=== PATIENT | male | born 1950 | race Caucasian/White ===

== ENCOUNTER 2017-02-10 10:56 | Inpatient (IN) ==
[2017-02-10] MEDS ORDERED: 0.9 % Sodium Chloride 1,000 ML IVC ONE ×3 (11:15→14:49)
--- NOTE | 2017-02-10 11:20 | Emergency Department Note ---
START Narrative - START START: I examined this patient and my medical decision-making was reviewed with the TAXICAB DISPATCHER/PA/Advanced Practice Nurse/Resident Physician. I agree with the documented findings, disposition and treatment plan as described except to the extent set forth below. ED attending note: Patient seen with emergency medicine resident Dr. Espana. Please see a copy of his note for details of the H&P, evaluation, management and disposition of this patient. We independently had [id number] contact with the patient Briefly: 66-year-old male diabetic comes in with swelling pain and redness on the lateral aspect of his left foot and ulcer at the bottom of the lateral aspect of his foot missing his left great toe due to an injury years ago. Patient says has been getting worse with discharge and odor for the past couple weeks. Examination was diabetic foot ulcer patient will get labs and imaging to exclude osteomyelitis or necrotizing infection. Admission anticipated, disposition pending.
[2017-02-10 11:39] LABS: Basophils # 0.1 K/mcL (0.0-0.2); Basophils % 0.6 %; Eosinophils # 0.3 K/mcL (0.0-0.6); Hematocrit 43.5 % (37.5-50.1); Hemoglobin 14.1 g/dL (12.9-16.9); Immature Granulocytes % 0.4 % (0-4); Lymphocytes # 0.9 K/mcL (0.6-4.6); Lymphocytes % 7.9 %; Mean Corpuscular HGB Conc 32.4 g/dL (31.6-35.5); Mean Corpuscular Hemoglobin 26.6 pg (28.0-33.3); Mean Corpuscular Volume 81.9 fL (83.0-100.0); Mean Platelet Volume 9.2 fL (9.4-12.4); Monocytes % 9.2 %; Neutrophils # 8.6 K/mcL (1.6-8.9); Platelet Count 248 K/mcL (140-400); Red Blood Count 5.31 M/mcL (4.19-5.50); Red Cell Distribution Width 12.5 % (11.5-14.5); Segmented Neutrophils % 78.9 %
[2017-02-10 11:52] LABS: Calcium 9.7 mg/dL (8.6-10.8); Potassium 3.8 mEq/L (3.5-4.5)
--- NOTE | 2017-02-10 12:22 | Emergency Department Note ---
Disposition Clinical Impression: ELLEN (acute kidney injury) Osteomyelitis of left foot Qualifiers: Osteomyelitis type: unspecified type Qualified Code(s): M86.9 - Osteomyelitis, unspecified Diabetic foot ulcer Qualifiers: Diabetic foot ulcer location: midfoot Diabetes mellitus type: type 2 Laterality : left Non-pressure ulcer stage: with necrosis of bone Qualified Code(s): E11.621 - Type 2 diabetes mellitus with foot ulcer Disposition: Admitted As Inpatient Condition: Serious Forms: ED Satisfaction Letter Time of Disposition: 16:15 Lower Extremity Injury HPI - General Chief Complaint: ED Skin/Abscess/Foreign Body Stated Complaint: Ulcer on left foot Time Seen by Provider: 02/10/17 11:11 Source: patient Limitations: no limitations Nursing Notes Reviewed: Yes Vital Signs Reviewed: Yes - History of Present Illness HPI Narrative: 66-year-old male with history of hypertension, hyperlipidemia, CAD, presents with left foot pain and left foot ulcer, patient has diabetic ulcers and great toe amputation on the left great toe from ramirez hog remote injury. She reports intermittent fever and chills, he states that he has not lifted his feet for a couple days but he thinks his pain started 2 days ago, he noticed that he had a bloody sock when he took off his scalp with this. Patient states that the pains at the bottom of his left foot on the outside of the foot. Advised patient toe. Patient also has a history of PAD. Patient reports nausea, fevers at home but no measured temperatures. He has a history of MRSA infections as well. Pt Subjective Complaint: foot injury Injury location: Left foot Onset (ago): hour(s) Pain Severity: moderate Pain Scale: 5 Improves with: nothing Worsens with: weight bearing, movement Associated symptoms: Reports: able to partially bear weight - Related Data Home Medications Medication Instructions Recorded Confirmed Aspirin [Lo-Dose Aspirin EC] 81 mg PO DAILY 04/14/16 02/10/17 Insulin DETEMIR [Levemir] 30 unit SQ BID 04/14/16 02/10/17 Insulin Human Regular [HumuLIN R] 0 unit SQ TIDWM 04/14/16 02/10/17 Lisinopril [Zestril] 40 mg PO DAILY 04/14/16 02/10/17 Simvastatin [Zocor] 40 mg PO HS 04/14/16 02/10/17 Warfarin [Coumadin] 7.5 mg PO DAILY 04/14/16 02/10/17 hydrALAZINE [HydrALAZINE] 10 mg PO DAILY 04/14/16 02/10/17 amLODIPine [Norvasc] 5 mg PO DAILY 02/10/17 02/10/17 Previous Rx's Medication Instructions Recorded Furosemide [Lasix] 20 mg PO DAILY #30 tablet 06/03/16 HYDROcodone/Acet 5/325 mg [[place] 1 tab PO Q4-6H PRN #20 tablet 06/03/16 5-325 mg] Metoprolol [Lopressor] 25 mg PO BID #60 tablet 06/03/16 Allergies Allergy/AdvReac Type Severity Reaction Status Date / Time No Known Allergies Allergy Verified 05/18/16 07:09 All systems ED: reviewed and negative except as stated. Review of Systems: As Per HPI Constitutional: Reports: as per HPI, fever, chills Eyes: Denies: eye pain ENT ED: Denies: ear pain Cardiovascular: Denies: chest pain Respiratory: Denies: cough, dyspnea Gastrointestinal: Reports: as per HPI, nausea. Denies: abdominal pain Genitourinary: Denies: urgency, dysuria Past Medical History - Past Medical History Attestation: Yes The following information was validated with the patient. Source: patient Medical history: Reports: diabetes, hypertension, peripheral artery disease, valvular heart disease Surgical history: Reports: heart valve replacement Psychiatric history: Reports: no psych history - Social History Smoking Status: Never smoker Smokeless Tobacco Status: No Alcohol use: Reports: none Drug use: Reports: none Physical Exam Constitutional: NAD, vital signs show tachycardia. Eyes: PERRLA, sclera anicteric Neck: normal inspection, neck is supple Resp: CTA bilaterally, no resp distress CV: RRR, no m/g/r +2 bilateral dorsalis pedis pulses GI: normal inspection, soft, no guarding or rigidity Back: normal inspection, no tenderness to palpation Neuro: A&O3, CNII-XII grossly intact, CHAMORRO MSK: Bilateral digit amputations of the great toe on the left and the toes on the right, Skin: Ulcerated lesion to the plantar aspect of the left foot at around the fourth or fifth metatarsal, unable to feel bone, no evidence of positive purulence, erythema around the ankle and distal, no evidence of crepitus. - General Limitations: no limitations General appearance: alert, in no apparent distress Course Course Narrative: 66-year-old male with left foot ulcer, given systemic symptoms such as fever or chills, tachycardia, concern for cellulitis possibly osteomyelitis, bleeding x- ray initial labs with lactate blood cultures, Plan to do MRI if x-ray is negative for acute pathology - Reevaluation(s) Reevaluation #1: Paged Dr Briseno. Time: 12:36 Reevaluation #2: MRI returned confirms Xray findings Vital Signs Temperature 98.2 F 02/10/17 11:01 Pulse Rate 114 02/10/17 11:01 Respiratory Rate 20 02/10/17 11:01 Blood Pressure 106/68 02/10/17 11:01 O2 Sat by Pulse Oximetry 91 02/10/17 11:01 Temperature 98.2 F 02/10/17 11:01 Pulse Rate 114 02/10/17 11:01 Respiratory Rate 20 02/10/17 11:01 Blood Pressure 106/68 02/10/17 11:01 O2 Sat by Pulse Oximetry 91 02/10/17 11:01 Oxygen Delivery Oxygen Delivery Room Air Extremity Injury, Lower - MDM Narrative Medical decision making narrative: Admitted to Dr Acuna, in stable cooondition 3 L fluids given, broad spectrum Abx started Zosyn and Vanc, Podiatry consuleted, does not meet criteria for severe sepsis, Lactate nonelevated (On SIRS criteria is Tachycardia) but therapy given Abx, BCx, WoundCx, Lactate, Abx, and 30mL/kg bolus anyway for appropriate treatment. Prior to transfer to the floor, the patient was happy and laughing, hemodynamically stable with stable vital signs no evidence of hypotension, antibiotics running, no acute distress - Differential Diagnosis Likely: sprain/strain, puncture wound - Medical Records Medical records reviewed: Yes I reviewed the patient's medical records. - Lab Data Lab results reviewed: Yes I reviewed the patient's lab results. Result diagrams: 02/10/17 11:30 02/10/17 11:30 Lab Results 02/10/17 02/10/17 02/10/17 Range/Units 11:30 11:30 11:30 WBC 10.8 (4.3-11.1) K/mcL RBC 5.31 (4.19-5.50) M/mcL Hgb 14.1 (12.9-16.9) g/dL Hct 43.5 (37.5-50.1) % MCV 81.9 L (83.0-100.0) fL MCH 26.6 L (28.0-33.3) pg MCHC 32.4 (31.6-35.5) g/dL RDW 12.5 (11.5-14.5) % Plt Count 248 (140-400) K/mcL MPV 9.2 L (9.4-12.4) fL Immature Gran % 0.4 (0-4) % Seg Neutrophils % 78.9 % Lymphocytes % 7.9 % Monocytes % 9.2 % Eosinophils % 3.0 % Basophils % 0.6 % Neutrophils # 8.6 (1.6-8.9) K/mcL Lymphocytes # 0.9 (0.6-4.6) K/mcL Monocytes # 1.0 (0.0-1.3) K/mcL Eosinophils # 0.3 (0.0-0.6) K/mcL Basophils # 0.1 (0.0-0.2) K/mcL Sodium 137 (136-145) mEq/L Potassium 3.8 (3.5-4.5) mEq/L Chloride 100 (98-109) mEq/L Carbon Dioxide 25 (19-29) mEq/L BUN 46 H (8-26) mg/dL Creatinine 2.00 H (0.72-1.25) mg/dL Est GFR ( Amer) 41 L (> 60) Est GFR (Non-Af Amer) 34 L (> 60) BUN/Creatinine Ratio 23 (6-26) Glucose 173 H (70-99) mg/dL Calculated Osmolality 300 (280-300) Lactic Acid 1.5 (0.5-2.2) mmol/L Calcium 9.7 (8.6-10.8) mg/dL - Radiology Data Radiology results reviewed: Yes I reviewed the patient's radiology results. Foot X-Ray 02/10/17 11:13 IMPRESSION: 1. Findings consistent with plantar lateral cellulitis with adjacent 1st MTP septic arthropathy and osteomyelitis of the 5th metatarsal head and P1 base. 2. Prior 1st digit amputation at the metatarsal mid diaphysis. No findings to suggest active osteomyelitis. D/ / 02/10/2017 12:26:47 Franki Logan MD / krissy Interpreting Provider: Franki Logan MD Ankle MRI 02/10/17 00:00 IMPRESSION: Diffuse soft tissue swelling and edema noted throughout the ankle and foot. Findings are most prominent along the plantar aspect of the foot distally at the level of the 5th metatarsal head. Open wound along the plantar aspect of the 5th metatarsal head which extends to underlying bone. Osteomyelitis involving the 5th metatarsal with sparing of the base. Deformity of the 5th metatarsal head may be related to previous fracture or erosive changes. Osteomyelitis also involving the proximal phalanx of the 5th digit with sparing of the distal metaphysis of the proximal phalanx. Small foci of gas within the adjacent soft tissues. No fluid collection. Diffuse fatty atrophy of visualized muscles of the foot and ankle. Very mild Achilles tendinosis. D/ / Abril Cheung MD / Abril Cheung MD Interpreting Provider: Abril Cheung MD Foot X-Ray 02/10/17 11:13 IMPRESSION: 1. Findings consistent with plantar lateral cellulitis with adjacent 1st MTP septic arthropathy and osteomyelitis of the 5th metatarsal head and P1 base. 2. Prior 1st digit amputation at the metatarsal mid diaphysis. No findings to suggest active osteomyelitis. D/ / 02/10/2017 12:26:47 Franki Logan MD / krissy Interpreting Provider: Franki Logan MD Foot MRI 02/10/17 12:13 IMPRESSION: Diffuse soft tissue swelling and edema noted throughout the ankle and foot. Findings are most prominent along the plantar aspect of the foot distally at the level of the 5th metatarsal head. Open wound along the plantar aspect of the 5th metatarsal head which extends to underlying bone. Osteomyelitis involving the 5th metatarsal with sparing of the base. Deformity of the 5th metatarsal head may be related to previous fracture or erosive changes. Osteomyelitis also involving the proximal phalanx of the 5th digit with sparing of the distal metaphysis of the proximal phalanx. Small foci of gas within the adjacent soft tissues. No fluid collection. Diffuse fatty atrophy of visualized muscles of the foot and ankle. Very mild Achilles tendinosis. D/ / Abril Cheung MD / Abril Cheung MD Interpreting Provider: Abril Cheung MD - EKG Data EKG attestation: Yes I reviewed and interpreted this EKG. EKG shows normal: sinus rhythm Rate: normal (76 bpm KS 160 QRS [address] segment elevations or depressions, flattened T waves in lead aVL specific ST segment changes) Rhythm: NSR [place]/QRS: normal Interpretation: no acute changes - Core Measures AMI Core Measures Followed: No
[2017-02-10] MEDS ORDERED: Vancomycin 1,000 MG in D5% in Water 250 ML IVPB ONE (12:31)
[2017-02-10] MEDS ORDERED: Piperacillin/Tazobactam 3.375 GM in D5% in Water (Mini-Bag+) 100 ML IVPB ONE (12:31)
[2017-02-10] MEDS ORDERED: *HR* Morphine 2 MG/ML SYRINGE IVP ONE (12:41)
[2017-02-10] MEDS ORDERED: Ondansetron 4 MG/2 ML VIAL IVP ONE (12:41)
[2017-02-10] MEDS ORDERED: Acetaminophen 325 MG TABLET PO PRN (18:18)
[2017-02-10] MEDS ORDERED: Naloxone 0.4 MG/ML INJ IVP PRN (18:18)
--- NOTE | 2017-02-10 18:33 | Internal Med History&Physical ---
<Luis Wisdom - Last Filed: 02/10/17 19:07> Date of Encounter: 02/10/17 Time of Encounter: 18:31 Assessment and Plan (1) Osteomyelitis of left foot Current visit: Yes Status: Acute New diagnosis of osteomyelitis of left foot. MRI reveals soft tissue swelling of the ankle and foot. There was noted prominent swelling on the plantar aspect distally to level of fifth metatarsal head and osteomyelitis of fifth metatarsal, as well as small amount of gas and osteomyelitis of fifth proximal phalanx. On initial presentation to the ED the patient also met SIRS criteria, reporting chills, tachycardia, fevers, nausea. However at this time he is afebrile normal sinus rhythm and hemodynamically stable. Plan is to admit as inpatient Ortho consult to assess Wound cultures sent; awaiting results Empiric antibiotic therapy started until results of culture. Start patient on vancomycin pharmacy to dose and Zosyn 3.75 every 8 hours. Plan is to narrow antibiotics based on results of cultures Continuous telemetry Ordered PT/INR, APTT We will start heparin drip as patient has history of mechanical valve Holding warfarin for now CBC and CMP in the a.m. Qualifiers: Osteomyelitis type: unspecified type Qualified Code(s): M86.9 - Osteomyelitis, unspecified (2) Diabetic foot ulcer Current visit: Yes Status: Chronic Chronic diabetic foot ulcer. MRI revealed new osteomyelitis. Plan for surgical intervention at this hospital stay. Empiric antibody therapy started with vancomycin with pharmacy to dose and Zosyn 3.75 every 8 hours. Patient's warfarin stopped PT/INR ordered and patient was placed on a heparin drip weight- based dosing Qualifiers: Diabetic foot ulcer location: midfoot Diabetes mellitus type: type 2 Laterality: left Non-pressure ulcer stage: with necrosis of bone Qualified Code(s): E11.621 - Type 2 diabetes mellitus with foot ulcer; L97.424 - 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 (3) ELLEN (acute kidney injury) Current visit: Yes Status: Chronic Acute on chronic kidney injury. Throughout review as noted the patient's creatinine has increased over the last few months. This is likely due to infection and ostium mellitus of left foot as this is from a chronic diabetic foot ulcer. Review of echocardiogram shows hypokinesis with a preserved ejection fraction. However at this time the patient will remain saline locked. We will consider gentle hydration if morning creatinine is elevated. (4) SIRS (systemic inflammatory response syndrome) Current visit: Yes Status: Acute Upon initially arriving to the ED the patient had chills, tachycardia, nausea, and fevers. However, at this time he is afebrile, normal sinus rhythm, and hemodynamically stable. Wound cultures sent left diabetic foot ulcer Empiric antibiotic therapy started for ostio myelitis of left foot. narrow ATB therapy based on culture results. CMP and CBC in a.m. We will continue to monitor (5) Cellulitis Current visit: Yes Status: Acute Cellulitis of left ankle and foot. Confirmed diagnosis of osteoporosis. Has been started on empiric therapy with vancomycin and Zosyn. Wound culture sent and pending her cultures based on results. Orthopedics consult for surgery and recommended intervention Qualifiers: Site of cellulitis: other site Qualified Code(s): L03.818 - Cellulitis of other sites (6) HTN (hypertension) Current visit: No Status: Chronic History of hypertension. However he is hemodynamically stable at this time. Continue home dose of hydralazine, beta rachell, CHARITY inhibitor. Qualifiers: Hypertension type: essential hypertension Qualified Code(s): I10 - Essential (primary) hypertension (7) DVT prophylaxis Current visit: Yes Status: Acute Patient has diabetes, peripheral vascular disease,severe limitations to activity , high risk for DVT. However, is scheduled for potential surgery tomorrow for left foot for osteomyelitis. Cannot find PT/INR in the labs. Ordered PT/INR stopped Coumadin at this time. Placing patient on heparin drip as he does have a mechanical heart valve. Internal Medicine - H&P: HPI Chief complaint: Left foot and ankle swelling; diabetic ulcer, suspect osteomyelitis Admitted From: Home Plans for Post Hospital Care: Home History of present illness: Mr. Wharton is a 66 year old male with a PMH for HTN, DM, CAD, PAD, valvular heart disease with heart valve replacement. [facility]onant to [facility] today on 02-10-17 with chills, tachycardia, nausea, fevers and swollen left foot and ankle with ongoing diabetic foot ulcer. Due to past medical history of MRSA on his other foot on previous diabetic ulcers there was high suspicion for osteomyelitis. X-ray in the ED indicates plantar cellulitis and possible osteomyelitis of the fifth metatarsal. MRI of foot and ankle confirm soft tissue swelling most prominent at plantar aspect distal to the level of fifth metatarsal and osteomyelitis of fifth metatarsal. Additionally there is small amount of gas and also colitis of the fifth proximal phalanx. He was started on broad-spectrum antibiotics in the ED which included vancomycin and Zosyn. Additionally 1 cultures were obtained and sent. Initially, he met SIRS criteria, however at this time he is no longer febrile, is now normal sinus rhythm, and hemodynamically stable. CBC in the ED unremarkable. CMP also unremarkable with the exception of elevated creatinine of 2.0. Likely resolve his infection. Ortho has artery seen the patient and plans for surgical intervention tomorrow. He is being admitted for further monitoring and evaluation and for surgical intervention Past Med Surg Social Fam HX - Past Medical History Medical history: diabetes, hypertension, peripheral artery disease, valvular heart disease Psychiatric history: no psych history - Past Surgical History Surgical History: heart valve replacement - Social History Smoking Status: Never smoker Smokeless Tobacco Status: No Alcohol use: none Drug use: none - Family History Mother History Unknown: Yes Living Status: Hx Family Cardiac Disorders: No Hx Family Respiratory Disorders: No Father History Unknown: Yes Living Status: Hx Family Cardiac Disorders: No Hx Family Respiratory Disorders: No Internal Medicine - H&P: Meds Aspirin [Lo-Dose Aspirin EC] 81 mg PO DAILY 04/14/16 [History] Insulin DETEMIR [Levemir] 30 unit SQ BID 04/14/16 [History] Insulin Human Regular [HumuLIN R] 0 unit SQ TIDWM 04/14/16 [History] Lisinopril [Zestril] 40 mg PO DAILY 04/14/16 [History] Simvastatin [Zocor] 40 mg PO HS 04/14/16 [History] Warfarin [Coumadin] 7.5 mg PO DAILY 04/14/16 [History] hydrALAZINE [HydrALAZINE] 10 mg PO DAILY 04/14/16 [History] Furosemide [Lasix] 20 mg PO DAILY #30 tablet 06/03/16 [Rx] HYDROcodone/Acet 5/325 mg [[place] 5-325 mg] 1 tab PO Q4-6H PRN #20 tablet [Rx] Metoprolol [Lopressor] 25 mg PO BID #60 tablet 06/03/16 [Rx] amLODIPine [Norvasc] 5 mg PO DAILY 02/10/17 [History] Allergies No Known Allergies Allergy (Verified 05/18/16 07:09) All Systems PM: A 10-system review of systems was performed and is negative for pertinent findings except as documented above in the HPI. - Constitutional Constitutional: chills (Chills ongoing over the last couple of), fatigue, fever( s) (Fever ongoing over the last couple of days however afebrile now), no anorexia, no night sweats - EENT Eyes: no change in vision, no discharge, no pain, no photophobia Ears: no ear discharge, no ear pain, no tinnitus Nose, mouth and throat: no dysphagia, no nasal discharge, no neck pain, no sore throat - Cardiovascular Cardiovascular ROS IM: no chest pain, no diaphoresis, no dyspnea, no lightheadedness, no palpitations, no syncope - Respiratory Respiratory: no cough, no dyspnea, no wheezing, no excessive phlegm production - Gastrointestinal Gastrointestinal: no abdominal pain, no diarrhea, no hematemesis, no hematochezia, no melena, no nausea, no vomiting - Musculoskeletal Musculoskeletal ROS IM: joint swelling (Of angle and fifth metatarsal additional edema noted throughout entire foot and ankle), no numbness, no tingling - Integumentary Integumentary IM: skin ulcer (Diabetic foot ulcer stage III), no rash, no unusual bruising - Neurological Neurological ROS: no confusion, no convulsions, no focal weakness, no numbness, no tingling, no tremor(s) - Hematologic/Lymphatic Hematologic/Lymphatic: no easy bruising - Constitutional Vitals: Temp Pulse Resp BP Pulse Ox 97.8 F 79 17 151/75 91 02/10/17 17:25 02/10/17 17:25 02/10/17 17:25 02/10/17 17:25 02/10/17 17:25 General appearance: Present: A&O X 3, pleasant, no acute distress, obese - Head Head exam: Present: atraumatic, normocephalic - Eye Eye exam: Present: PERRL, conjuntiva pink, sclera anicteric Pupils: Present: PERRL - Neck Neck exam general surgery: Present: supple, trachea midline. Absent: lymphadenopathy - Respiratory Respiratory exam: Present: CTAB. Absent: accessory muscle use, rales, rhonchi, wheezes - Cardiovascular Cardiovascular exam: Present: RRR, +S1, +S2. Absent: diastolic murmur, gallop, rubs, systolic murmur - GI/Abdominal GI/Abdominal exam: Present: normal bowel sounds, soft, no peritoneal signs. Absent: distended, tenderness - Extremities Exam Extremities exam: Present: warm, radial pulses palpable and symmetrical. Absent : calf tenderness, cyanotic, pedal edema - Expanded Lower Extremities Exam Ankle exam: Present: erythema, swelling. Absent: normal inspection, tenderness Foot/Toe exam: Present: amputation (Left great toe amputation), erythema, swelling, tenderness at base of 5th metatarsal (Mild tenderness noted at base of fifth metatarsal; stage III diabetic foot ulcer nonhealing see history of present illness). Absent: calcaneal tenderness, normal inspection, tenderness - Neurological Exam Neurological exam: Present: CN II-XII intact, oriented X3, no focal deficits. Absent: pronater drift, facial droop, speech deficit - Skin Skin exam: Present: dry, intact Internal Med - H&P Results - Labs CBC & Chem 7: 02/10/17 11:30 02/10/17 11:30 - Diagnostic Studies Other Images Additional comments: MRI of left foot and ankle reveals soft tissue swelling most prominent at plantar aspect distally to level of fifth metatarsal head with osteo-mellitus of fifth metatarsal and fifth proximal phalanx as per radiology read <Elisha Danielle - Last Filed: 02/11/17 18:09> Date of Encounter: 02/11/17 Internal Medicine - H&P: HPI History of present illness: Mr. Wharton is a 66 year old male All Systems PM: A 10-system review of systems was performed and is negative for pertinent findings except as documented above in the HPI. - Constitutional Vitals: Temp Pulse Resp BP Pulse Ox 98.2 F 78 16 154/75 93 02/11/17 14:42 02/11/17 14:42 02/11/17 14:42 02/11/17 14:42 02/11/17 14:42 Internal Med - H&P Results - Labs CBC & Chem 7: 02/11/17 06:58 02/11/17 06:58 Labs: Short CBC 02/11/17 Range/Units 06:58 WBC 9.4 (4.3-11.1) K/mcL Hgb 12.1 L D (12.9-16.9) g/dL Hct 37.3 L (37.5-50.1) % Plt Count 196 (140-400) K/mcL Neutrophils # 7.0 (1.6-8.9) K/mcL BMP 02/11/17 06:58 Sodium 137 Potassium 4.3 Chloride 106 Carbon Dioxide 28 BUN 32 H D Creatinine 1.49 H Glucose 187 H Calcium 8.8 Liver Function 02/11/17 Range/Units 06:58 Total Bilirubin 0.4 (0.2-1.2) mg/dL AST 15 (5-34) Units/L ALT 10 (0-55) Units/L Alkaline Phosphatase 76 (38-126) Units/L Albumin 2.6 L (3.5-5.0) g/dL - Attending Attestation I examined this patient and my medical decision-making was reviewed with the CLINICAL SUPPORT SPECIALIST.. I agree with the documented findings, disposition and treatment plan as described .
[2017-02-10] MEDS ORDERED: D5% in Water 1,000 ML IVC PRN (18:52)
[2017-02-10] MEDS ORDERED: Dextrose Gel 15 GM PO PRN ×2 (18:52)
[2017-02-10] MEDS ORDERED: *HR* Dextrose 50 % in Water (Syg) 50 ML SYRINGE IVP PRN (18:52)
[2017-02-10] MEDS ORDERED: Vancomycin 1,500 MG in D5% in Water 250 ML IVPB SCH (19:00)
[2017-02-10] MEDS ORDERED: *HR* Heparin 5,000 UNIT/ML VIAL IVP PRN ×2 (19:04)
[2017-02-10] MEDS ORDERED: Heparin 25,000 UNIT/500 ML D5W 25,000 UNIT/500 ML MLS IVC SCH (19:15)
[2017-02-10 20:42] LABS: INR 9.6; Prothrombin Time 110.7 Seconds (9.4-12.1)
[2017-02-10 20:50] LABS: Activated Partial Thrombo Time 83.2 Seconds (26.0-36.0)
[2017-02-10] MEDS: *HR* HYDROcodone/Acet 5/325 mg TABLET PO PRN (20:51)
[2017-02-10] MEDS: Insulin DETEMIR 100 UNIT/ML X5UNITS SQ SCH (20:51)
[2017-02-10] MEDS: Insulin LISPRO 300 UNITS/3 ML VIAL SQ SCH (20:53)
[2017-02-10] MEDS ORDERED: *HR* Phytonadione 10 MG/ML AMPUL SQ ONE (21:01)
--- NOTE | 2017-02-10 21:06 | Event Note ---
Date of Encounter: 02/10/17 Time of Encounter: 21:03 EXECUTIVE VICE PRESIDENT BUSINESS DEVELOPMENT notified of critical PT/INR of 110 and 9.6. Orders given for 1mg IM Vitamin K now and to hold intended heparin gtt. The patient was to have his coumadin stopped and he was to be started on a heparin gtt based upon results of PT/INR and PTT as he has a mechanical valve. Since he is supratherapeutic I will hold heparin gtt and coumadin and draw a PT/INR in the am.
[2017-02-11] MEDS: Vancomycin 1,500 MG in D5% in Water 250 ML IVPB SCH ×2 (02:11→13:31)
[2017-02-11] MEDS ORDERED: *HR* Enoxaparin 40 MG/0.4 ML SYRINGE SQ SCH (06:00)
[2017-02-11 07:24] LABS: Albumin 2.6 g/dL (3.5-5.0); Albumin/Globulin Ratio 0.7 (1.1-2.2); Bilirubin,Total 0.4 mg/dL (0.2-1.2); Calcium 8.8 mg/dL (8.6-10.8); Potassium 4.3 mEq/L (3.5-4.5); Total Protein 6.6 g/dL (6.0-8.3)
[2017-02-11] MEDS: hydrALAZINE 10 MG TABLET PO SCH (07:32)
[2017-02-11] MEDS: Aspirin Enteric Coated 81 MG Tablet PO SCH (07:32)
[2017-02-11] MEDS: Insulin LISPRO 300 UNITS/3 ML VIAL SQ SCH ×4 (07:33→21:05)
[2017-02-11] MEDS: Furosemide 20 MG TABLET PO SCH (07:33)
[2017-02-11] MEDS: Insulin DETEMIR 100 UNIT/ML X5UNITS SQ SCH ×2 (07:33→21:06)
[2017-02-11] MEDS: amLODIPine 5 MG TABLET PO SCH (07:33)
[2017-02-11 07:38] LABS: INR 10.1
[2017-02-11 08:05] LABS: Basophils # 0.1 K/mcL (0.0-0.2); Basophils % 0.9 %; Eosinophils # 0.5 K/mcL (0.0-0.6); Eosinophils % 5.4 %; Hematocrit 37.3 % (37.5-50.1); Immature Granulocytes % 0.3 % (0-4); Lymphocytes # 0.4 K/mcL (0.6-4.6); Mean Corpuscular HGB Conc 32.4 g/dL (31.6-35.5); Mean Corpuscular Hemoglobin 27.3 pg (28.0-33.3); Mean Platelet Volume 9.3 fL (9.4-12.4); Monocytes # 1.4 K/mcL (0.0-1.3); Platelet Count 196 K/mcL (140-400); Red Blood Count 4.44 M/mcL (4.19-5.50); Red Cell Distribution Width 12.6 % (11.5-14.5); Segmented Neutrophils % 74.4 %
[2017-02-11 08:12] LABS: Hemoglobin 12.1 g/dL (12.9-16.9)
[2017-02-11] MEDS ORDERED: Lisinopril 20 MG TABLET PO SCH (09:00)
[2017-02-11] MEDS: *HR* HYDROcodone/Acet 5/325 mg TABLET PO PRN ×2 (09:44→16:24)
--- NOTE | 2017-02-11 09:51 | Podiatry Consult Note ---
Date of Encounter: 02/10/17 Time of Encounter: 17:49 Assessment and Plan (1) Diabetic foot ulcer Current visit: No Status: Acute Currently this patient is in need of a fifth metatarsal resection with possible irritation of the fifth toe or resection of the proximal phalanx of the fifth toe of the left foot. We will await further workup and until patient is stable for surgery. We will need to wait until the INR is stable as well for surgery. We will schedule this patient for surgery but may need to postpone until Monday. The patient was instructed that the surgery would be performed and that it would be a resection of the fifth metatarsal with possible application of the fifth digit of the left foot. The patient related understanding.Patient was informed of the risks and complications of surgery. These may include but are not limited to the following; nerve damage, numbness, tingling, RSD/CRPS, loss of motor function, loss of toe, loss of limb, loss of life, ischemia, wound healing issues, infection, scarring, keloid formation, continued pain, arthritis, non-union, mal-union, prominent hardware, displaced hardware, reaction to hardware, the need to remove hardware, bruising, continued limp, the need for future surgery, over correction, under correction, chronic swelling , the need for physical therapy, stiffness of joints, ulceration, slow healing, wound dehiscence, reaction to implant, reaction to sutures. The patient was informed of the possible conservative treatments available which may include but are not limited to the following: Orthotics, bracing, non -weight bearing, physical therapy, padding, taping, steroid injections, NSAIDS, casting. The patient was given the option to seek a second opinion. It was explained that surgery is an art and not an exact science therefore results cannot be guaranteed. All the patients questions and concerns were addressed. Patient agrees to have the surgery despite the possible risks and complications. Absolutely no guarantees were given or implied. Qualifiers: Diabetes mellitus type: type 2 Laterality: right Qualified Code(s): E11.621 - Type 2 diabetes mellitus with foot ulcer; L97.519 - Non-pressure chronic ulcer of other part of right foot with unspecified severity History of Present Illness Chief complaint: Ulceration of foot HPI: Mr. Wharton is a 66 year old male who relates that he had an ulceration/callus on the lateral aspect of the left foot which became a sore and got infected. Patient relates that he has very little sensation and it is hard to determine when he has injuries until they get infected. Patient denies any other issues. Past Med Surg Social Fam HX - Past Medical History Medical history: diabetes, hypertension, peripheral artery disease, valvular heart disease Psychiatric history: no psych history - Past Surgical History Surgical History: heart valve replacement - Social History Smoking Status: Never smoker Smokeless Tobacco Status: No Alcohol use: none Drug use: none - Family History Mother History Unknown: Yes Living Status: Hx Family Cardiac Disorders: No Hx Family Respiratory Disorders: No Father History Unknown: Yes Living Status: Hx Family Cardiac Disorders: No Hx Family Respiratory Disorders: No Medications and Allergies Aspirin [Lo-Dose Aspirin EC] 81 mg PO DAILY 04/14/16 [History] Insulin DETEMIR [Levemir] 30 unit SQ BID 04/14/16 [History] Insulin Human Regular [HumuLIN R] 0 unit SQ TIDWM 04/14/16 [History] Lisinopril [Zestril] 40 mg PO DAILY 04/14/16 [History] Simvastatin [Zocor] 40 mg PO HS 04/14/16 [History] Warfarin [Coumadin] 7.5 mg PO DAILY 04/14/16 [History] hydrALAZINE [HydrALAZINE] 10 mg PO DAILY 04/14/16 [History] Furosemide [Lasix] 20 mg PO DAILY #30 tablet 06/03/16 [Rx] HYDROcodone/Acet 5/325 mg [[place] 5-325 mg] 1 tab PO Q4-6H PRN #20 tablet [Rx] Metoprolol [Lopressor] 25 mg PO BID #60 tablet 06/03/16 [Rx] amLODIPine [Norvasc] 5 mg PO DAILY 02/10/17 [History] Allergies No Known Allergies Allergy (Verified 05/18/16 07:09) All Systems Reviewed: A 10-system review of systems was performed and is negative for pertinent findings except as documented above in the HPI. Physical Exam - Constitutional Vitals: Temp Pulse Resp BP Pulse Ox 98.4 F 82 18 156/71 93 02/11/17 05:07 02/11/17 05:07 02/11/17 05:07 02/11/17 05:07 02/11/17 07:10 Exam: Radiographic exam demonstrates osteomyelitis of the fifth metatarsal and digit. Patient has an ulceration sub-fifth met head that is full-thickness to the level of the bone and has foul-smelling purulent drainage. Patient has erythema up to the level of the ankle. Pedal pulses are faintly palpable. Capillary fill time is intact to the digits. Sensation significantly diminished consistent with peripheral neuropathy. Results - Labs Result Diagrams: 02/11/17 06:58 02/11/17 06:58 Labs: Abnormal lab results Hgb 12.1 g/dL (12.9-16.9) L D 02/11/17 06:58 Hct 37.3 % (37.5-50.1) L 02/11/17 06:58 MCH 27.3 pg (28.0-33.3) L 02/11/17 06:58 MPV 9.3 fL (9.4-12.4) L 02/11/17 06:58 Lymphocytes # 0.4 K/mcL (0.6-4.6) L 02/11/17 06:58 Monocytes # 1.4 K/mcL (0.0-1.3) H 02/11/17 06:58 PT 117.0 Seconds (9.4-12.1) H* 02/11/17 06:58 INR 10.1 H* 02/11/17 06:58 APTT 83.2 Seconds (26.0-36.0) H 02/10/17 19:17 BUN 32 mg/dL (8-26) H D 02/11/17 06:58 Creatinine 1.49 mg/dL (0.72-1.25) H 02/11/17 06:58 Est GFR ( Amer) 58 (> 60) L 02/11/17 06:58 Est GFR (Non-Af Amer) 47 (> 60) L 02/11/17 06:58 Glucose 187 mg/dL (70-99) H 02/11/17 06:58 POC Glucose 194 (58-89) H 02/11/17 05:20 Hemoglobin A1c 10.0 % (-5.6) H 02/10/17 19:17 Albumin 2.6 g/dL (3.5-5.0) L 02/11/17 06:58 Globulin 4.0 g/dL (2.4-3.5) H 02/11/17 06:58 Albumin/Globulin Ratio 0.7 (1.1-2.2) L 02/11/17 06:58 H & H 02/11/17 Range/Units 06:58 Hgb 12.1 L D (12.9-16.9) g/dL Hct 37.3 L (37.5-50.1) % All other labs normal. Consult Discharge Plan - Plan Referrals: Checo Briseno DPM [Partnered Physician] -
[2017-02-11] MEDS ORDERED: *HR* Phytonadione 5 MG TABLET PO ONE (11:49)
[2017-02-11] MEDS: Gabapentin 100 MG CAPSULE PO SCH ×3 (12:16→21:07)
[2017-02-11 16:33] LABS: Acinetobacter baumannii by PCR Not Detected (Not Detect); Candida albicans by PCR Not Detected (Not Detect); Candida glabrata by PCR Not Detected (Not Detect); Candida krusei by PCR Not Detected (Not Detect); Candida parapsilosis by PCR Not Detected (Not Detect); Candida tropicalis by PCR Not Detected (Not Detect); Enterococcus by PCR Not Detected (Not Detect); Escherichia coli by PCR Not Detected (Not Detect); Klebsiella oxytoca by PCR Not Detected (Not Detect); Klebsiella pneumoniae by PCR Not Detected (Not Detect); Pseudomonas aeruginosa by PCR Not Detected (Not Detect); Serratia marcescens by PCR Not Detected (Not Detect); Staphylococcus aureus by PCR Not Detected (Not Detect); Streptococcus agalactiae(B)PCR Not Detected (Not Detect); Streptococcus by PCR Not Detected (Not Detect); Streptococcus pneumoniae PCR Not Detected (Not Detect); Streptococcus pyogenes (A) PCR Not Detected (Not Detect)
[2017-02-11] MEDS: Piperacillin/Tazobactam 3.375 GM in D5% in Water (Mini-Bag+) 100 ML IVPB SCH (21:08)
--- NOTE | 2017-02-11 21:17 | Internal Med Progress Note ---
Date of Encounter: 02/11/17 Time of Encounter: 10:15 - Assessment and plan (1) Diabetic foot ulcer Current Visit: No Status: Acute Assessment and plan: Currently on IV abx. Podiatry consult. INR too high for any surgery. Continue local wound care and abx at this time. Qualifiers: Diabetes mellitus type: type 2 Laterality: right Qualified Code(s): E11.621 - Type 2 diabetes mellitus with foot ulcer; L97.519 - Non-pressure chronic ulcer of other part of right foot with unspecified severity (2) Osteomyelitis of left foot Current Visit: Yes Status: Acute Assessment and plan: IV abx currently with podiatry consult. Qualifiers: Osteomyelitis type: unspecified type Qualified Code(s): M86.9 - Osteomyelitis, unspecified (3) Bacteremia Current Visit: Yes Status: Acute Assessment and plan: Awaiting final cx results. Gram positive cocci. Currently on Vancomycin. (4) Acute kidney injury Current Visit: No Status: Acute Assessment and plan: Monitor tomorrow. Recheck labs. Avoid nephrotoxins. (5) HTN (hypertension) Current Visit: No Status: Chronic Assessment and plan: Currently appears controlled. Continue home meds. Qualifiers: Hypertension type: essential hypertension Qualified Code(s): I10 - Essential (primary) hypertension (6) CKD (chronic kidney disease) Current Visit: No Status: Chronic Assessment and plan: Monitoring. Qualifiers: Chronic kidney disease stage: stage 3 (moderate) Qualified Code(s): N18.3 - Chronic kidney disease, stage 3 (moderate) - Subjective Interval history: Mr. Wharton is currently admitted for osteomyelitis of his L foot. He is moderate to high risk due to need for IV meds and potential for worsening infection. Mr. Wharton is worried about his sugar and INR. No fever or chills. Blood cx positive for gram positive bacteria. No GI symptoms. - Constitutional Vitals: Temp Pulse Resp BP Pulse Ox 98.2 F 78 16 154/75 93 02/11/17 14:42 02/11/17 14:42 02/11/17 14:42 02/11/17 14:42 02/11/17 14:42 General appearance: Present: A&O X 3 - Head Head exam: Present: normocephalic - Eye Eye exam: Present: conjuntiva pink - ENT ENT exam: Present: mucous membranes dry - Respiratory Respiratory exam: Present: decreased breath sounds, CTAB. Absent: rhonchi, tachypnea - Cardiovascular Cardiovascular exam: Present: RRR. Absent: tachycardia - GI/Abdominal GI/Abdominal exam: Present: soft. Absent: tenderness - Extremities Exam Additional comments: Dressing intact - Neurological Exam Neurological exam: Present: alert, oriented X3 Internal Medicine: Result - Labs CBC & Chem 7: 02/11/17 06:58 02/11/17 06:58 Labs: Short CBC 02/11/17 Range/Units 06:58 WBC 9.4 (4.3-11.1) K/mcL Hgb 12.1 L D (12.9-16.9) g/dL Hct 37.3 L (37.5-50.1) % Plt Count 196 (140-400) K/mcL Neutrophils # 7.0 (1.6-8.9) K/mcL BMP 02/11/17 06:58 Sodium 137 Potassium 4.3 Chloride 106 Carbon Dioxide 28 BUN 32 H D Creatinine 1.49 H Glucose 187 H Calcium 8.8 Liver Function 02/11/17 Range/Units 06:58 Total Bilirubin 0.4 (0.2-1.2) mg/dL AST 15 (5-34) Units/L ALT 10 (0-55) Units/L Alkaline Phosphatase 76 (38-126) Units/L Albumin 2.6 L (3.5-5.0) g/dL - ABG Interpretation ABG results: PT/INR, D-dimer PT 117.0 Seconds (9.4-12.1) H* 02/11/17 06:58 Consult Discharge Plan - Plan Referrals: Checo Briseno DPM [Partnered Physician] -
[2017-02-12 01:59] LABS: Mean Corpuscular HGB Conc 31.6 g/dL (31.6-35.5); Mean Corpuscular Hemoglobin 26.4 pg (28.0-33.3); Mean Corpuscular Volume 83.7 fL (83.0-100.0); Mean Platelet Volume 9.9 fL (9.4-12.4); Platelet Count 170 K/mcL (140-400); Red Blood Count 4.54 M/mcL (4.19-5.50); Red Cell Distribution Width 12.5 % (11.5-14.5)
[2017-02-12 02:13] LABS: INR 3.7; Prothrombin Time 41.5 Seconds (9.4-12.1)
[2017-02-12 02:18] LABS: Albumin 2.5 g/dL (3.5-5.0); Albumin/Globulin Ratio 0.6 (1.1-2.2); Bilirubin,Total 0.6 mg/dL (0.2-1.2); Calcium 8.5 mg/dL (8.6-10.8); Globulin 4.1 g/dL (2.4-3.5); Magnesium 1.5 mg/dL (1.6-2.6); Total Protein 6.6 g/dL (6.0-8.3)
[2017-02-12 02:21] LABS: Potassium 4.7 mEq/L (3.5-4.5)
[2017-02-12] MEDS: Piperacillin/Tazobactam 3.375 GM in D5% in Water (Mini-Bag+) 100 ML IVPB SCH ×3 (04:38→21:57)
[2017-02-12] MEDS: *HR* HYDROcodone/Acet 5/325 mg TABLET PO PRN ×3 (04:41→22:00)
[2017-02-12] MEDS: Insulin LISPRO 300 UNITS/3 ML VIAL SQ SCH ×4 (07:48→21:58)
[2017-02-12] MEDS: Vancomycin 1,750 MG in D5% in Water 500 ML IVPB SCH (07:48)
[2017-02-12] MEDS: Furosemide 20 MG TABLET PO SCH (07:49)
[2017-02-12] MEDS: hydrALAZINE 10 MG TABLET PO SCH (07:49)
[2017-02-12] MEDS: Aspirin Enteric Coated 81 MG Tablet PO SCH (07:49)
[2017-02-12] MEDS: Insulin DETEMIR 100 UNIT/ML X5UNITS SQ SCH ×2 (07:49→21:56)
[2017-02-12] MEDS: Gabapentin 100 MG CAPSULE PO SCH ×3 (07:49→21:57)
[2017-02-12] MEDS: amLODIPine 5 MG TABLET PO SCH (07:50)
--- NOTE | 2017-02-12 11:23 | Internal Med Progress Note ---
<Tabitha Coreas - Last Filed: 02/12/17 14:56> Date of Encounter: 02/12/17 Time of Encounter: 11:21 - Assessment and plan (1) Osteomyelitis of left foot Current Visit: Yes Status: Acute Assessment and plan: Pt has hx ulcers, osteo in b/l feet. Wound Culture growing Morganella inder.ssp morganii and E. coli Vancomycin and Zosyn Day 3 Podiatry consulted, appreciate their recommendations INR 3.7 today, has been too high for surgery Plan: -Continue IV abx -Continue local wound care per podiatry -Will recheck INR later today -Plan to restart Hep SQ once INR is less than or equal to 3 in the setting of mechanical valve Qualifiers: Osteomyelitis type: unspecified type Qualified Code(s): M86.9 - Osteomyelitis, unspecified (2) Diabetic foot ulcer Current Visit: No Status: Acute Assessment and plan: Plan per above Qualifiers: Diabetes mellitus type: type 2 Laterality: right Qualified Code(s): E11.621 - Type 2 diabetes mellitus with foot ulcer; L97.519 - Non-pressure chronic ulcer of other part of right foot with unspecified severity (3) Bacteremia Current Visit: Yes Status: Acute Assessment and plan: Awaiting final cx results, growing Gram positive cocci. Vancomycin Day 3 Zosyn Day 3 Plan: -Continue IV abx -Await final culture and sensitivities (4) Acute kidney injury Current Visit: No Status: Acute Assessment and plan: SCr 1.63, GFR 43 Plan: -Continue to monitor -Will renally dose medications and avoid nephrotoxins as able (5) CKD (chronic kidney disease) Current Visit: No Status: Chronic Assessment and plan: Monitoring. Qualifiers: Chronic kidney disease stage: stage 3 (moderate) Qualified Code(s): N18.3 - Chronic kidney disease, stage 3 (moderate) (6) HTN (hypertension) Current Visit: No Status: Chronic Assessment and plan: Currently appears controlled. Continue home meds. Qualifiers: Hypertension type: essential hypertension Qualified Code(s): I10 - Essential (primary) hypertension - Subjective Interval history: Patient seen and examined. He denies any cp, sob, fevers, chills or any complaints at this time. - Constitutional Vitals: Temp Pulse Resp BP Pulse Ox 98.1 F 73 16 140/65 90 02/12/17 11:06 02/12/17 11:06 02/12/17 11:06 02/12/17 11:06 02/12/17 11:06 General appearance: Present: cooperative, A&O X 3, pleasant, no acute distress, answers questions appropriately - Head Head exam: Present: atraumatic, normocephalic - Neck Neck exam general surgery: Present: supple, trachea midline - Respiratory Respiratory exam: Present: CTAB. Absent: accessory muscle use, rales, rhonchi, wheezes - Cardiovascular Cardiovascular exam: Present: RRR, +S1, +S2. Absent: diastolic murmur, gallop, rubs, systolic murmur - GI/Abdominal GI/Abdominal exam: Present: normal bowel sounds, soft, no peritoneal signs. Absent: distended, tenderness - Extremities Exam Extremities exam: Present: normal capillary refill, pedal edema, warm, radial pulses palpable and symmetrical. Absent: calf tenderness - Neurological Exam Neurological exam: Present: alert, oriented X3, no focal deficits. Absent: motor sensory deficit, facial droop, speech deficit - Psychiatric Psychiatric exam: Present: normal affect, normal mood - Skin Skin exam: Present: dry, erythema (left foot/ankle), petechiae (left LE), warm Internal Medicine: Result - Labs CBC & Chem 7: 02/12/17 00:52 02/12/17 00:52 Labs: Short CBC 02/12/17 Range/Units 00:52 WBC 9.1 (4.3-11.1) K/mcL Hgb 12.0 L (12.9-16.9) g/dL Hct 38.0 (37.5-50.1) % Plt Count 170 (140-400) K/mcL BMP 02/12/17 00:52 Sodium 134 L Potassium 4.7 H Chloride 103 Carbon Dioxide 24 BUN 25 Creatinine 1.63 H Glucose 290 H Calcium 8.5 L Liver Function 02/12/17 Range/Units 00:52 Total Bilirubin 0.6 (0.2-1.2) mg/dL AST 17 (5-34) Units/L ALT 10 (0-55) Units/L Alkaline Phosphatase 74 (38-126) Units/L Albumin 2.5 L (3.5-5.0) g/dL - ABG Interpretation ABG results: PT/INR, D-dimer PT 41.5 Seconds (9.4-12.1) H D 02/12/17 00:52 Consult Discharge Plan - Plan Referrals: Checo Briseno DPM [Partnered Physician] - <Mikel Weaver - Last Filed: 02/12/17 17:35> Date of Encounter: 02/12/17 - Assessment and plan (1) Diabetic foot ulcer Current Visit: No Status: Acute Qualifiers: Diabetes mellitus type: type 2 Laterality: right Qualified Code(s): E11.621 - Type 2 diabetes mellitus with foot ulcer; L97.519 - Non-pressure chronic ulcer of other part of right foot with unspecified severity (2) Osteomyelitis of left foot Current Visit: Yes Status: Acute Qualifiers: Osteomyelitis type: unspecified type Qualified Code(s): M86.9 - Osteomyelitis, unspecified (3) Bacteremia Current Visit: Yes Status: Acute (4) Acute kidney injury Current Visit: No Status: Acute (5) HTN (hypertension) Current Visit: No Status: Chronic Qualifiers: Hypertension type: essential hypertension Qualified Code(s): I10 - Essential (primary) hypertension (6) CKD (chronic kidney disease) Current Visit: No Status: Chronic Qualifiers: Chronic kidney disease stage: stage 3 (moderate) Qualified Code(s): N18.3 - Chronic kidney disease, stage 3 (moderate) - Constitutional Vitals: Temp Pulse Resp BP Pulse Ox 98.0 F 83 18 151/79 90 02/12/17 16:21 02/12/17 16:21 02/12/17 16:21 02/12/17 16:21 02/12/17 16:21 Internal Medicine: Result - Labs CBC & Chem 7: 02/12/17 00:52 02/12/17 00:52 Labs: Short CBC 02/12/17 Range/Units 00:52 WBC 9.1 (4.3-11.1) K/mcL Hgb 12.0 L (12.9-16.9) g/dL Hct 38.0 (37.5-50.1) % Plt Count 170 (140-400) K/mcL BMP 02/12/17 00:52 Sodium 134 L Potassium 4.7 H Chloride 103 Carbon Dioxide 24 BUN 25 Creatinine 1.63 H Glucose 290 H Calcium 8.5 L Liver Function 02/12/17 Range/Units 00:52 Total Bilirubin 0.6 (0.2-1.2) mg/dL AST 17 (5-34) Units/L ALT 10 (0-55) Units/L Alkaline Phosphatase 74 (38-126) Units/L Albumin 2.5 L (3.5-5.0) g/dL - ABG Interpretation ABG results: PT/INR, D-dimer PT 23.6 Seconds (9.4-12.1) H 02/12/17 16:00 - Attending Attestation I examined this patient and my medical decision-making was reviewed with the Resident Physician on 02/12/17. I agree with the documented findings, disposition and treatment plan as described except to the extent set forth below. Mr. Wharton is currently admitted for acute osteomyelitis of L foot. He is anticoagulated for mechanical valve. He remains moderate to high risk due to potential for worsening infectious status. Mr. Wharton has no new complaints. No fever or chills. INR has been coming down. No GI issues. Pain controlled at this time. Exam alert. Comfortable. Mucus membranes dry Heart reg Lungs clear Abd soft Dressing intact I/P 1. OM L foot 2. [facility] valve - start heparin when INR around 3. Further diagnoses and plan as above.
--- NOTE | 2017-02-12 12:21 | Electrocardiograph Report ---
[place] [id number] Test Date: 2017-02-10 Pat Name: Tay Wharton Department: 102 Room: 3A63 Gender: M Layboy Tender: Cecelia : 1950 Requested By: Collin Espana Order Number: [id number] Reading MD: Megan Fowler Measurements Intervals [place] Rate: 76 P: 37 UT: 160 QRS: 0 QRSD: 99 T: 78 QT: 418 QTc: 449 Interpretive Statements SINUS RHYTHM POOR R WAVE PROGRESSION NONSPECIFIC ST & T-WAVE ABNORMALITY Electronically Signed On 02-12-2017 12:20:13 EDT by Megan Fowler
[2017-02-12] MEDS ORDERED: Vancomycin 1,500 MG in D5% in Water 250 ML IVPB SCH (13:00)
[2017-02-12 16:17] LABS: INR 2.1; Prothrombin Time 23.6 Seconds (9.4-12.1)
[2017-02-12] MEDS ORDERED: *HR* Heparin 5,000 UNIT/ML VIAL IVP ONE (17:38)
[2017-02-12] MEDS ORDERED: *HR* Heparin 5,000 UNIT/ML VIAL IVP PRN (17:40)
[2017-02-12 18:22] LABS: Hemoglobin 13.2 g/dL (12.9-16.9); Mean Corpuscular HGB Conc 32.2 g/dL (31.6-35.5); Mean Corpuscular Hemoglobin 26.4 pg (28.0-33.3); Mean Platelet Volume 8.7 fL (9.4-12.4); Platelet Count 206 K/mcL (140-400); Red Cell Distribution Width 12.4 % (11.5-14.5)
[2017-02-12 18:35] LABS: INR 1.9; Prothrombin Time 21.2 Seconds (9.4-12.1)
[2017-02-12 18:38] LABS: Activated Partial Thrombo Time 35.6 Seconds (26.0-36.0)
[2017-02-12] MEDS: Heparin 25,000 UNIT/500 ML D5W 25,000 UNIT/500 ML MLS IVC SCH (18:45)
[2017-02-13 01:42] LABS: Albumin 2.7 g/dL (3.5-5.0); Albumin/Globulin Ratio 0.7 (1.1-2.2); Bilirubin,Total 0.3 mg/dL (0.2-1.2); Calcium 8.5 mg/dL (8.6-10.8); Globulin 4.1 g/dL (2.4-3.5); Potassium 3.9 mEq/L (3.5-4.5); Total Protein 6.8 g/dL (6.0-8.3)
[2017-02-13 03:06] LABS: Prothrombin Time 22.1 Seconds (9.4-12.1)
[2017-02-13 03:10] LABS: Heparin anti-factor XA UFH 0.44 IU/mL (0.30-0.70)
[2017-02-13 05:47] LABS: Basophils # 0.1 K/mcL (0.0-0.2); Basophils % 0.8 %; Eosinophils # 0.7 K/mcL (0.0-0.6); Eosinophils % 8.7 %; Hematocrit 37.8 % (37.5-50.1); Hemoglobin 12.2 g/dL (12.9-16.9); Immature Granulocytes % 0.5 % (0-4); Lymphocytes # 0.9 K/mcL (0.6-4.6); Mean Corpuscular HGB Conc 32.3 g/dL (31.6-35.5); Mean Corpuscular Hemoglobin 26.4 pg (28.0-33.3); Mean Corpuscular Volume 81.8 fL (83.0-100.0); Mean Platelet Volume 9.3 fL (9.4-12.4); Monocytes # 1.1 K/mcL (0.0-1.3); Monocytes % 14.2 %; Neutrophils # 4.9 K/mcL (1.6-8.9); Platelet Count 208 K/mcL (140-400); Red Blood Count 4.62 M/mcL (4.19-5.50); Red Cell Distribution Width 12.4 % (11.5-14.5); Segmented Neutrophils % 63.8 %
[2017-02-13] MEDS: Piperacillin/Tazobactam 3.375 GM in D5% in Water (Mini-Bag+) 100 ML IVPB SCH ×3 (06:07→20:20)
[2017-02-13] MEDS: Aspirin Enteric Coated 81 MG Tablet PO SCH (08:54)
[2017-02-13] MEDS: amLODIPine 5 MG TABLET PO SCH (08:54)
[2017-02-13] MEDS: hydrALAZINE 10 MG TABLET PO SCH (08:54)
[2017-02-13] MEDS: Gabapentin 100 MG CAPSULE PO SCH ×3 (08:54→20:14)
[2017-02-13] MEDS: Furosemide 20 MG TABLET PO SCH (08:54)
[2017-02-13] MEDS: Insulin DETEMIR 100 UNIT/ML X5UNITS SQ SCH ×2 (08:55→20:20)
[2017-02-13] MEDS: Vancomycin 1,750 MG in D5% in Water 500 ML IVPB SCH (08:55)
[2017-02-13] MEDS: Insulin LISPRO 300 UNITS/3 ML VIAL SQ SCH ×4 (08:56→21:55)
--- NOTE | 2017-02-13 10:05 | Internal Med Progress Note ---
<Vaughn Ruff - Last Filed: 02/13/17 14:45> Date of Encounter: 02/13/17 Time of Encounter: 10:03 - Assessment and plan (1) Osteomyelitis of left foot Status: Acute Assessment and plan: Pt has hx ulcers, osteo in b/l feet. Wound Culture growing Morganella inder.ssp morganii and E. coli Vancomycin and Zosyn Day 4 Podiatry consulted, appreciate their recommendations INR 2.0 today - previsoulsy too high for surgery Plan: -Continue IV abx -Continue local wound care per podiatry -Plan to restart Hep SQ once INR is less than or equal to 3 in the setting of mechanical valve Qualifiers: Osteomyelitis type: unspecified type Qualified Code(s): M86.9 - Osteomyelitis, unspecified (2) Diabetic foot ulcer Status: Chronic Assessment and plan: Plan as above Qualifiers: Diabetic foot ulcer location: midfoot Diabetes mellitus type: type 2 Laterality: left Non-pressure ulcer stage: with necrosis of bone Qualified Code(s): E11.621 - Type 2 diabetes mellitus with foot ulcer; L97.424 - 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 (3) Bacteremia Status: Acute Assessment and plan: Awaiting final culture results - growing anearobic gram positive cocci Vancomycin Day 4 Zosyn Day 4 Plan: -Continue IV abx -Await final culture and sensitivities (4) Qwdzu-tj-kwryyyo kidney injury Status: Acute Assessment and plan: SCr 1.52, GFR 46 - continue to monitor, improving Renally dose medications and avoid nephrotoxins as able Qualifiers: Chronic kidney disease stage: stage 3 (moderate) Qualified Code(s): N17.9 - Acute kidney failure, unspecified; N18.3 - Chronic kidney disease, stage 3 ( moderate) (5) HTN (hypertension) Status: Chronic Assessment and plan: Currently appears controlled. Continue home meds. Qualifiers: Hypertension type: essential hypertension Qualified Code(s): I10 - Essential (primary) hypertension - Subjective Interval history: Patient seen and examined. Reports he is feeling well with no complaints. Admits to continued Left LE extremity from ulcer/osteomyelitis. Denies chest pain, dyspnea, cough, N/V/D, dysuria, or leg pain. - Constitutional Vitals: Temp Pulse Resp BP Pulse Ox 98.0 F 70 17 155/77 93 08/14/17 04:52 02/13/17 04:52 02/13/17 04:52 02/13/17 04:52 02/13/17 04:52 General appearance: Present: cooperative, A&O X 3, pleasant, no acute distress, answers questions appropriately - Head Head exam: Present: atraumatic, normocephalic - Respiratory Respiratory exam: Present: CTAB. Absent: rales, rhonchi, wheezes - Cardiovascular Cardiovascular exam: Present: RRR, +S1, +S2. Absent: diastolic murmur, systolic murmur - GI/Abdominal GI/Abdominal exam: Present: normal bowel sounds, soft. Absent: distended, rigid , tenderness, no peritoneal signs - Extremities Exam Extremities exam: Present: warm, radial pulses palpable and symmetrical. Absent : calf tenderness, tenderness Additional comments: Edema of Left LE, No edema of RLE - Neurological Exam Neurological exam: Present: alert, CN II-XII intact, oriented X3, no focal deficits Internal Medicine: Result - Labs CBC & Chem 7: 02/13/17 01:04 02/13/17 01:04 Labs: Short CBC 02/12/17 02/13/17 Range/Units 18:08 01:04 WBC 9.6 7.7 (4.3-11.1) K/mcL Hgb 13.2 12.2 L (12.9-16.9) g/dL Hct 41.0 37.8 (37.5-50.1) % Plt Count 206 208 (140-400) K/mcL Neutrophils # 4.9 (1.6-8.9) K/mcL BMP 02/13/17 01:04 Sodium 135 L Potassium 3.9 Chloride 101 Carbon Dioxide 28 BUN 22 Creatinine 1.52 H Glucose 258 H Calcium 8.5 L Liver Function 02/13/17 Range/Units 01:04 Total Bilirubin 0.3 (0.2-1.2) mg/dL AST 14 (5-34) Units/L ALT 9 (0-55) Units/L Alkaline Phosphatase 83 (38-126) Units/L Albumin 2.7 L (3.5-5.0) g/dL - ABG Interpretation ABG results: PT/INR, D-dimer PT 22.1 Seconds (9.4-12.1) H 02/13/17 01:04 Consult Discharge Plan - Plan Instructions: Myocardial Infarction (DC), Heart Failure (DC), Cellulitis (DC), Diabetic Foot Care (DC) Additional Instructions: Remain non-weight bearing with left foot Dressing changes are needed every 2 days Clean incision line daily with saline and pat dry Apply betadine to incision lines with adaptic, dry sterile 4X4 gauze and kerlix Follow-up with Dr. Briseno Follow instruction of home health for PICC line management and antibiotic administration Follow-up with mAy Rodriguez CNP Use lovenox shots as your INR increases and take coumadin as prescribed Follow-up with your PCP and discuss your coumadin need and dosage Referrals: Checo Briseno DPM [Partnered Physician] - Amy Rodriguez CNP [Advanced Practice Nurse] - 03/01/17 9:30 am Prescriptions: Clindamycin HCl 300 mg PO BID #28 capsule Clindamycin HCl 300 mg PO TID #42 capsule Clindamycin HCl 300 mg PO TID #42 capsule Levofloxacin 750 MG/150 ML [Levaquin Premix 750mg/150 mL] 750 mg IVPB Q24H #42 bag Warfarin [Coumadin] 4 mg PO DAILY #14 tablet <Mikel Weaver - Last Filed: 03/01/17 07:48> Date of Encounter: 03/01/17 - Assessment and plan (1) Diabetic foot ulcer Status: Acute Qualifiers: Diabetic foot ulcer location: toe Diabetes mellitus type: type 2 Laterality: right Non-pressure ulcer stage: with necrosis of bone (2) Osteomyelitis of left foot Status: Acute Qualifiers: Osteomyelitis type: unspecified type Qualified Code(s): M86.9 - Osteomyelitis, unspecified (3) Bacteremia Status: Acute (4) Acute kidney injury Status: Acute (5) HTN (hypertension) Status: Chronic Qualifiers: Hypertension type: essential hypertension Qualified Code(s): I10 - Essential (primary) hypertension (6) CKD (chronic kidney disease) Status: Chronic Qualifiers: Chronic kidney disease stage: stage 3 (moderate) Qualified Code(s): N18.3 - Chronic kidney disease, stage 3 (moderate) - Constitutional Vitals: Temp Pulse Resp BP Pulse Ox 97.5 F L 72 16 153/76 92 02/13/17 14:26 02/13/17 14:26 02/13/17 14:26 02/13/17 14:26 02/13/17 14:26 Internal Medicine: Result - Labs CBC & Chem 7: 02/17/17 08:00 02/17/17 08:00 Labs: Short CBC 02/12/17 02/13/17 Range/Units 18:08 01:04 WBC 9.6 7.7 (4.3-11.1) K/mcL Hgb 13.2 12.2 L (12.9-16.9) g/dL Hct 41.0 37.8 (37.5-50.1) % Plt Count 206 208 (140-400) K/mcL Neutrophils # 4.9 (1.6-8.9) K/mcL BMP 02/13/17 01:04 Sodium 135 L Potassium 3.9 Chloride 101 Carbon Dioxide 28 BUN 22 Creatinine 1.52 H Glucose 258 H Calcium 8.5 L Liver Function 02/13/17 Range/Units 01:04 Total Bilirubin 0.3 (0.2-1.2) mg/dL AST 14 (5-34) Units/L ALT 9 (0-55) Units/L Alkaline Phosphatase 83 (38-126) Units/L Albumin 2.7 L (3.5-5.0) g/dL - ABG Interpretation ABG results: PT/INR, D-dimer PT 22.1 Seconds (9.4-12.1) H 02/13/17 01:04 - Attending Attestation I examined this patient and my medical decision-making was reviewed with the Resident Physician on 02/13/17. I agree with the documented findings, disposition and treatment plan as described except to the extent set forth below. Mr. Wharton is currently admitted for osteomyelitis of L foot. He remains high risk due to need for surgery, IV abx and positive blood cx Mr. Wharton is going to OR today. No fever or chills. Tolerating IV abx. No abd pain or GI symptoms. Exam Alert. Comfortable Mucus membranes dry. Heart not tachy No wheeze I/P 1. OM L foot for OR today 2. Bacteremia Further diagnoses and plan as above.
[2017-02-13] MEDS ORDERED: *HR* Phytonadione 5 MG TABLET PO ONE (11:51)
--- NOTE | 2017-02-13 15:28 | Anesthesia Evaluation PreOp ---
Date of Encounter: 02/13/17 Time of Encounter: 15:25 - Past History Planned Operation: Left 5th digit and metatarsl resection Cardiac History: HTN, Cardiac Surgery (MVR replacement), Other (PAD) Pulmonary History: Denies Any Significant HX MANAGER TALENT ACQUISITION History: Other (Blind Left Eye, Right eye poor vision) Other Medical History: Renal (AKD), Diabetes Type II Anesthesia History: No Prior Anesthetic Complications, Past Anesthesia Alcohol Use: none Drug use: none Medications and Allergies Aspirin [Lo-Dose Aspirin EC] 81 mg PO DAILY 04/14/16 [History] Insulin DETEMIR [Levemir] 30 unit SQ BID 04/14/16 [History] Insulin Human Regular [HumuLIN R] 0 unit SQ TIDWM 04/14/16 [History] Lisinopril [Zestril] 40 mg PO DAILY 04/14/16 [History] Simvastatin [Zocor] 40 mg PO HS 04/14/16 [History] Warfarin [Coumadin] 7.5 mg PO DAILY 04/14/16 [History] hydrALAZINE [HydrALAZINE] 10 mg PO DAILY 04/14/16 [History] Furosemide [Lasix] 20 mg PO DAILY #30 tablet 06/03/16 [Rx] HYDROcodone/Acet 5/325 mg [[place] 5-325 mg] 1 tab PO Q4-6H PRN #20 tablet [Rx] Metoprolol [Lopressor] 25 mg PO BID #60 tablet 06/03/16 [Rx] amLODIPine [Norvasc] 5 mg PO DAILY 02/10/17 [History] Allergies No Known Allergies Allergy (Verified 05/18/16 07:09) - Meds/Allergy Pre-op Review Medications Reviewed: Yes Allergies Reviewed: Yes Beta Blockers on Current Med List: Yes If Beta Blockers taken, Date/Time (Last Dose taken): 08:54 02/13/2017 Anesthesia Results - Labs 02/13/17 01:04 02/13/17 01:04 Echocardiogram Name: Tay Wharton Date of Study: 06/02/2016 Indications: NSTEMI, History of Mitral Valve Replacement Impressions: LVEF 55%. There is hypokinesis of the basal-mid inferior wall and basal-mid inferoseptum. Moderate left ventricular diastolic dysfunction. Normal right ventricular structure and function. Severely dilated left atrium. Bioprosthetic mitral valve appears well seated. No significant mitral stenosis. Mean gradient = 7 mmHg. No significant change compared to prior study on 08/14/13. Trace mitral regurgitation. Mild pulmonary hypertension. Estimated RVSP = 36 mmHg. The aortic root is borderline dilated, measuring 4.1 cm at the sinuses of Valsalva. Left Ventricular Wall Motion: Rest Echo Findings The mid inferior, basal inferior, mid inferior septal and basal inferior septal smith were hypokinetic. All other wall segments showed normal motion. - Imaging EKG: image reviewed (SR) Anesthesia Exam O2 Sat Weight 99.8 kg O2 Sat by Pulse Oximetry 92 O2 Sat by Pulse Oximetry 94 O2 Sat by Pulse Oximetry 93 O2 Sat by Pulse Oximetry 91 O2 Sat by Pulse Oximetry 93 O2 Sat by Pulse Oximetry 90 Vital Signs Temp Pulse Resp BP Pulse Ox 98.2 F 114 20 106/68 91 02/10/17 11:01 02/10/17 11:01 02/10/17 11:01 02/10/17 11:01 02/10/17 11:01 - HEENT Pupil (Motor): Pupils equal, EOMI Mallampati: II Teeth: Normal Oral Opening: Greater than 3 - MANAGER TALENT ACQUISITION LOC: Oriented MANAGER TALENT ACQUISITION Motor: Normal RUE, Normal LUE, Normal RLE, Normal LLE, Normal Face MANAGER TALENT ACQUISITION Sensory: Normal: RUE, LUE, RLE, LLE, Face - Cardiac Rhythm: Regular Murmur: None JVD: No Carotid Bruit: No - Pulmonary Breath Sounds: bilateral Clear Respiratory Effort: Symmetrical Anesthesia Assess/Plan ASA Score: 3 Modified Alonso Scale for Level of Consciousness: Cooperative, oriented, and tranquil Anesthetic Plan: General Autologous Blood: Yes Monitoring Plan: Standard Monitors Recovery Plan: PACU
[2017-02-13] MEDS ORDERED: Ondansetron 4 MG/2 ML VIAL ONE (15:48)
[2017-02-13] MEDS ORDERED: Dexamethasone 4 MG/ML VIAL ONE (15:48)
[2017-02-13] MEDS ORDERED: *HR* Propofol 200 MG/20 ML VIAL IVP ONE (15:48)
[2017-02-13] MEDS ORDERED: *HR* Midazolam HCl 2 MG/2 ML VIAL ONE (15:48)
[2017-02-13] MEDS ORDERED: *HR* FentaNYL (PF) 100 MCG/2 ML VIAL ONE (15:48)
[2017-02-13] MEDS ORDERED: Lidocaine -MPF 2% 2 ML VIAL ONE (15:48)
[2017-02-13] MEDS ORDERED: Bupivacaine/Clonidine Syringe 1 EACH SYRINGE ONE (16:33)
[2017-02-13] MEDS: *HR* HYDROcodone/Acet 5/325 mg TABLET PO PRN (20:20)
[2017-02-13 21:52] LABS: Hematocrit 37.3 % (37.5-50.1); Mean Corpuscular HGB Conc 32.2 g/dL (31.6-35.5); Mean Corpuscular Hemoglobin 26.3 pg (28.0-33.3); Mean Corpuscular Volume 81.8 fL (83.0-100.0); Mean Platelet Volume 8.7 fL (9.4-12.4); Platelet Count 195 K/mcL (140-400); Red Blood Count 4.56 M/mcL (4.19-5.50); Red Cell Distribution Width 12.4 % (11.5-14.5)
[2017-02-13] MEDS: Heparin 25,000 UNIT/500 ML D5W 25,000 UNIT/500 ML MLS IVC SCH (23:21)
[2017-02-14] MEDS: *HR* HYDROcodone/Acet 5/325 mg TABLET PO PRN ×4 (01:04→17:10)
[2017-02-14] MEDS: Piperacillin/Tazobactam 3.375 GM in D5% in Water (Mini-Bag+) 100 ML IVPB SCH ×2 (05:12→14:08)
[2017-02-14 08:09] LABS: Hematocrit 39.2 % (37.5-50.1); Hemoglobin 12.6 g/dL (12.9-16.9); Mean Corpuscular HGB Conc 32.1 g/dL (31.6-35.5); Mean Corpuscular Hemoglobin 26.4 pg (28.0-33.3); Mean Corpuscular Volume 82.2 fL (83.0-100.0); Mean Platelet Volume 8.9 fL (9.4-12.4); Platelet Count 221 K/mcL (140-400); Red Blood Count 4.77 M/mcL (4.19-5.50); Red Cell Distribution Width 12.3 % (11.5-14.5)
[2017-02-14 08:14] LABS: INR 1.7; Prothrombin Time 18.1 Seconds (9.4-12.1)
[2017-02-14 08:24] LABS: Calcium 9.2 mg/dL (8.6-10.8); Potassium 4.5 mEq/L (3.5-4.5)
[2017-02-14] MEDS ORDERED: Aminoglycoside Consult 1 EACH MC ONE (08:33)
[2017-02-14] MEDS: *HR* Heparin 5,000 UNIT/ML VIAL IVP PRN (09:02)
[2017-02-14] MEDS: Insulin LISPRO 300 UNITS/3 ML VIAL SQ SCH ×4 (09:02→20:11)
[2017-02-14] MEDS: amLODIPine 5 MG TABLET PO SCH (09:03)
[2017-02-14] MEDS: hydrALAZINE 10 MG TABLET PO SCH (09:03)
[2017-02-14] MEDS: Furosemide 20 MG TABLET PO SCH (09:03)
[2017-02-14] MEDS: Aspirin Enteric Coated 81 MG Tablet PO SCH (09:03)
[2017-02-14] MEDS: Gabapentin 100 MG CAPSULE PO SCH ×3 (09:03→20:09)
--- NOTE | 2017-02-14 09:37 | Internal Med Progress Note ---
<Vaughn Ruff - Last Filed: 02/14/17 15:11> Date of Encounter: 02/14/17 Time of Encounter: 09:35 - Assessment and plan (1) Osteomyelitis of left foot Current Visit: Yes Status: Acute Assessment and plan: POD#1 s/p Left fifth metatarsal and proximal phalanx of the fifth digit resection Wound Culture growing Morganella inder.ssp morganii and E. coli Surgical culture pending Vancomycin and Zosyn Day 5 Podiatry consulted, appreciate recommendations ID consulted, appreciate recommendations INR 1.7 today - continue heparin bridging back to coumadin Plan: -Continue IV abx -Continue local wound care per podiatry -Plan to bridge back to coumadin in the setting of porcine valve -Pt reports goal is to return home on D/C and does not want any assistance Qualifiers: Osteomyelitis type: unspecified type Qualified Code(s): M86.9 - Osteomyelitis, unspecified (2) Diabetic foot ulcer Current Visit: Yes Status: Chronic Assessment and plan: Plan as above Qualifiers: Diabetic foot ulcer location: midfoot Diabetes mellitus type: type 2 Laterality: left Non-pressure ulcer stage: with necrosis of bone Qualified Code(s): E11.621 - Type 2 diabetes mellitus with foot ulcer; L97.424 - 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 (3) Bacteremia Current Visit: Yes Status: Acute Assessment and plan: Awaiting final culture results - growing peptostreptococcus asaccharoly Vancomycin Day 5 Zosyn Day 5 ID consulted, appreciate recommendations Plan: -Continue IV abx -Await final culture and sensitivities (4) [id number] kidney injury Current Visit: Yes Status: Acute Assessment and plan: SCr 1.56, GFR 45 - continue to monitor, stable Renally dose medications and avoid nephrotoxins as able Qualifiers: Chronic kidney disease stage: stage 3 (moderate) Qualified Code(s): N17.9 - Acute kidney failure, unspecified; N18.3 - Chronic kidney disease, stage 3 ( moderate) (5) HTN (hypertension) Current Visit: No Status: Chronic Assessment and plan: Currently appears controlled. Continue home meds. Qualifiers: Hypertension type: essential hypertension Qualified Code(s): I10 - Essential (primary) hypertension - Subjective Interval history: Patient seen and examined. Reports he is feeling well with no complaints. Reports achy pain in left foot from surgery last night. Denies chest pain, dyspnea, cough, N/V/D, or dysuria - Constitutional Vitals: Temp Pulse Resp BP Pulse Ox 98.6 F 84 19 148/84 92 02/14/17 07:38 02/14/17 07:38 02/14/17 07:38 02/14/17 07:38 02/14/17 07:38 General appearance: Present: cooperative, A&O X 3, pleasant, no acute distress, answers questions appropriately - Head Head exam: Present: atraumatic, normocephalic - Respiratory Respiratory exam: Present: CTAB. Absent: rales, rhonchi, wheezes - Cardiovascular Cardiovascular exam: Present: RRR, +S1, +S2. Absent: diastolic murmur, systolic murmur - GI/Abdominal GI/Abdominal exam: Present: normal bowel sounds, soft. Absent: distended, rigid , tenderness, no peritoneal signs - Extremities Exam Extremities exam: Present: warm. Absent: calf tenderness, joint swelling Additional comments: LLE edema, bandage in place around foot - appears dry without drainage - Neurological Exam Neurological exam: Present: alert, CN II-XII intact, oriented X3, no focal deficits Internal Medicine: Result - Labs CBC & Chem 7: 02/14/17 07:57 02/14/17 07:57 Labs: Short CBC 02/13/17 02/14/17 Range/Units 21:45 07:57 WBC 8.0 10.3 (4.3-11.1) K/mcL Hgb 12.0 L 12.6 L (12.9-16.9) g/dL Hct 37.3 L 39.2 (37.5-50.1) % Plt Count 195 221 (140-400) K/mcL BMP 02/14/17 07:57 Sodium 135 L Potassium 4.5 Chloride 100 Carbon Dioxide 28 BUN 20 Creatinine 1.56 H Glucose 217 H Calcium 9.2 - ABG Interpretation ABG results: PT/INR, D-dimer PT 18.1 Seconds (9.4-12.1) H 02/14/17 07:57 Consult Discharge Plan - Plan Referrals: Checo Briseno DPM [Partnered Physician] - <Meliton Santizo H - Last Filed: 02/14/17 15:14> Date of Encounter: 02/14/17 - Constitutional Vitals: Temp Pulse Resp BP Pulse Ox 97.9 F 72 19 144/84 92 02/14/17 10:52 02/14/17 10:52 02/14/17 10:52 02/14/17 10:52 02/14/17 10:52 Internal Medicine: Result - Labs CBC & Chem 7: 02/14/17 07:57 02/14/17 07:57 Labs: Short CBC 02/13/17 02/14/17 Range/Units 21:45 07:57 WBC 8.0 10.3 (4.3-11.1) K/mcL Hgb 12.0 L 12.6 L (12.9-16.9) g/dL Hct 37.3 L 39.2 (37.5-50.1) % Plt Count 195 221 (140-400) K/mcL BMP 02/14/17 07:57 Sodium 135 L Potassium 4.5 Chloride 100 Carbon Dioxide 28 BUN 20 Creatinine 1.56 H Glucose 217 H Calcium 9.2 - ABG Interpretation ABG results: PT/INR, D-dimer PT 18.1 Seconds (9.4-12.1) H 02/14/17 07:57 - Attending Attestation follow results of cultures consider modifying antibiotic therapy, ID recommendations appreciated continue coumadin I examined this patient and my medical decision-making was reviewed with the Resident Physician. I agree with the documented findings, disposition and treatment plan as described except to the extent set forth below.
[2017-02-14] MEDS ORDERED: Vancomycin 1,250 MG in D5% in Water 250 ML IVPB SCH (10:00)
[2017-02-14] MEDS: Insulin DETEMIR 100 UNIT/ML X5UNITS SQ SCH ×2 (11:07→20:10)
--- NOTE | 2017-02-14 12:25 | Infectious Disease Consult ---
Date of Encounter: 02/14/17 Time of Encounter: 12:19 Assessment and Plan (1) Osteomyelitis of left foot Status: Acute Assessment and plan: Location: Left foot, 5th metatarsal head. Causative organism unclear. Swab culture of the wound was positive for Escherichia coli and Morganella Morgannii. Intraoperative cultures have been collected and are pending. Secondary to left foot diabetic foot ulcer. No inflammatory markers were obtained prior to surgery. X-ray of the left foot showed plantar lateral cellulitis with adjacent first MTP septic arthropathy osteomyelitis of the fifth metatarsal head and first phalanx base of the fifth toe. MRI confirmed all cellulitis of the fifth metatarsal and proximal phalanx as well as a small foci of gas. Podiatry was consulted and took the patient to the operating room and completed a fifth metatarsal and proximal phalanx of the fifth digit resection by Dr. valverde on 02/14/17. Case discussed with Dr. Valverde. States that the remaining bone looks good, but we may need to consider pursuing IV antibiotics for least a few weeks. Check ESR and CRP now. Await intraoperative cultures. Discontinue Vanc and Zosyn. Start Levaquin 750mg IV daily. Duration of treatment depends on the clinical picture, but likely 6 weeks of IV antibiotics will be required. Monitor renal function and for drug toxicity and dose adjust antibiotics. We will continue to follow. Qualifiers: Osteomyelitis type: unspecified type Qualified Code(s): M86.9 - Osteomyelitis, unspecified (2) Bacteremia Status: Acute Assessment and plan: Causative organism: Peptostreptococcus asaccharolyticus Blood cultures +2 out of 2 sets drawn 02/10/17. Repeat blood cultures drawn 02/13/17 are pending 2 sets. Await repeat blood cultures. Repeat blood cultures again on 02/19/17 to evaluate for persistent bacteremia that may indicate the presence of endocarditis given that the patient has a porcine valve. No endocarditis stigmata noted. Continue antibiotics as above. (3) Cellulitis Status: Acute Assessment and plan: Location: Left foot. Causative organism: Unclear. Wound culture was positive for E. coli and Morganella morgannii. Improved. Continue antibiotics as above. Qualifiers: Site of cellulitis: other site Qualified Code(s): L03.818 - Cellulitis of other sites (4) Diabetic foot ulcer Status: Acute Assessment and plan: Location: Plantar aspect of the left foot. Podiatry consulted and following. Continue wound care and activity restrictions as outlined by the podiatry team. Qualifiers: Diabetic foot ulcer location: toe Diabetes mellitus type: type 2 Laterality: right Non-pressure ulcer stage: with necrosis of bone Qualified Code(s): E11.621 - Type 2 diabetes mellitus with foot ulcer; L97.514 - Non- pressure chronic ulcer of other part of right foot with necrosis of bone (5) Acute kidney injury Status: Acute Assessment and plan: Likely secondary to infectious process. Improved. Continue to trend. Avoid nephrotoxins as able and dose adjust antibiotics. 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 (7) HTN (hypertension) Status: Chronic Qualifiers: Hypertension type: essential hypertension Qualified Code(s): I10 - Essential (primary) hypertension (8) CKD (chronic kidney disease) Status: Chronic Qualifiers: Chronic kidney disease stage: stage 3 (moderate) Qualified Code(s): N18.3 - Chronic kidney disease, stage 3 (moderate) (9) Diabetes Status: Chronic Assessment and plan: Hemoglobin A1c 10%. Uncontrolled. Recommend aggressive glucose monitoring and control to promote wound healing and prevent reinfection. Management per the primary team. Qualifiers: Diabetes mellitus type: type 2 Diabetes mellitus complication status: with neurologic complications Diabetes mellitus complication detail: with unspecified neuropathy Diabetes mellitus snf insulin use: with ad terminal makeup operator use Qualified Code(s): E11.40 - Type 2 diabetes mellitus with diabetic neuropathy, unspecified; Z79.4 - [facility] (current) use of insulin Infectious Disease HPI - Data of Consult Patient: new to practice Consult date: 02/14/17 Requesting Physician: Meliton Santizo Primary Care Provider: Orion Ward Jr, MD - Consult Narrative Reason for consult: Osteomyelitis Left foot History of present illness: Mr. Wharton is a 66 year old male with a past medical history of hypertension, hyperlipidemia, CAD, diabetes, PAD and valvular heart disease with a remote history of mitral valve replacement back in 2004. The patient was admitted to the hospital February 10, 2017 for acute kidney injury, ostium myelitis of the left foot, diabetic foot ulcer. We are consulted February 14 for further evaluation and treatment recommendation tracheostomy myelitis of the left foot. The patient is a 66-year-old male with past medical history as stated above. The patient states the last week he noticed an ulcer to the plantar aspect of his left foot when he felt some drainage from the wound. He states that he bumped his foot on the shower as he was getting in and noticed that was painful. He presented to the emergency department on Monday with complaints of upset stomach, subjective fever, and chills. Upon arrival, he was afebrile, but he was tachycardic. He was otherwise hemodynamically stable. Laboratory studies reverted to normal white blood cell count. Your creatinine was elevated at 2. Lactic acid was normal. His A1c was 10. No inflammatory markers were drawn. Blood cultures were obtained 2 sets are +2 out of 2 sets for anaerobic gram- positive cocci. Superficial wound culture was obtained as well that is growing Morganella Morgagni and Escherichia coli. A left foot x-ray revealed right things consistent with cellulitis of the plantar lateral aspect of the left foot with adjacent first MTP joint septic arthropathy and osteomyelitis of the fifth metatarsal head and first phalanx base. An MRI was also completed that confirmed the above. The patient was started on empiric IV vancomycin and IV Zosyn. He was admitted to the hospital for further evaluation and treatment. Admission, the patient has been evaluated by podiatry. He was taken to the operating room on February 13 and underwent a metatarsal head resection. Since admission, he has made remained afebrile and with a normal white blood cell count. His acute kidney injury has improved. Initially, the patient was supratherapeutic on his Coumadin with INR of 10, but this is resolved as well. Really, the patient is on IV vancomycin and IV Zosyn. Most recently trough was 9.5 this morning. No repeat blood cultures have been obtained. We've been asked to evaluate and make further recommendations. During my exam today, the patient states that overall he feels better. He denies any fevers or chills or rigors. He denies any headache or neck pain. He denies any congestion, earache, or sore throat. 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 He denies any chest pain, shortness of breath, or cough. He denies any nausea, vomiting, diarrhea, or constipation. He denies any urinary complaints. Here does report an upset stomach, but states that his appetite is okay. He denies any oral thrush or skin lesions. He does report pain currently 5 out of 10 at the surgical site. When questioned, the patient states he is unsure if there is any redness or streaking up the leg prior to admission and he is unsure of the color of the drainage prior to admission. The patient lives locally at home by himself. He denies any alcohol, tobacco, or illicit drug use. CC: Meliton Santizo Past Med Surg Social Fam HX - Past Medical History Attestation: Yes The following information was validated with the patient. Source: patient, old records reviewed, nursing notes reviewed Medical history: diabetes, hypertension, peripheral artery disease, valvular heart disease Psychiatric history: no psych history - Past Surgical History Surgical History: heart valve replacement (Mitral valve replacement with porcine valve ), herniorrhaphy (Mitral valve replacement 2004 with porcine valve.) - Social History Smoking Status: Never smoker Smokeless Tobacco Status: No Alcohol use: none Drug use: none Occupational status: disabled Current living situation: Home - Independent Activity Level: Independent ambulation Recent Out of Country Travel Within the Last 8 Weeks: No Exposure or Possible Exposure to Illness During Travel: No - Family History Mother History Unknown: Yes Living Status: Hx Family Cardiac Disorders: No Hx Family Respiratory Disorders: No Father History Unknown: Yes Living Status: Hx Family Cardiac Disorders: No Hx Family Respiratory Disorders: No Infectious Disease-CN:Meds Aspirin [Lo-Dose Aspirin EC] 81 mg PO DAILY 04/14/16 [History] Insulin DETEMIR [Levemir] 30 unit SQ BID 04/14/16 [History] Insulin Human Regular [HumuLIN R] 0 unit SQ TIDWM 04/14/16 [History] Lisinopril [Zestril] 40 mg PO DAILY 04/14/16 [History] Simvastatin [Zocor] 40 mg PO HS 04/14/16 [History] Warfarin [Coumadin] 7.5 mg PO DAILY 04/14/16 [History] hydrALAZINE [HydrALAZINE] 10 mg PO DAILY 04/14/16 [History] Furosemide [Lasix] 20 mg PO DAILY #30 tablet 06/03/16 [Rx] HYDROcodone/Acet 5/325 mg [[place] 5-325 mg] 1 tab PO Q4-6H PRN #20 tablet [Rx] Metoprolol [Lopressor] 25 mg PO BID #60 tablet 06/03/16 [Rx] amLODIPine [Norvasc] 5 mg PO DAILY 02/10/17 [History] Allergies No Known Allergies Allergy (Verified 05/18/16 07:09) All systems: reviewed and no additional remarkable complaints except as stated Exam - Constitutional Vitals: Temp Pulse Resp BP Pulse Ox 97.9 F 72 19 144/84 92 02/14/17 10:52 02/14/17 10:52 02/14/17 10:52 02/14/17 10:52 02/14/17 10:52 General appearance: average body habitus, cooperative, no acute distress - Head Head exam: Present: atraumatic, normal inspection, normocephalic - Eye Eye exam: Present: normal appearance, PERRL Pupils: Present: normal accommodation - ENT ENT exam: Present: mucous membranes moist - Neck Neck exam: Present: normal inspection - Respiratory Respiratory exam: Present: CTAB. Absent: rales, respiratory distress, rhonchi, wheezes - Cardiovascular Cardiovascular exam: Present: RRR, +S1, +S2 - GI/Abdominal GI/Abdominal exam: Present: normal bowel sounds, soft. Absent: distended, tenderness - Extremities Exam Extremities exam: Absent: joint swelling, pedal edema, tenderness Additional comments: Left foot dressing is clean, dry, and intact. - Neurological Exam Neurological exam: Present: alert, oriented X3, no focal deficits - Psychiatric Psychiatric exam: Present: normal affect, normal mood - Skin Skin exam: Present: dry, intact, normal color, warm Infectious Disease CN: Results - Labs CBC & Chem 7: 02/15/17 04:59 02/15/17 04:59 Cultures: Cultures 02/10/17 11:30 Blood Culture - Preliminary Peripheral Venipuncture Peptostreptococcus asaccharoly 02/10/17 11:30 Blood Culture - Preliminary Peripheral Venipuncture Anaerobic Gram Positive Cocci 02/10/17 12:46 Wound Culture - Final Left Foot Morganella inder.ssp morganii Escherichia coli Serology: Serology 02/10/17 Range/Units 11:30 A. baumannii (PCR) Not Detected (Not Detect) Nohemi albicans (PCR) Not Detected (Not Detect) C. glabrata (PCR) Not Detected (Not Detect) C. krusei (PCR) Not Detected (Not Detect) C. parapsilosis (PCR) Not Detected (Not Detect) C. tropicalis (PCR) Not Detected (Not Detect) Enterobacteriac sp PCR Not Detected (Not Detect) E. cloacae complex PCR Not Detected (Not Detect) Enterococcus sp PCR Not Detected (Not Detect) E. coli (PCR) Not Detected (Not Detect) H. influenzae (PCR) Not Detected (Not Detect) Klebsiella oxytoca PCR Not Detected (Not Detect) Klebsiella pneumoniae Not Detected (Not Detect) List. monocytogenes PCR Not Detected (Not Detect) N. meningitidis (PCR) Not Detected (Not Detect) Proteus species (PCR) Not Detected (Not Detect) Serratia marcescens PCR Not Detected (Not Detect) Staphylococcus sp PCR Not Detected (Not Detect) Staph aureus (PCR) Not Detected (Not Detect) mecA-Methicil Res Gene N/A (Not Detect) Streptococcus sp PCR Not Detected (Not Detect) Group A Strep DNA Not Detected (Not Detect) Group B Strep (PCR) Not Detected (Not Detect) Strep pneumoniae (PCR) Not Detected (Not Detect) P. aeruginosa (PCR) Not Detected (Not Detect) Jhoan/B-Vanco Res Genes N/A (Not Detect) KPC (blaKPC) Detect PCR N/A (Not Detect) Consult Discharge Plan - Plan Referrals: Checo Valverde DPM [Partnered Physician] - Amy Rodriguez CNP [Advanced Practice Nurse] - 03/01/17 9:30 am - Attending Attestation I examined this patient and my medical decision-making was reviewed with the Resident Physician. I agree with the documented findings, disposition and treatment plan as described except to the extent set forth below. This is an addendum to original report dictated by Amy Rodriguez CNP. Please refer to Abdi note for full detail. Patient is 66-year-old gentleman with an extensive past medical history mentioned below was admitted for acute kidney injury, we are consult dictated for antibiotics recommendation. Patient apparently noticed an ulcer on the plantar aspect of his left foot with some drainage. Foot became painful. Symptoms have been going on for about 2 weeks prior to admission. Patient came in to the emergency department for evaluation. Patient had some subjective fevers and chills at home. Since admission patient was hemodynamically stable with normal lactic acid and normal WBC count. His hemoglobin A1c was 10 patient had blood cultures obtained and he grew anaerobic gram-positive cocci. Wound culture grew Morganella morganii and Escherichia coli that were pansensitive. We were asked to evaluate the patient and make further recommendations. Not sure if the patient really had all the infected bone removed by podiatry. Patient did have an aggressive debridement and removal of the bone. At this point I think we can do Levaquin for the Escherichia coli and the Morganella. Duration of treatment depends on the clinical picture, on how the patient recovers and on the inflammatory markers. In the meantime as for the anaerobic gram-positive cocci in the blood, hopefully thats a contaminant. Patient does have history of by prostatic valve. We will monitor closely repeat blood cultures a week from now and see the patient continues to be bacteremic. Well continue to follow. Monitor labs and for drug toxicity.
--- NOTE | 2017-02-14 14:49 | Operative Note ---
Date of procedure: 02/13/17 Pre-op diagnosis: Left foot ulcer with osteomyelitis of the fifth metatarsal and proximal pha Post-op diagnosis: same Procedure: Excision of ulceration, left foot ulcer. Partial resection of fifth metatarsal, left. Partial resection of proximal phalanx of fifth digit left. Incision and drainage left foot with irrigation and debridement left foot. Closure of chronic wound/ulcer left foot. Implants: None Complications: None Anesthesia: MAC Surgeon: Checo Briseno Estimated blood loss (cc): 5 Condition: stable Disposition: PACU Procedure in Detail: The patient was administered IV antibiotics. The patient was transported to the operative room and placed on operating table. Following anesthesia the extremity was scrubbed prepped and draped in the usual aseptic fashion. A timeout was performed. An incision was made and deepened through subcutaneous tissue with care taken to identify and retract all vital neurovascular structures. Incision was made on the dorsal aspect of the fifth metatarsal of the left foot. Incision and drainage was then performed and any purulence was evacuated from the site. The incision was deepened to expose the metatarsal. The fifth metatarsal was noted to have the appearance of infected bone which was crumbly in nature distally. The bone was resected proximally until normal density and texture and color were noted in the bone. The metatarsal bone was sent to pathology for analysis and the site was cultured. Attention was then directed to the proximal phalanx of the fifth digit of the left foot. The base of the proximal phalanx was noted to be crumbly consistent with osteomyelitis. The bone was resected distally until normal density, texture, and color were noted in the bone. The proximal aspect of the proximal phalanx of the fifth digit of the left foot was sent to pathology. Attention was then directed to the plantar aspect of the left foot at the site of the ulceration. The ulcer borders were excised in a semi-elliptical fashion. Once clean borders were obtained on the medial and lateral aspects of the ulceration, the site was irrigated and then closed. The dorsal incision site was irrigated with copious amounts of normal saline and closed in a layered fashion. A dry sterile dressing was applied. The pneumatic tourniquet was deflated and a hyperemic response was noted to all digits. The patient tolerated the procedure and anesthesia well and was transported to the recovery room with vital signs stable and vascular status intact to both feet. The patient will be readmitted to the floor anesthesia. The patient will keep the dressings clean, dry, intact until the follow-up appointment in 1- 2 weeks. The patient will remain nonweightbearing to the left foot. Dressing changes will be needed every 2-3 days. The patient will likely need antibiotics per infectious disease for a period of at least 2 weeks pending labs. The patient will likely need a PT OT consult to be evaluated for his ability to remain minimal weightbearing to the left foot anterior aspect. The patient will need to follow up with me in 1 week within discharge.
--- NOTE | 2017-02-14 15:01 | Podiatry Progress Note ---
Date of Encounter: 02/14/17 Time of Encounter: 14:57 - Assessment and Plan (1) Diabetic foot ulcer Current Visit: No Status: Acute The patient will remain nonweightbearing to the left foot. Dressing changes will be needed every 2-3 days. The patient will likely need antibiotics per infectious disease for a period of at least 2 weeks pending labs. The patient will likely need a PT OT consult to be evaluated for his ability to remain minimal weightbearing to the left foot anterior aspect. The patient will need to follow up with me in 1 week within discharge. Qualifiers: Diabetes mellitus type: type 2 Laterality: right Qualified Code(s): E11.621 - Type 2 diabetes mellitus with foot ulcer; L97.519 - Non-pressure chronic ulcer of other part of right foot with unspecified severity Subjective Principal diagnosis: Osteomyelitis left foot Interval history: Patient relates that he is feeling better overall. Patient relates that he does have occasional pain in his left foot. Objective - Vital Signs Vital Signs: Vital Signs Temp Pulse Resp BP Pulse Ox 02/14/17 10:52 97.9 F 72 19 144/84 92 02/14/17 08:45 92 02/14/17 07:38 98.6 F 84 19 148/84 92 02/14/17 05:06 98.3 F 84 19 170/83 92 02/14/17 00:59 97.9 F 80 20 133/73 93 02/13/17 20:00 97.6 F 80 18 133/83 94 02/13/17 19:00 97.7 F 82 18 128/63 95 02/13/17 18:20 97.7 F 77 17 151/82 93 02/13/17 17:50 97.3 F L 78 17 148/76 94 Intake and Output 02/13/17 02/14/17 02/14/17 23:59 07:59 15:59 Intake Total 100 / 100 980 / 980 1060 / 1060 Output Total 505 / 505 1150 / 1150 Balance -405 / -405 -170 / -170 1060 / 1060 Intake: IV Fluids 100 / 100 100 / 100 100 / 100 Heparin 25,000 UNIT/500 0 / 0 ML D5W 25,000 unit In 500 ml @ 14 UNIT/KG/HR 27. 941 mls/hr IVC .[id number] [facility] Rx#:[id number] Zosyn 3.375 GM In 100 / 100 100 / 100 100 / 100 Dextrose 5% (Minibag+) 100 ML 100 ML @ 25 mls/hr IVPB Q8H [facility] Rx#: [id number] Oral 0 / 0 880 / 880 960 / 960 Output: Urine 500 / 500 1150 / 1150 Estimated Blood Loss 5 / 5 Other: Meal NPO Lunch Percent of Meal Consumed 0% 100% Weight 100.5 kg Blood Glucose* 223 280 Patient Weight 02/14/17 23:59 Weight 100.5 kg - Exam Exam: Mild edema noted to the left foot. Slightly decreased capillary fill time of the fifth digit, left noted. Capillary refill time intact to the remaining digits. Minimal strikethrough noted on the dressings. No new erythema noted. - Lab Result Diagrams: 02/14/17 07:57 02/14/17 07:57 Labs: Abnormal lab results Hgb 12.6 g/dL (12.9-16.9) L 02/14/17 07:57 MCV 82.2 fL (83.0-100.0) L 02/14/17 07:57 MCH 26.4 pg (28.0-33.3) L 02/14/17 07:57 MPV 8.9 fL (9.4-12.4) L 02/14/17 07:57 Eosinophils # 0.7 K/mcL (0.0-0.6) H 02/13/17 01:04 PT 18.1 Seconds (9.4-12.1) H 02/14/17 07:57 APTT 43.0 Seconds (26.0-36.0) H 02/14/17 07:57 Sodium 135 mEq/L (136-145) L 02/14/17 07:57 Creatinine 1.56 mg/dL (0.72-1.25) H 02/14/17 07:57 Est GFR ( Amer) 55 (> 60) L 02/14/17 07:57 Est GFR (Non-Af Amer) 45 (> 60) L 02/14/17 07:57 Glucose 217 mg/dL (70-99) H 02/14/17 07:57 POC Glucose 280 (58-89) H 02/14/17 10:58 Hemoglobin A1c 10.0 % (-5.6) H 02/10/17 19:17 Magnesium 1.5 mg/dL (1.6-2.6) L 02/12/17 00:52 Albumin 2.7 g/dL (3.5-5.0) L 02/13/17 01:04 Globulin 4.1 g/dL (2.4-3.5) H 02/13/17 01:04 Albumin/Globulin Ratio 0.7 (1.1-2.2) L 02/13/17 01:04 Vancomycin Trough 9.5 mcg/mL (10-20) L 02/14/17 07:57 Consult Discharge Plan - Plan Referrals: Checo Briseno DPM [Partnered Physician] -
[2017-02-14] MEDS: *HR* Warfarin 4 MG TABLET PO SCH (17:10)
[2017-02-14] MEDS: Levofloxacin 750 MG/150 ML 750 MG/150 ML BAG IVPB SCH (17:10)
[2017-02-14] MEDS ORDERED: Warfarin perPT PO PRN (18:00)
[2017-02-14] MEDS: Heparin 25,000 UNIT/500 ML D5W 25,000 UNIT/500 ML MLS IVC SCH (23:02)
[2017-02-15 05:24] LABS: Hemoglobin 11.4 g/dL (12.9-16.9); Immature Platelets 2.1 % (1.1-6.1); Mean Corpuscular HGB Conc 31.7 g/dL (31.6-35.5); Mean Platelet Volume 9.1 fL (9.4-12.4); Red Blood Count 4.39 M/mcL (4.19-5.50); Red Cell Distribution Width 12.3 % (11.5-14.5)
[2017-02-15 05:30] LABS: INR 1.7; Prothrombin Time 18.8 Seconds (9.4-12.1)
[2017-02-15 05:32] LABS: Calcium 9.1 mg/dL (8.6-10.8)
[2017-02-15] MEDS: Insulin LISPRO 300 UNITS/3 ML VIAL SQ SCH ×4 (09:11→20:37)
[2017-02-15] MEDS: Furosemide 20 MG TABLET PO SCH (09:12)
[2017-02-15] MEDS: Gabapentin 100 MG CAPSULE PO SCH ×3 (09:12→20:11)
[2017-02-15] MEDS: Aspirin Enteric Coated 81 MG Tablet PO SCH (09:12)
[2017-02-15] MEDS: hydrALAZINE 10 MG TABLET PO SCH (09:12)
[2017-02-15] MEDS: amLODIPine 5 MG TABLET PO SCH (09:12)
--- NOTE | 2017-02-15 10:18 | Internal Med Progress Note ---
<Vaughn Ruff - Last Filed: 02/15/17 10:32> Date of Encounter: 02/15/17 Time of Encounter: 10:15 - Assessment and plan (1) Osteomyelitis of left foot Current Visit: Yes Status: Acute Assessment and plan: POD#2 s/p Partial Resection of Left fifth metatarsal and proximal phalanx of the fifth digit Wound Culture growing Morganella inder.[email or web address] morganii and E. coli Surgical culture - preliminary no growth to date Podiatry consulted, appreciate recommendations ID consulted, appreciate recommendations - switched to Levaquin INR 1.7 today - continue heparin bridging back to coumadin Plan: -Continue IV abx - plan per ID is potentially 6 weeks of Levaquin, will discuss with ID - will need PICC line if this is the case -Continue local wound care per podiatry -Plan to bridge back to coumadin in the setting of porcine valve -Pt reports goal is to return home on D/C and does not want any assistance Qualifiers: Osteomyelitis type: unspecified type Qualified Code(s): M86.9 - Osteomyelitis, unspecified (2) Diabetic foot ulcer Current Visit: Yes Status: Chronic Assessment and plan: Plan as above Qualifiers: Diabetic foot ulcer location: midfoot Diabetes mellitus type: type 2 Laterality: left Non-pressure ulcer stage: with necrosis of bone Qualified Code(s): E11.621 - Type 2 diabetes mellitus with foot ulcer; L97.424 - 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 (3) Bacteremia Current Visit: Yes Status: Acute Assessment and plan: Awaiting final culture results - growing peptostreptococcus asaccharoly ID consulted, appreciate recommendations - switched to Levaquin Plan: -Continue IV abx -Await final culture and sensitivities (4) [id number] kidney injury Current Visit: Yes Status: Acute Assessment and plan: SCr 1.56, GFR 45 - continue to monitor, stable Renally dose medications and avoid nephrotoxins as able Qualifiers: Chronic kidney disease stage: stage 3 (moderate) Qualified Code(s): N17.9 - Acute kidney failure, unspecified; N18.3 - Chronic kidney disease, stage 3 ( moderate) (5) HTN (hypertension) Current Visit: No Status: Chronic Assessment and plan: Currently appears controlled. Continue home meds. Qualifiers: Hypertension type: essential hypertension Qualified Code(s): I10 - Essential (primary) hypertension - Subjective Interval history: Patient seen and examined. Reports he is feeling well with no complaints. Reports pain in foot is improving. Denies chest pain, dyspnea, cough, N/V/D, or dysuria - Constitutional Vitals: Temp Pulse Resp BP Pulse Ox 97.6 F 80 16 153/79 93 02/15/17 08:14 02/15/17 08:14 02/15/17 08:14 02/15/17 08:14 02/15/17 08:14 General appearance: Present: cooperative, A&O X 3, pleasant, no acute distress, answers questions appropriately - Head Head exam: Present: atraumatic, normocephalic - Respiratory Respiratory exam: Present: CTAB. Absent: rales, rhonchi, wheezes - Cardiovascular Cardiovascular exam: Present: RRR, +S1, +S2. Absent: diastolic murmur, systolic murmur - GI/Abdominal GI/Abdominal exam: Present: normal bowel sounds, soft. Absent: firm, rigid, tenderness - Extremities Exam Extremities exam: Present: warm. Absent: tenderness Additional comments: bandage in place over left foot appears dry without drainage - Neurological Exam Neurological exam: Present: alert, CN II-XII intact, oriented X3, no focal deficits Internal Medicine: Result - Labs CBC & Chem 7: 02/15/17 04:59 02/15/17 04:59 Labs: Short CBC 02/15/17 Range/Units 04:59 WBC 8.3 (4.3-11.1) K/mcL Hgb 11.4 L (12.9-16.9) g/dL Hct 36.0 L (37.5-50.1) % Plt Count 221 (140-400) K/mcL [facility] 02/15/17 04:59 Sodium 136 Potassium 4.0 Chloride 100 Carbon Dioxide 30 H BUN 25 Creatinine 1.56 H Glucose 215 H Calcium 9.1 - ABG Interpretation ABG results: PT/INR, D-dimer PT 18.8 Seconds (9.4-12.1) H 02/15/17 04:59 Consult Discharge Plan - Plan Referrals: Checo Briseno DPM [Partnered Physician] - Amy Rodriguez, [employer]OUTE SERVICE REPRESENTATIVE [Advanced Practice Nurse] - 03/01/17 9:30 am <DarlynMeliton H - Last Filed: 02/15/17 14:23> Date of Encounter: 02/15/17 - Constitutional Vitals: Temp Pulse Resp BP Pulse Ox 98.3 F 78 14 155/77 93 02/15/17 12:10 02/15/17 12:10 02/15/17 12:10 02/15/17 12:10 02/15/17 12:10 Internal Medicine: Result - Labs CBC & Chem 7: 02/15/17 04:59 02/15/17 04:59 Labs: Short CBC 02/15/17 Range/Units 04:59 WBC 8.3 (4.3-11.1) K/mcL Hgb 11.4 L (12.9-16.9) g/dL Hct 36.0 L (37.5-50.1) % Plt Count 221 (140-400) K/mcL BMP 02/15/17 04:59 Sodium 136 Potassium 4.0 Chloride 100 Carbon Dioxide 30 H BUN 25 Creatinine 1.56 H Glucose 215 H Calcium 9.1 - ABG Interpretation ABG results: PT/INR, D-dimer PT 18.8 Seconds (9.4-12.1) H 02/15/17 04:59 - Attending Attestation PICC consult to continue IV antibiotics as recommended by ID Continue IV Levaquin I examined this patient and my medical decision-making was reviewed with the Resident Physician. I agree with the documented findings, disposition and treatment plan as described except to the extent set forth below.
[2017-02-15] MEDS: Insulin DETEMIR 100 UNIT/ML X5UNITS SQ SCH ×2 (11:00→20:12)
[2017-02-15] MEDS: *HR* HYDROcodone/Acet 5/325 mg TABLET PO PRN (12:48)
--- NOTE | 2017-02-15 13:41 | Infectious Disease Progress No ---
Date of Encounter: 02/15/17 Time of Encounter: 13:39 (.) - Assessment and Plan (1) Osteomyelitis of left foot Current Visit: Yes Status: Acute Location: Left foot, 5th metatarsal head. Causative organism unclear. Swab culture of the wound was positive for Escherichia coli and Morganella Morgannii. Intraoperative cultures have been collected and are pending. Secondary to left foot diabetic foot ulcer. No inflammatory markers were obtained prior to surgery. X-ray of the left foot showed plantar lateral cellulitis with adjacent first MTP septic arthropathy osteomyelitis of the fifth metatarsal head and first phalanx base of the fifth toe. MRI confirmed all cellulitis of the fifth metatarsal and proximal phalanx as well as a small foci of gas. Podiatry was consulted and took the patient to the operating room and completed a fifth metatarsal and proximal phalanx of the fifth digit resection by Dr. briseno on 02/14/17. Case discussed with Dr. Briseno. States that the remaining bone looks good, but we may need to consider pursuing IV antibiotics for least a few weeks. ESR >130. CRP 112. Await intraoperative cultures--> preliminarily negative. Continue Levaquin 750mg IV daily. Duration of treatment depends on the clinical picture, but likely 6 weeks of IV antibiotics will be required. Monitor renal function and for drug toxicity and dose adjust antibiotics. Consult VAT for EPIV placement. director of student financial services following for discharge planning. Get weekly CBC, BUN/Cr, ESR, and CRP every Monday for the duration of antibiotic therapy. Weekly EPIV care per protocol. Follow up with ID 03/01/17 at 0930. Case discussed with Dr. Chandler. Qualifiers: Osteomyelitis type: unspecified type Qualified Code(s): M86.9 - Osteomyelitis, unspecified (2) Bacteremia Current Visit: Yes Status: Acute Causative organism: Peptostreptococcus asaccharolyticus Blood cultures +2 out of 2 sets drawn 02/10/17. Repeat blood cultures drawn 02/13/17 are pending 2 sets. Await repeat blood cultures. Repeat blood cultures again on 02/19/17 to evaluate for persistent bacteremia that may indicate the presence of endocarditis given that the patient has a porcine valve. No endocarditis stigmata noted. Continue antibiotics as above. (3) Cellulitis Current Visit: Yes Status: Acute Location: Left foot. Causative organism: Unclear. Wound culture was positive for E. coli and Morganella morgannii. Improved. Continue antibiotics as above. Qualifiers: Site of cellulitis: other site Qualified Code(s): L03.818 - Cellulitis of other sites (4) Diabetic foot ulcer Current Visit: No Status: Acute Location: Plantar aspect of the left foot. Podiatry consulted and following. Continue wound care and activity restrictions as outlined by the podiatry team. Qualifiers: Diabetic foot ulcer location: toe Diabetes mellitus type: type 2 Laterality: right Non-pressure ulcer stage: with necrosis of bone Qualified Code(s): E11.621 - Type 2 diabetes mellitus with foot ulcer; L97.514 - Non- pressure chronic ulcer of other part of right foot with necrosis of bone (5) Acute kidney injury Current Visit: No Status: Acute Likely secondary to infectious process. Improved. Continue to trend. Avoid nephrotoxins as able and dose adjust antibiotics. 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 (7) HTN (hypertension) Current Visit: No Status: Chronic Qualifiers: Hypertension type: essential hypertension Qualified Code(s): I10 - Essential (primary) hypertension (8) CKD (chronic kidney disease) Current Visit: No Status: Chronic Qualifiers: Chronic kidney disease stage: stage 3 (moderate) Qualified Code(s): N18.3 - Chronic kidney disease, stage 3 (moderate) (9) Diabetes Current Visit: No Status: Chronic Hemoglobin A1c 10%. Uncontrolled. Recommend aggressive glucose monitoring and control to promote wound healing and prevent reinfection. Management per the primary team. Qualifiers: Diabetes mellitus type: type 2 Diabetes mellitus complication status: with neurologic complications Diabetes mellitus complication detail: with unspecified neuropathy Diabetes mellitus mcc insulin use: with buttermaker use Qualified Code(s): E11.40 - Type 2 diabetes mellitus with diabetic neuropathy, unspecified; Z79.4 - rn long term care (current) use of insulin - Subjective Interval history: Patient seen and examined. No acute events noted overnight. Patient lying in bed during the exam. Denies any fevers or chills or rigors. Denies any chest pain, shortness of breath, or cough. Denies any nausea, vomiting, diarrhea, constipation. Denies any abdominal pain and states his appetite is good. Denies any urinary complaints. Complains of some mild pain at the surgical site. Denies any oral thrush or skin lesions. Infect Dis PN-Objective Data - Labs CBC & Chem 7: 02/15/17 04:59 02/15/17 04:59 Labs: Laboratory Results - last 24 hr 02/14/17 02/14/17 02/14/17 15:13 16:03 20:03 WBC RBC Hgb Hct MCV MCH MCHC RDW Plt Count MPV Immature Plt Fraction ESR PT INR APTT 60.4 H Sodium Potassium Chloride Carbon Dioxide BUN Creatinine Est GFR ( Amer) Est GFR (Non-Af Amer) BUN/Creatinine Ratio Glucose POC Glucose 236 H 237 H Calculated Osmolality Calcium C-Reactive Protein 02/14/17 02/15/17 02/15/17 20:52 04:59 04:59 WBC RBC Hgb Hct MCV MCH MCHC RDW Plt Count MPV Immature Plt Fraction ESR >= 130 H PT 18.8 H INR 1.7 APTT 40.6 H Sodium Potassium Chloride Carbon Dioxide BUN Creatinine Est GFR ( Amer) Est GFR (Non-Af Amer) BUN/Creatinine Ratio Glucose POC Glucose Calculated Osmolality Calcium C-Reactive Protein 02/15/17 02/15/17 02/15/17 04:59 04:59 04:59 WBC 8.3 RBC 4.39 Hgb 11.4 L Hct 36.0 L MCV 82.0 L MCH 26.0 L MCHC 31.7 RDW 12.3 Plt Count 221 MPV 9.1 L Immature Plt Fraction 2.1 ESR PT INR APTT Sodium 136 Potassium 4.0 Chloride 100 Carbon Dioxide 30 H BUN 25 Creatinine 1.56 H Est GFR ( Amer) 55 L Est GFR (Non-Af Amer) 45 L BUN/Creatinine Ratio 16 Glucose 215 H POC Glucose Calculated Osmolality 293 Calcium 9.1 C-Reactive Protein 112 H 02/15/17 02/15/17 04:59 12:22 WBC RBC Hgb Hct MCV MCH MCHC RDW Plt Count MPV Immature Plt Fraction ESR PT INR APTT 100.9 H D 69.6 H Sodium Potassium Chloride Carbon Dioxide BUN Creatinine Est GFR ( Amer) Est GFR (Non-Af Amer) BUN/Creatinine Ratio Glucose POC Glucose Calculated Osmolality Calcium C-Reactive Protein Cultures: Cultures 02/13/17 14:11 Blood Culture - Preliminary Peripheral Venipuncture No growth. 02/13/17 14:11 Blood Culture - Preliminary Peripheral Venipuncture No growth. 02/13/17 17:03 Wound Culture - Preliminary Left Fifth Toe No growth. Exam - Constitutional Vitals: Temp Pulse Resp BP Pulse Ox 98.3 F 78 14 155/77 93 02/15/17 12:10 02/15/17 12:10 02/15/17 12:10 02/15/17 12:10 02/15/17 12:10 General appearance: average body habitus, cooperative, no acute distress - Head Head exam: Present: atraumatic, normal inspection, normocephalic - Eye Eye exam: Present: normal appearance, PERRL Pupils: Present: normal accommodation - ENT ENT exam: Present: mucous membranes moist - Neck Neck exam: Present: normal inspection - Respiratory Respiratory exam: Present: CTAB. Absent: rales, respiratory distress, rhonchi, wheezes - Cardiovascular Cardiovascular exam: Present: RRR, +S1, +S2 - GI/Abdominal GI/Abdominal exam: Present: normal bowel sounds, soft. Absent: distended, tenderness - Extremities Exam Additional comments: Left foot surgical site noted to the plantar aspect with sutures intact. Left lateral foot surgical site noted as well with sutures intact. No active drainage , warmth, erythema, or tenderness noted. 5th toe noted to have some duskiness and delayed capillary refill. - Neurological Exam Neurological exam: Present: alert, oriented X3, no focal deficits - Psychiatric Psychiatric exam: Present: normal affect, normal mood - Skin Skin exam: Present: dry, intact, normal color, warm Consult Discharge Plan - Plan Referrals: Checo Briseno DPM [Partnered Physician] - Amy Rodriguez CNP [Advanced Practice Nurse] - 03/01/17 9:30 am - Attending Attestation I examined this patient and my medical decision-making was reviewed with the Resident Physician. I agree with the documented findings, disposition and treatment plan as described except to the extent set forth below.
--- NOTE | 2017-02-15 16:06 | Podiatry Progress Note ---
Date of Encounter: 02/15/17 Time of Encounter: 12:15 - Assessment and Plan (1) Cellulitis Current Visit: Yes Status: Acute Qualifiers: Site of cellulitis: other site Qualified Code(s): L03.818 - Cellulitis of other sites (2) Osteomyelitis of left foot Current Visit: Yes Status: Acute s/p Excision of ulceration, left foot ulcer, Partial resection of fifth metatarsal, left, Partial resection of proximal phalanx of fifth digit left, Incision and drainage left foot with irrigation and debridement left foot, Closure of chronic wound/ulcer left foot by Dr. Briseno on 02/13/17. WBC: 8.3 Wound culture isolated E. coli and Morganella morgannii. Antibiotics per ID. Dressing changes will be needed every 2 days, cleanse incision line daily with saline pat dry, apply Betadine to incision lines with Adaptic, dry sterile 4 x 4 gauze and Kerlix. Remain non-weight bearing to left foot. Will need a 1 week f/u with Dr. Briseno. 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 Briseno on 02/13/17. Patient is lying in bed with dressing intact the left foot. No complaints of pain, fever, chills, chest pain, shortness of breath or calf pain. Objective - Vital Signs Vital Signs: Vital Signs Temp Pulse Resp BP Pulse Ox 02/15/17 12:10 98.3 F 78 14 155/77 93 02/15/17 08:14 97.6 F 80 16 153/79 93 02/15/17 04:58 97.3 F L 78 17 162/80 95 02/14/17 23:12 97.9 F 76 16 136/76 95 02/14/17 20:08 98.2 F 76 17 153/78 96 Intake and Output 02/15/17 02/15/17 02/15/17 07:59 15:59 23:59 Intake Total 285 / 285 568 / 568 Output Total 575 / 575 0 / 0 Balance -290 / -290 568 / 568 Intake: IV Fluids 285 / 285 208 / 208 Heparin 25,000 UNIT/500 285 / 285 208 / 208 ML D5W 25,000 unit In 500 ml @ 14 UNIT/KG/HR 27. 941 mls/hr IVC .[id number] PALLAVI Rx#:[id number] Oral 0 / 0 360 / 360 Output: Urine 575 / 575 0 / 0 Other: Meal Lunch Percent of Meal Consumed 100% Weight 101.1 kg Blood Glucose* 248 Patient Weight 02/15/17 23:59 Weight 101.1 kg - Exam Exam: General appearance: alert awake oriented X 3. Calm and pleasant, no acute distress.. Vascular: Pedal pulses +1/4 DP/PT , No evidence of cyanosis, pallor or rubor, Edema graded at 1+/4, Skin Tempature warm, No calf pain with manual compression. capillary refill time is immediate to digits. Neurologic: Sensation intact with light touch to foot. . Postop Exam: S/P Sutures intact to incision lines, no signs of dehiscence. Minimal edema. Light periwound area edema, no streaking, no ascending cellulitis. Small hematoma to the proximal end of the incision line. No active bleeding. CFT is immediate to the distal aspect of toe #5 left foot. Toe is warm to touch. No pus, no fluctuance, no odor, - Lab Result Diagrams: 02/15/17 04:59 02/15/17 04:59 Labs: Abnormal lab results Hgb 11.4 g/dL (12.9-16.9) L 02/15/17 04:59 Hct 36.0 % (37.5-50.1) L 02/15/17 04:59 MCV 82.0 fL (83.0-100.0) L 02/15/17 04:59 MCH 26.0 pg (28.0-33.3) L 02/15/17 04:59 MPV 9.1 fL (9.4-12.4) L 02/15/17 04:59 Eosinophils # 0.7 K/mcL (0.0-0.6) H 02/13/17 01:04 ESR >= 130 mm/hr (0-10) H 02/15/17 04:59 PT 18.8 Seconds (9.4-12.1) H 02/15/17 04:59 APTT 69.6 Seconds (26.0-36.0) H 02/15/17 12:22 Carbon Dioxide 30 mEq/L (19-29) H 02/15/17 04:59 Creatinine 1.56 mg/dL (0.72-1.25) H 02/15/17 04:59 Est GFR ( Amer) 55 (> 60) L 02/15/17 04:59 Est GFR (Non-Af Amer) 45 (> 60) L 02/15/17 04:59 Glucose 215 mg/dL (70-99) H 02/15/17 04:59 POC Glucose 237 (58-89) H 02/14/17 20:03 Hemoglobin A1c 10.0 % (-5.6) H 02/10/17 19:17 Magnesium 1.5 mg/dL (1.6-2.6) L 02/12/17 00:52 C-Reactive Protein 112 mg/L (Less than 5) H 02/15/17 04:59 Albumin 2.7 g/dL (3.5-5.0) L 02/13/17 01:04 Globulin 4.1 g/dL (2.4-3.5) H 02/13/17 01:04 Albumin/Globulin Ratio 0.7 (1.1-2.2) L 02/13/17 01:04 Vancomycin Trough 9.5 mcg/mL (10-20) L 02/14/17 07:57 Microbiology, Last 48 Hours 02/13/17 14:11 Blood Culture - Preliminary Peripheral Venipuncture No growth. 02/13/17 14:11 Blood Culture - Preliminary Peripheral Venipuncture No growth. 02/13/17 17:03 Wound Culture - Preliminary Left Fifth Toe No growth. Consult Discharge Plan - Plan Referrals: Checo Briseno DPM [Partnered Physician] - Amy Rodriguez, DIETARY WORKER [Advanced Practice Nurse] - 03/01/17 9:30 am
[2017-02-15] MEDS: Levofloxacin 750 MG/150 ML 750 MG/150 ML BAG IVPB SCH (16:49)
[2017-02-15] MEDS: *HR* Warfarin 4 MG TABLET PO SCH (17:59)
[2017-02-15] MEDS: Heparin 25,000 UNIT/500 ML D5W 25,000 UNIT/500 ML MLS IVC SCH ×2 (18:01→18:07)
[2017-02-15] MEDS: *HR* Heparin 5,000 UNIT/ML VIAL IVP PRN (19:57)
[2017-02-16 02:28] LABS: Hemoglobin 11.5 g/dL (12.9-16.9); Immature Platelets 1.9 % (1.1-6.1); Mean Corpuscular HGB Conc 31.9 g/dL (31.6-35.5); Mean Corpuscular Hemoglobin 26.3 pg (28.0-33.3); Mean Corpuscular Volume 82.2 fL (83.0-100.0); Mean Platelet Volume 8.7 fL (9.4-12.4); Red Blood Count 4.38 M/mcL (4.19-5.50); Red Cell Distribution Width 12.3 % (11.5-14.5)
[2017-02-16 02:34] LABS: INR 1.6; Prothrombin Time 17.7 Seconds (9.4-12.1)
[2017-02-16 02:37] LABS: Activated Partial Thrombo Time 91.1 Seconds (26.0-36.0)
[2017-02-16 02:42] LABS: Calcium 9.5 mg/dL (8.6-10.8); Potassium 4.2 mEq/L (3.5-4.5)
[2017-02-16] MEDS: Heparin 25,000 UNIT/500 ML D5W 25,000 UNIT/500 ML MLS IVC SCH ×2 (07:00→22:30)
[2017-02-16] MEDS: Aspirin Enteric Coated 81 MG Tablet PO SCH (08:03)
[2017-02-16] MEDS: amLODIPine 5 MG TABLET PO SCH (08:03)
[2017-02-16] MEDS: hydrALAZINE 10 MG TABLET PO SCH (08:04)
[2017-02-16] MEDS: Insulin LISPRO 300 UNITS/3 ML VIAL SQ SCH ×4 (08:04→21:40)
[2017-02-16] MEDS: Gabapentin 100 MG CAPSULE PO SCH ×3 (08:04→21:39)
[2017-02-16] MEDS: Furosemide 20 MG TABLET PO SCH (08:04)
--- NOTE | 2017-02-16 08:38 | Discharge Summary ---
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 (3) Bacteremia Priority: Secondary Status: Acute (4) Skclt-by-qjjgyni kidney injury Priority: Secondary Status: Acute Qualifiers: Chronic kidney disease stage: stage 3 (moderate) Qualified Code(s): N17.9 - Acute kidney failure, unspecified; N18.3 - Chronic kidney disease, stage 3 ( moderate) (5) HTN (hypertension) Priority: Secondary Status: Chronic Qualifiers: Hypertension type: essential hypertension Qualified Code(s): I10 - Essential (primary) hypertension (6) Valvular heart disease Priority: Secondary Status: Chronic - Discharge Medications Prescriptions: Levofloxacin 750 MG/150 ML [Levaquin Premix 750mg/150 mL] 750 mg IVPB Q24H #42 bag Warfarin [Coumadin] 4 mg PO DAILY #14 tablet Warfarin [Coumadin] 4 mg PO DAILY #4 Home Medications: Aspirin [Lo-Dose Aspirin EC] 81 mg PO DAILY 04/14/16 [History] Insulin DETEMIR [Levemir] 30 unit SQ BID 04/14/16 [History] Insulin Human Regular [HumuLIN R] 0 unit SQ TIDWM 04/14/16 [History] Lisinopril [Zestril] 40 mg PO DAILY 04/14/16 [History] Simvastatin [Zocor] 40 mg PO HS 04/14/16 [History] hydrALAZINE [HydrALAZINE] 10 mg PO DAILY 04/14/16 [History] Furosemide [Lasix] 20 mg PO DAILY #30 tablet 06/03/16 [Rx] HYDROcodone/Acet 5/325 mg [[place] 5-325 mg] 1 tab PO Q4-6H PRN #20 tablet [Rx] Metoprolol [Lopressor] 25 mg PO BID #60 tablet 06/03/16 [Rx] amLODIPine [Norvasc] 5 mg PO DAILY 02/10/17 [History] Levofloxacin 750 MG/150 ML [Levaquin Premix 750mg/150 mL] 750 mg IVPB Q24H #42 bag 02/16/17 [Rx] Warfarin [Coumadin] 4 mg PO DAILY #14 tablet 02/16/17 [Rx] Warfarin [Coumadin] 4 mg PO DAILY #4 02/16/17 [Rx] Allergies/Adverse Reactions: 3 Allergy/AdvReac Type Severity Reaction Status Date / Time No Known Allergies Allergy Verified 05/18/16 07:09 Date of admission: 02/10/17 18:18 Primary care physician: Orion Ward Jr, MD Consults: 02/14/17 11:28 Consult to Infectious Diseases [CONS] Routine Consulting Provider: Infectious Disease Keila Reason for Consult: Osteomylitis Time Notified: 11:29 Call Completed: Yes 02/14/17 15:12 Consult to Physical Therapy [CONS] Stat Comment: Evaluate, develop and implement POC Reason for Consult: Partial resection of metatarsal. Please assist the patient as he needs to have limited weightbearing on his left foot 02/14/17 15:22 OT [Consult to Occupational Therapy] [CONS] Routine Comment: Evaluate, develop and implement POC Reason for Consult: discharge planning 02/15/17 09:58 Consult to Coatings Inspector [CONS] Routine Reason for SW Consult: PT/OT recommending inpt swing/rehab; high possibility that the patient may require IV ABX 02/15/17 13:34 Consult to Invasive Line Access Team [CONS] Routine Reason for Consult: retirement IV abx Line Type: PICC 02/15/17 14:09 Consult to Invasive Line Access Team [CONS] Routine Reason for Consult: Outpt. antibiotic therapy Levaquin IV Line Type: EPIV Discharging clinician: Vaughn Ruff Anticipated date of discharge: 02/16/17 - Patient Status Disposition: Home Health Service Condition: Serious Functional capacity at discharge: uses cane/walker (non-weight bearing on left foot) Overall status at discharge: patient is progressing back to baseline - Discharge Instructions Instructions: Myocardial Infarction (DC), Heart Failure (DC) Follow Up With: Checo Briseno DPM [Partnered Physician] - Amy Rodriguez CNP [Advanced Practice Nurse] - 03/01/17 9:30 am Additional Instructions: Remain non-weight bearing with left foot Dressing changes are needed every 2 days Clean incision line daily with saline and pat dry Apply betadine to incision lines with adaptic, dry sterile 4X4 gauze and kerlix Follow-up with Dr. Briseno Follow instruction of home health for PICC line management and antibiotic administration Follow-up with Amy Rodriguez CNP Use lovenox shots as your INR increases and take coumadin as prescribed Follow-up with your PCP and discuss your coumadin need and dosage - Diet and Activity Activity: ambulate only with your walker, as per physical therapy Diet: diabetic diet Interval History: Patient seen and examined. He is feeling well with no complaints. Pain is controlled. His bandage is clean and dry. PICC line in place in left arm. Denies chest pain, dyspnea, cough, N/V/D, dysuria, or leg pain. Hospital course: Mr. Wharton is a 66 year old male with osteomyelitis of the left foot, POD #3 s/ p partial resection of 5th metatarsal and partial resection of 5th proximal phalanx. He had a positive wound culture for Escherichia coli and Morganella Morgannii. Also had positive blood cultures for Peptostreptococcus asaccharolyticus. Final surgical culture results are pending (preliminary negative). He was on vancomycin and zosyn, but has been switched to Levaquin IV with plans for 6 weeks of treatment. He will need weekly CBC, BUN/Cr, ESR, and CRP per ID. And repeat blood cultures on 02/19/17 to evaluate for persistent bactermia in the setting of a porcine valve. I spoke with Dr. Ward's office about his coumadin dose since they manage it as an out-patient. They instructed me to send him on 4mg daily and to have him follow-up in the office to evaluate this further. He will be discharged to home with home health services and PICC line management. - Time Spent with Patient Total time spent providing and/or coordinating discharge services: - Constitutional Vitals: Temp Pulse Resp BP Pulse Ox 97.5 F L 84 16 160/77 93 02/16/17 08:01 02/16/17 08:01 02/16/17 08:01 02/16/17 08:01 02/16/17 08:01 General appearance: Present: cooperative, A&O X 3, pleasant, no acute distress, answers questions appropriately - Head Head exam: Present: atraumatic, normocephalic - Eye Eye exam: Present: sclera anicteric - ENT ENT exam: Present: mucous membranes moist - Respiratory Respiratory exam: Present: CTAB. Absent: rales, rhonchi, wheezes - Cardiovascular Cardiovascular exam: Present: RRR, +S1, +S2. Absent: diastolic murmur, systolic murmur - GI/Abdominal GI/Abdominal exam: Present: normal bowel sounds, soft. Absent: distended, rigid , tenderness - Extremities Exam Extremities exam: Present: normal capillary refill, normal inspection, pedal edema, warm, radial pulses palpable and symmetrical Additional comments: Left foot bandage clean and dry with no evidence of drainage - Neurological Exam Neurological exam: Present: alert, CN II-XII intact, oriented X3, no focal deficits <Meliton Santizo - Last Filed: 02/16/17 14:33> Date of Encounter: 02/16/17 Date of admission: 02/10/17 18:18 Primary care physician: Orion Ward Jr, MD Consults: 02/14/17 11:28 Consult to Infectious Diseases [CONS] Routine Consulting Provider: Infectious Disease Keila Reason for Consult: Osteomylitis Time Notified: 11:29 Call Completed: Yes 02/14/17 15:12 Consult to Physical Therapy [CONS] Stat Comment: Evaluate, develop and implement POC Reason for Consult: Partial resection of metatarsal. Please assist the patient as he needs to have limited weightbearing on his left foot 02/14/17 15:22 OT [Consult to Occupational Therapy] [CONS] Routine Comment: Evaluate, develop and implement POC Reason for Consult: discharge planning 02/15/17 09:58 Consult to Coatings Inspector [CONS] Routine Reason for SW Consult: PT/OT recommending inpt swing/rehab; high possibility that the patient may require IV ABX 02/15/17 13:34 Consult to Invasive Line Access Team [CONS] Routine Reason for Consult: intermodal truck driver IV abx Line Type: PICC 02/15/17 14:09 Consult to Invasive Line Access Team [CONS] Routine Reason for Consult: Outpt. antibiotic therapy Levaquin IV Line Type: EPIV Hospital course: Mr. Wharton is a 66 year old male - Time Spent with Patient Total time spent providing and/or coordinating discharge services: - Constitutional Vitals: Temp Pulse Resp BP Pulse Ox 97.7 F 74 17 152/84 95 02/16/17 11:05 02/16/17 11:05 02/16/17 11:05 02/16/17 11:05 02/16/17 11:05 - Attending Attestation s/p Excision of ulceration, left foot ulcer, Partial resection of fifth metatarsal, left, Partial resection of proximal phalanx of fifth digit left, Incision and drainage left foot with irrigation and debridement left foot, Closure of chronic wound/ulcer left foot by Dr. Briseno on 02/13/17. ID recommending IV levaquin time spent on this discharge: 40 min I examined this patient and my medical decision-making was reviewed with the Resident Physician. I agree with the documented findings, disposition and treatment plan as described except to the extent set forth below.
--- NOTE | 2017-02-16 09:26 | Infectious Disease Progress No ---
Date of Encounter: 02/16/17 Time of Encounter: 09:24 - Assessment and Plan (1) Osteomyelitis of left foot Current Visit: Yes Status: Acute Location: Left foot, 5th metatarsal head. Causative organism Escherichia coli and Morganella Morgannii. Secondary to left foot diabetic foot ulcer. No inflammatory markers were obtained prior to surgery. X-ray of the left foot showed plantar lateral cellulitis with adjacent first MTP septic arthropathy osteomyelitis of the fifth metatarsal head and first phalanx base of the fifth toe. MRI confirmed all cellulitis of the fifth metatarsal and proximal phalanx as well as a small foci of gas. Podiatry was consulted and took the patient to the operating room and completed a fifth metatarsal and proximal phalanx of the fifth digit resection by Dr. briseno on 02/14/17. ESR >130. CRP 112. Intra-operative cultures negative. Continue Levaquin 750mg IV daily. Duration of treatment depends on the clinical picture, but likely 6 weeks of IV antibiotics will be required. Monitor renal function and for drug toxicity and dose adjust antibiotics. EPIV placed 02/15/17. human services instructor following for discharge planning. Get weekly CBC, BUN/Cr, ESR, and CRP every Monday for the duration of antibiotic therapy. Weekly EPIV care per protocol. Follow up with ID 03/01/17 at 0930. Qualifiers: Osteomyelitis type: unspecified type Qualified Code(s): M86.9 - Osteomyelitis, unspecified (2) Bacteremia Current Visit: Yes Status: Acute Causative organism: Peptostreptococcus asaccharolyticus Likely a contaminant, but will repeat blood cultures as below given that the patient has a porcine heart valve. Blood cultures +2 out of 2 sets drawn 02/10/17. Repeat blood cultures drawn 02/13/17 are NGTD 2 sets. Repeat blood cultures again on 02/19/17 to evaluate for persistent bacteremia that may indicate the presence of endocarditis given that the patient has a porcine valve. No endocarditis stigmata noted. Continue antibiotics as above. (3) Cellulitis Current Visit: Yes Status: Acute Location: Left foot. Causative organism likely E. coli and Morganella morgannii. Improved. Continue antibiotics as above. Qualifiers: Site of cellulitis: other site Qualified Code(s): L03.818 - Cellulitis of other sites (4) Diabetic foot ulcer Current Visit: No Status: Acute Location: Plantar aspect of the left foot. Podiatry consulted and following. Continue wound care and activity restrictions as outlined by the podiatry team. Qualifiers: Diabetic foot ulcer location: toe Diabetes mellitus type: type 2 Laterality: right Non-pressure ulcer stage: with necrosis of bone Qualified Code(s): E11.621 - Type 2 diabetes mellitus with foot ulcer; L97.514 - Non- pressure chronic ulcer of other part of right foot with necrosis of bone (5) Acute kidney injury Current Visit: No Status: Acute Likely secondary to infectious process. Improved. Continue to trend. Avoid nephrotoxins as able and dose adjust antibiotics. 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 (7) HTN (hypertension) Current Visit: No Status: Chronic Qualifiers: Hypertension type: essential hypertension Qualified Code(s): I10 - Essential (primary) hypertension (8) CKD (chronic kidney disease) Current Visit: No Status: Chronic Qualifiers: Chronic kidney disease stage: stage 3 (moderate) Qualified Code(s): N18.3 - Chronic kidney disease, stage 3 (moderate) (9) Diabetes Current Visit: No Status: Chronic Hemoglobin A1c 10%. Uncontrolled. Recommend aggressive glucose monitoring and control to promote wound healing and prevent reinfection. Management per the primary team. Qualifiers: Diabetes mellitus type: type 2 Diabetes mellitus complication status: with neurologic complications Diabetes mellitus complication detail: with unspecified neuropathy Diabetes mellitus alf insulin use: with alf use Qualified Code(s): E11.40 - Type 2 diabetes mellitus with diabetic neuropathy, unspecified; Z79.4 - alf (current) use of insulin - Subjective Interval history: Patient seen and examined. No acute events noted overnight. Patient lying in bed during the exam. Denies any fevers or chills or rigors. Denies any chest pain, shortness of breath, or cough. Denies any nausea, vomiting, diarrhea, constipation. Denies any abdominal pain and states his appetite is good. Denies any urinary complaints. Complains of some mild pain at the surgical site, describes as intermittent aching. Denies any oral thrush or skin lesions. Infect Dis PN-Objective Data - Labs CBC & Chem 7: 02/16/17 02:20 02/16/17 02:20 Labs: Laboratory Results - last 24 hr 0802/15/17 02/15/17 08:18 12:00 12:22 WBC RBC Hgb Hct MCV MCH MCHC RDW Plt Count MPV Immature Plt Fraction PT INR APTT 69.6 H Sodium Potassium Chloride Carbon Dioxide BUN Creatinine Est GFR ( Amer) Est GFR (Non-Af Amer) BUN/Creatinine Ratio Glucose POC Glucose 213 H 248 H Calculated Osmolality Calcium 02/15/17 02/15/17 02/15/17 16:10 18:44 20:18 WBC RBC Hgb Hct MCV MCH MCHC RDW Plt Count MPV Immature Plt Fraction PT INR APTT 52.5 H Sodium Potassium Chloride Carbon Dioxide BUN Creatinine Est GFR ( Amer) Est GFR (Non-Af Amer) BUN/Creatinine Ratio Glucose POC Glucose 209 H 241 H Calculated Osmolality Calcium 02/16/17 02/16/17 02/16/17 02:20 02:20 02:20 WBC 7.6 RBC 4.38 Hgb 11.5 L Hct 36.0 L MCV 82.2 L MCH 26.3 L MCHC 31.9 RDW 12.3 Plt Count 232 MPV 8.7 L Immature Plt Fraction 1.9 PT 17.7 H INR 1.6 APTT 91.1 H D Sodium 137 Potassium 4.2 Chloride 101 Carbon Dioxide 30 H BUN 24 Creatinine 1.53 H Est GFR ( Amer) 56 L Est GFR (Non-Af Amer) 46 L BUN/Creatinine Ratio 16 Glucose 202 H POC Glucose Calculated Osmolality 294 Calcium 9.5 02/16/17 02/16/17 07:25 08:10 WBC RBC Hgb Hct MCV MCH MCHC RDW Plt Count MPV Immature Plt Fraction PT INR APTT 91.7 H Sodium Potassium Chloride Carbon Dioxide BUN Creatinine Est GFR ( Amer) Est GFR (Non-Af Amer) BUN/Creatinine Ratio Glucose POC Glucose 222 H Calculated Osmolality Calcium Cultures: Cultures 02/13/17 17:03 Anaerobic Culture - Preliminary Left Fifth Toe At this time, no anaerobic growth is present. The culture will be finalized after 5 days of incubation. 02/13/17 17:03 Wound Culture - Final Left Fifth Toe No growth. 02/13/17 14:11 Blood Culture - Preliminary Peripheral Venipuncture No growth. 02/13/17 14:11 Blood Culture - Preliminary Peripheral Venipuncture No growth. Exam - Constitutional Vitals: Temp Pulse Resp BP Pulse Ox 97.5 F L 84 16 160/77 93 02/16/17 08:01 02/16/17 08:01 02/16/17 08:01 02/16/17 08:01 02/16/17 08:01 General appearance: average body habitus, cooperative, no acute distress - Head Head exam: Present: atraumatic, normal inspection, normocephalic - Eye Eye exam: Present: normal appearance, PERRL Pupils: Present: normal accommodation - ENT ENT exam: Present: mucous membranes moist - Neck Neck exam: Present: normal inspection - Respiratory Respiratory exam: Present: CTAB. Absent: rales, respiratory distress, rhonchi, wheezes - Cardiovascular Cardiovascular exam: Present: RRR, +S1, +S2 - GI/Abdominal GI/Abdominal exam: Present: normal bowel sounds, soft. Absent: distended, tenderness - Extremities Exam Extremities exam: Present: pedal edema (Trace LLE). Absent: joint swelling, tenderness Additional comments: Left foot dressing C/D/I. - Neurological Exam Neurological exam: Present: alert, oriented X3, no focal deficits - Psychiatric Psychiatric exam: Present: normal affect, normal mood - Skin Skin exam: Present: dry, intact, normal color, warm - Additional findings Additional findings: EPIV noted to the LUE with transparent dressing C/D/I. Consult Discharge Plan - Plan Instructions: Myocardial Infarction (DC), Heart Failure (DC) Additional Instructions: Remain non-weight bearing with left foot Dressing changes are needed every 2 days Clean incision line daily with saline and pat dry Apply betadine to incision lines with adaptic, dry sterile 4X4 gauze and kerlix Follow-up with Dr. Briseno Follow instruction of home health for PICC line management and antibiotic administration Follow-up with Amy Rodriguez CNP Use lovenox shots as your INR increases and take coumadin as prescribed Follow-up with your PCP and discuss your coumadin need and dosage Referrals: Suzanna,Checo Goddard DPM [Partnered Physician] - Amy Rodriguez CNP [Advanced Practice Nurse] - 03/01/17 9:30 am Prescriptions: Levofloxacin 750 MG/150 ML [Levaquin Premix 750mg/150 mL] 750 mg IVPB Q24H #42 bag Warfarin [Coumadin] 4 mg PO DAILY #14 tablet Warfarin [Coumadin] 4 mg PO DAILY #4 - Attending Attestation I examined this patient and my medical decision-making was reviewed with the Resident Physician. I agree with the documented findings, disposition and treatment plan as described except to the extent set forth below.
[2017-02-16] MEDS: Insulin DETEMIR 100 UNIT/ML X5UNITS SQ SCH ×2 (12:23→21:40)
--- NOTE | 2017-02-16 13:13 | Podiatry Progress Note ---
Date of Encounter: 02/16/17 Time of Encounter: 12:15 - Assessment and Plan (1) Cellulitis Current Visit: Yes Status: Acute Qualifiers: Site of cellulitis: other site Qualified Code(s): L03.818 - Cellulitis of other sites (2) Osteomyelitis of left foot Current Visit: Yes Status: Acute s/p Excision of ulceration, left foot ulcer, Partial resection of fifth metatarsal, left, Partial resection of proximal phalanx of fifth digit left, Incision and drainage left foot with irrigation and debridement left foot, Closure of chronic wound/ulcer left foot by Dr. Briseno on 02/13/17. WBC: 7.6, Wound culture isolated E. coli and Morganella morgannii. Antibiotics per ID. Dressing changed today at the bedside. Small hematoma to the proximal end of the incision line on the dorsal aspect of toe #5. Will continue to closely monitor incision lines. Dressing changes will be needed every 2 days, cleanse incision line daily with saline pat dry, apply Betadine to incision lines with Adaptic, dry sterile 4 x 4 gauze and Kerlix. Remain non-weight bearing to left foot. Will order a post op shoe for the left foot. Will need a 1 week f/u with Dr. 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 Briseno on 02/13/17. Patient is sitting up in bed. Patient just completed his PT session with a walker and remaining NWB. No complaints of pain, fever, chills, chest pain, shortness of breath or calf pain. Objective - Vital Signs Vital Signs: Vital Signs Temp Pulse Resp BP Pulse Ox 02/16/17 11:05 97.7 F 74 17 152/84 95 02/16/17 08:01 97.5 F L 84 16 160/77 93 02/16/17 04:58 98.2 F 84 17 157/61 93 02/16/17 00:47 98.6 F 72 15 152/70 96 02/15/17 19:49 98.2 F 76 18 166/80 97 02/15/17 16:36 98.1 F 75 14 143/77 93 Intake and Output 02/15/17 02/16/17 02/16/17 23:59 07:59 15:59 Intake Total 529.6 / 529.6 373 / 373 951 / 951 Output Total 1150 / 1150 1200 / 1200 0 / 0 Balance -620.4 / -620.4 -827 / -827 951 / 951 Intake: IV Fluids 169.6 / 169.6 373 / 373 591 / 591 Heparin 25,000 UNIT/500 169.6 / 169.6 373 / 373 91 / 91 ML D5W 25,000 unit In 500 ml @ 14 UNIT/KG/HR 27. 941 mls/hr IVC .[id number] [facility] Rx#:[id number] Levaquin Premix 750mg/150 150 / 150 mL 750 mg In 150 ml @ 100 mls/hr IVPB Q24H [facility] Rx#:[id number] Zosyn 3.375 GM In 100 / 100 Dextrose 5% (Minibag+) 100 ML 100 ML @ 25 mls/hr IVPB Q8H [facility] Rx#: [id number] Vancocin 1,250 MG In 250 / 250 Dextrose 5% 250 ML @ 166. 67 mls/hr IVPB Q12H [facility] Rx#:[id number] Oral 360 / 360 0 / 0 360 / 360 Output: Urine 1150 / 1150 1200 / 1200 0 / 0 Other: Meal Dinner Breakfast Percent of Meal Consumed 100% 100% # Bowel Movements 0 0 Weight 101.5 kg Blood Glucose* 241 222 289 Patient Weight 02/16/17 23:59 Weight 101.5 kg - Exam Exam: General appearance: alert awake oriented X 3. Calm and pleasant, no acute distress.. Vascular: Pedal pulses +1/4 DP/PT , No evidence of cyanosis, pallor or rubor, Edema graded at 1+/4, Skin Tempature warm, No calf pain with manual compression. capillary refill time is immediate to digits. Neurologic: Sensation intact with light touch to foot. . Postop Exam: S/P Sutures intact to incision lines, no signs of dehiscence. Minimal edema. Light periwound erythema no streaking, no ascending cellulitis. Small hematoma to the proximal end of the incision line. No active bleeding. Wound edges to incision line dorsally is macerated. CFT is sluggish to the distal aspect of toe #5 left foot. Toe is warm to touch. No pus, no fluctuance, no odor, - Lab Result Diagrams: 02/16/17 02:20 02/16/17 02:20 Labs: Abnormal lab results Hgb 11.5 g/dL (12.9-16.9) L 02/16/17 02:20 Hct 36.0 % (37.5-50.1) L 02/16/17 02:20 MCV 82.2 fL (83.0-100.0) L 02/16/17 02:20 MCH 26.3 pg (28.0-33.3) L 02/16/17 02:20 MPV 8.7 fL (9.4-12.4) L 02/16/17 02:20 Eosinophils # 0.7 K/mcL (0.0-0.6) H 02/13/17 01:04 ESR >= 130 mm/hr (0-10) H 02/15/17 04:59 PT 17.7 Seconds (9.4-12.1) H 02/16/17 02:20 APTT 91.7 Seconds (26.0-36.0) H 02/16/17 08:10 Carbon Dioxide 30 mEq/L (19-29) H 02/16/17 02:20 Creatinine 1.53 mg/dL (0.72-1.25) H 02/16/17 02:20 Est GFR ( Amer) 56 (> 60) L 02/16/17 02:20 Est GFR (Non-Af Amer) 46 (> 60) L 02/16/17 02:20 Glucose 202 mg/dL (70-99) H 02/16/17 02:20 POC Glucose 289 (58-89) H 02/16/17 11:07 Hemoglobin A1c 10.0 % (-5.6) H 02/10/17 19:17 Magnesium 1.5 mg/dL (1.6-2.6) L 02/12/17 00:52 C-Reactive Protein 112 mg/L (Less than 5) H 02/15/17 04:59 Albumin 2.7 g/dL (3.5-5.0) L 02/13/17 01:04 Globulin 4.1 g/dL (2.4-3.5) H 02/13/17 01:04 Albumin/Globulin Ratio 0.7 (1.1-2.2) L 02/13/17 01:04 Vancomycin Trough 9.5 mcg/mL (10-20) L 02/14/17 07:57 Microbiology, Last 48 Hours 02/13/17 17:03 Anaerobic Culture - Preliminary Left Fifth Toe At this time, no anaerobic growth is present. The culture will be finalized after 5 days of incubation. 02/13/17 17:03 Wound Culture - Final Left Fifth Toe No growth. 02/13/17 14:11 Blood Culture - Preliminary Peripheral Venipuncture No growth. 02/13/17 14:11 Blood Culture - Preliminary Peripheral Venipuncture No growth. Consult Discharge Plan - Plan Additional Instructions: Remain non-weight bearing with left foot Dressing changes are needed every 2 days Clean incision line daily with saline and pat dry Apply betadine to incision lines with adaptic, dry sterile 4X4 gauze and kerlix Follow-up with Dr. Briseno Follow instruction of home health for PICC line management and antibiotic administration Follow-up with Amy Rodriguez CNP Use lovenox shots as your INR increases and take coumadin as prescribed Follow-up with your PCP and discuss your coumadin need and dosage Referrals: Suzanna,Checo Goddard DPM [Partnered Physician] - Amy Rodriguez CNP [Advanced Practice Nurse] - 03/01/17 9:30 am Prescriptions: Levofloxacin 750 MG/150 ML [Levaquin Premix 750mg/150 mL] 750 mg IVPB Q24H #42 bag
--- NOTE | 2017-02-16 14:11 | Physician Discharge Referral ---
<Vaughn Ruff R - Last Filed: 02/16/17 14:09> Home Health/Hosp Referral Info Transfer to: Home Health Provider in Charge Post Discharge: PCP (Podiatry/Wound Care) - Diagnosis (1) Osteomyelitis of left foot Priority: Primary Status: Acute (2) Diabetic foot ulcer Priority: Secondary Status: Chronic (3) Bacteremia Priority: Secondary Status: Acute (4) Kdius-ap-jgchekl kidney injury Priority: Secondary Status: Acute (5) HTN (hypertension) Priority: Secondary Status: Chronic (6) Valvular heart disease Priority: Secondary Status: Chronic - Respiratory Orders Smoking Cessation: Smoking cessation has been advised. For more information, call the [place] Tobacco Quit Line at 4-528-UCRL-NOW. - Diet/Nutrition Diet/Nutrition: List: Diabetic Diet - Activity Activity: List: Ambulate with walker/crutches - non-weight bearing on Left foot - Services Needed Following services are medically necessary services: Nursing, Home Infusion - Transfer Medications Prescriptions: Levofloxacin 750 MG/150 ML [Levaquin Premix 750mg/150 mL] 750 mg IVPB Q24H #42 bag Warfarin [Coumadin] 4 mg PO DAILY #14 tablet Warfarin [Coumadin] 4 mg PO DAILY #4 Home Medications: Aspirin [Lo-Dose Aspirin EC] 81 mg PO DAILY 04/14/16 [History] Insulin DETEMIR [Levemir] 30 unit SQ BID 04/14/16 [History] Insulin Human Regular [HumuLIN R] 0 unit SQ TIDWM 04/14/16 [History] Lisinopril [Zestril] 40 mg PO DAILY 04/14/16 [History] Simvastatin [Zocor] 40 mg PO HS 04/14/16 [History] hydrALAZINE [HydrALAZINE] 10 mg PO DAILY 04/14/16 [History] Furosemide [Lasix] 20 mg PO DAILY #30 tablet 06/03/16 [Rx] HYDROcodone/Acet 5/325 mg [Locke 5-325 mg] 1 tab PO Q4-6H PRN #20 tablet [Rx] Metoprolol [Lopressor] 25 mg PO BID #60 tablet 06/03/16 [Rx] amLODIPine [Norvasc] 5 mg PO DAILY 02/10/17 [History] Levofloxacin 750 MG/150 ML [Levaquin Premix 750mg/150 mL] 750 mg IVPB Q24H #42 bag 02/16/17 [Rx] Warfarin [Coumadin] 4 mg PO DAILY #14 tablet 02/16/17 [Rx] Warfarin [Coumadin] 4 mg PO DAILY #4 02/16/17 [Rx] Allergies/Adverse Reactions: 3 Allergy/AdvReac Type Severity Reaction Status Date / Time No Known Allergies Allergy Verified 05/18/16 07:09 Certification: Further, I certify that my clinical findings support that this patient is homebound (i.e. absences from home require considerable and taxing effort and are for medical reasons or oriental orthodox services or infrequently or short duration when for other reasons) because: Homebound Reason: Leaving home requires considerable and taxing effort due to condition Attestation: My signature below is to certify that this patient is under my care and that I, or nurse practitioner, or a physician's retail store assistant working with me, has a face-to -face encounter with this patient. <Meliton Santizo - Last Filed: 02/16/17 16:07> - Respiratory Orders Smoking Cessation: Smoking cessation has been advised. For more information, call the [place] Tobacco Quit Line at 6-570-MPRSNOW. Certification: Further, I certify that my clinical findings support that this patient is homebound (i.e. absences from home require considerable and taxing effort and are for medical reasons or oriental orthodox services or infrequently or short duration when for other reasons) because: Attestation: My signature below is to certify that this patient is under my care and that I, or nurse practitioner, or a physician's retail store assistant working with me, has a face-to -face encounter with this patient. I examined this patient and my medical decision-making was reviewed with the Resident Physician. I agree with the documented findings, disposition and treatment plan as described except to the extent set forth below.
[2017-02-16] MEDS: Levofloxacin 750 MG/150 ML 750 MG/150 ML BAG IVPB SCH (14:56)
[2017-02-16] MEDS ORDERED: *HR* Warfarin 5 MG TABLET PO ONE (18:00)
[2017-02-17] MEDS: Insulin LISPRO 300 UNITS/3 ML VIAL SQ SCH ×3 (07:56→17:18)
[2017-02-17 08:31] LABS: Potassium 4.1 mEq/L (3.5-4.5)
[2017-02-17] MEDS: amLODIPine 5 MG TABLET PO SCH (09:37)
[2017-02-17] MEDS: Gabapentin 100 MG CAPSULE PO SCH ×2 (09:37→17:34)
[2017-02-17] MEDS: Aspirin Enteric Coated 81 MG Tablet PO SCH (09:37)
[2017-02-17] MEDS: hydrALAZINE 10 MG TABLET PO SCH (09:37)
[2017-02-17] MEDS: Furosemide 20 MG TABLET PO SCH (09:37)
[2017-02-17] MEDS: Insulin DETEMIR 100 UNIT/ML X5UNITS SQ SCH (09:58)
[2017-02-17 10:10] LABS: Hematocrit 39.9 % (37.5-50.1); Hemoglobin 12.8 g/dL (12.9-16.9); Immature Platelets 2.3 % (1.1-6.1); Mean Corpuscular HGB Conc 32.1 g/dL (31.6-35.5); Mean Corpuscular Hemoglobin 26.9 pg (28.0-33.3); Mean Corpuscular Volume 83.8 fL (83.0-100.0); Red Blood Count 4.76 M/mcL (4.19-5.50); Red Cell Distribution Width 12.4 % (11.5-14.5)
[2017-02-17 10:34] LABS: INR 1.6; Prothrombin Time 17.5 Seconds (9.4-12.1)
[2017-02-17 10:37] LABS: Activated Partial Thrombo Time 80.4 Seconds (26.0-36.0)
--- NOTE | 2017-02-17 10:52 | Internal Med Progress Note ---
<Vaughn Ruff - Last Filed: 02/17/17 10:48> Date of Encounter: 02/17/17 Time of Encounter: 10:48 - Assessment and plan (1) Osteomyelitis of left foot Current Visit: Yes Status: Acute Assessment and plan: POD#4 s/p Partial Resection of Left fifth metatarsal and proximal phalanx of the fifth digit Wound Culture growing Morganella inder.ssp morganii and E. coli Surgical culture - preliminary no growth to date Podiatry consulted, appreciate recommendations ID consulted, appreciate recommendations - switched to Levaquin IV INR 1.6 - continued bridging to coumadin Plan: -Continue IV abx - plan per ID is 6 weeks of Levaquin -Continue local wound care per podiatry -Plan to bridge back to coumadin in the setting of porcine valve -D/C planning: home health vs ECF Qualifiers: Osteomyelitis type: unspecified type Qualified Code(s): M86.9 - Osteomyelitis, unspecified (2) Diabetic foot ulcer Current Visit: Yes Status: Chronic Assessment and plan: Plan as above Qualifiers: Diabetic foot ulcer location: midfoot Diabetes mellitus type: type 2 Laterality: left Non-pressure ulcer stage: with necrosis of bone Qualified Code(s): E11.621 - Type 2 diabetes mellitus with foot ulcer; L97.424 - 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 (3) Bacteremia Current Visit: Yes Status: Acute Assessment and plan: Awaiting final culture results - growing peptostreptococcus asaccharoly ID consulted, appreciate recommendations - switched to Levaquin IV Plan: -Continue IV abx -Await final culture and sensitivities (4) Pkwdc-en-ibwknfy kidney injury Current Visit: Yes Status: Acute Assessment and plan: SCr 1.56, GFR 45 - continue to monitor, stable Renally dose medications and avoid nephrotoxins as able Qualifiers: Chronic kidney disease stage: stage 3 (moderate) Qualified Code(s): N17.9 - Acute kidney failure, unspecified; N18.3 - Chronic kidney disease, stage 3 ( moderate) (5) HTN (hypertension) Current Visit: No Status: Chronic Assessment and plan: Currently appears controlled. Continue home meds. Qualifiers: Hypertension type: essential hypertension Qualified Code(s): I10 - Essential (primary) hypertension (6) Valvular heart disease Current Visit: No Status: Chronic - Subjective Interval history: Patient seen and examined. Reports he is feeling well with no complaints. Reports pain in foot is improving. Denies chest pain, dyspnea, cough, N/V/D, or dysuria - Constitutional Vitals: Temp Pulse Resp BP Pulse Ox 97.8 F 68 17 155/76 95 02/17/17 07:41 02/17/17 07:41 02/17/17 07:41 02/17/17 07:41 02/17/17 07:41 General appearance: Present: cooperative, A&O X 3, pleasant, no acute distress, answers questions appropriately - Respiratory Respiratory exam: Present: CTAB. Absent: rales, rhonchi, wheezes - Cardiovascular Cardiovascular exam: Present: RRR, +S1, +S2. Absent: diastolic murmur, systolic murmur - GI/Abdominal GI/Abdominal exam: Present: normal bowel sounds, soft. Absent: distended, rigid , tenderness - Extremities Exam Extremities exam: Present: warm, radial pulses palpable and symmetrical. Absent : tenderness Additional comments: Bandage in place on left foot - appears clean and dry - Neurological Exam Neurological exam: Present: alert, CN II-XII intact, oriented X3, no focal deficits Internal Medicine: Result - Labs CBC & Chem 7: 02/17/17 08:00 02/17/17 08:00 Labs: Short CBC 02/17/17 Range/Units 08:00 WBC 8.3 (4.3-11.1) K/mcL Hgb 12.8 L (12.9-16.9) g/dL Hct 39.9 (37.5-50.1) % Plt Count 283 (140-400) K/mcL [facility] 02/17/17 08:00 Sodium 135 L Potassium 4.1 Chloride 99 Carbon Dioxide 31 H BUN 25 Creatinine 1.53 H Glucose 269 H Calcium 10.0 - ABG Interpretation ABG results: PT/INR, D-dimer PT 17.5 Seconds (9.4-12.1) H 02/17/17 09:59 Consult Discharge Plan - Plan Instructions: Myocardial Infarction (DC), Heart Failure (DC) Additional Instructions: Remain non-weight bearing with left foot Dressing changes are needed every 2 days Clean incision line daily with saline and pat dry Apply betadine to incision lines with adaptic, dry sterile 4X4 gauze and kerlix Follow-up with Dr. Briseno Follow instruction of home health for PICC line management and antibiotic administration Follow-up with Amy Rodriguez CNP Use lovenox shots as your INR increases and take coumadin as prescribed Follow-up with your PCP and discuss your coumadin need and dosage Referrals: Checo Briseno DPM [Partnered Physician] - Amy Rodriguez CNP [Advanced Practice Nurse] - 03/01/17 9:30 am Prescriptions: Levofloxacin 750 MG/150 ML [Levaquin Premix 750mg/150 mL] 750 mg IVPB Q24H #42 bag Warfarin [Coumadin] 4 mg PO DAILY #14 tablet Warfarin [Coumadin] 4 mg PO DAILY #4 <Meliton Santizo H - Last Filed: 02/17/17 13:45> Date of Encounter: 02/17/17 - Constitutional Vitals: Temp Pulse Resp BP Pulse Ox 97.5 F L 72 16 126/77 93 02/17/17 11:10 02/17/17 11:10 02/17/17 11:10 02/17/17 11:10 02/17/17 11:10 Internal Medicine: Result - Labs CBC & Chem 7: 02/17/17 08:00 02/17/17 08:00 Labs: Short CBC 02/17/17 Range/Units 08:00 WBC 8.3 (4.3-11.1) K/mcL Hgb 12.8 L (12.9-16.9) g/dL Hct 39.9 (37.5-50.1) % Plt Count 283 (140-400) K/mcL BMP 02/17/17 08:00 Sodium 135 L Potassium 4.1 Chloride 99 Carbon Dioxide 31 H BUN 25 Creatinine 1.53 H Glucose 269 H Calcium 10.0 - ABG Interpretation ABG results: PT/INR, D-dimer PT 17.5 Seconds (9.4-12.1) H 02/17/17 09:59 - Attending Attestation still refusing to go to an ECF. Case discussed with infectious diseases ( ID agrees to PO levaquin ), the patient will be discharged on oral Levaquin for 6 weeks due to increased cost of IV Levaquin at home. The patient was still given the option to go to an ECF which willl represent no additional cost but he refuses. Risks explained again.
--- NOTE | 2017-02-17 11:27 | Infectious Disease Progress No ---
Date of Encounter: 02/17/17 Time of Encounter: 11:25 - Assessment and Plan (1) Osteomyelitis of left foot Status: Acute Location: Left foot, 5th metatarsal head. Causative organism Escherichia coli and Morganella Morgannii. Secondary to left foot diabetic foot ulcer. X-ray of the left foot showed plantar lateral cellulitis with adjacent first MTP septic arthropathy osteomyelitis of the fifth metatarsal head and first phalanx base of the fifth toe. MRI confirmed all cellulitis of the fifth metatarsal and proximal phalanx as well as a small foci of gas. Podiatry was consulted and took the patient to the operating room and completed a fifth metatarsal and proximal phalanx of the fifth digit resection by Dr. briseno on 02/14/17. ESR >130. CRP 112. Intra-operative cultures negative. Continue Levaquin 750mg IV daily. Duration of treatment depends on the clinical picture, but likely 6 weeks of IV antibiotics will be required. Monitor renal function and for drug toxicity and dose adjust antibiotics. EPIV placed 02/15/17. railroad emergency services manager following for discharge planning. Get weekly CBC, BUN/Cr, ESR, and CRP every Monday for the duration of antibiotic therapy. Weekly EPIV care per protocol. Follow up with ID 03/01/17 at 0930. Qualifiers: Osteomyelitis type: unspecified type Qualified Code(s): M86.9 - Osteomyelitis, unspecified (2) Bacteremia Status: Acute Causative organism: Peptostreptococcus asaccharolyticus Likely a contaminant, but will repeat blood cultures as below given that the patient has a porcine heart valve. Blood cultures +2 out of 2 sets drawn 02/10/17. Repeat blood cultures drawn 02/13/17 are NGTD 2 sets. Repeat blood cultures again on 02/19/17 to evaluate for persistent bacteremia that may indicate the presence of endocarditis given that the patient has a porcine valve. No endocarditis stigmata noted. Continue antibiotics as above. (3) Cellulitis Status: Acute Location: Left foot. Causative organism likely E. coli and Morganella morgannii. Improved. Continue antibiotics as above. Qualifiers: Site of cellulitis: other site Qualified Code(s): L03.818 - Cellulitis of other sites (4) Diabetic foot ulcer Status: Acute Location: Plantar aspect of the left foot. Podiatry consulted and following. Continue wound care and activity restrictions as outlined by the podiatry team. Qualifiers: Diabetic foot ulcer location: toe Diabetes mellitus type: type 2 Laterality: right Non-pressure ulcer stage: with necrosis of bone Qualified Code(s): E11.621 - Type 2 diabetes mellitus with foot ulcer; L97.514 - Non- pressure chronic ulcer of other part of right foot with necrosis of bone (5) Acute kidney injury Status: Acute Likely secondary to infectious process. Improved. Appears back at baseline. Continue to trend. Avoid nephrotoxins as able and dose adjust antibiotics. 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 (7) HTN (hypertension) Status: Chronic Qualifiers: Hypertension type: essential hypertension Qualified Code(s): I10 - Essential (primary) hypertension (8) CKD (chronic kidney disease) Status: Chronic Qualifiers: Chronic kidney disease stage: stage 3 (moderate) Qualified Code(s): N18.3 - Chronic kidney disease, stage 3 (moderate) (9) Diabetes Status: Chronic Hemoglobin A1c 10%. Uncontrolled. Recommend aggressive glucose monitoring and control to promote wound healing and prevent reinfection. Management per the primary team. Qualifiers: Diabetes mellitus type: type 2 Diabetes mellitus complication status: with neurologic complications Diabetes mellitus complication detail: with unspecified neuropathy Diabetes mellitus longterm insulin use: with longterm use Qualified Code(s): E11.40 - Type 2 diabetes mellitus with diabetic neuropathy, unspecified; Z79.4 - adjunct faculty for medical terminology (current) use of insulin - Subjective Interval history: Patient seen and examined. No acute events noted overnight. Patient working with PT upon my entrance into the room. Denies any fevers or chills or rigors. Denies any chest pain, shortness of breath, or cough. Denies any nausea, vomiting, diarrhea, constipation. Denies any abdominal pain and states his appetite is good. Denies any urinary complaints. Denies pain at the surgical site. Denies any oral thrush or skin lesions. Infect Dis PN-Objective Data - Labs CBC & Chem 7: 02/17/17 08:00 02/17/17 08:00 Labs: Laboratory Results - last 24 hr 02/16/17 02/16/17 02/16/17 11:07 16:07 21:27 WBC RBC Hgb Hct MCV MCH MCHC RDW Plt Count MPV Immature Plt Fraction PT INR APTT Sodium Potassium Chloride Carbon Dioxide BUN Creatinine Est GFR ( Amer) Est GFR (Non-Af Amer) BUN/Creatinine Ratio Glucose POC Glucose 289 H 362 H 316 H Calculated Osmolality Calcium Specimen Rejected 02/17/17 02/17/17 02/17/17 00:42 07:44 08:00 WBC 8.3 RBC 4.76 Hgb 12.8 L Hct 39.9 MCV 83.8 MCH 26.9 L MCHC 32.1 RDW 12.4 Plt Count 283 MPV 9.0 L Immature Plt Fraction 2.3 PT INR APTT Sodium Potassium Chloride Carbon Dioxide BUN Creatinine Est GFR ( Amer) Est GFR (Non-Af Amer) BUN/Creatinine Ratio Glucose POC Glucose 302 H 271 H Calculated Osmolality Calcium Specimen Rejected 02/17/17 02/17/17 02/17/17 08:00 08:00 08:00 WBC RBC Hgb Hct MCV MCH MCHC RDW Plt Count MPV Immature Plt Fraction PT INR APTT Sodium 135 L Potassium 4.1 Chloride 99 Carbon Dioxide 31 H BUN 25 Creatinine 1.53 H Est GFR ( Amer) 56 L Est GFR (Non-Af Amer) 46 L BUN/Creatinine Ratio 16 Glucose 269 H POC Glucose Calculated Osmolality 294 Calcium 10.0 Specimen Rejected Volume Miscellaneous 02/17/17 02/17/17 09:57 09:59 WBC RBC Hgb Hct MCV MCH MCHC RDW Plt Count MPV Immature Plt Fraction PT 17.5 H INR 1.6 APTT 80.4 H Sodium Potassium Chloride Carbon Dioxide BUN Creatinine Est GFR ( Amer) Est GFR (Non-Af Amer) BUN/Creatinine Ratio Glucose POC Glucose Calculated Osmolality Calcium Specimen Rejected Cultures: Cultures 02/13/17 17:03 Anaerobic Culture - Preliminary Left Fifth Toe At this time, no anaerobic growth is present. The culture will be finalized after 5 days of incubation. 02/13/17 17:03 Wound Culture - Final Left Fifth Toe No growth. 02/13/17 14:11 Blood Culture - Preliminary Peripheral Venipuncture No growth. 02/13/17 14:11 Blood Culture - Preliminary Peripheral Venipuncture No growth. Exam - Constitutional Vitals: Temp Pulse Resp BP Pulse Ox 97.5 F L 72 16 126/77 93 02/17/17 11:10 02/17/17 11:10 02/17/17 11:10 02/17/17 11:10 02/17/17 11:10 General appearance: average body habitus, cooperative, no acute distress - Head Head exam: Present: atraumatic, normal inspection, normocephalic - Eye Eye exam: Present: EOMI, normal appearance, PERRL Pupils: Present: normal accommodation - ENT ENT exam: Present: mucous membranes moist - Neck Neck exam: Present: normal inspection - Respiratory Respiratory exam: Present: CTAB. Absent: rales, respiratory distress, rhonchi, wheezes - Cardiovascular Cardiovascular exam: Present: RRR, +S1, +S2 - GI/Abdominal GI/Abdominal exam: Present: normal bowel sounds, soft. Absent: distended, tenderness - Extremities Exam Extremities exam: Present: normal inspection. Absent: joint swelling, pedal edema, tenderness Additional comments: Left foot dressing C/D/I. - Neurological Exam Neurological exam: Present: alert, oriented X3, no focal deficits - Psychiatric Psychiatric exam: Present: normal affect, normal mood - Skin Skin exam: Present: dry, intact, normal color, warm - Additional findings Additional findings: EPIV noted to the LUE with transparent dressing C/D/I. Consult Discharge Plan - Plan Instructions: Myocardial Infarction (DC), Heart Failure (DC), Cellulitis (DC), Diabetic Foot Care (DC) Additional Instructions: Remain non-weight bearing with left foot Dressing changes are needed every 2 days Clean incision line daily with saline and pat dry Apply betadine to incision lines with adaptic, dry sterile 4X4 gauze and kerlix Follow-up with Dr. Briseno Follow instruction of home health for PICC line management and antibiotic administration Follow-up with Amy Rodriguez CNP Use lovenox shots as your INR increases and take coumadin as prescribed Follow-up with your PCP and discuss your coumadin need and dosage Referrals: Checo Briseno DPM [Partnered Physician] - Amy Rodriguez CNP [Advanced Practice Nurse] - 03/01/17 9:30 am Prescriptions: Clindamycin HCl 300 mg PO BID #28 capsule Clindamycin HCl 300 mg PO TID #42 capsule Clindamycin HCl 300 mg PO TID #42 capsule Levofloxacin 750 MG/150 ML [Levaquin Premix 750mg/150 mL] 750 mg IVPB Q24H #42 bag Warfarin [Coumadin] 4 mg PO DAILY #14 tablet - Attending Attestation I examined this patient and my medical decision-making was reviewed with the Resident Physician. I agree with the documented findings, disposition and treatment plan as described except to the extent set forth below.
[2017-02-17] MEDS: Heparin 25,000 UNIT/500 ML D5W 25,000 UNIT/500 ML MLS IVC SCH ×2 (13:51→13:54)
[2017-02-17 14:16] VITALS: BP 132/79
--- NOTE | 2017-02-17 15:47 | Physician Discharge Referral ---
ExtendedCare Referral Info Transfer To: [facility] Provider in Charge after Transfer: PCP, Other (Local [employer]) Institutional Level of Care: Skilled - Diagnosis (1) Osteomyelitis of left foot Priority: Primary Status: Acute (2) Diabetic foot ulcer Priority: Secondary Status: Chronic (3) Bacteremia Priority: Secondary Status: Acute (4) [id number] kidney injury Priority: Secondary Status: Acute (5) HTN (hypertension) Priority: Secondary Status: Chronic (6) Valvular heart disease Priority: Secondary Status: Chronic - Transfer Medications Prescriptions: Levofloxacin 750 MG/150 ML [Levaquin Premix 750mg/150 mL] 750 mg IVPB Q24H #42 bag Warfarin [Coumadin] 4 mg PO DAILY #14 tablet Home Medications: Aspirin [Lo-Dose Aspirin EC] 81 mg PO DAILY 04/14/16 [History] Insulin DETEMIR [Levemir] 30 unit SQ BID 04/14/16 [History] Insulin Human Regular [HumuLIN R] 0 unit SQ TIDWM 04/14/16 [History] Lisinopril [Zestril] 40 mg PO DAILY 04/14/16 [History] Simvastatin [Zocor] 40 mg PO HS 04/14/16 [History] hydrALAZINE [HydrALAZINE] 10 mg PO DAILY 04/14/16 [History] Furosemide [Lasix] 20 mg PO DAILY #30 tablet 06/03/16 [Rx] HYDROcodone/Acet 5/325 mg [[place] 5-325 mg] 1 tab PO Q4-6H PRN #20 tablet [Rx] Metoprolol [Lopressor] 25 mg PO BID #60 tablet 06/03/16 [Rx] amLODIPine [Norvasc] 5 mg PO DAILY 02/10/17 [History] Levofloxacin 750 MG/150 ML [Levaquin Premix 750mg/150 mL] 750 mg IVPB Q24H #42 bag 02/16/17 [Rx] Warfarin [Coumadin] 4 mg PO DAILY #14 tablet 02/16/17 [Rx] Allergies/Adverse Reactions: 3 Allergy/AdvReac Type Severity Reaction Status Date / Time No Known Allergies Allergy Verified 05/18/16 07:09 - Respiratory Orders Smoking Cessation: Smoking cessation has been advised. For more information, call the [facility] Tobacco Quit Line at 3-385-OSJA-NOW. - Advance Directives Code Status: DNR-Arrest/Don't Intubate - Mobility Orders Ambulate (non-weight bearing on left foot) - Rehabiliation Orders Rehab Potential: Fair Rehab Orders: Evaluation for Physical Therapy, Evaluation for Occupational Therapy - Diet Orders Regular CERTIFICATION: I certify that the transfer of the above named patient to an Extended Care Facility is necessary for the continuing treatment of the diagnosis listed. The above information is true and accurate reflection of patient's current condition. Confidential - Redisclosure prohibited without a patient's written consent.
[2017-02-17] MEDS: Levofloxacin 750 MG/150 ML 750 MG/150 ML BAG IVPB SCH (17:19)
[2017-02-17] MEDS ORDERED: *HR* Warfarin 5 MG TABLET PO ONE (18:00)
[2017-02-17] MEDS ORDERED: Insulin LISPRO 300 UNITS/3 ML VIAL SQ SCH (21:00)
== END 2017-02-17 18:48 | DRG 629 ==
LOC: 3ANU 10:56 → EMEROO 10:56 → 3ANU 17:11 → SUATTDRO 18:18
PROVIDERS: ADMIT Internal Medicine Endocrinology, Diabetes & Metabolism; ATTEND Internal Medicine

== ENCOUNTER 2017-08-23 12:49 | Inpatient (IN) ==
--- NOTE | 2017-08-23 15:21 | Emergency Department Note ---
Disposition Clinical Impression: Hyperglycemia, Elevated serum creatinine Osteomyelitis Qualifiers: Osteomyelitis type: unspecified type Osteomyelitis location: foot Laterality: left Qualified Code(s): M86.9 - Osteomyelitis, unspecified Diabetic foot ulcer Qualifiers: Diabetic foot ulcer location: unspecified part of foot Diabetes mellitus type: due to underlying condition Laterality: unspecified laterality Non-pressure ulcer stage: unspecified non-pressure ulcer stage Qualified Code(s): E08.621 - Diabetes mellitus due to underlying condition with foot ulcer Disposition: Admitted As Inpatient Condition: Fair Referrals: Noble Eason MD [Primary Care Provider] - Forms: ED Satisfaction Letter Extremity Problem HPI - General Chief complaint: ED Extremity Problem,Nontraumatic Stated complaint: Right toe infected Time Seen by Provider: 08/23/17 14:40 Source: patient Mode of arrival: private vehicle Limitations: other Nursing Notes Reviewed: Yes Vital Signs Reviewed: Yes - History of Present Illness HPI Narrative: 66-year-old male history of poorly controlled diabetes with multiple prior diabetic ulcerations who presents to the ER due to concern for toe infection. Patient states that he was sent today for preoperative labs. He says when he got home and he was called and told to come here due to concern for infection. He denies any fevers nausea vomiting or diarrhea. States that he supposed to have an operation tomorrow on his right foot. No other complaints. Pt Subjective Complaint: other Onset (ago): unknown Pain Scale: 0 Improves with: nothing Worsens with: nothing Associated symptoms: Reports: denies other symptoms - Related Data Home Medications Medication Instructions Recorded Confirmed Aspirin [Lo-Dose Aspirin EC] 81 mg PO DAILY 04/14/16 07/19/17 Insulin DETEMIR [Levemir] 30 unit SQ BID 04/14/16 07/19/17 Insulin Human Regular [HumuLIN R] 0 unit SQ TIDWM 04/14/16 07/19/17 Lisinopril [Zestril] 40 mg PO DAILY 04/14/16 07/19/17 Simvastatin [Zocor] 40 mg PO HS 04/14/16 07/19/17 hydrALAZINE [HydrALAZINE] 10 mg PO DAILY 04/14/16 07/19/17 amLODIPine [Norvasc] 5 mg PO DAILY 02/10/17 07/19/17 Previous Rx's Medication Instructions Recorded Furosemide [Lasix] 20 mg PO DAILY #30 tablet 06/03/16 HYDROcodone/Acet 5/325 mg [[place] 1 tab PO Q4-6H PRN #20 tablet 06/03/16 5-325 mg] Metoprolol [Lopressor] 25 mg PO BID #60 tablet 06/03/16 Levofloxacin 750 MG/150 ML 750 mg IVPB Q24H #42 bag 02/16/17 [Levaquin Premix 750mg/150 mL] Warfarin [Coumadin] 4 mg PO DAILY #14 tablet 02/16/17 Clindamycin HCl 300 mg PO BID #28 capsule 02/19/17 Clindamycin HCl 300 mg PO TID #42 capsule 02/19/17 Clindamycin HCl 300 mg PO TID #42 capsule 02/19/17 Allergies Allergy/AdvReac Type Severity Reaction Status Date / Time No Known Allergies Allergy Verified 08/23/17 09:18 All systems ED: reviewed and negative except as stated. Constitutional: Denies: fever, chills Gastrointestinal: Denies: nausea, vomiting, diarrhea Integumentary: Reports: lesions Past Medical History - Past Medical History Attestation: Yes The following information was validated with the patient. Source: patient Medical history: Reports: diabetes, hyperlipidemia, hypertension, valvular heart disease Surgical history: Reports: angioplasty/stent, coronary bypass (CABG), heart valve replacement Psychiatric history: Reports: no psych history - Social History Smoking Status: Never smoker Smokeless Tobacco Status: No Alcohol use: Reports: none Drug use: Reports: none Physical Exam - General Limitations: other General appearance: alert, in no apparent distress - Head Head exam: atraumatic, normocephalic - Eye Eye exam: Present: normal appearance - ENT ENT exam: normal exam - Neck Neck exam: Present: normal inspection, full ROM - Chest Chest inspection: Present: normal inspection, symmetric chest wall rise - Respiratory Respiratory exam: Present: normal lung sounds bilaterally - Cardiovascular Cardiovascular exam: Present: regular rate, normal rhythm, normal heart sounds - Abdominal Exam Abdominal exam: Present: soft, Non-Tender. Absent: tenderness - Extremities Exam Extremities exam: Present: normal inspection, full ROM - Expanded Upper Extremity Exam Shoulder exam: Present: normal inspection, full ROM Arm exam: Present: normal inspection, full ROM Elbow exam: Present: normal inspection, full ROM Forearm/Wrist exam: Present: normal inspection, full ROM Hand exam: Present: normal inspection, full ROM - Expanded Lower Extremity Exam Hip/Pelvis exam: Present: normal inspection, full ROM Upper leg exam: Present: normal inspection, full ROM Knee exam: Present: normal inspection, full ROM Lower leg exam: Present: normal inspection, full ROM Ankle exam: Present: normal inspection, full ROM Foot/toe exam: Present: full ROM, other (There are numerous chronic impelling ulcerations the right foot. 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 Patient has a superficial ulceration to the dorsum of the left second toe as well as an ulceration to the plantar aspect of the left second toe with a scab.) - Skin Skin exam: Present: warm, dry Course Course Narrative: Patient seen and examined. Afebrile here. He was not exactly sure why he was here. I spoke with podiatry who says they were told that he might have a necrotic second toe and wanted that evaluated. X-rays of the left foot - Reevaluation(s) Reevaluation #1: Discussed findings patient. Agreeable with being admitted. - Consultations Consultation #1: I spoke with the patient's strength and conditioning coach Dr. Herman. Discussed the patient's history. He states that he was called and told that he might have a necrotic left toe. Reports that it was normal week ago when he saw him. States that he is a poorly controlled diabetic with poor eyesight and sustained numerous injuries to his feet. He reports if it looks grossly infected that he would recommend IV antibiotics and admission. Consultation #2: I spoke with the on-call strength and conditioning coach discussed the patient's history exam imaging. Agrees with admission with IV antibiotics to the hospitalist as well as to get basic labs and they will see him tomorrow. Likely will require intervention so NPO at midnight. Vital Signs Temperature 98.7 F 08/23/17 13:02 Pulse Rate 96 08/23/17 13:02 Respiratory Rate 18 08/23/17 13:02 Blood Pressure 159/78 08/23/17 13:02 O2 Sat by Pulse Oximetry 95 08/23/17 13:02 Temperature 98.7 F 08/23/17 13:02 Pulse Rate 96 08/23/17 13:02 Respiratory Rate 18 08/23/17 13:02 Blood Pressure 159/78 08/23/17 13:02 O2 Sat by Pulse Oximetry 95 08/23/17 13:02 Oxygen Delivery Oxygen Delivery Room Air Extremity Problem, Nontraumati - MDM Narrative Medical decision making narrative: 66-year-old male with a history of poorly controlled diabetes and multiple diabetic ulcerations presents to the ER due to ulceration of the left foot. He is unsure when this started. Podiatry reports it was normal week ago. He is noted to have multiple ulcerations to the left second toe. X-ray with evidence of osteomyelitis. Labs reviewed. Vancomycin and Zosyn given. Case discussed with podiatry in consultation with admission to the hospitalist service. - Lab Data Lab results reviewed: Yes I reviewed the patient's lab results. Result diagrams: 08/23/17 16:20 08/23/17 16:20 Lab Results 08/23/17 08/23/17 08/23/17 Range/Units 16:20 16:20 16:20 WBC 9.6 (4.3-11.1) K/mcL RBC 5.20 (4.19-5.50) M/mcL Hgb 13.7 (12.9-16.9) g/dL Hct 42.5 (37.5-50.1) % MCV 81.7 L (83.0-100.0) fL MCH 26.3 L (28.0-33.3) pg MCHC 32.2 (31.6-35.5) g/dL RDW 13.2 (11.5-14.5) % Plt Count 173 (140-400) K/mcL MPV 9.2 L (9.4-12.4) fL Immature Gran % 0.3 (0-4) % Seg Neutrophils % 77.5 % Lymphocytes % 8.4 % Monocytes % 11.3 % Eosinophils % 2.0 % Basophils % 0.5 % Neutrophils # 7.5 (1.6-8.9) K/mcL Lymphocytes # 0.8 (0.6-4.6) K/mcL Monocytes # 1.1 (0.0-1.3) K/mcL Eosinophils # 0.2 (0.0-0.6) K/mcL Basophils # 0.1 (0.0-0.2) K/mcL ESR 38 H (0-10) mm/hr PT 23.0 H (9.4-12.1) Seconds INR 2.1 Sodium (136-145) mEq/L Potassium (3.5-5.1) mEq/L Chloride (98-107) mEq/L Carbon Dioxide (23-29) mEq/L BUN (8-23) mg/dL Creatinine (0.70-1.30) mg/dL Est GFR ( Amer) (> 60) Est GFR (Non-Af Amer) (> 60) BUN/Creatinine Ratio (6-26) Glucose (70-105) mg/dL Calculated Osmolality (280-300) Calcium (8.6-10.3) mg/dL C-Reactive Protein (Less than 10) mg/L 08/23/17 Range/Units 16:20 WBC (4.3-11.1) K/mcL RBC (4.19-5.50) M/mcL Hgb (12.9-16.9) g/dL Hct (37.5-50.1) % MCV (83.0-100.0) fL MCH (28.0-33.3) pg MCHC (31.6-35.5) g/dL RDW (11.5-14.5) % Plt Count (140-400) K/mcL MPV (9.4-12.4) fL Immature Gran % (0-4) % Seg Neutrophils % % Lymphocytes % % Monocytes % % Eosinophils % % Basophils % % Neutrophils # (1.6-8.9) K/mcL Lymphocytes # (0.6-4.6) K/mcL Monocytes # (0.0-1.3) K/mcL Eosinophils # (0.0-0.6) K/mcL Basophils # (0.0-0.2) K/mcL ESR (0-10) mm/hr PT (9.4-12.1) Seconds INR Sodium 133 L (136-145) mEq/L Potassium 3.9 (3.5-5.1) mEq/L Chloride 102 (98-107) mEq/L Carbon Dioxide 25 (23-29) mEq/L BUN 23 (8-23) mg/dL Creatinine 1.43 H (0.70-1.30) mg/dL Est GFR ( Amer) > 60 (> 60) Est GFR (Non-Af Amer) 50 L (> 60) BUN/Creatinine Ratio 16 (6-26) Glucose 314 H (70-105) mg/dL Calculated Osmolality 292 (280-300) Calcium 9.4 (8.6-10.3) mg/dL C-Reactive Protein 9 (Less than 10) mg/L - Radiology Data Radiology results reviewed: Yes I reviewed the patient's radiology results. Toe X-Ray 08/23/17 15:05 IMPRESSION: 1. Suspected ulceration at the tip of the left 2nd toe. Underlying osteomyelitis involving the majority of the distal tuft of the left 2nd distal phalanx. 2. Diffuse soft tissue swelling potentially due to edema and/or cellulitis. No findings necrotizing fasciitis. 3. Unchanged posterior dislocation of the left 2nd proximal phalanx. D/ / Jefry Ordoñez MD / Jefry Ordoñez MD Interpreting Provider: Jefry Ordoñez MD S.BJesica - Sophy Situation: Demographics, MOA Background: Presenting Complaint, Relevant PMH, Meds, & Allergies Assessment: Course and respsone to treatment, Exam Concerns, Patient/Family Expectation, Pertinant Lab Results Recommendation: Barrier(s) to disposition, Recommendation based on pending studies, treatments, or consults SMarissa Report Given to: Dr. Rocio Beckett Repor Time: 17:12 Attestation Statement - Attestation Attestation: I examined this patient and my medical decision-making was reviewed with the Resident Physician, Dr. Mascorro. I agree with the documented findings, disposition and treatment plan as described except to the extent set forth below. Patient is a 66-year-old white male with history of poorly controlled diabetes who is been followed by podiatry for multiple diabetic foot ulcers. Patient has had imitations of digit in the past secondary to infection. Patient is Jen scheduled for surgery on the right foot by podiatry tomorrow. Patient was having preop labs done and there was some concern by the nurse for reported necrotic changes to his left second toe. Patient was sent to the emergency department for evaluation. Patient was complaining of skin changes noted to the left second toe. That toe has a 1 cm ulceration noted to the dorsum of the second toe with no surrounding erythema or drainage. At the distal tip of the toe there is also a 1 cm ulceration with overlying dry skin. The entire toe appears generally swollen and erythematous although no proximal streaking or tenderness within dorsal of the foot. Patient with no fevers or chills, denies any pain to his toes. Patient has no physical complaints. I agree patient's physical exam findings as documented. Vital signs are stable. Did call and speak with the patient's strength and conditioning coach to see their any other concerns in regards to him being sent to the ER today as patient is a poor historian. He states that there were some concerns about new changes to his left second toe, apparently the patient has frequent new foot complications that he will present with because he refuses to wear shoes and frequently stubbed his toes and has minor injuries and skin abrasions that become infected. Plain film imaging was obtained of the left foot as well as baseline labs. Patient was found to be hyperglycemic without acidosis. Mildly KI. X- ray does show changes compared to his prior imaging consistent with osteomyelitis. Patient was started on IV antibiotics and will be admitted for further evaluation and management by medicine as well as podiatry. Patient remained hemodynamically stable throughout his ED course.
[2017-08-23] MEDS ORDERED: Piperacillin/Tazobactam 3.375 GM in 0.9 % Sodium Chloride Mini Bag 100 ML IVPB ONE (16:14)
[2017-08-23 16:28] LABS: Basophils # 0.1 K/mcL (0.0-0.2); Basophils % 0.5 %; Eosinophils # 0.2 K/mcL (0.0-0.6); Hematocrit 42.5 % (37.5-50.1); Hemoglobin 13.7 g/dL (12.9-16.9); Immature Granulocytes % 0.3 % (0-4); Lymphocytes # 0.8 K/mcL (0.6-4.6); Lymphocytes % 8.4 %; Mean Corpuscular HGB Conc 32.2 g/dL (31.6-35.5); Mean Corpuscular Hemoglobin 26.3 pg (28.0-33.3); Mean Corpuscular Volume 81.7 fL (83.0-100.0); Mean Platelet Volume 9.2 fL (9.4-12.4); Monocytes # 1.1 K/mcL (0.0-1.3); Monocytes % 11.3 %; Neutrophils # 7.5 K/mcL (1.6-8.9); Platelet Count 173 K/mcL (140-400); Red Cell Distribution Width 13.2 % (11.5-14.5); Segmented Neutrophils % 77.5 %
[2017-08-23 16:36] LABS: INR 2.1
[2017-08-23 16:50] LABS: BUN/Creatinine Ratio 16 (6-26); Blood Urea Nitrogen 23 mg/dL (8-23); C-Reactive Protein 9 mg/L (Less than 10); Calcium 9.4 mg/dL (8.6-10.3); Carbon Dioxide 25 mEq/L (23-29); Chloride 102 mEq/L (98-107); Glucose 314 mg/dL (70-105); Osmolality,Calculated 292 (280-300); Potassium 3.9 mEq/L (3.5-5.1); Sodium 133 mEq/L (136-145); eGFR For African Americans > 60 (> 60); eGFR For Non-African Americans 50 (> 60)
[2017-08-23] MEDS ORDERED: GI Cocktail 40 ML EACH PO ONE (17:00)
[2017-08-23] MEDS ORDERED: Dextrose Gel 15 GM/37.5 ML TUBE PO PRN ×2 (18:10)
[2017-08-23] MEDS ORDERED: Naloxone 0.4 MG/ML INJ IVP PRN (18:10)
[2017-08-23] MEDS ORDERED: *HR* Dextrose 50 % in Water (Syg) 50 ML SYRINGE IVP PRN (18:10)
[2017-08-23] MEDS ORDERED: D5% in Water 1,000 ML IVC PRN (18:10)
--- NOTE | 2017-08-23 18:34 | Internal Med History&Physical ---
<Luis Wisdom - Last Filed: 08/23/17 18:24> Date of Encounter: 08/23/17 Time of Encounter: 18:24 Assessment and Plan (1) Osteomyelitis Current visit: Yes Status: Acute Osteomyelitis distal tuft of the left second distal phalanx Patient reports chronic ulceration of the second left toe, exact mechanism of injury unknown however, he feels he may have hit it on something Is a poorly controlled diabetic with a history of diabetic foot ulcers and has been following with podiatry. He is being admitted as inpatient for treatment of osteomyelitis and potential amputation of left second toe -Continue vancomycin with pharmacy to dose, continue Zosyn -Pain management with [place] -Consult podiatry-Dr. Jean-Baptiste has agreed to see the patient is planning to take him to the OR tomorrow Qualifiers: Osteomyelitis type: unspecified type Osteomyelitis location: foot Laterality: left Qualified Code(s): M86.9 - Osteomyelitis, unspecified (2) Diabetic foot ulcer Current visit: Yes Status: Chronic Ulcers present on plantar surface of Right foot and there is an ulcer on the left second toe see plan above Qualifiers: Diabetic foot ulcer location: unspecified part of foot Diabetes mellitus type: due to underlying condition Laterality: unspecified laterality Non- pressure ulcer stage: unspecified non-pressure ulcer stage Qualified Code(s): E08.621 - Diabetes mellitus due to underlying condition with foot ulcer; L97.509 - Non-pressure chronic ulcer of other part of unspecified foot with unspecified severity; L97.509 - Non-pressure chronic ulcer of other part of unspecified foot with unspecified severity; L97.509 - Non-pressure chronic ulcer of other part of unspecified foot with unspecified severity; L97.509 - Non -pressure chronic ulcer of other part of unspecified foot with unspecified severity (3) Acute kidney injury Current visit: Yes Status: Acute etiology unclear, presents with a small increase in serum creatinine -0.9% IVF at 125ml/hr -BMP in the am (4) IDDM (insulin dependent diabetes mellitus) Current visit: Yes Status: Chronic Sliding scale insulin coverage diabetic diet (5) Valvular heart disease Current visit: Yes Status: Chronic H/o valvular heart disease with a bioprosthetic valve. (6) History of DVT (deep vein thrombosis) Current visit: Yes Status: Acute Taking coumadin d/t h/o DVT. Holding coumadin today as he is supposed to go to the OR tomorrow. (7) DVT prophylaxis Current visit: Yes Status: Acute EPCD's Internal Medicine - H&P: HPI Chief complaint: concerns for a toe infection Admitted From: Home Plans for Post Hospital Care: Home History of present illness: Mr. Wharton is a 66 year old male with a PMH of diabetes, hyperlipidemia, hypertension, and valvular heart disease with a bioprosthetic valve. Patient has poorly controlled diabetes and a h/o multiple diabetic foot ulcers. He presents to the ED today with a concern for a Left 2nd toe infection. He states that he had lab work done and was told to come to the ED d/t concern for infection. He denies any fevers, chills, rigors, chest pain, dyspnea, or N/V/ D. XR of the left foot reveals an ulceration to the left second toe with underlying osteomyelitis involving the majority of the distal tuft of the left second distal phalanx. No necrotizing fasciitis found on imaging. Past Med Surg Social Fam HX - Past Medical History Medical history: diabetes, hyperlipidemia, hypertension, valvular heart disease Psychiatric history: no psych history - Past Surgical History Surgical History: angioplasty/stent, coronary bypass (CABG), heart valve replacement - Social History Smoking Status: Never smoker Smokeless Tobacco Status: No Alcohol use: none Drug use: none - Family History Mother Living Status: Hx Family Cardiac Disorders: No Hx Family Respiratory Disorders: No Father Living Status: Hx Family Cardiac Disorders: No Hx Family Respiratory Disorders: No Internal Medicine - H&P: Meds Aspirin [Lo-Dose Aspirin EC] 81 mg PO DAILY 04/14/16 [History] Insulin DETEMIR [Levemir] 40 unit SQ BID 04/14/16 [History] Insulin Human Regular [HumuLIN R] 0 unit SQ TIDWM 04/14/16 [History] Lisinopril [Zestril] 40 mg PO DAILY 04/14/16 [History] Simvastatin [Zocor] 40 mg PO HS 04/14/16 [History] hydrALAZINE [HydrALAZINE] 10 mg PO DAILY 04/14/16 [History] Metoprolol [Lopressor] 25 mg PO BID #60 tablet 06/03/16 [Rx] amLODIPine [Norvasc] 5 mg PO DAILY 02/10/17 [History] Collagenase Oint [Santyl] 1 appl TP AD 08/23/17 [History] Doxycycline Hyclate [Vibramycin] 100 mg PO BID 08/23/17 [History] Furosemide [Lasix] 20 mg PO DAILY PRN 08/23/17 [History] Warfarin [Coumadin] 5 mg PO SUMOTUTHFRSA 08/23/17 [History] Warfarin [Coumadin] 7.5 mg PO WE 08/23/17 [History] levoFLOXacin [Levaquin] 500 mg PO DAILY 08/23/17 [History] 3 Allergy/AdvReac Type Severity Reaction Status Date / Time No Known Allergies Allergy Verified 08/23/17 09:18 All Systems PM: A 10-system review of systems was performed and is negative for pertinent findings except as documented above in the HPI. - Constitutional Constitutional: as per HPI - Cardiovascular Cardiovascular ROS IM: no chest pain, no diaphoresis, no dyspnea, no lightheadedness, no palpitations, no syncope - Respiratory Respiratory: no cough, no dyspnea, no wheezing, no excessive phlegm production - Musculoskeletal Musculoskeletal ROS IM: no numbness, no tingling - Integumentary Integumentary IM: skin ulcer (2 diabetic foot ulcers on right foot and ulcerations on second left toe) - Neurological Neurological ROS: no confusion, no convulsions, no focal weakness, no numbness, no tingling, no tremor(s) - Constitutional Vitals: Temp Pulse Resp BP Pulse Ox 98.7 F 98 16 156/88 97 08/23/17 13:02 08/23/17 17:06 08/23/17 17:06 08/23/17 17:06 08/23/17 17:06 General appearance: Present: cooperative, A&O X 3, no acute distress, answers questions appropriately - Head Head exam: Present: atraumatic, normocephalic - Eye Eye exam: Present: PERRL, conjuntiva pink, sclera anicteric Pupils: Present: PERRL - Neck Neck exam general surgery: Present: supple, trachea midline. Absent: lymphadenopathy - Respiratory Respiratory exam: Present: CTAB. Absent: accessory muscle use, rales, rhonchi, wheezes - Cardiovascular Cardiovascular exam: Present: RRR, +S1, +S2. Absent: diastolic murmur, gallop, rubs, systolic murmur - GI/Abdominal GI/Abdominal exam: Present: normal bowel sounds, soft, no peritoneal signs. Absent: distended, tenderness - Extremities Exam Extremities exam: Present: warm, radial pulses palpable and symmetrical. Absent : calf tenderness, cyanotic, pedal edema - Expanded Lower Extremities Exam Foot/Toe exam: Present: erythema (Left foot second toe), swelling (Left foot second toe), tenderness 1 - Small ulceration present on the second toe at the tip of the distal phalanx - Neurological Exam Neurological exam: Present: CN II-XII intact, oriented X3, no focal deficits. Absent: pronater drift, facial droop, speech deficit - Skin Skin exam: Present: dry, intact Internal Med - H&P Results - Labs CBC & Chem 7: 08/23/17 16:20 08/23/17 16:20 - Impressions Impressions Toe X-Ray 08/23/17 15:05 IMPRESSION: 1. Suspected ulceration at the tip of the left 2nd toe. Underlying osteomyelitis involving the majority of the distal tuft of the left 2nd distal phalanx. 2. Diffuse soft tissue swelling potentially due to edema and/or cellulitis. No findings necrotizing fasciitis. 3. Unchanged posterior dislocation of the left 2nd proximal phalanx. D/ / Jefry Ordoñez MD / Jefry Ordoñez MD Interpreting Provider: Jefry Ordoñez MD <Song Khanna - Last Filed: 08/24/17 07:46> Date of Encounter: 08/23/17 Internal Medicine - H&P: HPI History of present illness: Mr. Wharton is a 66 year old male All Systems PM: A 10-system review of systems was performed and is negative for pertinent findings except as documented above in the HPI. - Constitutional Vitals: Temp Pulse Resp BP Pulse Ox 98.2 F 91 16 153/86 95 08/24/17 06:48 08/24/17 06:48 08/24/17 06:48 08/24/17 06:48 08/24/17 06:48 Internal Med - H&P Results - Labs CBC & Chem 7: 08/24/17 06:05 08/24/17 06:05 Labs: Short CBC 08/24/17 Range/Units 06:05 WBC 6.9 (4.3-11.1) K/mcL Hgb 12.3 L (12.9-16.9) g/dL Hct 38.3 (37.5-50.1) % Plt Count 139 L (140-400) K/mcL BMP 08/24/17 06:05 Sodium 136 Potassium 3.9 Chloride 106 Carbon Dioxide 25 BUN 21 Creatinine 1.21 Glucose 263 H Calcium 8.7 - Attending Attestation I have personally performed a face to face evaluation on this patient. I have reviewed and agree with the care plan provided by TAMAR Wisdom. History and Exam by me shows: Mr. Wharton is a 66 year old legally blind male with a PMH of hyperlipidemia, hypertension, valvular heart disease with a bioprosthetic valve, poorly controlled diabetes wit multiple diabetic foot ulcers and s/p Left great toe amputation who is following with algebraist for Rt foot non healing ulcer, who waas sent to ER by his home visiting nurse after he was found to have new ulcer over Left 2nd toe with swelling and erythema of Left 2nd toe. Gen: A, A, O x 3 Chest: Diminished BS b/l, no crackles Heart : S1S2 + RRR Ext" Left 2nd toe open ulcer dorsally, swelling and erythema +. Chronic ulcer over Rt foot plantar region a/p 1. Acute osteomyelitis of Left 2nd toe IV abx Zosyn + Vanc Need amputation of that toe.. Extruder consulted possible OR In AM NPO after mid night Held Coumadin
[2017-08-23] MEDS ORDERED: Furosemide 40 MG TABLET PO PRN (18:43)
[2017-08-23] MEDS ORDERED: *HR* HYDROcodone/Acet 5/325 mg TABLET PO PRN (18:45)
[2017-08-23] MEDS ORDERED: Insulin LISPRO 300 UNITS/3 ML VIAL SQ SCH (21:00)
[2017-08-23] MEDS: Insulin DETEMIR 100 UNIT/ML X5UNITS SQ SCH (21:49)
[2017-08-23] MEDS: 0.9 % Sodium Chloride 1,000 ML IVC SCH (21:49)
[2017-08-24] MEDS: 0.9 % Sodium Chloride 1,000 ML IVC SCH (05:56)
[2017-08-24 06:34] LABS: Hematocrit 38.3 % (37.5-50.1); Hemoglobin 12.3 g/dL (12.9-16.9); Mean Corpuscular HGB Conc 32.1 g/dL (31.6-35.5); Mean Corpuscular Hemoglobin 26.3 pg (28.0-33.3); Mean Platelet Volume 9.8 fL (9.4-12.4); Platelet Count 139 K/mcL (140-400); Red Blood Count 4.67 M/mcL (4.19-5.50); Red Cell Distribution Width 13.2 % (11.5-14.5)
[2017-08-24 06:43] LABS: BUN/Creatinine Ratio 17 (6-26); Blood Urea Nitrogen 21 mg/dL (8-23); Calcium 8.7 mg/dL (8.6-10.3); Carbon Dioxide 25 mEq/L (23-29); Chloride 106 mEq/L (98-107); Glucose 263 mg/dL (70-105); Osmolality,Calculated 294 (280-300); Potassium 3.9 mEq/L (3.5-5.1); Sodium 136 mEq/L (136-145); eGFR For African Americans > 60 (> 60); eGFR For Non-African Americans > 60 (> 60)
[2017-08-24] MEDS: Insulin LISPRO 300 UNITS/3 ML VIAL SQ SCH ×5 (07:43→21:11)
--- NOTE | 2017-08-24 08:10 | Internal Med Progress Note ---
<Marcus Mccracken - Last Filed: 08/24/17 09:48> Date of Encounter: 08/24/17 Time of Encounter: 08:08 - Assessment and plan (1) Osteomyelitis Current Visit: Yes Status: Acute Assessment and plan: Patient has osteomyelitis on the second digit on the left second toe. This is likely secondary to diabetic foot ulcer on the tip of the second toe on the left foot. Continue antibiotic therapy of vancomycin and Zosyn Elevated ESR of 38 X-ray of the foot showed: 1. Suspected ulceration at the tip of the left 2nd toe. Underlying osteomyelitis involving the majority of the distal tuft of the left 2nd distal phalanx. 2. Diffuse soft tissue swelling potentially due to edema and/or cellulitis. No findings necrotizing fasciitis. 3. Unchanged posterior dislocation of the left 2nd proximal phalanx. Podiatry has been consulted on this patient. We will await their recommendations. It is my understanding that they plan to take him to the OR today for possible amputation of the second toe. Qualifiers: Osteomyelitis type: unspecified type Osteomyelitis location: foot Laterality: left Qualified Code(s): M86.9 - Osteomyelitis, unspecified (2) Diabetic foot ulcer Current Visit: Yes Status: Acute Assessment and plan: Patient has ulceration to the second digit on the left foot Likely the cause of the patients osteomyelitis. Qualifiers: Diabetic foot ulcer location: other Diabetes mellitus type: type 2 Laterality: left Non-pressure ulcer stage: with fat layer exposed Qualified Code(s): E11.621 - Type 2 diabetes mellitus with foot ulcer; L97.522 - Non- pressure chronic ulcer of other part of left foot with fat layer exposed; L97.522 - Non-pressure chronic ulcer of other part of left foot with fat layer exposed; L97.522 - Non-pressure chronic ulcer of other part of left foot with fat layer exposed; L97.522 - Non-pressure chronic ulcer of other part of left foot with fat layer exposed (3) IDDM (insulin dependent diabetes mellitus) Current Visit: Yes Status: Chronic Assessment and plan: Continue with sliding scale insulin coverage Patient is currently nothing by mouth at this time due to likely surgery today. (4) Valvular heart disease Current Visit: Yes Status: Chronic Assessment and plan: Per chart review the patient has a history of valvular heart disease requiring a bioprosthetic valve (5) History of DVT (deep vein thrombosis) Current Visit: Yes Status: Acute Assessment and plan: Patient has a history of DVT Takes coumadin regularly but will be held due to likely having surgery today Most recent INR 2.1 (6) DVT prophylaxis Current Visit: Yes Status: Acute Assessment and plan: Patient has SCDs in place. - Subjective Interval history: Patient states that he feels fine at this time but was brought to the emergency department due to concerns about his second toe on his left foot. He states that he has no complaints at this time but says that he was told that he may go to surgery today due to having an infected toe. Patient denies any chest pain, shortness of breath, abdominal pain, fevers, chills or any other complaints. - Constitutional Vitals: Temp Pulse Resp BP Pulse Ox 98.2 F 91 16 153/86 95 08/24/17 06:48 08/24/17 06:48 08/24/17 06:48 08/24/17 06:48 08/24/17 06:48 General appearance: Present: cooperative, A&O X 3, no acute distress, answers questions appropriately - Head Head exam: Present: atraumatic, normocephalic - Neck Neck exam general surgery: Present: full ROM, normal inspection, trachea midline - Respiratory Respiratory exam: Present: CTAB. Absent: accessory muscle use, rales, rhonchi, wheezes - Cardiovascular Cardiovascular exam: Present: RRR, +S1, +S2. Absent: diastolic murmur, gallop, rubs, systolic murmur - GI/Abdominal GI/Abdominal exam: Present: normal bowel sounds, soft, no peritoneal signs. Absent: distended, tenderness - Expanded Lower Extremities Exam Foot/Toe exam: Present: amputation (Previous amputation of the left great toe due to accident.). Absent: normal inspection (Patient has ulceration to tip of the second toe on the left foot) - Neurological Exam Neurological exam: Present: alert, oriented X3, no focal deficits. Absent: facial droop, speech deficit - Psychiatric Psychiatric exam: Present: normal affect, normal mood - Skin Additional comments: Patient has mild erythema to the second digit on the left foot. There is ulceration over the distal tip of the second toe on the left foot. Internal Medicine: Result - Labs CBC & Chem 7: 08/24/17 06:05 08/24/17 06:05 Labs: Short CBC 08/24/17 Range/Units 06:05 WBC 6.9 (4.3-11.1) K/mcL Hgb 12.3 L (12.9-16.9) g/dL Hct 38.3 (37.5-50.1) % Plt Count 139 L (140-400) K/mcL BMP 08/24/17 06:05 Sodium 136 Potassium 3.9 Chloride 106 Carbon Dioxide 25 BUN 21 Creatinine 1.21 Glucose 263 H Calcium 8.7 - ABG Interpretation ABG results: PT/INR, D-dimer PT 23.0 Seconds (9.4-12.1) H 08/23/17 16:20 - VTE Documentation of Mechanical Device: Intermittent pneumatic compression device Consult Discharge Plan - Plan Referrals: Noble Eason MD [Primary Care Provider] - <Mikel Weaver - Last Filed: 08/24/17 19:21> Date of Encounter: 08/24/17 - Assessment and plan (1) Osteomyelitis of left foot Current Visit: No Status: Acute Qualifiers: Osteomyelitis type: unspecified type Qualified Code(s): M86.9 - Osteomyelitis, unspecified (2) Diabetic foot ulcer Current Visit: Yes Status: Acute Qualifiers: Diabetic foot ulcer location: other Diabetes mellitus type: type 2 Laterality: left Non-pressure ulcer stage: with fat layer exposed Qualified Code(s): E11.621 - Type 2 diabetes mellitus with foot ulcer; L97.522 - Non- pressure chronic ulcer of other part of left foot with fat layer exposed; L97.522 - Non-pressure chronic ulcer of other part of left foot with fat layer exposed; L97.522 - Non-pressure chronic ulcer of other part of left foot with fat layer exposed; L97.522 - Non-pressure chronic ulcer of other part of left foot with fat layer exposed (3) Acute kidney injury Current Visit: No Status: Resolved (4) IDDM (insulin dependent diabetes mellitus) Current Visit: Yes Status: Chronic (5) HTN (hypertension) Current Visit: No Status: Chronic Qualifiers: Hypertension type: essential hypertension Qualified Code(s): I10 - Essential (primary) hypertension (6) CAD (coronary artery disease) Current Visit: No Status: Chronic Qualifiers: Coronary Disease-Associated Artery/Lesion type: [place] artery [place] vs. transplanted heart: [place] heart Associated angina: without angina Qualified Code(s): I25.10 - Atherosclerotic heart disease of [place] coronary artery without angina pectoris - Constitutional Vitals: Temp Pulse Resp BP Pulse Ox 98.3 F 87 16 148/89 96 08/24/17 09:55 08/24/17 09:55 08/24/17 09:55 08/24/17 09:55 08/24/17 09:55 Internal Medicine: Result - Labs CBC & Chem 7: 08/24/17 06:05 08/24/17 06:05 Labs: Short CBC 08/24/17 Range/Units 06:05 WBC 6.9 (4.3-11.1) K/mcL Hgb 12.3 L (12.9-16.9) g/dL Hct 38.3 (37.5-50.1) % Plt Count 139 L (140-400) K/mcL BMP 08/24/17 06:05 Sodium 136 Potassium 3.9 Chloride 106 Carbon Dioxide 25 BUN 21 Creatinine 1.21 Glucose 263 H Calcium 8.7 - ABG Interpretation ABG results: PT/INR, D-dimer PT 23.0 Seconds (9.4-12.1) H 08/23/17 16:20 - Attending Attestation I examined this patient and my medical decision-making was reviewed with the Resident Physician on 08/24/17. I agree with the documented findings, disposition and treatment plan as described except to the extent set forth below. Mr Wharton is currently admitted for acute osteomyelitis of his foot. He remains moderate to high risk due to potential for worsening clinical status. He is to go to OR today. Mr Wharton is awaiting OR. Pain is controlled. No fever or chills. No CP or SOB. Exam Alert Comfortable Mucus membranes dry Heart reg No wheeze Abd soft Dressings intact I/P 1. OM 2. Diabetic foot ulcer Further diagnoses and plan as above.
[2017-08-24] MEDS: Insulin DETEMIR 100 UNIT/ML X5UNITS SQ SCH ×2 (08:44→21:11)
[2017-08-24] MEDS ORDERED: Lisinopril 20 MG TABLET PO SCH (09:00)
[2017-08-24] MEDS ORDERED: amLODIPine 5 MG TABLET PO SCH (09:00)
[2017-08-24] MEDS ORDERED: Vancomycin 1,750 MG in 0.9 % Sodium Chloride 250 ML IVPB SCH (09:00)
[2017-08-24] MEDS ORDERED: hydrALAZINE 10 MG TABLET PO SCH (09:00)
[2017-08-24] MEDS ORDERED: Aspirin Enteric Coated 81 MG Tablet PO SCH (09:00)
--- NOTE | 2017-08-24 09:00 | Podiatry Consult Note ---
Date of Encounter: 08/24/17 Time of Encounter: 08:00 Assessment and Plan (1) Osteomyelitis of ankle and foot Current visit: Yes Status: Acute I had a thorough review with the patient regarding his conditions, my findings and his treatment option. We discussed the bone infection in the left second toe bone. We discussed amputation of this toe (left 2nd) which she is amenable to. He was given surgical and nonsurgical options for both feet. On the right foot debridement of bone and excisional debridement of the ulcerations and possible lengthening of the tight heel cord was discussed on the right. He refused partial foot amputation on the right and discussed the lack of bones he currently has in the foot could contribute to future or persistent pressure/ wounds and even if these current wounds heal he could get new wounds or a recurrence of old wounds. discussed importance of compliance with instructions. he refuses a partial right foot amputation. discussed with patient he could one day lose his leg or worse from an infection from the wounds on his foot. he was made aware that the debridement of bone and debridement of ulcerations on the right foot has no guarantee to heal him and the amputation of the 2nd toe could have wound healing problems. Nature of these procedures. risks vs benefits and potential complications and consequences of surgery discussed. He understood these could be staged procedures on both feet and require more surgery. Patient was discussed with Dr. Herman who had been managing him previously in the wound care center. Medically optimize. Remain NPO. Added on to OR. History of Present Illness HPI: Mr. Wharton is a 66 year old male admitted with osteomyelitis of the left 2nd toe. He says last week his toe was not looking good and says he thought it was infected and needed to be amputated. He came to the hospital yesterday evening. He says his right foot was fine until the callus was shaved and he was put in a cast. he says he shoveled snow in the cast because he doesn't care about his foot being in a cast or not and it rubbed the foot causing a wound. he says he is not okay with a partial foot amputation on the right foot and losing his toes and he will never allow that to happen. denies f/c/n/v/sob/cp. He was scheduled for outpatient surgery today but came to the hospital yesterday with worsening of the left 2nd toe and was admitted. Past Med Surg Social Fam HX - Past Medical History Medical history: diabetes, hyperlipidemia, hypertension, valvular heart disease Psychiatric history: no psych history - Past Surgical History Surgical History: angioplasty/stent, coronary bypass (CABG), heart valve replacement - Social History Smoking Status: Never smoker Smokeless Tobacco Status: No Alcohol use: none Drug use: none - Family History Mother Living Status: Hx Family Cardiac Disorders: No Hx Family Respiratory Disorders: No Father Living Status: Hx Family Cardiac Disorders: No Hx Family Respiratory Disorders: No Medications and Allergies Aspirin [Lo-Dose Aspirin EC] 81 mg PO DAILY 04/14/16 [History] Insulin DETEMIR [Levemir] 40 unit SQ BID 04/14/16 [History] Insulin Human Regular [HumuLIN R] 0 unit SQ TIDWM 04/14/16 [History] Lisinopril [Zestril] 40 mg PO DAILY 04/14/16 [History] Simvastatin [Zocor] 40 mg PO HS 04/14/16 [History] hydrALAZINE [HydrALAZINE] 10 mg PO DAILY 04/14/16 [History] Metoprolol [Lopressor] 25 mg PO BID #60 tablet 06/03/16 [Rx] amLODIPine [Norvasc] 5 mg PO DAILY 02/10/17 [History] Collagenase Oint [Santyl] 1 appl TP AD 08/23/17 [History] Doxycycline Hyclate [Vibramycin] 100 mg PO BID 08/23/17 [History] Furosemide [Lasix] 20 mg PO DAILY PRN 08/23/17 [History] Warfarin [Coumadin] 5 mg PO SUMOTUTHFRSA 08/23/17 [History] Warfarin [Coumadin] 7.5 mg PO WE 08/23/17 [History] levoFLOXacin [Levaquin] 500 mg PO DAILY 08/23/17 [History] 3 Allergy/AdvReac Type Severity Reaction Status Date / Time No Known Allergies Allergy Verified 08/23/17 09:18 All Systems Reviewed: The remainder of the systems were reviewed and are negative - Constitutional Constitutional: as per HPI - Cardiovascular Cardiovascular: no chest pain - Respiratory Respiratory: no dyspnea - Musculoskeletal Musculoskeletal: joint swelling, numbness Physical Exam - Constitutional Vitals: Temp Pulse Resp BP Pulse Ox 98.2 F 91 16 153/86 95 08/24/17 06:48 08/24/17 06:48 08/24/17 06:48 08/24/17 06:48 08/24/17 06:48 Exam: well developed male in no acute distress Vasc: feet are warm to touch. Derm: left amputated hallux. ulcerations distal tuft of 2nd digit and dorsal second toe that do not probe to bone. erythema of the left 2nd toe. plantar right foot submet 1 and submet 5 ulcerations. Musc: no pain with palpation of right foot wounds or left foot second digit secondary to neuropathy. gastroc equinus. Neuro: diminished protective sensation. Results - Labs Result Diagrams: 08/24/17 06:05 08/24/17 06:05 Labs: Abnormal lab results Hgb 12.3 g/dL (12.9-16.9) L 08/24/17 06:05 MCV 82.0 fL (83.0-100.0) L 08/24/17 06:05 MCH 26.3 pg (28.0-33.3) L 08/24/17 06:05 Plt Count 139 K/mcL (140-400) L 08/24/17 06:05 ESR 38 mm/hr (0-10) H 08/23/17 16:20 PT 23.0 Seconds (9.4-12.1) H 08/23/17 16:20 Glucose 263 mg/dL (70-105) H 08/24/17 06:05 POC Glucose 369 (58-89) H 08/23/17 19:51 H & H 08/24/17 Range/Units 06:05 Hgb 12.3 L (12.9-16.9) g/dL Hct 38.3 (37.5-50.1) % All other labs normal. - Diagnostic results Ankle/Foot x-ray: other (left foot xray osteomyelitis with erosive and osteolytic changes of the distal phalanx.) Consult Discharge Plan - Plan Referrals: Noble Eason MD [Primary Care Provider] -
--- NOTE | 2017-08-24 17:13 | Anesthesia Evaluation PreOp ---
Date of Encounter: 08/24/17 Time of Encounter: 17:11 - Past History Planned Operation: R-foot excisional debridement & L-foot 2nd amputation Cardiac History: HTN (maintained on Hydralazine, Metoprolol, Lisinopril, NOrvasc ), Hyperlipidemia (maintained on Simvastatin), Cardiac Surgery (MVR Bioprosthetic [maintained on Coumadin] & CABG), Cardiac Stent (2004), Other ( CAD........ECHO 06/2016 - Impressions: LVEF 55%. There is hypokinesis of the basal-mid inferior wall and basal-mid inferoseptum. Moderate left ventricular diastolic dysfunction. Normal right ventricular structure and function. Severely dilated left atrium. Bioprosthetic mitral valve appears well seated. No significant mitral stenosis. Mean gradient = 7 mmHg. No significant change compared to prior study on 08/14/13. Trace mitral regurgitation. Mild pulmonary hypertension. Estimated RVSP = 36 mmHg. The aortic root is borderline dilated, measuring 4.1 cm at the sinuses of Valsalva. Left Ventricular Wall Motion: Rest Echo Findings The mid inferior, basal inferior, mid inferior septal and basal inferior septal smith were hypokinetic. All other wall segments showed normal motion.) Pulmonary History: Denies Any Significant HX CASE RESOURCE MANAGER History: Other (REportedly blind L-eye) Other Medical History: Renal (Hx of ELLEN but GFR = 60 today), Bleeding (Hx DVT), Diabetes Type II (IDDM maintained on Insulin, Humulin,) Anesthesia History: Past Anesthesia (MVR, CABG, Toe amputations, Metatarsal resection/debridement) Alcohol Use: none Drug use: none Medications and Allergies Aspirin [Lo-Dose Aspirin EC] 81 mg PO DAILY 04/14/16 [History] Insulin DETEMIR [Levemir] 40 unit SQ BID 04/14/16 [History] Insulin Human Regular [HumuLIN R] 0 unit SQ TIDWM 04/14/16 [History] Lisinopril [Zestril] 40 mg PO DAILY 04/14/16 [History] Simvastatin [Zocor] 40 mg PO HS 04/14/16 [History] hydrALAZINE [HydrALAZINE] 10 mg PO DAILY 04/14/16 [History] Metoprolol [Lopressor] 25 mg PO BID #60 tablet 06/03/16 [Rx] amLODIPine [Norvasc] 5 mg PO DAILY 02/10/17 [History] Collagenase Oint [Santyl] 1 appl TP AD 08/23/17 [History] Doxycycline Hyclate [Vibramycin] 100 mg PO BID 08/23/17 [History] Furosemide [Lasix] 20 mg PO DAILY PRN 08/23/17 [History] Warfarin [Coumadin] 5 mg PO SUMOTUTHFRSA 08/23/17 [History] Warfarin [Coumadin] 7.5 mg PO WE 08/23/17 [History] levoFLOXacin [Levaquin] 500 mg PO DAILY 08/23/17 [History] 3 Allergy/AdvReac Type Severity Reaction Status Date / Time No Known Allergies Allergy Verified 08/23/17 09:18 - Meds/Allergy Pre-op Review Medications Reviewed: Yes Allergies Reviewed: Yes Beta Blockers on Current Med List: Yes (Metoprolol) If Beta Blockers taken, Date/Time (Last Dose taken): 08/24/2017 @ 0738 Anesthesia Results - Labs 08/24/17 06:05 08/24/17 06:05 Vital Signs Temp Pulse Resp BP Pulse Ox 08/24/17 09:55 98.3 F 87 16 148/89 96 08/24/17 06:48 98.2 F 91 16 153/86 95 08/24/17 04:30 98.3 F 86 16 156/77 93 08/24/17 00:45 98.1 F 88 18 158/85 98 08/23/17 19:50 98 192/88 08/23/17 18:36 97.9 F 106 16 179/89 96 08/23/17 18:30 16 185/103 Intake and Output 08/24/17 08/24/17 08/24/17 07:59 15:59 23:59 Intake Total 1100 / 1100 1100 / 1100 Output Total 600 / 600 950 / 950 Balance 500 / 500 150 / 150 Intake: IV Fluids 1100 / 1100 1100 / 1100 0.9 % Sodium Chloride 1,000 ML 1000 / 1000 1000 / 1000 @ 125 mls/hr IVC .Q8H PALLAVI Rx#: [id number] Zosyn 3.375 GM In 0.9 % Sodium 100 / 100 100 / 100 Chloride 100 ML @ 25 mls/hr IVPB Q8H PALLAVI Rx#:[id number] Oral 0 / 0 Output: Urine 600 / 600 950 / 950 Other: Blood Glucose* 189 111 Laboratory Results WBC 6.9 K/mcL (4.3-11.1) 08/24/17 06:05 RBC 4.67 M/mcL (4.19-5.50) 08/24/17 06:05 Hgb 12.3 g/dL (12.9-16.9) L 08/24/17 06:05 Hct 38.3 % (37.5-50.1) 08/24/17 06:05 MCV 82.0 fL (83.0-100.0) L 08/24/17 06:05 MCH 26.3 pg (28.0-33.3) L 08/24/17 06:05 MCHC 32.1 g/dL (31.6-35.5) 08/24/17 06:05 RDW 13.2 % (11.5-14.5) 08/24/17 06:05 Plt Count 139 K/mcL (140-400) L 08/24/17 06:05 MPV 9.8 fL (9.4-12.4) 08/24/17 06:05 Immature Gran % 0.3 % (0-4) 08/23/17 16:20 Seg Neutrophils % 77.5 % 08/23/17 16:20 Lymphocytes % 8.4 % 08/23/17 16:20 Monocytes % 11.3 % 08/23/17 16:20 Eosinophils % 2.0 % 08/23/17 16:20 Basophils % 0.5 % 08/23/17 16:20 Neutrophils # 7.5 K/mcL (1.6-8.9) 08/23/17 16:20 Lymphocytes # 0.8 K/mcL (0.6-4.6) 08/23/17 16:20 Monocytes # 1.1 K/mcL (0.0-1.3) 08/23/17 16:20 Eosinophils # 0.2 K/mcL (0.0-0.6) 08/23/17 16:20 Basophils # 0.1 K/mcL (0.0-0.2) 08/23/17 16:20 ESR 38 mm/hr (0-10) H 08/23/17 16:20 PT 23.0 Seconds (9.4-12.1) H 02/21/18 16:20 INR 2.1 08/23/17 16:20 Sodium 136 mEq/L (136-145) 08/24/17 06:05 Potassium 3.9 mEq/L (3.5-5.1) 08/24/17 06:05 Chloride 106 mEq/L (98-107) 08/24/17 06:05 Carbon Dioxide 25 mEq/L (23-29) 08/24/17 06:05 BUN 21 mg/dL (8-23) 08/24/17 06:05 Creatinine 1.21 mg/dL (0.70-1.30) 08/24/17 06:05 Est GFR ( Amer) > 60 (> 60) 08/24/17 06:05 Est GFR (Non-Af Amer) > 60 (> 60) 08/24/17 06:05 BUN/Creatinine Ratio 17 (6-26) 08/24/17 06:05 Glucose 263 mg/dL (70-105) H 08/24/17 06:05 POC Glucose 254 (58-89) H 08/24/17 09:22 Calculated Osmolality 294 (280-300) 08/24/17 06:05 Calcium 8.7 mg/dL (8.6-10.3) 08/24/17 06:05 C-Reactive Protein 9 mg/L (Less than 10) 08/23/17 16:20 Impressions Toe X-Ray 08/23/17 15:05 IMPRESSION: 1. Suspected ulceration at the tip of the left 2nd toe. Underlying osteomyelitis involving the majority of the distal tuft of the left 2nd distal phalanx. 2. Diffuse soft tissue swelling potentially due to edema and/or cellulitis. No findings necrotizing fasciitis. 3. Unchanged posterior dislocation of the left 2nd proximal phalanx. D/ / Jefry Ordoñez MD / Jefry Ordoñez MD Interpreting Provider: Jefry Ordoñez MD - Imaging EKG: image reviewed (76bpm SR) Anesthesia Exam Vital Signs Temp Pulse Resp BP Pulse Ox 08/24/17 09:55 98.3 F 87 16 148/89 96 08/24/17 06:48 98.2 F 91 16 153/86 95 08/24/17 04:30 98.3 F 86 16 156/77 93 08/24/17 00:45 98.1 F 88 18 158/85 98 08/23/17 19:50 98 192/88 08/23/17 18:36 97.9 F 106 16 179/89 96 08/23/17 18:30 16 185/103 Intake and Output 08/24/17 08/24/17 08/24/17 07:59 15:59 23:59 Intake Total 1100 / 1100 1100 / 1100 Output Total 600 / 600 950 / 950 Balance 500 / 500 150 / 150 Intake: IV Fluids 1100 / 1100 1100 / 1100 0.9 % Sodium Chloride 1,000 ML 1000 / 1000 1000 / 1000 @ 125 mls/hr IVC .Q8H PALLAVI Rx#: [id number] Zosyn 3.375 GM In 0.9 % Sodium 100 / 100 100 / 100 Chloride 100 ML @ 25 mls/hr IVPB Q8H PALLAVI Rx#:[id number] Oral 0 / 0 Output: Urine 600 / 600 950 / 950 Other: Blood Glucose* 189 111 - HEENT Pupil (Motor): Pupils equal, EOMI, Abnormal Mallampati: II Teeth: Missing, Poor dentition Oral Opening: Greater than 3 - CASE RESOURCE MANAGER LOC: Oriented CASE RESOURCE MANAGER Motor: Normal RUE, Normal LUE, Normal RLE, Normal LLE, Normal Face CASE RESOURCE MANAGER Sensory: Normal: RUE, LUE, RLE, LLE, Face - Cardiac Rhythm: Regular Murmur: Systolic - Pulmonary Breath Sounds: bilateral Clear Respiratory Effort: Symmetrical Anesthesia Assess/Plan ASA Score: 3 (CAD, DM, HTN) Modified [place] Scale for Level of Consciousness: Cooperative, oriented, and tranquil Anesthetic Plan: General Monitoring Plan: Standard Monitors Recovery Plan: PACU Anes Supervising Prov Stmt: Pt seen/evaluated, R&B Discussed, questions answered and consent obtained. Bart Ramirez MD
[2017-08-24] MEDS ORDERED: *HR* FentaNYL (PF) 100 MCG/2 ML VIAL ONE (17:16)
[2017-08-24] MEDS ORDERED: *HR* Rocuronium Bromide 50 MG/5 ML VIAL ONE (17:18)
[2017-08-24] MEDS ORDERED: Lidocaine -MPF 2% 2 ML VIAL ONE (17:18)
[2017-08-24] MEDS ORDERED: *HR* Propofol 200 MG/20 ML VIAL IVP ONE ×3 (17:18→19:25)
[2017-08-24] MEDS ORDERED: *HR* Succinylcholine 200 MG/10 ML VIAL IVP ONE (17:18)
[2017-08-24] MEDS ORDERED: Lidocaine/EPI 1:100k 1% 20 ML VIAL ONE (17:21)
[2017-08-24] MEDS ORDERED: Propofol 500 MG/50 ML INFUS..BTL ONE (17:30)
[2017-08-24] MEDS ORDERED: *HR* Midazolam HCl 2 MG/2 ML VIAL ONE (17:34)
[2017-08-24] MEDS ORDERED: *HR* OxyCODONE Immed Rel 5 MG TABLET PO PRN (17:38)
[2017-08-24] MEDS ORDERED: MORPHINE SUL Oral CONC 10 MG/0.5 ML ORAL.SYG SL PRN (17:38)
[2017-08-24] MEDS ORDERED: Ondansetron 4 MG/2 ML VIAL IVP ONE (17:38)
[2017-08-24] MEDS ORDERED: Ketamine *HR* 500 MG/10 ML MDV ONE (17:42)
--- NOTE | 2017-08-24 19:46 | Operative Note ---
Date of procedure: 08/24/17 Pre-op diagnosis: L 2nd toe osteomyelitis, non-healing ulcers right foot, equinus, right ost Post-op diagnosis: same Procedure: 1. Right tendoachilles lengthening 2. Right foot debridement of bone 1,2 and 5 3. excisional debridement of right foot wounds (plantar medial submet 1 [id number] and plantar lateral sub met 5 [id number]) and application of PRP. 4. left 2nd toe amputation Implants: none Complications: none Anesthesia: MAC Local Anesthetics: 1% Lidocaine HCL SubQ (cc) Surgeon: Toni Lorenzo Was there an mental health assistant present: No Estimated blood loss (cc): 80 Specimen: pathology 1. left 2nd toe 2. bone right foot Condition: stable Disposition: PACU Procedure in Detail: 66-year-old male with multiple previous surgeries for infections and osteomyelitis of the right and left foot. He came to the hospital with worsening infection of the left second toe prior to scheduled outpatient procedure with Dr. Herman for the right foot. The patient was admitted to the hospital and I was consulted. His coumadin was held upon admission to the hospital. He has a history of MRSA and chronic nonhealing wounds on the right foot and evidence of bone infection in the left second toe on x-ray and soft tissue infection with ulcerations of the left second toe. Above the non-healing wounds there was pressure from bone and he had a dislocation 2nd MTP joint with significant pressure submet 2. He refused transmetatarsal amputations which involved removal of the forefoot on the right foot and left foot. He could only agreed to lengthening of the achilles tendon, debridement of bone leaving the right foot toes and debridement of the ulcerations. For the left foot he was agreeable to complete amputation of the left second toe. Nature of the procedures risks versus benefits potential complications and consequences of the procedure discussed with the patient at length. It was explained these could be staged procedures and he may require more surgery and no guarantees were made as to the outcome of any of the procedures. He was advised that he could lose both legs or be in a position where he would have to choose losing his leg, possibly the forefoot or in the future. Patient was made aware he could have flail non-functional foot with these procedures and refusing a TMA. All questions had been answered and informed consent was signed. The patient was taken from the preoperative holding area and placed on the operating room table in the supine position and he was given IV sedation. Local anesthetic was injected into both feet. Both the right and left feet were injected with 1% lidocaine plain. Both feet were scrubbed prepped and draped in the usual sterile fashion Bilateral tourniquets were applied but not inflated during the entire procedure. Left foot second toe amputation. Attention was directed to the left foot 2nd and a fishmouth incision was made around the base of the toe at the level of the metatarsal phalangeal joint. This incision was made full thickness down to bone. The bone was freed from its soft tissue attachments at the level of the metatarsophalangeal joint. The joint was disarticulated and the toe removed and sent to pathology. There was no erythema of the remaining skin. The flexor and extensor tendon were traced as far proximal as possible and resected. There was no purulence the site was copiously flushed with normal sterile saline with bacitracin. At this level the skin had no erythema and no devitalized tissue was present and the wound was deemed adequate for closure and this was performed with 2-0 Prolene. Adequate hemostasis was present. Attention was then directed to the right foot. Right TendoAchilles lengthening. Attention was directed to the posterior aspect of the patient's right leg her equinus contracture was present in contributing to pressure in the forefoot and starting 3 cm from the base of the Achilles tendon insertion in the calcaneus to medial and lateral stab incisions were made centimeters apart releasing a portion of the achilles tendon. Increased dorsiflexion of the right ankle was present at the conclusion of the procedure. There was felt to be adequate contour and remaining strength of the Achilles tendon without rupture. There was a negative Hernandez test. Attention was then directed to the plantar aspect of the right foot. 2-0 Prolene was used to reapproximate the skin. Excisional debridement of right foot wound. A #15 blade and curet were used to excisionally debrided the plantar lateral wound and plantar medial wound through subcutaneous tissue until a healthy bleeding granular base was present with adequate hemostasis. Attention was then directed to the medial aspect of the patient's right foot. PRP was then applied to bilateral foot wounds. Debridement of bone first metatarsal right foot. #15 blade was used to make a skin incision full-thickness down to the level of the remaining metatarsal bone which was overlying the ulceration sub-met 1. C-arm was utilized to confirm and triangulated area of ulceration to the remaining bone present and the sagittal saw was used to resect bone from the first metatarsal. There was no purulence present in the incision site. The piece of bone was freed from its soft tissue attachments and sent to pathology. The surgical site was flushed with normal sterile saline with bacitracin and the rasp was used to smooth the plantar aspect of the remaining metatarsal bone. No prominent edges were felt to be present upon reinspection. Debridement of second metatarsal bone right foot. Attention was directed to the second metatarsophalangeal joint where skin incision was made over the dislocated second digit which was not relocatable. Significant pressure plantar aspect of the foot was present under the dislocated second metatarsophalangeal joint. Debridement of bone of the second metatarsal was performed as well as the base of the proximal phalanx and decreased pressure was present on the plantar foot skin. The bone was sent to pathology. No purulence or devitalized tissue was present. Site was flushed with normal sterile saline and bacitracin. The rasp was used to smooth the ends of the bone and upon reinspection no sharp edges of the bone were felt to be present. Debridement of bone fifth metatarsal right foot. A #15 blade was used to make a skin incision full-thickness down to the level of the remaining metatarsal bone which was overlying the ulceration sub-met 5. C-arm was utilized to confirm and triangulated area of ulceration to the bone present and the sagittal saw was used to resect bone from the fifth metatarsal. There was no purulence present in the incision site. The piece of bone was freed from its soft tissue attachments and sent to pathology. The fifth metatarsal base and peroneus brevis insertion were not disrupted. The surgical site was flushed with normal sterile saline with bacitracin and the rasp was used to smooth the plantar aspect of the remaining metatarsal bone. No prominent edges were felt to be present upon reinspection. The surgical incisions on the right foot were closed with 2-0 Prolene. Postoperative bandaging included Adaptic, 4 x 4 gauze abdominal pad Kerlix and a loosely applied Fernando wrap on bilateral feet. Adequate hemostasis was present prior to closure. Patient tolerated the anesthesia and the procedure well and was escorted to the recovery room with vital signs stable and vascular status intact to bilateral feet. Medical team will restart patient on his Coumadin and await antibiotic recommendations from infectious disease.
--- NOTE | 2017-08-24 19:49 | Event Note ---
Date of Encounter: 08/24/17 Time of Encounter: 07:45 okay to restart coumadin. adequate hemostasis at conclusion of procedure.
[2017-08-24] MEDS ORDERED: *HR* Dextrose 50 % in Water (Syg) 50 ML SYRINGE IVP PRN (20:01)
[2017-08-24] MEDS ORDERED: Furosemide 20 MG TABLET PO PRN (20:01)
[2017-08-24] MEDS ORDERED: Dextrose Gel 15 GM/37.5 ML TUBE PO PRN ×2 (20:01)
[2017-08-24] MEDS ORDERED: *HR* HYDROcodone/Acet 5/325 mg TABLET PO PRN (20:01)
[2017-08-24] MEDS ORDERED: D5% in Water 1,000 ML IVC PRN (20:01)
[2017-08-25 01:25] LABS: Basophils % 0.4 %; Eosinophils # 0.5 K/mcL (0.0-0.6); Eosinophils % 6.9 %; Hematocrit 37.3 % (37.5-50.1); Hemoglobin 12.2 g/dL (12.9-16.9); Immature Granulocytes % 0.5 % (0-4); Lymphocytes # 0.8 K/mcL (0.6-4.6); Lymphocytes % 10.5 %; Mean Corpuscular HGB Conc 32.7 g/dL (31.6-35.5); Mean Corpuscular Hemoglobin 26.9 pg (28.0-33.3); Mean Corpuscular Volume 82.2 fL (83.0-100.0); Mean Platelet Volume 9.3 fL (9.4-12.4); Monocytes # 0.8 K/mcL (0.0-1.3); Monocytes % 10.8 %; Neutrophils # 5.5 K/mcL (1.6-8.9); Platelet Count 138 K/mcL (140-400); Red Blood Count 4.54 M/mcL (4.19-5.50); Red Cell Distribution Width 13.1 % (11.5-14.5); Segmented Neutrophils % 70.9 %
[2017-08-25 01:48] LABS: BUN/Creatinine Ratio 19 (6-26); Blood Urea Nitrogen 15 mg/dL (8-23); Calcium 8.6 mg/dL (8.6-10.3); Carbon Dioxide 26 mEq/L (23-29); Chloride 108 mEq/L (98-107); Glucose 106 mg/dL (70-105); Osmolality,Calculated 287 (280-300); Potassium 3.7 mEq/L (3.5-5.1); Sodium 138 mEq/L (136-145); eGFR For African Americans > 60 (> 60); eGFR For Non-African Americans > 60 (> 60)
[2017-08-25] MEDS: Insulin LISPRO 300 UNITS/3 ML VIAL SQ SCH ×4 (08:43→22:31)
[2017-08-25] MEDS: Insulin DETEMIR 100 UNIT/ML X5UNITS SQ SCH ×2 (08:43→22:29)
[2017-08-25] MEDS: hydrALAZINE 10 MG TABLET PO SCH (08:43)
[2017-08-25] MEDS: Lisinopril 20 MG TABLET PO SCH (08:44)
[2017-08-25] MEDS: amLODIPine 5 MG TABLET PO SCH (08:44)
[2017-08-25] MEDS: Aspirin Enteric Coated 81 MG Tablet PO SCH (08:45)
--- NOTE | 2017-08-25 09:19 | Internal Med Progress Note ---
<NawafMarcus - Last Filed: 08/25/17 11:38> Date of Encounter: 08/25/17 Time of Encounter: 09:16 - Assessment and plan (1) Osteomyelitis Current Visit: Yes Status: Acute Assessment and plan: Patient has osteomyelitis on the second digit on the left second toe. This is likely secondary to diabetic foot ulcer on the tip of the second toe on the left foot. Continue antibiotic therapy of vancomycin and Zosyn Elevated ESR of 38 X-ray of the foot showed: 1. Suspected ulceration at the tip of the left 2nd toe. Underlying osteomyelitis involving the majority of the distal tuft of the left 2nd distal phalanx. 2. Diffuse soft tissue swelling potentially due to edema and/or cellulitis. No findings necrotizing fasciitis. 3. Unchanged posterior dislocation of the left 2nd proximal phalanx. Podiatry has been consulted on this patient. Patient was taken to the OR yesterday for debridement of the right foot as well as amputation of the second digit on the left foot ID has been consulted Qualifiers: Osteomyelitis type: unspecified type Osteomyelitis location: foot Laterality: left Qualified Code(s): M86.9 - Osteomyelitis, unspecified (2) Diabetic foot ulcer Current Visit: Yes Status: Acute Assessment and plan: Patient has ulceration to the second digit on the left foot Likely the cause of the patients osteomyelitis. Patient underwent debridement of the right foot and annotation of the second digit on the left foot yesterday by podiatry. Patient has a previous wound culture of the right foot that grew MRSA. ID has been consulted. Qualifiers: Diabetic foot ulcer location: other Diabetes mellitus type: type 2 Laterality: left Non-pressure ulcer stage: with fat layer exposed Qualified Code(s): E11.621 - Type 2 diabetes mellitus with foot ulcer; L97.522 - Non- pressure chronic ulcer of other part of left foot with fat layer exposed; L97.522 - Non-pressure chronic ulcer of other part of left foot with fat layer exposed; L97.522 - Non-pressure chronic ulcer of other part of left foot with fat layer exposed; L97.522 - Non-pressure chronic ulcer of other part of left foot with fat layer exposed (3) IDDM (insulin dependent diabetes mellitus) Current Visit: Yes Status: Chronic Assessment and plan: Continue with sliding scale insulin coverage Diabetic diet. (4) Valvular heart disease Current Visit: Yes Status: Chronic Assessment and plan: Per chart review the patient has a history of valvular heart disease requiring a bioprosthetic valve (5) History of DVT (deep vein thrombosis) Current Visit: Yes Status: Acute Assessment and plan: Patient has a history of DVT Takes coumadin regularly. Per podiatry note patient can be restarted on Coumadin at this time. Most recent INR 1.6 (6) DVT prophylaxis Current Visit: Yes Status: Acute Assessment and plan: Patient has SCDs in place. Patient will be put back on his home Coumadin dose - Subjective Interval history: Patient states that he is feeling fine at this time and was eating breakfast at bedside when he was seen. Plans other than the bilateral feet pain after having surgery yesterday evening. Patient states that he has been able to have a bowel movement and urination since surgery. Patient states that he has been able to eat and drink without issue. Patient denies any chest pain, shortness of breath, abdominal pain, fever, chills or any other complaints. - Constitutional Vitals: Temp Pulse Resp BP Pulse Ox 98.9 F 95 16 155/90 96 08/25/17 08:20 08/25/17 08:20 08/25/17 08:20 08/25/17 08:20 08/25/17 08:20 General appearance: Present: cooperative, A&O X 3, no acute distress, answers questions appropriately - Head Head exam: Present: atraumatic, normocephalic - Neck Neck exam general surgery: Present: full ROM, normal inspection, trachea midline - Respiratory Respiratory exam: Present: CTAB. Absent: accessory muscle use, rales, rhonchi, wheezes - Cardiovascular Cardiovascular exam: Present: RRR, +S1, +S2. Absent: diastolic murmur, gallop, rubs, systolic murmur - GI/Abdominal GI/Abdominal exam: Present: normal bowel sounds, soft, no peritoneal signs. Absent: distended, tenderness - Extremities Exam Additional comments: Bilateral lower extremities are wrapped from podiatric surgeries that occurred 1 day ago. 2+ pitting edema in bilateral lower extremities. - Neurological Exam Neurological exam: Present: alert, oriented X3, no focal deficits. Absent: facial droop, speech deficit - Psychiatric Psychiatric exam: Present: normal affect, normal mood - Skin Skin exam: Present: dry, intact, warm Additional comments: Patient has a surgical dressing and wrap on bilateral lower extremities after podiatric surgery that occurred one day ago Internal Medicine: Result - Labs CBC & Chem 7: 08/25/17 01:17 08/25/17 01:17 Labs: Short CBC 08/25/17 Range/Units 01:17 WBC 7.7 (4.3-11.1) K/mcL Hgb 12.2 L (12.9-16.9) g/dL Hct 37.3 L (37.5-50.1) % Plt Count 138 L (140-400) K/mcL Neutrophils # 5.5 (1.6-8.9) K/mcL BMP 08/25/17 01:17 Sodium 138 Potassium 3.7 Chloride 108 H Carbon Dioxide 26 BUN 15 Creatinine 0.81 Glucose 106 H Calcium 8.6 - ABG Interpretation ABG results: PT/INR, D-dimer PT 23.0 Seconds (9.4-12.1) H 08/23/17 16:20 - VTE Documentation of Mechanical Device: Intermittent pneumatic compression device Consult Discharge Plan - Plan Referrals: Noble Eason MD [Primary Care Provider] - <Mikel Weaver - Last Filed: 08/25/17 16:35> Date of Encounter: 08/25/17 - Assessment and plan (1) Osteomyelitis of left foot Current Visit: No Status: Acute Qualifiers: Osteomyelitis type: other acute Qualified Code(s): M86.172 - Other acute osteomyelitis, left ankle and foot (2) Diabetic foot ulcer Current Visit: Yes Status: Acute Qualifiers: Diabetic foot ulcer location: other Diabetes mellitus type: type 2 Laterality: left Non-pressure ulcer stage: with fat layer exposed Qualified Code(s): E11.621 - Type 2 diabetes mellitus with foot ulcer; L97.522 - Non- pressure chronic ulcer of other part of left foot with fat layer exposed; L97.522 - Non-pressure chronic ulcer of other part of left foot with fat layer exposed; L97.522 - Non-pressure chronic ulcer of other part of left foot with fat layer exposed; L97.522 - Non-pressure chronic ulcer of other part of left foot with fat layer exposed (3) Acute kidney injury Current Visit: No Status: Resolved (4) IDDM (insulin dependent diabetes mellitus) Current Visit: Yes Status: Chronic (5) HTN (hypertension) Current Visit: No Status: Chronic Qualifiers: Hypertension type: essential hypertension Qualified Code(s): I10 - Essential (primary) hypertension (6) CAD (coronary artery disease) Current Visit: No Status: Chronic Qualifiers: Coronary Disease-Associated Artery/Lesion type: [place] artery [place] vs. transplanted heart: [place] heart Associated angina: without angina Qualified Code(s): I25.10 - Atherosclerotic heart disease of [place] coronary artery without angina pectoris (7) CKD (chronic kidney disease) Current Visit: No Status: Chronic Assessment and plan: History in past. Qualifiers: Chronic kidney disease stage: stage 3 (moderate) Qualified Code(s): N18.3 - Chronic kidney disease, stage 3 (moderate) (8) Non-compliant behavior Current Visit: Yes Status: Chronic Assessment and plan: Noncompliant with treatment recommendations. - Constitutional Vitals: Temp Pulse Resp BP Pulse Ox 98.6 F 89 16 150/86 96 08/25/17 15:50 08/25/17 15:50 08/25/17 15:50 08/25/17 15:50 08/25/17 15:50 Internal Medicine: Result - Labs CBC & Chem 7: 08/25/17 01:17 08/25/17 01:17 Labs: Short CBC 08/25/17 Range/Units 01:17 WBC 7.7 (4.3-11.1) K/mcL Hgb 12.2 L (12.9-16.9) g/dL Hct 37.3 L (37.5-50.1) % Plt Count 138 L (140-400) K/mcL Neutrophils # 5.5 (1.6-8.9) K/mcL BMP 08/25/17 01:17 Sodium 138 Potassium 3.7 Chloride 108 H Carbon Dioxide 26 BUN 15 Creatinine 0.81 Glucose 106 H Calcium 8.6 - ABG Interpretation ABG results: PT/INR, D-dimer PT 16.9 Seconds (9.4-12.1) H 08/25/17 10:48 - Impressions Impressions Foot X-Ray 08/25/17 10:31 IMPRESSION: Postsurgical changes at each foot. No acute bony destruction identified. Possible right forefoot soft tissue ulceration. D/ / 08/25/2017 15:13:22 Jimi Munoz MD / jose Interpreting Provider: Jimi Munoz MD Foot X-Ray 08/25/17 10:31 IMPRESSION: Postsurgical changes at each foot. No acute bony destruction identified. Possible right forefoot soft tissue ulceration. D/ / 08/25/2017 15:13:22 Jimi Munoz MD / jose Interpreting Provider: Jimi Munoz MD - Attending Attestation I examined this patient and my medical decision-making was reviewed with the Resident Physician on 08/25/17. I agree with the documented findings, disposition and treatment plan as described except to the extent set forth below. Mr Wharton is currently admitted for osteomyelitis L second toe and diabetic foot ulcer on R foot. He is currently on IV abx and is s/p amputation and debridement. He remains moderate to high risk due to potential for worsening clinical status. Mr Wharton is refusing to wear foot wear per podiatry. He does not want IV abx at discharge. He has no fever or chills. No GI issues. Pain controlled. Exam alert. Comfortable Mucus membranes dry Heart reg No wheeze Abd soft Dressings intact I/P 1. OM R foot 2. Diabetic foot ulcers Further diagnoses and plan as above.
--- NOTE | 2017-08-25 10:49 | Infectious Disease Consult ---
Date of Encounter: 08/25/17 Time of Encounter: 10:15 Assessment and Plan (1) Osteomyelitis of left foot Status: Acute Assessment and plan: Patient currently under the care of podiatry Found to have ulceration with osteomyelitis of the L 2nd toe on XR performed Started on Vanco and Zosyn on 08/23 today is day 3 Patient had been receiving levaquin 500 mg QDay and Bactrim (or Doxycycline) since 08/02 Wound culture from 08/02 showed: MRSA, M. morganii, and enterobacter Path report from L 2nd toe amputation and R foot ulcer debridement on 08/25 pending Continue Zosyn and Vancomycin until final culture return Dose medications per renal function Continue care per podiatry and appreciate further recommendations Qualifiers: Osteomyelitis type: unspecified type Qualified Code(s): M86.9 - Osteomyelitis, unspecified (2) Diabetic foot ulcer Status: Acute Assessment and plan: History of uncontrolled insulin-dependent diabetes mellitus Under the care of Dr. Herman and Dr. valverde for chronic ulcerations Underwent debridement of right foot ulcer on 08/02 Wound culture results as above Plan as above Qualifiers: Diabetic foot ulcer location: other Diabetes mellitus type: type 2 Laterality: left Non-pressure ulcer stage: with fat layer exposed Qualified Code(s): E11.621 - Type 2 diabetes mellitus with foot ulcer; L97.522 - Non- pressure chronic ulcer of other part of left foot with fat layer exposed; L97.522 - Non-pressure chronic ulcer of other part of left foot with fat layer exposed; L97.522 - Non-pressure chronic ulcer of other part of left foot with fat layer exposed; L97.522 - Non-pressure chronic ulcer of other part of left foot with fat layer exposed (3) CKD (chronic kidney disease) Status: Chronic Assessment and plan: Patient has history of chronic kidney disease stage IIIA, likely result of long- standing diabetes Current creatinine clearance Qualifiers: Chronic kidney disease stage: stage 3 (moderate) Qualified Code(s): N18.3 - Chronic kidney disease, stage 3 (moderate) (4) IDDM (insulin dependent diabetes mellitus) Status: Chronic (5) Valvular heart disease Status: Chronic (6) Vision decreased Status: Acute Infectious Disease HPI - Data of Consult Patient: known to practice within the last 3 years Consult date: 08/25/17 Requesting Physician: Mikel Weaver DO Primary Care Provider: Noble Eason MD - Consult Narrative Reason for consult: Diabetic foot infection/osteomyelitis History of present illness: Mr. Wharton is a 66yo male w/ PMHx of IDDM, multiple diabetic foot ulcers ( under the care of Dr. Herman), valvular heart disease w/ bioprosthetic valve placed in 2004, CKD 3, prior DVT (on Coumadin) HTN and HLD that presented to [facility] on 08/23/17 for concerns of Left toe infection. ID was consulted on 08/25/17 , for diabetic foot infection and potential antibiotic choice. Patient last seen by ID on 02/17/17 due to osteomyelitis of the left 5th metatarcal at that time. The patient has an extensive history of uncontrolled diabetes which has led to him having multiple diabetic foot ulcers. The patient had [facility] a total contact casting for ulcerations on the plantar surface of his right forefoot. He underwent debridement and shaving of an ulcer on the plantar aspect of his right foot on 08/02. A wound culture from that procedure, grew Morganella, Enterobacter and MRSA. This infection was treated by Dr. Herman with Levaquin 500 Daily and Bactrim (or Doxycycline) since that point. Patient was scheduled w/ Podiatry surgery for right foot debridement on 08/24. He as not having any symptoms involving his feet prior to presentation to the hospital, but was instructed to go to the hospital after getting pre-op labs done on 08/23. Upon presenting to the ER, Patient denied any significant foot or toe pain in either his left or right foot as well as fever, chills, diaphoresis, nausea, vomiting or lightheadedness. His vitals were stable, without signs of fever, tachycardia, or tachypnea. Labs were remarkable only for an elevated ESR and serum creatinine. XR of the foot that was done in the ED on 08/23 showed ulceration at the tip of the Left 2nd toe along w/ underlying osteomyelitis. Patient was started on Vanco and Zosyn upon admission. On 08/24 patient had his surgery where Dr. Lorenzo performed an amputation of the Left 2nd toe along w/ R foot debridement of the bones 1, 2, and 5. The patient feels alright and admits to some foot soreness but denies foot pain. He does report some chronic numbness, but no tingling, n/v, SOB, chest pain or fevers. Patient denies any oral lesions, sore throat, or abdominal pain. Patient does admit to b/l leg edema, but states he has had that for a while. He denies having any pets, sick contacts at home or any travels. CC: Mikel Weaver, DO Past Med Surg Social Fam HX - Past Medical History Medical history: diabetes, hyperlipidemia, hypertension, valvular heart disease Psychiatric history: no psych history - Past Surgical History Surgical History: angioplasty/stent, coronary bypass (CABG), heart valve replacement - Social History Smoking Status: Never smoker Smokeless Tobacco Status: No Alcohol use: none Drug use: none - Family History Mother Living Status: Hx Family Cardiac Disorders: No Hx Family Respiratory Disorders: No Father Living Status: Hx Family Cardiac Disorders: No Hx Family Respiratory Disorders: No Infectious Disease-CN:Meds Aspirin [Lo-Dose Aspirin EC] 81 mg PO DAILY 04/14/16 [History] Insulin DETEMIR [Levemir] 40 unit SQ BID 04/14/16 [History] Insulin Human Regular [HumuLIN R] 0 unit SQ TIDWM 04/14/16 [History] Lisinopril [Zestril] 40 mg PO DAILY 04/14/16 [History] Simvastatin [Zocor] 40 mg PO HS 04/14/16 [History] hydrALAZINE [HydrALAZINE] 10 mg PO DAILY 04/14/16 [History] Metoprolol [Lopressor] 25 mg PO BID #60 tablet 06/03/16 [Rx] amLODIPine [Norvasc] 5 mg PO DAILY 02/10/17 [History] Collagenase Oint [Santyl] 1 appl TP AD 08/23/17 [History] Doxycycline Hyclate [Vibramycin] 100 mg PO BID 08/23/17 [History] Furosemide [Lasix] 20 mg PO DAILY PRN 08/23/17 [History] Warfarin [Coumadin] 5 mg PO SUMOTUTHFRSA 08/23/17 [History] Warfarin [Coumadin] 7.5 mg PO WE 08/23/17 [History] levoFLOXacin [Levaquin] 500 mg PO DAILY 08/23/17 [History] 3 Allergy/AdvReac Type Severity Reaction Status Date / Time No Known Allergies Allergy Verified 08/23/17 09:18 Review of systems: Gen: Denies fever, denies chills, denies weakness, denies fatigue, decreased vision CV: Denies chest pain, denies palpitations Resp: Denies dyspnea, denies coughing GI: Denies nausea, denies vomiting, denies abdominal pain, denies constipation, denies diarrhea MSK: denies arthralgia, denies muscle weakness Neuro: Denies headache, denies confusion, denies focal weakness, reports chronic numbness in feet Skin: Reports ulcer/wound on right foot : Denies dysuria, denies hematuria Exam - Constitutional Vitals: Temp Pulse Resp BP Pulse Ox 98.7 F 83 16 132/80 96 08/25/17 10:22 08/25/17 10:22 08/25/17 10:22 08/25/17 10:22 08/25/17 10:22 - Additional findings Additional findings: General: Cooperative, pleasant, no acute distress, alert and oriented 3, answers questions appropriately HEENT: Normocephalic, atraumatic, neck supple, trachea midline, Conjunctiva pink , sclera anicteric, oral mucosa moist, no orophargeal erythema or exudates Respiratory: No accessory muscle usage, clear to auscultation bilaterally, no wheezes/rhonchi/rales appreciated Cardiovascular: Regular rate and rhythm, S1 and S2 present, no murmurs/rubs/ gallops/clicks appreciated GI/abdominal: Nondistended, nontender, soft, normal bowel sounds, no peritoneal signs Extremities: No calf tenderness, no pedal edema appreciated, warm, bilateral bandages in place on feet, some dried blood noted on bandage of right foot, underwent left second toe amputation yesterday as well as right plantar ulcer debridement Neurological: Alert and oriented 3, no facial droop, no focal deficits Skin: Dry, intact, normal color Infectious Disease CN: Results - Labs CBC & Chem 7: 08/25/17 01:17 08/25/17 01:17 - Imaging and Cardiology Other Images Additional comments: Toe X-Ray 08/23/17 15:05 IMPRESSION: 1. Suspected ulceration at the tip of the left 2nd toe. Underlying osteomyelitis involving the majority of the distal tuft of the left 2nd distal phalanx. 2. Diffuse soft tissue swelling potentially due to edema and/or cellulitis. No findings necrotizing fasciitis. 3. Unchanged posterior dislocation of the left 2nd proximal phalanx. D/ / Jefry Ordoñez MD / Jefry Ordoñez MD Interpreting Provider: Jefry Ordoñez MD - VTE Documentation of Mechanical Device: Intermittent pneumatic compression device Consult Discharge Plan - Plan Referrals: Noble Eason MD [Primary Care Provider] - - Attending Attestation This is an addendum to original report dictated by resident physician. Please refer to his note for full detail. Briefly patient with past medical history mentioned below who is noncompliant has had multiple issues and osteomyelitis in the past that was treated by us for Morganella. Patient came in right now with osteomyelitis. Patient was taken to surgery by podiatry team and had aggressive I&D and amputation of the first fourth toe. Cultures this time grew Morganella, MRSA and Enterobacter. While evaluating the patient I explained to him that he probably has a bone infection and even though he debrided the most we still need to give IV antibiotics for quite some time. Patient adamantly refused any kind of IV antibiotics and stated he would not put a PICC line. I offered him oral option including Bactrim and he said he will consider that but he is also not sure. I did call the maxillofacial pathology team and notified him of his decision. While in the hospital continue Vanco and Zosyn, on discharge switch the patient to oral Bactrim. Vanco trough was very high we'll ask pharmacy to dose adjust Monitor kidney function closely Prognosis overall guarded
[2017-08-25 11:01] LABS: INR 1.6; Prothrombin Time 16.9 Seconds (9.4-12.1)
--- NOTE | 2017-08-25 14:59 | Podiatry Progress Note ---
Date of Encounter: 08/25/17 Time of Encounter: 12:00 - Assessment and Plan (1) Osteomyelitis Status: Acute on 08/24/17 patient underwent 1. Right tendoachilles lengthening 2. Right foot debridement of bone 1,2 and 5 3. excisional debridement of right foot wounds (plantar medial submet 1 [id number] and plantar lateral sub met 5 [id number]) 4. left 2nd toe amputation Dressings were removed today at bedside and assessed Right foot Strike through drainage was noted. Patient INR 2.1 yesterday- although there was a moderate amount of blood to dressing there is no active bleed at this time. May restart coumadin Patient will be placed to CAM walker to right foot although he states he will not wear it Will obtain xray of right foot to look for any further osteomyelitis or gas within tissue Will order PT consult for evaluation and education Patient will be protective weight bearing Will change dressings daily while inpatient- cleanse with saline, pat dry, adaptic to surgical lines and plantar foot ulceration, wrap with thick protective 4x4 and kerlix If bleeding issues to incision line are continued will need daily dressing changes at home to avoid maceration of surgical site Will need to follow up in 1 week with in wound care center after discharge please apply santyl daily as ordered to wounds of plantar aspect of right foot and cover with dry dressing. Left foot dressing removed and assessed Cleansed with saline pat dry adaptic and dry sterile dressing applied Will need post op shoe for protection however patient states he will not wear it xray ordered to assess for any further osteomyelitis or gas within tissue ID managing antibiotics as documented below Patient had been receiving levaquin 500 mg QDay and Bactrim (or Doxycycline) since 08/02 Wound culture from 08/02 showed: MRSA, M. morganii, and enterobacter Path report from L 2nd toe amputation and R foot ulcer debridement on 08/25 pending Continue Zosyn and Vancomycin until final culture return Dose medications per renal function Appreciated. Qualifiers: Osteomyelitis type: unspecified type Osteomyelitis location: foot Laterality: left Qualified Code(s): M86.9 - Osteomyelitis, unspecified (2) Diabetic foot ulcer Status: Chronic Qualifiers: Diabetic foot ulcer location: unspecified part of foot Diabetes mellitus type: due to underlying condition Laterality: unspecified laterality Non- pressure ulcer stage: unspecified non-pressure ulcer stage Qualified Code(s): E08.621 - Diabetes mellitus due to underlying condition with foot ulcer; L97.509 - Non-pressure chronic ulcer of other part of unspecified foot with unspecified severity; L97.509 - Non-pressure chronic ulcer of other part of unspecified foot with unspecified severity; L97.509 - Non-pressure chronic ulcer of other part of unspecified foot with unspecified severity; L97.509 - Non -pressure chronic ulcer of other part of unspecified foot with unspecified severity Subjective Interval history: Mr. Wharton is a 66 year old male admitted with osteomyelitis of the left 2nd toe. Patient underwent 1. Right tendoachilles lengthening 2. Right foot debridement of bone 1,2 and 5 3. excisional debridement of right foot wounds (plantar medial submet 1 [id number] and plantar lateral sub met 5 [id number]) 4. left 2nd toe amputation per on 08/24/17. denies f/ c/n/v/sob/cp. Patient states his right foot is a little sore but otherwise states he is fine. Spoke with patient about need to wear a CAM boot to right and post operative shoe, states he will not wear them, states he has boots at home. Objective - Vital Signs Vital Signs: Vital Signs Temp Pulse Resp BP Pulse Ox 08/25/17 10:22 98.7 F 83 16 132/80 96 08/25/17 08:20 98.9 F 95 16 155/90 96 08/25/17 04:35 98.4 F 84 17 172/79 94 08/24/17 23:54 98.4 F 73 17 152/82 92 08/24/17 20:10 97.5 F L 72 16 155/82 100 08/24/17 19:00 96 Intake and Output 08/24/17 08/25/17 08/25/17 23:59 07:59 15:59 Intake Total 300 / 300 700 / 700 580 / 580 Output Total 80 / 80 350 / 350 Balance 220 / 220 700 / 700 230 / 230 Intake: IV Fluids 250 / 250 100 / 100 100 / 100 Zosyn 3.375 GM In 0.9 % Sodium 100 / 100 100 / 100 Chloride 100 ML @ 25 mls/hr IVPB Q8H [facility] Rx#:[id number] Vancocin 1,250 MG In 0.9 % 250 / 250 Sodium Chloride 250 ML @ 166. 667 mls/hr IVPB Q12H [facility] Rx#: [id number] Oral 50 / 50 600 / 600 480 / 480 Output: Urine 350 / 350 Estimated Blood Loss 80 / 80 Other: Meal Lunch Percent of Meal Consumed 80% Stool Size Large # Voids 1 # Bowel Movements 1 Blood Glucose* 98 272 - Exam Exam: Awake, alert and oriented BLE warm toes to tibia 1+/4 pitting edema to BLE Pulses palpable DP/PT bilaterally Minimal sensation to light/moderate touch Cap refill <3 seconds Right foot s/p surgical intervention, incision lines x2 to dorsal aspect of foot and to posterior heel intact- scant bleeding noted- minimal surrounding warmth or edema. No purulent drainage. No clinical signs of dehiscence. ulcerations x2 sub mt head #1 and #5 noted, fibrous base s/p surgical debridement - no drainage noted a this time. minimal warmh or depth. No odor Left foot- s/p surgical intervention with amputation of toe #2 left- incision line intact- no clinical signs of dehiscence- minimal warmth and edema surrounding incision line. No drainage. No calf pain with manual compression - Lab Result Diagrams: 08/28/17 05:08 08/28/17 05:08 Labs: Abnormal lab results Hgb 12.2 g/dL (12.9-16.9) L 08/25/17 01:17 Hct 37.3 % (37.5-50.1) L 08/25/17 01:17 MCV 82.2 fL (83.0-100.0) L 08/25/17 01:17 MCH 26.9 pg (28.0-33.3) L 08/25/17 01:17 Plt Count 138 K/mcL (140-400) L 08/25/17 01:17 MPV 9.3 fL (9.4-12.4) L 08/25/17 01:17 ESR 38 mm/hr (0-10) H 08/23/17 16:20 PT 16.9 Seconds (9.4-12.1) H 08/25/17 10:48 Chloride 108 mEq/L (98-107) H 08/25/17 01:17 Glucose 106 mg/dL (70-105) H 08/25/17 01:17 POC Glucose 98 (58-89) H 08/24/17 20:15 Vancomycin Trough 27.0 mcg/mL (10-20) H* 08/25/17 08:37 - VTE Documentation of Mechanical Device: Intermittent pneumatic compression device Consult Discharge Plan - Plan Additional Instructions: CALL 911, YOUR PCP, OFFICE, OR GO TO THE NEAREST EMERGENCY ROOM IF YOUR SYMPTOMS RETURN OR WORSEN. TAKE ALL MEDICATIONS PRESCRIBED- TAKE ALL ANTIBIOTICS UNTIL THEY ARE GONE, EVEN IF SYMPTOMS IMPROVE. KEEP DRESSINGS CLEAN AND DRY AT ALL TIMES. WEAR BOOT TO RIGHT FOOT AND ORTHO SHOE TO LEFT FOOT WHILE AMBULATING. Referrals: Noble Eason MD [Primary Care Provider] - 08/30/17 8:15 am Toni Lorenzo DPM [Partnered Physician] - 09/07/17 9:30 am ([facility]ARE [facility] ) Prescriptions: Collagenase Oint [Santyl] 1 appl TP AD #1 tube hydrALAZINE [HydrALAZINE] 10 mg PO TID #90 tablet Sulfamethoxazole/Trimeth DS [Bactrim DS] 1 each PO BID #84 tablet
[2017-08-25] MEDS: *HR* Warfarin 5 MG TABLET PO SCH (17:45)
[2017-08-26 02:01] LABS: Basophils % 0.3 %; Eosinophils # 0.4 K/mcL (0.0-0.6); Eosinophils % 4.5 %; Hematocrit 33.1 % (37.5-50.1); Hemoglobin 10.7 g/dL (12.9-16.9); Immature Granulocytes % 0.3 % (0-4); Lymphocytes # 0.8 K/mcL (0.6-4.6); Lymphocytes % 9.2 %; Mean Corpuscular HGB Conc 32.3 g/dL (31.6-35.5); Mean Corpuscular Hemoglobin 26.3 pg (28.0-33.3); Mean Corpuscular Volume 81.3 fL (83.0-100.0); Mean Platelet Volume 9.6 fL (9.4-12.4); Monocytes # 1.3 K/mcL (0.0-1.3); Monocytes % 14.6 %; Neutrophils # 6.3 K/mcL (1.6-8.9); Platelet Count 111 K/mcL (140-400); Red Blood Count 4.07 M/mcL (4.19-5.50); Red Cell Distribution Width 13.1 % (11.5-14.5); Segmented Neutrophils % 71.1 %
[2017-08-26 02:25] LABS: BUN/Creatinine Ratio 16 (6-26); Blood Urea Nitrogen 21 mg/dL (8-23); Calcium 8.7 mg/dL (8.6-10.3); Carbon Dioxide 26 mEq/L (23-29); Chloride 104 mEq/L (98-107); Glucose 182 mg/dL (70-105); Osmolality,Calculated 288 (280-300); Potassium 3.7 mEq/L (3.5-5.1); Sodium 135 mEq/L (136-145); eGFR For African Americans > 60 (> 60); eGFR For Non-African Americans 56 (> 60)
[2017-08-26] MEDS: Insulin LISPRO 300 UNITS/3 ML VIAL SQ SCH ×4 (09:29→20:27)
[2017-08-26] MEDS: Insulin DETEMIR 100 UNIT/ML X5UNITS SQ SCH ×2 (09:29→20:27)
[2017-08-26] MEDS: Lisinopril 20 MG TABLET PO SCH (09:30)
[2017-08-26] MEDS: Piperacillin/Tazobactam 3.375 GM in 0.9 % Sodium Chloride Mini Bag 100 ML IVPB SCH ×3 (09:30→23:51)
[2017-08-26] MEDS: amLODIPine 5 MG TABLET PO SCH (09:30)
[2017-08-26] MEDS: Aspirin Enteric Coated 81 MG Tablet PO SCH (09:30)
[2017-08-26] MEDS: hydrALAZINE 10 MG TABLET PO SCH (09:30)
[2017-08-26 10:23] LABS: INR 1.5; Prothrombin Time 16.2 Seconds (9.4-12.1)
--- NOTE | 2017-08-26 12:57 | Internal Med Progress Note ---
Date of Encounter: 08/26/17 Time of Encounter: 10:30 - Assessment and plan (1) Osteomyelitis of left foot Current Visit: No Status: Acute Assessment and plan: Pt admitted with OM and taken to OR for amputation. Cultures and pathology are pending. Continue IV abx through and reassess discharge plan on Monday. Qualifiers: Osteomyelitis type: other acute Qualified Code(s): M86.172 - Other acute osteomyelitis, left ankle and foot (2) Diabetic foot ulcer Current Visit: Yes Status: Acute Assessment and plan: Pt with debridement of R foot ulcers. Prior cx with MRSA Currently on IV abx and following by ID. Qualifiers: Diabetic foot ulcer location: other Diabetes mellitus type: type 2 Laterality: left Non-pressure ulcer stage: with fat layer exposed Qualified Code(s): E11.621 - Type 2 diabetes mellitus with foot ulcer; L97.522 - Non- pressure chronic ulcer of other part of left foot with fat layer exposed; L97.522 - Non-pressure chronic ulcer of other part of left foot with fat layer exposed; L97.522 - Non-pressure chronic ulcer of other part of left foot with fat layer exposed; L97.522 - Non-pressure chronic ulcer of other part of left foot with fat layer exposed (3) IDDM (insulin dependent diabetes mellitus) Current Visit: Yes Status: Chronic Assessment and plan: Continue with sliding scale insulin coverage Diabetic diet. (4) HTN (hypertension) Current Visit: No Status: Chronic Assessment and plan: Continue home meds as ordered. Qualifiers: Hypertension type: essential hypertension Qualified Code(s): I10 - Essential (primary) hypertension (5) CAD (coronary artery disease) Current Visit: No Status: Chronic Assessment and plan: Asymptomatic at this time. Qualifiers: Coronary Disease-Associated Artery/Lesion type: [place] artery [place] vs. transplanted heart: [place] heart Associated angina: without angina Qualified Code(s): I25.10 - Atherosclerotic heart disease of [place] coronary artery without angina pectoris (6) CKD (chronic kidney disease) Current Visit: No Status: Chronic Assessment and plan: History in past. Qualifiers: Chronic kidney disease stage: stage 3 (moderate) Qualified Code(s): N18.3 - Chronic kidney disease, stage 3 (moderate) (7) Non-compliant behavior Current Visit: Yes Status: Chronic Assessment and plan: Noncompliant with treatment recommendations. - Subjective Interval history: Mr Wharton is currently admitted for osteomyelitis and diabetic foot ulcers. Cultures from OR are pending. He remains moderate risk at this time due to potential for worsening clinical status. Mr Wharton says he is doing OK. No fever or chills. No CP or SOB. Tolerating IV abx. Wearing CAM boot and postop shoe. Understands we are waiting for culture results to determine plan of care. - Constitutional Vitals: Temp Pulse Resp BP Pulse Ox 98.4 F 79 15 149/70 93 08/26/17 11:24 08/26/17 11:24 08/26/17 11:24 08/26/17 11:24 08/26/17 11:24 General appearance: Present: cooperative, A&O X 3, answers questions appropriately - Head Head exam: Present: normocephalic - Eye Eye exam: Present: conjuntiva pink - ENT ENT exam: Present: mucous membranes dry - Respiratory Respiratory exam: Present: decreased breath sounds, CTAB. Absent: rales, rhonchi, wheezes - Cardiovascular Cardiovascular exam: Present: RRR. Absent: tachycardia - GI/Abdominal GI/Abdominal exam: Present: soft. Absent: tenderness - Extremities Exam Extremities exam: Present: warm Additional comments: Dressings intact. CAM walker in place. - Neurological Exam Neurological exam: Present: alert, oriented X3 - Skin Skin exam: Present: warm. Absent: rash Internal Medicine: Result - Labs CBC & Chem 7: 08/26/17 01:40 08/26/17 01:40 Labs: Short CBC 08/26/17 Range/Units 01:40 WBC 8.9 (4.3-11.1) K/mcL Hgb 10.7 L D (12.9-16.9) g/dL Hct 33.1 L (37.5-50.1) % Plt Count 111 L (140-400) K/mcL Neutrophils # 6.3 (1.6-8.9) K/mcL BMP 08/26/17 01:40 Sodium 135 L Potassium 3.7 Chloride 104 Carbon Dioxide 26 BUN 21 Creatinine 1.30 Glucose 182 H Calcium 8.7 - ABG Interpretation ABG results: PT/INR, D-dimer PT 16.2 Seconds (9.4-12.1) H 08/26/17 09:44 - Impressions Impressions Foot X-Ray 08/25/17 10:31 IMPRESSION: Postsurgical changes at each foot. No acute bony destruction identified. Possible right forefoot soft tissue ulceration. D/ / 08/25/2017 15:13:22 Jimi Munoz MD / jose Interpreting Provider: Jimi Munoz MD Foot X-Ray 08/25/17 10:31 IMPRESSION: Postsurgical changes at each foot. No acute bony destruction identified. Possible right forefoot soft tissue ulceration. D/ / 08/25/2017 15:13:22 Jimi Munoz MD / jose Interpreting Provider: Jimi Munoz MD - VTE Documentation of Mechanical Device: Intermittent pneumatic compression device Consult Discharge Plan - Plan Referrals: Noble Eason MD [Primary Care Provider] -
--- NOTE | 2017-08-26 13:08 | Podiatry Progress Note ---
Date of Encounter: 08/26/17 Time of Encounter: 11:00 - Assessment and Plan (1) Osteomyelitis of ankle and foot Current Visit: Yes Status: Acute reviewed with patient his surgical procedures and course of recovery. patient not agreeable to non-wb on the right and not agreeable to an ECF. he will be discharged on bactrim, spoke with infectious disease, he refused IV antbiotics. the left foot bandage does require a dressing change as everything is closed and skin sutures intact with healing incision. the right foot will require daily dressing changes for the plantar foot wounds including nickel thick Santyl which has been wet with saline on both wounds, 4x4 gauze, kerlix and diabetic offloading boot. the incision sites over metatarsals 1,2, and and and posterior leg will require adaptic to stay over them. left foot he will wear surgical shoe leave bandage clean, dry, and intact. risks of weight bearing on the right discussed and patient says he is willing to undertake those risks ( tendon rupture, loss of function, etc.) he has [facility] which will need to be contacted with the above woundcare instructions so they can come out daily. follow up with me in wound care in 1 week. Subjective Interval history: s/p left 2nd toe amputation, right foot bone debridement mets 1,2,5 and base of 2nd phalanx, tendoachilles lengthening, excisional debridement of ulcerations. patient refused to be non-weight bearing but has agreed to at least wear the boot on the right foot and post-op shoe on the left. he says his pain in the feet is controlled and denies feeling like he has experienced f/c/n/v/sob/cp. Objective - Vital Signs Vital Signs: Vital Signs Temp Pulse Resp BP Pulse Ox 08/26/17 11:24 98.4 F 79 15 149/70 93 08/26/17 07:13 98.7 F 84 16 143/62 93 08/25/17 22:33 98.1 F 90 17 186/72 94 08/25/17 18:46 98.6 F 92 17 181/81 96 08/25/17 15:50 98.6 F 89 16 150/86 96 Intake and Output 08/25/17 08/26/17 08/26/17 23:59 07:59 15:59 Intake Total 590 / 590 100 / 100 240 / 240 Output Total 300 / 300 Balance 290 / 290 100 / 100 240 / 240 Intake: IV Fluids 350 / 350 100 / 100 Zosyn 3.375 GM In 0.9 % Sodium 100 / 100 100 / 100 Chloride 100 ML @ 25 mls/hr IVPB Q8H [facility] Rx#:[id number] Vancocin 1,500 MG In 0.9 % 250 / 250 Sodium Chloride 250 ML @ 166.67 mls/hr IVPB Q24H [facility] Rx#: [id number] Oral 240 / 240 240 / 240 Output: Urine 300 / 300 Other: Meal Dinner Breakfast Percent of Meal Consumed 100% 100% Blood Glucose* 224 151 249 - Exam Exam: well developed and nourished male in no acute distress CFT intact to b/l feet remanining digits. there is no necrosis on either foot. incision sites have sutures intact. no wound dehiscence. there is no active bleeding and adequate hemostasis at all surgical sites. wounds plantar right foot appear improved. plantar lateral wound fibrogranular 3.5cmx2.7cmx0.3cm. plantar medial foot wound 2xgu0out5.3cm 90% granular 10% fibrotic. no erythema or fluctuance around wounds. no purulence.absent sensation b/l feet which is consistent with his baseline diabetic neuropathy. - Lab Result Diagrams: 08/26/17 01:40 08/26/17 01:40 Labs: Abnormal lab results RBC 4.07 M/mcL (4.19-5.50) L 08/26/17 01:40 Hgb 10.7 g/dL (12.9-16.9) L D 08/26/17 01:40 Hct 33.1 % (37.5-50.1) L 08/26/17 01:40 MCV 81.3 fL (83.0-100.0) L 08/26/17 01:40 MCH 26.3 pg (28.0-33.3) L 08/26/17 01:40 Plt Count 111 K/mcL (140-400) L 08/26/17 01:40 ESR 38 mm/hr (0-10) H 08/23/17 16:20 PT 16.2 Seconds (9.4-12.1) H 08/26/17 09:44 Sodium 135 mEq/L (136-145) L 08/26/17 01:40 Est GFR (Non-Af Amer) 56 (> 60) L 08/26/17 01:40 Glucose 182 mg/dL (70-105) H 08/26/17 01:40 POC Glucose 249 (58-89) H 08/26/17 11:25 Vancomycin Trough 27.0 mcg/mL (10-20) H* 08/25/17 08:37 - VTE Documentation of Mechanical Device: Intermittent pneumatic compression device Consult Discharge Plan - Plan Referrals: Noble Eason MD [Primary Care Provider] -
[2017-08-26] MEDS: *HR* Warfarin 5 MG TABLET PO SCH (16:59)
[2017-08-27 05:07] LABS: Hemoglobin 11.7 g/dL (12.9-16.9); Mean Corpuscular HGB Conc 31.6 g/dL (31.6-35.5); Mean Corpuscular Hemoglobin 26.1 pg (28.0-33.3); Mean Corpuscular Volume 82.4 fL (83.0-100.0); Mean Platelet Volume 9.7 fL (9.4-12.4); Platelet Count 140 K/mcL (140-400); Red Blood Count 4.49 M/mcL (4.19-5.50); Red Cell Distribution Width 13.1 % (11.5-14.5)
[2017-08-27 05:21] LABS: BUN/Creatinine Ratio 15 (6-26); Blood Urea Nitrogen 19 mg/dL (8-23); Carbon Dioxide 27 mEq/L (23-29); Chloride 103 mEq/L (98-107); Glucose 171 mg/dL (70-105); Magnesium 1.8 mg/dL (1.6-2.6); Osmolality,Calculated 288 (280-300); Potassium 3.8 mEq/L (3.5-5.1); Sodium 136 mEq/L (136-145); eGFR For African Americans > 60 (> 60); eGFR For Non-African Americans 56 (> 60)
[2017-08-27 05:46] LABS: INR 1.5; Prothrombin Time 16.3 Seconds (9.4-12.1)
[2017-08-27] MEDS: Insulin LISPRO 300 UNITS/3 ML VIAL SQ SCH ×4 (07:50→20:40)
[2017-08-27] MEDS: Piperacillin/Tazobactam 3.375 GM in 0.9 % Sodium Chloride Mini Bag 100 ML IVPB SCH ×3 (08:53→23:47)
[2017-08-27] MEDS: Insulin DETEMIR 100 UNIT/ML X5UNITS SQ SCH ×2 (08:58→20:41)
[2017-08-27] MEDS: amLODIPine 5 MG TABLET PO SCH (08:59)
[2017-08-27] MEDS: Aspirin Enteric Coated 81 MG Tablet PO SCH (08:59)
[2017-08-27] MEDS: Lisinopril 20 MG TABLET PO SCH (08:59)
[2017-08-27] MEDS: hydrALAZINE 10 MG TABLET PO SCH ×3 (08:59→20:20)
--- NOTE | 2017-08-27 09:49 | Internal Med Progress Note ---
Date of Encounter: 08/27/17 Time of Encounter: 09:30 - Assessment and plan (1) Osteomyelitis of left foot Current Visit: No Status: Acute Assessment and plan: Pt admitted with OM and taken to OR for amputation. Cultures and pathology are pending. Plan for discharge tomorrow with abx per ID. Needs daily wound care so will need to be arranged tomorrow. Qualifiers: Osteomyelitis type: other acute Qualified Code(s): M86.172 - Other acute osteomyelitis, left ankle and foot (2) Diabetic foot ulcer Current Visit: Yes Status: Acute Assessment and plan: Pt with debridement of R foot ulcers. Prior cx with MRSA Currently on IV abx and following by ID. Qualifiers: Diabetic foot ulcer location: other Diabetes mellitus type: type 2 Laterality: left Non-pressure ulcer stage: with fat layer exposed Qualified Code(s): E11.621 - Type 2 diabetes mellitus with foot ulcer; L97.522 - Non- pressure chronic ulcer of other part of left foot with fat layer exposed; L97.522 - Non-pressure chronic ulcer of other part of left foot with fat layer exposed; L97.522 - Non-pressure chronic ulcer of other part of left foot with fat layer exposed; L97.522 - Non-pressure chronic ulcer of other part of left foot with fat layer exposed (3) HTN (hypertension) Current Visit: No Status: Chronic Assessment and plan: Continue home meds as ordered. Qualifiers: Hypertension type: essential hypertension Qualified Code(s): I10 - Essential (primary) hypertension (4) CAD (coronary artery disease) Current Visit: No Status: Chronic Assessment and plan: Asymptomatic at this time. Qualifiers: Coronary Disease-Associated Artery/Lesion type: [place] artery [place] vs. transplanted heart: [place] heart Associated angina: without angina Qualified Code(s): I25.10 - Atherosclerotic heart disease of [place] coronary artery without angina pectoris (5) CKD (chronic kidney disease) Current Visit: No Status: Chronic Assessment and plan: History in past. Qualifiers: Chronic kidney disease stage: stage 3 (moderate) Qualified Code(s): N18.3 - Chronic kidney disease, stage 3 (moderate) (6) Diabetes Current Visit: No Status: Chronic Assessment and plan: Glucose has been high. Doing a little better today. Will continue current management Qualifiers: Diabetes mellitus type: type 2 Diabetes mellitus complication status: with neurologic complications Diabetes mellitus complication detail: with polyneuropathy Diabetes mellitus ferry terminal supervisor insulin use: with ferry terminal supervisor use Qualified Code(s): E11.42 - Type 2 diabetes mellitus with diabetic polyneuropathy; Z79.4 - terminal carman (current) use of insulin; Z79.4 - terminal carman ( current) use of insulin; Z79.4 - senior living (current) use of insulin; Z79.4 - senior living (current) use of insulin (7) Hyperglycemia Current Visit: Yes Status: Chronic Assessment and plan: See above (8) Non-compliant behavior Current Visit: Yes Status: Chronic Assessment and plan: Noncompliant with treatment recommendations. - Subjective Interval history: Mr Wharton is currently admitted for osteomyelitis and diabetic foot ulcers. Cultures pending. He remains moderate risk at this time due to potential for worsening clinical status. Mr Wharton is resting comfortably. He has been noncompliant with ambulation. Needs daily dressing changes. No fever or chills. No CP or SOB. No GI issues. - Constitutional Vitals: Temp Pulse Resp BP Pulse Ox 98.5 F 78 16 154/87 95 08/27/17 07:00 08/27/17 07:00 08/27/17 07:00 08/27/17 07:00 08/27/17 07:00 General appearance: Present: cooperative, A&O X 3, answers questions appropriately - Head Head exam: Present: normocephalic - Eye Eye exam: Present: EOMI, conjuntiva pink - ENT ENT exam: Present: mucous membranes dry - Respiratory Respiratory exam: Present: decreased breath sounds, CTAB - Cardiovascular Cardiovascular exam: Present: RRR. Absent: tachycardia - GI/Abdominal GI/Abdominal exam: Present: soft. Absent: tenderness - Extremities Exam Extremities exam: Present: warm Additional comments: Dressings intact - Neurological Exam Neurological exam: Present: alert, oriented X3 - Skin Skin exam: Present: dry, warm Internal Medicine: Result - Labs CBC & Chem 7: 08/27/17 04:31 08/27/17 04:31 Labs: Short CBC 08/27/17 Range/Units 04:31 WBC 8.7 (4.3-11.1) K/mcL Hgb 11.7 L (12.9-16.9) g/dL Hct 37.0 L (37.5-50.1) % Plt Count 140 (140-400) K/mcL BMP 08/27/17 04:31 Sodium 136 Potassium 3.8 Chloride 103 Carbon Dioxide 27 BUN 19 Creatinine 1.30 Glucose 171 H Calcium 9.0 - ABG Interpretation ABG results: PT/INR, D-dimer PT 16.3 Seconds (9.4-12.1) H 08/27/17 04:31 - Impressions Impressions Foot X-Ray 08/25/17 10:31 IMPRESSION: Postsurgical changes at each foot. No acute bony destruction identified. Possible right forefoot soft tissue ulceration. D/ / 08/25/2017 15:13:22 Jimi Munoz MD / jose Interpreting Provider: Jimi Munoz MD Foot X-Ray 08/25/17 10:31 IMPRESSION: Postsurgical changes at each foot. No acute bony destruction identified. Possible right forefoot soft tissue ulceration. D/ / 08/25/2017 15:13:22 Jimi Munoz MD / jose Interpreting Provider: Jmii Munoz MD - VTE Documentation of Mechanical Device: Intermittent pneumatic compression device Consult Discharge Plan - Plan Referrals: Noble Eason MD [Primary Care Provider] -
[2017-08-27] MEDS: *HR* Warfarin 5 MG TABLET PO SCH (16:58)
[2017-08-28 05:45] LABS: Hematocrit 35.4 % (37.5-50.1); Hemoglobin 11.8 g/dL (12.9-16.9); Mean Corpuscular HGB Conc 33.3 g/dL (31.6-35.5); Mean Corpuscular Hemoglobin 27.1 pg (28.0-33.3); Mean Corpuscular Volume 81.4 fL (83.0-100.0); Mean Platelet Volume 9.7 fL (9.4-12.4); Platelet Count 127 K/mcL (140-400); Red Blood Count 4.35 M/mcL (4.19-5.50); Red Cell Distribution Width 13.2 % (11.5-14.5)
[2017-08-28 05:59] LABS: BUN/Creatinine Ratio 16 (6-26); Blood Urea Nitrogen 18 mg/dL (8-23); Calcium 9.2 mg/dL (8.6-10.3); Carbon Dioxide 28 mEq/L (23-29); Chloride 105 mEq/L (98-107); Glucose 109 mg/dL (70-105); Osmolality,Calculated 288 (280-300); Potassium 3.8 mEq/L (3.5-5.1); Sodium 138 mEq/L (136-145); eGFR For African Americans > 60 (> 60); eGFR For Non-African Americans > 60 (> 60)
[2017-08-28] MEDS: Insulin LISPRO 300 UNITS/3 ML VIAL SQ SCH ×3 (07:44→16:23)
[2017-08-28] MEDS: Lisinopril 20 MG TABLET PO SCH (07:55)
[2017-08-28] MEDS: Piperacillin/Tazobactam 3.375 GM in 0.9 % Sodium Chloride Mini Bag 100 ML IVPB SCH (07:55)
[2017-08-28] MEDS: amLODIPine 5 MG TABLET PO SCH (07:56)
[2017-08-28] MEDS: hydrALAZINE 10 MG TABLET PO SCH ×2 (07:56→16:22)
[2017-08-28] MEDS: Aspirin Enteric Coated 81 MG Tablet PO SCH (07:56)
[2017-08-28] MEDS: Insulin DETEMIR 100 UNIT/ML X5UNITS SQ SCH (08:11)
--- NOTE | 2017-08-28 10:39 | Infectious Disease Progress No ---
Date of Encounter: 08/28/17 Time of Encounter: 10:20 - Assessment and Plan (1) Osteomyelitis of left foot Current Visit: No Status: Acute Patient currently under the care of podiatry Found to have ulceration with osteomyelitis of the L 2nd toe on XR performed Started on Vanco and Zosyn on 08/23 today is day 3 Patient had been receiving levaquin 500 mg QDay and Bactrim (or Doxycycline) since 08/02 Wound culture from 08/02 showed: MRSA, M. morganii, and enterobacter Path report from L 2nd toe amputation and R foot ulcer debridement on 08/25 pending Continue Zosyn and Vancomycin while inpatient Due to patient's desire not to have IV antibiotics, recommend Bactrim for 6 weeks upon discharge with CBC, BMP, ESR, and CRP performed every 2 weeks Continue care per podiatry and appreciate further recommendations Qualifiers: Qualified Code(s): M86.172 - Other acute osteomyelitis, left ankle and foot (2) Diabetic foot ulcer Current Visit: Yes Status: Acute History of uncontrolled insulin-dependent diabetes mellitus Under the care of Dr. Herman and Dr. valverde for chronic ulcerations Underwent debridement of right foot ulcer on 08/02 Wound culture results as above Plan as above Qualifiers: Qualified Code(s): E11.621 - Type 2 diabetes mellitus with foot ulcer; L97.522 - Non-pressure chronic ulcer of other part of left foot with fat layer exposed; L97.522 - Non-pressure chronic ulcer of other part of left foot with fat layer exposed; L97.522 - Non-pressure chronic ulcer of other part of left foot with fat layer exposed; L97.522 - Non-pressure chronic ulcer of other part of left foot with fat layer exposed (3) CKD (chronic kidney disease) Current Visit: No Status: Chronic Patient has history of chronic kidney disease stage IIIA, likely result of long- standing diabetes Continue management per primary team Qualifiers: Qualified Code(s): N18.3 - Chronic kidney disease, stage 3 (moderate) (4) IDDM (insulin dependent diabetes mellitus) Current Visit: Yes Status: Chronic Continue management per primary team (5) Valvular heart disease Current Visit: Yes Status: Chronic Continue management per primary team (6) Vision decreased Current Visit: Yes Status: Acute - Subjective Interval history: Patient reports doing well today, having no new concerns/complaints. No fever/ chills, no diaphoresis, no lightheadedness, no dizziness, no shortness of breath , mild discomfort in bilateral legs. We had discussion regarding desire for long-term IV antibiotics. Patient states he does not want IV antibiotics but would be okay with by mouth. Patient has been afebrile with stable vital signs. No leukocytosis seen today. Infect Dis PN-Objective Data - Labs CBC & Chem 7: 08/28/17 05:08 08/28/17 05:08 Labs: Laboratory Results - last 24 hr 08/27/17 08/27/17 08/27/17 16:43 19:14 20:33 WBC RBC Hgb Hct MCV MCH MCHC RDW Plt Count MPV Sodium Potassium Chloride Carbon Dioxide BUN Creatinine Est GFR ( Amer) Est GFR (Non-Af Amer) BUN/Creatinine Ratio Glucose POC Glucose 257 H 315 H Calculated Osmolality Calcium Vancomycin Trough 19.5 08/28/17 08/28/17 05:08 05:08 WBC 7.5 RBC 4.35 Hgb 11.8 L Hct 35.4 L MCV 81.4 L MCH 27.1 L MCHC 33.3 RDW 13.2 Plt Count 127 L MPV 9.7 Sodium 138 Potassium 3.8 Chloride 105 Carbon Dioxide 28 BUN 18 Creatinine 1.13 Est GFR ( Amer) > 60 Est GFR (Non-Af Amer) > 60 BUN/Creatinine Ratio 16 Glucose 109 H POC Glucose Calculated Osmolality 288 Calcium 9.2 Vancomycin Trough Exam - Constitutional Vitals: Temp Pulse Resp BP Pulse Ox 98.3 F 79 18 150/73 94 08/28/17 06:48 08/28/17 06:48 08/28/17 06:48 08/28/17 06:48 08/28/17 06:48 - Additional findings Additional findings: General: Cooperative, pleasant, no acute distress, alert and oriented 3, answers questions appropriately HEENT: Normocephalic, atraumatic, Conjunctiva pink, sclera anicteric, oral mucosa moist Respiratory: No accessory muscle usage, clear to auscultation bilaterally, no wheezes/rhonchi/rales appreciated Cardiovascular: Regular rate and rhythm, S1 and S2 present, no murmurs/rubs/ gallops/clicks appreciated GI/abdominal: Nondistended, nontender, soft, normal bowel sounds, no peritoneal signs Extremities: No calf tenderness, no pedal edema appreciated, warm, bandage on left foot, bruit on right foot Neurological: Alert and oriented 3, no facial droop, no focal deficits Skin: Dry, intact, normal color - VTE Documentation of Mechanical Device: Intermittent pneumatic compression device Consult Discharge Plan - Plan Referrals: Noble Eason MD [Primary Care Provider] - - Attending Attestation I examined this patient and my medical decision-making was reviewed with the Resident Physician. I agree with the documented findings, disposition and treatment plan as described except to the extent set forth below.
--- NOTE | 2017-08-28 13:04 | Discharge Summary ---
- NOTES TO OUTPATIENT PROVIDER Notes to Outpatient Provider: Pt is on oral abx for osteomyelitis and wound care at home. Orders not resulted at time of discharge: Pending orders 08/24/17 19:33 Surgical Pathology [PTH] Routine 08/29/17 04:00 INR/PT [Prothrombin Time INR] [COAG] AM 0400 Pathology 08/24/17 19:33 Surgical Pathology [PTH] Routine Comment: Department: Surgical Pathology Specimen: Has been collected Specimen placed in fixative?: Yes Tissue Removal Time:: 18:30 Tissue Fixative Time:: 19:30 DATE SEYMOUR:: 08/24/17 PRE-OP DIAGNOSIS:: left second toe infection,right foot nonhealing ulcers POST-OP DIAGNOSIS:: same SPECIMEN & SITE: 1: right foot bone SPECIMEN & SITE: 2: left 2nd toe Date of Encounter: 08/28/17 Time of Encounter: 13:09 - Discharge Diagnosis (1) Osteomyelitis of left foot Priority: Primary Status: Resolved Qualifiers: Osteomyelitis type: other acute Qualified Code(s): M86.172 - Other acute osteomyelitis, left ankle and foot (2) Diabetic foot ulcer Priority: Primary Status: Acute Qualifiers: Diabetic foot ulcer location: other Diabetes mellitus type: type 2 Laterality: left Non-pressure ulcer stage: with fat layer exposed Qualified Code(s): E11.621 - Type 2 diabetes mellitus with foot ulcer; L97.522 - Non- pressure chronic ulcer of other part of left foot with fat layer exposed; L97.522 - Non-pressure chronic ulcer of other part of left foot with fat layer exposed; L97.522 - Non-pressure chronic ulcer of other part of left foot with fat layer exposed; L97.522 - Non-pressure chronic ulcer of other part of left foot with fat layer exposed (3) HTN (hypertension) Priority: Secondary Status: Chronic Qualifiers: Hypertension type: essential hypertension Qualified Code(s): I10 - Essential (primary) hypertension (4) CAD (coronary artery disease) Priority: Secondary Status: Chronic Qualifiers: Coronary Disease-Associated Artery/Lesion type: [place] artery [place] vs. transplanted heart: [place] heart Associated angina: without angina Qualified Code(s): I25.10 - Atherosclerotic heart disease of [place] coronary artery without angina pectoris (5) CKD (chronic kidney disease) Priority: Secondary Status: Chronic Qualifiers: Chronic kidney disease stage: stage 3 (moderate) Qualified Code(s): N18.3 - Chronic kidney disease, stage 3 (moderate) (6) Diabetes Priority: Secondary Status: Chronic Qualifiers: Diabetes mellitus type: type 2 Diabetes mellitus complication status: with neurologic complications Diabetes mellitus complication detail: with polyneuropathy Diabetes mellitus snf insulin use: with termite control service representative use Qualified Code(s): E11.42 - Type 2 diabetes mellitus with diabetic polyneuropathy; Z79.4 - senior care (current) use of insulin; Z79.4 - senior care ( current) use of insulin; Z79.4 - senior care (current) use of insulin; Z79.4 - terminal manager (current) use of insulin (7) Hyperglycemia Priority: Secondary Status: Chronic (8) Non-compliant behavior Priority: Secondary Status: Chronic Hospital course: Mr. Wharton is a 66 year old male with hx of DM and multiple diabetic foot ulcer issues presented to ED with concerns for L foot infection. He was evaluated and admitted for further treatment. Mr Wharton was admitted for med surg. He was started on IV abx for diabetic foot ulcers on R and OM of second toe on L. He was evaluated by podiatry and was taken to surgery for amputation of L second toe and debridement of R foot. He was seen by ID for management of IV abx. He tolerated the abx but when recommended to go to SNF for IV abx he refused. He refused to have IV abx at all. He also refused to be non weight bearing on R foot. He was informed of the risks by podiatry but he still refuses. Today he is afebrile with stable vitals. He has no new issues. After further discussion it was decided that he would be discharged home on PO Bactrim with outpatient follow up. He is to have daily wound care by home health. He is now afebrile with stable vitals and ready for discharge home. Discharge discussed with: patient - Time Spent with Patient Total time spent providing and/or coordinating discharge services: 41min - Discharge Medications Prescriptions: Collagenase Oint [Santyl] 1 appl TP AD #1 tube hydrALAZINE [HydrALAZINE] 10 mg PO TID #90 tablet Sulfamethoxazole/Trimeth DS [Bactrim DS] 1 each PO BID #84 tablet Home Medications: Aspirin [Lo-Dose Aspirin EC] 81 mg PO DAILY 10/13/16 [History] Insulin DETEMIR [Levemir] 40 unit SQ BID 04/14/16 [History] Insulin Human Regular [HumuLIN R] 0 unit SQ TIDWM 04/14/16 [History] Lisinopril [Zestril] 40 mg PO DAILY 04/14/16 [History] Simvastatin [Zocor] 40 mg PO HS 04/14/16 [History] Metoprolol [Lopressor] 25 mg PO BID #60 tablet 06/03/16 [Rx] amLODIPine [Norvasc] 5 mg PO DAILY 02/10/17 [History] Furosemide [Lasix] 20 mg PO DAILY PRN 08/23/17 [History] Warfarin [Coumadin] 5 mg PO SUMOTUTHFRSA 08/23/17 [History] Warfarin [Coumadin] 7.5 mg PO WE 08/23/17 [History] Calcium Carbonate [Tums] 1,000 mg PO Q4HR PRN tab.chew 08/28/17 [Rx] Collagenase Oint [Santyl] 1 appl TP AD #1 tube 08/28/17 [Rx] Sulfamethoxazole/Trimeth DS [Bactrim DS] 1 each PO BID #84 tablet 08/28/17 [Rx] hydrALAZINE [HydrALAZINE] 10 mg PO TID #90 tablet 08/28/17 [Rx] Allergies/Adverse Reactions: 3 Allergy/AdvReac Type Severity Reaction Status Date / Time No Known Allergies Allergy Verified 08/23/17 09:18 Date of admission: 08/23/17 18:10 Primary care physician: Noble Eason MD Consults: 08/25/17 09:34 Consult to Infectious Diseases [CONS] Routine Consulting Provider: Infectious Disease [place] Reason for Consult: Diabetic foot infection Call Completed: Yes 08/25/17 10:33 PT [Consult to Physical Therapy] [CONS] Routine Comment: Evaluate, develop and implement POC Reason for Consult: Eval and education- Will have post op shoe and diabetic boot delievered to bedside today Discharging clinician: Mikel Weaver Anticipated date of discharge: 08/28/17 - Constitutional Vitals: Temp Pulse Resp BP Pulse Ox 98.0 F 76 18 167/78 94 08/28/17 10:55 08/28/17 10:55 08/28/17 10:55 08/28/17 10:55 08/28/17 10:55 General appearance: Present: cooperative, A&O X 3, answers questions appropriately - Head Head exam: Present: normocephalic - Eye Eye exam: Present: conjuntiva pink - ENT ENT exam: Present: mucous membranes moist - Respiratory Respiratory exam: Present: CTAB. Absent: rhonchi, wheezes - Cardiovascular Cardiovascular exam: Present: RRR. Absent: tachycardia - GI/Abdominal GI/Abdominal exam: Present: soft. Absent: tenderness - Extremities Exam Additional comments: Dressings intact. - Neurological Exam Neurological exam: Present: alert, oriented X3 - Skin Skin exam: Present: dry, warm - Patient Status Disposition: Home Health Service Condition: Fair Functional capacity at discharge: uses cane/walker Overall status at discharge: patient is progressing back to baseline - Discharge Instructions Follow Up With: Noble Eason MD [Primary Care Provider] - - Diet and Activity Activity: ambulate only with your walker Diet: advance to your usual diet - VTE Documentation of Mechanical Device: Intermittent pneumatic compression device
--- NOTE | 2017-08-28 13:25 | Physician Discharge Referral ---
Home Health/Hosp Referral Info Transfer to: Home Health Provider in Charge Post Discharge: PCP - Diagnosis (1) Osteomyelitis of left foot Priority: Primary Status: Resolved (2) Diabetic foot ulcer Priority: Primary Status: Acute (3) HTN (hypertension) Priority: Secondary Status: Chronic (4) CAD (coronary artery disease) Priority: Secondary Status: Chronic (5) CKD (chronic kidney disease) Priority: Secondary Status: Chronic (6) Diabetes Priority: Secondary Status: Chronic (7) Hyperglycemia Priority: Secondary Status: Chronic (8) Non-compliant behavior Priority: Secondary Status: Chronic - Respiratory Orders None Smoking Cessation: Smoking cessation has been advised. For more information, call the [place] Tobacco Quit Line at 6-999-QHAO-NOW. - Dressing/Wound Care Type of Dressing/Treatments w/Frequency: the left foot bandage does require a dressing change as everything is closed and skin sutures intact with healing incision. the right foot will require daily dressing changes for the plantar foot wounds including nickel thick Santyl which has been wet with saline on both wounds, 4x4 gauze, kerlix and diabetic offloading boot. the incision sites over metatarsals 1,2, and and and posterior leg will require adaptic to stay over them. left foot he will wear surgical shoe leave bandage clean, dry, and intact. - Diet/Nutrition Diet/Nutrition Orders: No Added Salt (MARCELA), No Concentrated Sweets - Activity Activity Orders: Up ad melinda Activity: List: Non weight bearing on R - Services Needed Following services are medically necessary services: Nursing, Physical Therapy, Occupational Therapy - Transfer Medications Prescriptions: Collagenase Oint [Santyl] 1 appl TP AD #1 tube hydrALAZINE [HydrALAZINE] 10 mg PO TID #90 tablet Sulfamethoxazole/Trimeth DS [Bactrim DS] 1 each PO BID #84 tablet Home Medications: Aspirin [Lo-Dose Aspirin EC] 81 mg PO DAILY 04/14/16 [History] Insulin DETEMIR [Levemir] 40 unit SQ BID 04/14/16 [History] Insulin Human Regular [HumuLIN R] 0 unit SQ TIDWM 04/14/16 [History] Lisinopril [Zestril] 40 mg PO DAILY 04/14/16 [History] Simvastatin [Zocor] 40 mg PO HS 04/14/16 [History] Metoprolol [Lopressor] 25 mg PO BID #60 tablet 06/03/16 [Rx] amLODIPine [Norvasc] 5 mg PO DAILY 02/10/17 [History] Furosemide [Lasix] 20 mg PO DAILY PRN 08/23/17 [History] Warfarin [Coumadin] 5 mg PO SUMOTUTHFRSA 08/23/17 [History] Warfarin [Coumadin] 7.5 mg PO WE 08/23/17 [History] Calcium Carbonate [Tums] 1,000 mg PO Q4HR PRN tab.chew 08/28/17 [Rx] Collagenase Oint [Santyl] 1 appl TP AD #1 tube 08/28/17 [Rx] Sulfamethoxazole/Trimeth DS [Bactrim DS] 1 each PO BID #84 tablet 08/28/17 [Rx] hydrALAZINE [HydrALAZINE] 10 mg PO TID #90 tablet 08/28/17 [Rx] Allergies/Adverse Reactions: 3 Allergy/AdvReac Type Severity Reaction Status Date / Time No Known Allergies Allergy Verified 08/23/17 09:18 Certification: Further, I certify that my clinical findings support that this patient is homebound (i.e. absences from home require considerable and taxing effort and are for medical reasons or jew services or infrequently or short duration when for other reasons) because: Homebound Reason: Patient requires assistance of a person or device to safely leave home, Post-surgery restriction and or conditions limit ability to leave home Attestation: My signature below is to certify that this patient is under my care and that I, or nurse practitioner, or a physician's seed analysis laboratory assistant working with me, has a face-to -face encounter with this patient.
[2017-08-28] MEDS ORDERED: Sulfamethoxazole/Trimeth DS 1 EACH TABLET PO ONE (14:30)
--- NOTE | 2017-08-28 15:46 | Podiatry Progress Note ---
Date of Encounter: 08/28/17 Time of Encounter: 12:30 - Assessment and Plan (1) Diabetic foot ulcer Current Visit: Yes Status: Acute S/p Right tendoachilles lengthening, Right foot debridement of bone 1,2 and 5, excisional debridement of right foot wounds (plantar medial submet 1 [id number] and plantar lateral sub met 5 [id number]) and application of PRP, left 2nd toe amputation by Dr. Lorenzo on 08/25/17. Dressing changed to left foot, incision line well approximated, periwound erythema with purple discoloration, skin temperature is warm and pedal pulses are palpable. We will continue to closely monitor the incision site. WBC: 7.5, a febrile. Plan : Will be discharged on Bactrim, patient refused IV antbiotics. The left foot bandage does require a dressing change as everything is closed and skin sutures intact with healing incision. the right foot will require daily dressing changes for the plantar foot wounds including nickel thick Santyl which has been wet with saline on both wounds, 4x4 gauze, kerlix and diabetic offloading boot. the incision sites over metatarsals 1,2, and and and posterior leg will require adaptic to stay over them. Left foot wear surgical shoe leave bandage clean, dry, and intact. Dr. Lorenzo discussed risks of weight bearing on the right, patient states he is willing to undertake those risks (tendon rupture, loss of function, etc.) Patient has [facility] and set up for daily dressing changes as listed above. Follow up with Dr. Lorenzo in wound care in 1 week. Qualifiers: Diabetic foot ulcer location: other Diabetes mellitus type: type 2 Laterality: left Non-pressure ulcer stage: with fat layer exposed Qualified Code(s): E11.621 - Type 2 diabetes mellitus with foot ulcer; L97.522 - Non- pressure chronic ulcer of other part of left foot with fat layer exposed; L97.522 - Non-pressure chronic ulcer of other part of left foot with fat layer exposed; L97.522 - Non-pressure chronic ulcer of other part of left foot with fat layer exposed; L97.522 - Non-pressure chronic ulcer of other part of left foot with fat layer exposed (2) Osteomyelitis Current Visit: Yes Status: Acute Qualifiers: Osteomyelitis type: unspecified type Osteomyelitis location: foot Laterality: left Qualified Code(s): M86.9 - Osteomyelitis, unspecified Subjective Interval history: S/p Right tendoachilles lengthening, Right foot debridement of bone 1,2 and 5, excisional debridement of right foot wounds and application of PRP, left 2nd toe amputation by Dr. Lorenzo on 08/25/17. Patient is sitting up in bed eating lunch. Diabetic cast boot intact to the RLE, dressing dry and intact to the left foot. No c/o pain, no fever, no chills, no flu like symptoms. Objective - Vital Signs Vital Signs: Vital Signs Temp Pulse Resp BP Pulse Ox 08/28/17 10:55 98.0 F 76 18 167/78 94 08/28/17 06:48 98.3 F 79 18 150/73 94 08/28/17 00:08 97.8 F 85 17 133/73 96 08/27/17 20:37 97.5 F L 86 17 157/3 96 Intake and Output 08/27/17 08/28/17 08/28/17 23:59 07:59 15:59 Intake Total 350 / 350 100 / 100 700 / 700 Output Total 700 / 700 Balance -350 / -350 100 / 100 700 / 700 Intake: IV Fluids 350 / 350 100 / 100 100 / 100 Zosyn 3.375 GM In 0.9 % Sodium 100 / 100 100 / 100 100 / 100 Chloride (Mini-Bag +) 100 ML @ 25 mls/hr IVPB Q8H [facility] Rx#: [id number] Vancocin 1,500 MG In 0.9 % 250 / 250 Sodium Chloride 250 ML @ 166.67 mls/hr IVPB Q24H [facility]AVI Rx#: [id number] Oral 600 / 600 Output: Urine 700 / 700 Other: Meal Lunch Percent of Meal Consumed 100% # Voids 2 1 Weight 108.862 kg Blood Glucose* 315 108 167 Patient Weight 08/28/17 23:59 Weight 108.862 kg - Exam Exam: General: A&O x3 calm and cooperative, no acute distress. Vascular: Left: pedal pulses palpable, skin temperature is warm, no calf pain with manual compression. S/P: incision lines well approximated with sutures, periwound erythema with light purple discoloration, non blanchable, skin is warm, no odor, no pus, no active drainage, no streaking. - Lab Result Diagrams: 08/28/17 05:08 08/28/17 05:08 Labs: Abnormal lab results Hgb 11.8 g/dL (12.9-16.9) L 08/28/17 05:08 Hct 35.4 % (37.5-50.1) L 08/28/17 05:08 MCV 81.4 fL (83.0-100.0) L 08/28/17 05:08 MCH 27.1 pg (28.0-33.3) L 08/28/17 05:08 Plt Count 127 K/mcL (140-400) L 08/28/17 05:08 ESR 38 mm/hr (0-10) H 08/23/17 16:20 PT 16.3 Seconds (9.4-12.1) H 08/27/17 04:31 Glucose 109 mg/dL (70-105) H 08/28/17 05:08 POC Glucose 315 (58-89) H 08/27/17 20:33 - VTE Documentation of Mechanical Device: Intermittent pneumatic compression device Consult Discharge Plan - Plan Additional Instructions: CALL 911, YOUR PCP, OFFICE, OR GO TO THE NEAREST EMERGENCY ROOM IF YOUR SYMPTOMS RETURN OR WORSEN. TAKE ALL MEDICATIONS PRESCRIBED- TAKE ALL ANTIBIOTICS UNTIL THEY ARE GONE, EVEN IF SYMPTOMS IMPROVE. KEEP DRESSINGS CLEAN AND DRY AT ALL TIMES. WEAR BOOT TO RIGHT FOOT AND ORTHO SHOE TO LEFT FOOT WHILE AMBULATING. Referrals: Noble Eason MD [Primary Care Provider] - 08/30/17 8:15 am Toni Lorenzo DPM [Partnered Physician] - 09/07/17 9:30 am ([facility] ) Prescriptions: Collagenase Oint [Santyl] 1 appl TP AD #1 tube hydrALAZINE [HydrALAZINE] 10 mg PO TID #90 tablet Sulfamethoxazole/Trimeth DS [Bactrim DS] 1 each PO BID #84 tablet
[2017-08-28 15:50] VITALS: BP 163/88
[2017-08-28] MEDS ORDERED: Aminoglycoside Consult 1 EACH MC ONE (16:50)
[2017-08-30] MEDS ORDERED: *HR* Warfarin 7.5 MG TABLET PO SCH (18:00)
== END 2017-08-28 16:51 | disposition home health service (06) | DRG 617 ==
LOC: EMEROO 12:49 → 3NENU 12:49 → SUATTDRO 18:10 → 3NENU 18:33
PROVIDERS: ADMIT Internal Medicine; ATTEND Internal Medicine

== ENCOUNTER 2017-10-02 09:26 | Observation (INO) ==
--- NOTE | 2017-10-02 09:51 | Emergency Department Note ---
Disposition Clinical Impression: Supratherapeutic INR Disposition: Admitted As Inpatient Condition: Undetermined Referrals: Noble Eason MD [Partnered Physician] - Forms: ED Satisfaction Letter Recheck wound or abnormal lab - General Chief Complaint: ED Recheck/Abnormal Lab/Rx Stated Complaint: "blood thinner is too high" Time Seen by Provider: 10/02/17 09:34 Source: patient Mode of arrival: private vehicle Limitations: no limitations Nursing Notes Reviewed: Yes Vital Signs Reviewed: Yes - History of Present Illness HPI Narrative: 67-year-old male with an extensive history that includes biologic heart valve replacement in 2004, diabetes, hypertension, chronic kidney disease, and STEMI's , CHF, CAD, DVTs presents emergency department from the Coumadin clinic with an INR greater than 8. Apparently last Monday patient's INR was elevated and they told him to stop taking his Coumadin but apparently, patient has continue to alternate dosing 2.5 mg and 5 mg every other day. INR clinic concerned regarding biologic heart valve and vitamin K usage. Patient him over for evaluation. Patient denies recent illness, bleeding, shortness of breath, dyspnea, nausea, vomiting, diarrhea. He states he has felt fine. Pt Subjective Complaint: abnormal lab(s) Initial Visit (ago): hour(s) Initial Visit For: other (coumadin use) Returns Today for: other (supratherapeutic INR) Symptoms Since Prior Visit: no new symptoms Context: called for abnormal lab result Associated symptoms: none - Related Data Home Medications Medication Instructions Recorded Confirmed Aspirin [Lo-Dose Aspirin EC] 81 mg PO DAILY 04/14/16 08/23/17 Insulin DETEMIR [Levemir] 40 unit SQ BID 04/14/16 08/23/17 Insulin Human Regular [HumuLIN R] 0 unit SQ TIDWM 04/14/16 08/23/17 Lisinopril [Zestril] 40 mg PO DAILY 04/14/16 08/23/17 Simvastatin [Zocor] 40 mg PO HS 04/14/16 08/23/17 amLODIPine [Norvasc] 5 mg PO DAILY 02/10/17 07/19/17 Furosemide [Lasix] 20 mg PO DAILY PRN 08/23/17 08/23/17 Warfarin [Coumadin] 5 mg PO SUMOTUTHFRSA 08/23/17 08/23/17 Warfarin [Coumadin] 7.5 mg PO WE 08/23/17 08/23/17 Previous Rx's Medication Instructions Recorded Metoprolol [Lopressor] 25 mg PO BID #60 tablet 06/03/16 Calcium Carbonate [Tums] 1,000 mg PO Q4HR PRN tab.chew 08/28/17 Collagenase Oint [Santyl] 1 appl TP AD #1 tube 08/28/17 Sulfamethoxazole/Trimeth DS 1 each PO BID #84 tablet 08/28/17 [Bactrim DS] hydrALAZINE [HydrALAZINE] 10 mg PO TID #90 tablet 08/28/17 Allergies Allergy/AdvReac Type Severity Reaction Status Date / Time No Known Allergies Allergy Verified 10/02/17 09:29 Review of Systems: See HPI All systems ED: reviewed and negative except as stated. Review of Systems: As Per HPI Past Medical History - Past Medical History Attestation: Yes The following information was validated with the patient. Source: patient, old records reviewed Medical history: Reports: DVT, diabetes, hyperlipidemia, hypertension, renal disease, valvular heart disease Surgical history: Reports: angioplasty/stent, coronary bypass (CABG), heart valve replacement Psychiatric history: Reports: no psych history - Social History Smoking Status: Never smoker Smokeless Tobacco Status: No Alcohol use: Reports: none Drug use: Reports: none Physical Exam - General Limitations: no limitations General appearance: alert, in no apparent distress - Head Head exam: atraumatic, normocephalic, normal inspection - Eye Eye exam: Present: normal appearance, PERRL - ENT ENT exam: mucous membranes moist - Neck Neck exam: Present: normal inspection, full ROM, trachea midline - Chest Chest inspection: Present: normal inspection, symmetric chest wall rise - Respiratory Respiratory exam: Present: normal lung sounds bilaterally - Cardiovascular Cardiovascular exam: Present: regular rate, normal rhythm, normal heart sounds - Neurological Exam Neurological exam: Present: alert, oriented X3 - Psychiatric Psychiatric exam: Present: normal affect, normal mood, anxious, flat affect - Skin Skin exam: Present: warm, dry, intact, normal color Course Course Narrative: 67-year-old male with an extensive history that includes biologic heart valve replacement in 2004, diabetes, hypertension, chronic kidney disease, and STEMI's , CHF, CAD, DVTs presents emergency department from the Coumadin clinic with an INR greater than 8. Apparently last Monday patient's INR was elevated and they told him to stop taking his Coumadin but apparently, patient has continue to alternate dosing 2.5 mg and 5 mg every other day. INR clinic concerned regarding biologic heart valve and vitamin K usage. Patient him over for evaluation. Patient denies recent illness, bleeding, shortness of breath, dyspnea, nausea, vomiting, diarrhea. He states he has felt fine. Dr. Tejada originally placed the biosynthetic valve, but he no longer follows with cardiology or cardiothoracic surgeons. Disheveled appearing, well-hydrated, anxious male. No acute distress noted. Physical exam benign. Patient is alert and oriented, very anxious. When discussing plan for treatment and options, patient anxious, unwilling to discuss most treatment options. Patient redirected until after lab results returned which was effective. Disheveled appearing, well-hydrated male nontoxic appearing in no acute distress. Respirations are easy and even. No signs of bleeding, physical exam benign. Patient walking boot for status post "corn removal" in August 2017. INR 15.6 PT 177.6. Patient reluctant to stay in the hospital, social work involved with de- escalation. Patient agreeable to stay. We will page hospitalist for adission at this time permission for supratherapeutic INR. Vital Signs Temperature 98 F 10/02/17 09:29 Pulse Rate 95 10/02/17 09:29 Respiratory Rate 20 10/02/17 09:29 Blood Pressure 167/77 10/02/17 09:29 O2 Sat by Pulse Oximetry 97 10/02/17 09:29 Temperature 98 F 10/02/17 09:29 Pulse Rate 107 10/02/17 11:03 Respiratory Rate 18 10/02/17 11:03 Blood Pressure 143/87 10/02/17 11:03 O2 Sat by Pulse Oximetry 96 10/02/17 11:03 Oxygen Delivery Oxygen Delivery Room Air Recheck wound or abnormal lab - MDM Narrative Medical decision making narrative: This documentation is done with the assistance of Dragon dictation. Despite efforts made to ensure accuracy, there may be inaccuracies in shoe worker or spelling and typographical errors. I have personally performed a face to face evaluation on this patient. I have reviewed and agree with the care plan. History and Exam by me shows: Patient presents today after being sent her by the Coumadin clinic. His INR was greater than 8. They had one in the stop his Coumadin last week he stopped one of the doses but Alert is going. His INR here is 15. However he has no signs of bleeding. Or easy bruising. Rest peak with the hospitalist he has the Coumadin for heart valve. So we do not a reverse is completely so we will see what the hospitalists is comfortable with whether they just 12 but the slower on its own or if they actually wanted vitamin K or FFP. Patient's in agreement with this plan. - Lab Data Result diagrams: 10/02/17 10:12 10/02/17 10:12 Lab Results 10/02/17 10/02/17 10/02/17 Range/Units 10:12 10:12 10:12 WBC 6.7 (4.3-11.1) K/mcL RBC 5.03 (4.19-5.50) M/mcL Hgb 13.4 (12.9-16.9) g/dL Hct 41.1 (37.5-50.1) % MCV 81.7 L (83.0-100.0) fL MCH 26.6 L (28.0-33.3) pg MCHC 32.6 (31.6-35.5) g/dL RDW 13.7 (11.5-14.5) % Plt Count 145 (140-400) K/mcL MPV 9.9 (9.4-12.4) fL Immature Gran % 0.3 (0-4) % Seg Neutrophils % 67.8 % Lymphocytes % 11.1 % Monocytes % 14.9 % Eosinophils % 5.1 % Basophils % 0.8 % Neutrophils # 4.5 (1.6-8.9) K/mcL Lymphocytes # 0.7 (0.6-4.6) K/mcL Monocytes # 1.0 (0.0-1.3) K/mcL Eosinophils # 0.3 (0.0-0.6) K/mcL Basophils # 0.1 (0.0-0.2) K/mcL PT 177.6 H* (9.4-12.1) Seconds INR 15.6 H* APTT 81.6 H (26.0-36.0) Seconds Sodium 135 L (136-145) mEq/L Potassium 4.4 (3.5-5.1) mEq/L Chloride 103 (98-107) mEq/L Carbon Dioxide 27 (23-29) mEq/L BUN 37 H (8-23) mg/dL Creatinine 2.04 H (0.70-1.30) mg/dL Est GFR ( Amer) 40 L (> 60) Est GFR (Non-Af Amer) 33 L (> 60) BUN/Creatinine Ratio 18 (6-26) Glucose 104 (70-105) mg/dL Calculated Osmolality 289 (280-300) Calcium 9.9 (8.6-10.3) mg/dL
[2017-10-02 10:30] LABS: Basophils # 0.1 K/mcL (0.0-0.2); Basophils % 0.8 %; Eosinophils # 0.3 K/mcL (0.0-0.6); Eosinophils % 5.1 %; Hematocrit 41.1 % (37.5-50.1); Hemoglobin 13.4 g/dL (12.9-16.9); Immature Granulocytes % 0.3 % (0-4); Lymphocytes # 0.7 K/mcL (0.6-4.6); Lymphocytes % 11.1 %; Mean Corpuscular HGB Conc 32.6 g/dL (31.6-35.5); Mean Corpuscular Hemoglobin 26.6 pg (28.0-33.3); Mean Corpuscular Volume 81.7 fL (83.0-100.0); Mean Platelet Volume 9.9 fL (9.4-12.4); Monocytes % 14.9 %; Neutrophils # 4.5 K/mcL (1.6-8.9); Platelet Count 145 K/mcL (140-400); Red Blood Count 5.03 M/mcL (4.19-5.50); Red Cell Distribution Width 13.7 % (11.5-14.5); Segmented Neutrophils % 67.8 %
[2017-10-02 10:39] LABS: Activated Partial Thrombo Time 81.6 Seconds (26.0-36.0)
[2017-10-02 10:47] LABS: Calcium 9.9 mg/dL (8.6-10.3); INR 15.6; Potassium 4.4 mEq/L (3.5-5.1); Prothrombin Time 177.6 Seconds (9.4-12.1)
--- NOTE | 2017-10-02 14:40 | Internal Med History&Physical ---
Date of Encounter: 10/02/17 Time of Encounter: 11:00 Assessment and Plan (1) Supratherapeutic INR Current visit: Yes Status: Acute Patient found to have an elevated INR of 15.6 in the ER. Due to patient having a bioprosthetic mitral valve discussed with community action worker and will give a low dose of vitamin K (2.5 mg) and monitor INR (2) Valvular heart disease Current visit: No Status: Chronic Patient on oral anticoagulation for bioprosthetic mitral valve (3) CAD (coronary artery disease) Current visit: No Status: Chronic Patient with a history of CABG Continue aspirin, beta rachell and CHARITY inhibitor in addition to statin Qualifiers: Coronary Disease-Associated Artery/Lesion type: [place] artery [place] vs. transplanted heart: [place] heart Associated angina: without angina Qualified Code(s): I25.10 - Atherosclerotic heart disease of [place] coronary artery without angina pectoris (4) HTN (hypertension) Current visit: No Status: Chronic Continue calcium channel rachell, CHARITY inhibitor and beta rachell Qualifiers: Hypertension type: essential hypertension Qualified Code(s): I10 - Essential (primary) hypertension (5) IDDM (insulin dependent diabetes mellitus) Current visit: No Status: Chronic Continue long-acting insulin Internal Medicine - H&P: HPI Chief complaint: Supratherapeutic INR Admitted From: Home Plans for Post Hospital Care: Home History of present illness: Patient is a 67-year-old male with past medical history significant for bioprosthetic mitral valve with coronary artery disease/CABG, hypertension, hyperlipidemia and diabetes who presents to the ER due to supratherapeutic INR. Patient reports that one week ago, he was notified by primary care provider that his INR was elevated and was told to go to the ER for evaluation but patient refused. Coumadin clinic has been adjusting patients Coumadin since then but recheck of INR today still revealed supratherapeutic levels. Patient was again recommended by primary care provider to go to the ER for evaluation. In the ER, patient was found to have INR of 15.6. There are no signs of evidence of bleeding. There are concerns due to patient having a bioprosthetic mitral valve and using vitamin K. Patient will be admitted to medical surgical floor for therapeutic INR management. Past Med Surg Social Fam HX - Past Medical History Medical history: DVT, diabetes, hyperlipidemia, hypertension, renal disease, valvular heart disease Psychiatric history: no psych history - Past Surgical History Surgical History: angioplasty/stent, coronary bypass (CABG), heart valve replacement - Social History Smoking Status: Never smoker Smokeless Tobacco Status: No Alcohol use: none Drug use: none - Family History Mother Living Status: Hx Family Cardiac Disorders: No Hx Family Respiratory Disorders: No Father Living Status: Hx Family Cardiac Disorders: No Hx Family Respiratory Disorders: No Internal Medicine - H&P: Meds Aspirin [Lo-Dose Aspirin EC] 81 mg PO DAILY 04/14/16 [History] Insulin DETEMIR [Levemir] 40 unit SQ BID 04/14/16 [History] Insulin Human Regular [HumuLIN R] 0 unit SQ TIDWM 04/14/16 [History] Lisinopril [Zestril] 40 mg PO DAILY 04/14/16 [History] Simvastatin [Zocor] 40 mg PO HS 04/14/16 [History] Metoprolol [Lopressor] 25 mg PO BID #60 tablet 06/03/16 [Rx] amLODIPine [Norvasc] 5 mg PO DAILY 02/10/17 [History] Furosemide [Lasix] 20 mg PO DAILY PRN 08/23/17 [History] Warfarin [Coumadin] 5 mg PO SUMO 08/23/17 [History] Calcium Carbonate [Tums] 1,000 mg PO Q4HR PRN tab.chew 08/28/17 [Rx] Collagenase Oint [Santyl] 1 appl TP AD #1 tube 08/28/17 [Rx] Sulfamethoxazole/Trimeth DS [Bactrim DS] 1 each PO BID #84 tablet 08/28/17 [Rx] hydrALAZINE [HydrALAZINE] 10 mg PO TID #90 tablet 08/28/17 [Rx] Warfarin [Coumadin] 2.5 mg PO TUSA 10/02/17 [History] 3 Allergy/AdvReac Type Severity Reaction Status Date / Time No Known Allergies Allergy Verified 10/02/17 09:29 All Systems PM: A 10-system review of systems was performed and is negative for pertinent findings except as documented above in the HPI. - Constitutional Vitals: Temp Pulse Resp BP Pulse Ox 97.6 F 98 16 90/51 94 10/02/17 12:34 10/02/17 12:34 10/02/17 12:34 10/02/17 12:34 10/02/17 12:34 General appearance: Present: A&O X 3, no acute distress - Head Head exam: Present: normocephalic - Eye Eye exam: Present: normal appearance - ENT ENT exam: Present: mucous membranes moist - Respiratory Respiratory exam: Present: CTAB. Absent: accessory muscle use, rales, rhonchi, wheezes - Cardiovascular Cardiovascular exam: Present: RRR, +S1, +S2. Absent: diastolic murmur, gallop, rubs, systolic murmur - GI/Abdominal GI/Abdominal exam: Present: normal bowel sounds, soft, no peritoneal signs. Absent: distended, tenderness - Extremities Exam Extremities exam: Absent: pedal edema - Neurological Exam Neurological exam: Present: oriented X3 - Psychiatric Psychiatric exam: Present: normal mood - Skin Skin exam: Present: normal color Internal Med - H&P Results - Labs CBC & Chem 7: 10/02/17 10:12 10/02/17 10:12
[2017-10-02] MEDS ORDERED: Naloxone 0.4 MG/ML INJ IVP PRN (14:49)
[2017-10-02] MEDS ORDERED: *HR* Phytonadione 5 MG TABLET PO ONE (14:51)
[2017-10-02] MEDS ORDERED: Furosemide 40 MG TABLET PO PRN (14:52)
[2017-10-02] MEDS: hydrALAZINE 10 MG TABLET PO SCH ×2 (15:50→22:37)
[2017-10-02] MEDS ORDERED: Insulin LISPRO 300 UNITS/3 ML VIAL SQ ONE (22:02)
[2017-10-02] MEDS: Insulin DETEMIR 100 UNIT/ML X5UNITS SQ SCH (22:30)
[2017-10-03 06:41] LABS: INR 8.8; Prothrombin Time 99.1 Seconds (9.4-12.1)
[2017-10-03 06:51] LABS: Calcium 9.5 mg/dL (8.6-10.3); Potassium 4.3 mEq/L (3.5-5.1)
[2017-10-03 06:58] LABS: Basophils # 0.1 K/mcL (0.0-0.2); Basophils % 0.9 %; Eosinophils # 0.4 K/mcL (0.0-0.6); Eosinophils % 5.2 %; Hematocrit 42.3 % (37.5-50.1); Hemoglobin 13.7 g/dL (12.9-16.9); Immature Granulocytes % 0.3 % (0-4); Lymphocytes % 14.3 %; Mean Corpuscular HGB Conc 32.4 g/dL (31.6-35.5); Mean Corpuscular Hemoglobin 26.8 pg (28.0-33.3); Mean Corpuscular Volume 82.6 fL (83.0-100.0); Mean Platelet Volume 9.8 fL (9.4-12.4); Monocytes # 0.9 K/mcL (0.0-1.3); Monocytes % 12.8 %; Neutrophils # 4.5 K/mcL (1.6-8.9); Platelet Count 148 K/mcL (140-400); Red Blood Count 5.12 M/mcL (4.19-5.50); Red Cell Distribution Width 13.6 % (11.5-14.5); Segmented Neutrophils % 66.5 %
[2017-10-03] MEDS ORDERED: amLODIPine 5 MG TABLET PO SCH (09:00)
[2017-10-03] MEDS ORDERED: Lisinopril 20 MG TABLET PO SCH (09:00)
[2017-10-03] MEDS: hydrALAZINE 10 MG TABLET PO SCH ×3 (10:10→20:05)
[2017-10-03] MEDS: Insulin DETEMIR 100 UNIT/ML X5UNITS SQ SCH ×2 (10:10→20:06)
[2017-10-03] MEDS ORDERED: D5% in Water 1,000 ML IVC PRN (13:04)
[2017-10-03] MEDS ORDERED: Dextrose Gel 15 GM/37.5 ML TUBE PO PRN ×2 (13:04)
[2017-10-03] MEDS ORDERED: *HR* Dextrose 50 % in Water (Syg) 50 ML SYRINGE IVP PRN (13:04)
[2017-10-03] MEDS ORDERED: *HR* Phytonadione 5 MG TABLET PO ONE (13:15)
[2017-10-03] MEDS: Insulin LISPRO 300 UNITS/3 ML VIAL SQ SCH ×2 (13:44→18:22)
--- NOTE | 2017-10-03 17:37 | Internal Med Progress Note ---
Date of Encounter: 10/03/17 Time of Encounter: 17:34 - Assessment and plan (1) HTN (hypertension) Current Visit: Yes Status: Chronic Assessment and plan: Continue calcium channel rachell, CHARITY inhibitor and his beta rachell Monitor blood pressure Qualifiers: Hypertension type: essential hypertension Qualified Code(s): I10 - Essential (primary) hypertension (2) IDDM (insulin dependent diabetes mellitus) Current Visit: Yes Status: Chronic Assessment and plan: Continue long-acting insulin (3) CAD (coronary artery disease) Current Visit: Yes Status: Chronic Assessment and plan: Patient with history of CABG, continue aspirin and beta rachell and CHARITY inhibitor as well as his statin Qualifiers: Coronary Disease-Associated Artery/Lesion type: [place] artery [place] vs. transplanted heart: [place] heart Associated angina: without angina Qualified Code(s): I25.10 - Atherosclerotic heart disease of [place] coronary artery without angina pectoris (4) Valvular heart disease Current Visit: Yes Status: Chronic Assessment and plan: Patient on Coumadin for bioprosthetic mitral valve. (5) Supratherapeutic INR Current Visit: Yes Status: Acute Assessment and plan: Patient was found to have a elevated INR at 15.6. He was given 2.5 mg by mouth vitamin K. Recheck this morning at 8.8. Patient was insistent that he was going to go home today. After explaining bleeding risk he agreed to stay until tomorrow as we were afraid for him to leave with risk of bleeding. He was given an additional 2.5 mg of vitamin K today and will recheck in the a.m. and if improved and no bleeding I told him he will likely be able to go home tomorrow. Pharmacy monitoring dosing of Coumadin and recommend Coumadin clinic (6) CKD (chronic kidney disease) Current Visit: No Status: Chronic Assessment and plan: Avoid nephrotoxic agents He is above his baseline Monitor kidney function Qualifiers: Chronic kidney disease stage: stage 3 (moderate) Qualified Code(s): N18.3 - Chronic kidney disease, stage 3 (moderate) (7) Hyponatremia Current Visit: Yes Status: Acute Assessment and plan: near his baseline - Time Spent With Patient Total time spent is greater than 50% in coordination of care (as documented) at patient's floor/unit and/or counseling patient: - Subjective Interval history: Sitting up on the side of bed in no distress. No signs of any bleeding denies shortness of breath, chest pain, headache, nausea, vomiting, fever or chills - Constitutional Vitals: Temp Pulse Resp BP Pulse Ox 97.9 F 77 16 126/75 95 10/03/17 15:43 10/03/17 15:43 10/03/17 15:43 10/03/17 15:43 10/03/17 15:43 General appearance: Present: A&O X 3, no acute distress - Head Head exam: Present: atraumatic, normocephalic - Eye Eye exam: Present: PERRL, conjuntiva pink, sclera anicteric Pupils: Present: PERRL - Neck Neck exam general surgery: Present: supple, trachea midline. Absent: lymphadenopathy - Respiratory Respiratory exam: Present: CTAB. Absent: accessory muscle use, rales, rhonchi, wheezes - Cardiovascular Cardiovascular exam: Present: RRR, +S1, +S2. Absent: diastolic murmur, gallop, rubs, systolic murmur - GI/Abdominal GI/Abdominal exam: Present: normal bowel sounds, soft, no peritoneal signs. Absent: distended, tenderness - Extremities Exam Extremities exam: Present: warm, radial pulses palpable and symmetrical. Absent : calf tenderness, cyanotic, pedal edema - Neurological Exam Neurological exam: Present: alert, CN II-XII intact, oriented X3, no focal deficits. Absent: pronater drift, facial droop, speech deficit - Skin Skin exam: Present: dry, intact, normal color, warm Internal Medicine: Result - Labs CBC & Chem 7: 10/03/17 06:15 10/03/17 06:15 Labs: Short CBC 10/03/17 Range/Units 06:15 WBC 6.8 (4.3-11.1) K/mcL Hgb 13.7 (12.9-16.9) g/dL Hct 42.3 (37.5-50.1) % Plt Count 148 (140-400) K/mcL Neutrophils # 4.5 (1.6-8.9) K/mcL BMP 10/03/17 06:15 Sodium 135 L Potassium 4.3 Chloride 101 Carbon Dioxide 27 BUN 35 H Creatinine 1.98 H Glucose 246 H Calcium 9.5 - ABG Interpretation ABG results: PT/INR, D-dimer PT 99.1 Seconds (9.4-12.1) H* 10/03/17 06:15 - VTE Reasons for not Prescribing Prophylaxis: Medical contraindication Consult Discharge Plan - Plan Referrals: Noble Eason MD [Primary Care Provider] -
[2017-10-03] MEDS ORDERED: Warfarin perPT PO PRN (18:00)
[2017-10-03] MEDS ORDERED: Insulin LISPRO 300 UNITS/3 ML VIAL SQ SCH (21:00)
[2017-10-04 04:52] LABS: Hematocrit 39.9 % (37.5-50.1); Hemoglobin 13.1 g/dL (12.9-16.9); Mean Corpuscular HGB Conc 32.8 g/dL (31.6-35.5); Mean Corpuscular Hemoglobin 26.6 pg (28.0-33.3); Mean Corpuscular Volume 80.9 fL (83.0-100.0); Mean Platelet Volume 10.1 fL (9.4-12.4); Platelet Count 132 K/mcL (140-400); Red Blood Count 4.93 M/mcL (4.19-5.50); Red Cell Distribution Width 13.6 % (11.5-14.5)
[2017-10-04 04:57] LABS: INR 3.7
[2017-10-04 05:17] LABS: Calcium 9.5 mg/dL (8.6-10.3); Potassium 4.2 mEq/L (3.5-5.1)
[2017-10-04 07:21] VITALS: BP 128/65
--- NOTE | 2017-10-04 09:34 | Discharge Summary ---
- NOTES TO OUTPATIENT PROVIDER Notes to Outpatient Provider: Patient INR now 3.7, he follows with Coumadin clinic on . Also states he goes to the wound clinic on for foot wound. Reports he has [facility] which will be renewed Orders not resulted at time of discharge: Pending orders 10/05/17 04:00 Prothrombin Time INR [COAG] AM 0400 Date of Encounter: 10/04/17 Time of Encounter: 09:32 - Discharge Diagnosis (1) HTN (hypertension) Priority: Primary Status: Chronic Comments: Continue calcium channel rachell, CHARITY inhibitor and beta rachell. Pressure has been stable Qualifiers: Hypertension type: essential hypertension Qualified Code(s): I10 - Essential (primary) hypertension (2) IDDM (insulin dependent diabetes mellitus) Priority: Primary Status: Chronic Comments: Continue his home regime on discharge (3) CAD (coronary artery disease) Priority: Primary Status: Chronic Comments: Patient with history of CABG. Continue his aspirin and beta rachell CHARITY inhibitor and statin on discharge Qualifiers: Coronary Disease-Associated Artery/Lesion type: [place] artery [place] vs. transplanted heart: [place] heart Associated angina: without angina Qualified Code(s): I25.10 - Atherosclerotic heart disease of [place] coronary artery without angina pectoris (4) Valvular heart disease Priority: Primary Status: Chronic Comments: Patient on Coumadin for his bioprosthetic mitral valve. He follows at the Coumadin clinic. We will hold his Coumadin as his INR is 3.7. He will follow at the clinic this and they will resume his Coumadin per their protocols (5) Supratherapeutic INR Priority: Primary Status: Acute Comments: Patient to resume Coumadin per instructions from the Coumadin clinic when he follows up on (6) CKD (chronic kidney disease) Priority: Primary Status: Chronic Comments: Avoid nephrotoxic agents Qualifiers: Chronic kidney disease stage: stage 3 (moderate) Qualified Code(s): N18.3 - Chronic kidney disease, stage 3 (moderate) (7) Hyponatremia Priority: Primary Status: Acute Comments: He is near his chronic baseline (8) CHF, chronic Priority: Secondary Status: Chronic Comments: Non-exacerbated Qualifiers: Heart failure type: diastolic Qualified Code(s): I50.32 - Chronic diastolic (congestive) heart failure (9) Wound, open, foot Priority: Primary Status: Chronic Comments: Patient had wounds to bilateral feet that are followed at the wound clinic. He is to return there on for continuing wound care Qualifiers: Encounter type: subsequent encounter Laterality: unspecified laterality Qualified Code(s): S91.309D - Unspecified open wound, unspecified foot, subsequent encounter Hospital course: Mr. Wharton is a 67 year old male - Time Spent with Patient Total time spent providing and/or coordinating discharge services: - Discharge Medications Home Medications: Aspirin [Lo-Dose Aspirin EC] 81 mg PO DAILY 04/14/16 [History] Insulin DETEMIR [Levemir] 40 unit SQ BID 04/14/16 [History] Insulin Human Regular [HumuLIN R] 0 unit SQ TIDWM 04/14/16 [History] Lisinopril [Zestril] 40 mg PO DAILY 04/14/16 [History] Simvastatin [Zocor] 40 mg PO HS 04/14/16 [History] Metoprolol [Lopressor] 25 mg PO BID #60 tablet 06/03/16 [Rx] amLODIPine [Norvasc] 5 mg PO DAILY 02/10/17 [History] Furosemide [Lasix] 20 mg PO DAILY PRN 08/23/17 [History] Warfarin [Coumadin] 5 mg PO SUMO 08/23/17 [History] Calcium Carbonate [Tums] 1,000 mg PO Q4HR PRN tab.chew 08/28/17 [Rx] Collagenase Oint [Santyl] 1 appl TP AD #1 tube 08/28/17 [Rx] Sulfamethoxazole/Trimeth DS [Bactrim Ds] 1 each PO BID #84 tablet 08/28/17 [Rx] hydrALAZINE [HydrALAZINE] 10 mg PO TID #90 tablet 08/28/17 [Rx] Allergies/Adverse Reactions: 3 Allergy/AdvReac Type Severity Reaction Status Date / Time No Known Allergies Allergy Verified 10/02/17 09:29 Date of admission: 10/02/17 11:33 Primary care physician: Noble Eason MD Discharging clinician: Nellie Valenzuela Anticipated date of discharge: 10/04/17 - Constitutional Vitals: Temp Pulse Resp BP Pulse Ox 97.8 F 85 14 128/65 93 10/04/17 07:20 10/04/17 07:20 10/04/17 07:20 10/04/17 07:20 10/04/17 07:20 General appearance: Present: A&O X 3, no acute distress - Patient Status Disposition: Home Health Service Condition: Good Functional capacity at discharge: independent ambulation Overall status at discharge: patient is progressing back to baseline - Discharge Instructions Instructions: Heart Failure (DC), Diabetic Foot Care (DC), Sepsis (DC), Chronic Hypertension (DC) Follow Up With: Coumadin, Clinic [Other] - 10/05/17 9:00 am Noble Eason MD [Primary Care Provider] - Toni Lorenzo DPM [Partnered Physician] - 10/12/17 9:45 am - Diet and Activity Activity: resume usual activities as tolerated Diet: advance to your usual diet, diabetic diet, low fat, low cholesterol - VTE Reasons for not Prescribing Prophylaxis: Medical contraindication
--- NOTE | 2017-10-04 10:05 | Physician Discharge Referral ---
Home Health/Hosp Referral Info Attending Provider: angel barber - Diagnosis (1) HTN (hypertension) Priority: Primary Status: Chronic (2) IDDM (insulin dependent diabetes mellitus) Priority: Primary Status: Chronic (3) CAD (coronary artery disease) Priority: Primary Status: Chronic (4) Valvular heart disease Priority: Primary Status: Chronic (5) Supratherapeutic INR Priority: Primary Status: Acute (6) CKD (chronic kidney disease) Priority: Primary Status: Chronic (7) Hyponatremia Priority: Primary Status: Acute (8) CHF, chronic Priority: Primary Status: Chronic - Respiratory Orders None Smoking Cessation: Smoking cessation has been advised. For more information, call the [employer] Tobacco Quit Line at [phone]. - Dressing/Wound Care Site: bilateral foot wounds followed at wound clinic - Diet/Nutrition Diet/Nutrition Orders: Renal, Cardiac, No Concentrated Sweets - Activity Activity Orders: Up ad melinda - Services Needed Following services are medically necessary services: Nursing, Home Health Aide Home Care Orders: please do medication checks, not sure if he mixed up coumadin dosing - Transfer Medications Home Medications: Aspirin [Lo-Dose Aspirin EC] 81 mg PO DAILY 04/14/16 [History] Insulin DETEMIR [Levemir] 40 unit SQ BID 04/14/16 [History] Insulin Human Regular [HumuLIN R] 0 unit SQ TIDWM 04/14/16 [History] Lisinopril [Zestril] 40 mg PO DAILY 04/14/16 [History] Simvastatin [Zocor] 40 mg PO HS 04/14/16 [History] Metoprolol [Lopressor] 25 mg PO BID #60 tablet 06/03/16 [Rx] amLODIPine [Norvasc] 5 mg PO DAILY 02/10/17 [History] Furosemide [Lasix] 20 mg PO DAILY PRN 08/23/17 [History] Warfarin [Coumadin] 5 mg PO SUMO 08/23/17 [History] Calcium Carbonate [Tums] 1,000 mg PO Q4HR PRN tab.chew 08/28/17 [Rx] Collagenase Oint [Santyl] 1 appl TP AD #1 tube 08/28/17 [Rx] Sulfamethoxazole/Trimeth DS [Bactrim Ds] 1 each PO BID #84 tablet 08/28/17 [Rx] hydrALAZINE [HydrALAZINE] 10 mg PO TID #90 tablet 08/28/17 [Rx] Allergies/Adverse Reactions: 3 Allergy/AdvReac Type Severity Reaction Status Date / Time No Known Allergies Allergy Verified 10/02/17 09:29 Certification: Further, I certify that my clinical findings support that this patient is homebound (i.e. absences from home require considerable and taxing effort and are for medical reasons or holiness services or infrequently or short duration when for other reasons) because: Homebound Reason: Patient requires assistance of a person or device to safely leave home, Leaving home requires considerable and taxing effort due to condition Attestation: My signature below is to certify that this patient is under my care and that I, or nurse practitioner, or a physician's diet assistant working with me, has a face-to -face encounter with this patient.
== END 2017-10-04 10:19 | disposition home health service (06) ==
LOC: 3BNU 09:26 → EMEROO 09:26 → 3BNU 11:48
PROVIDERS: ADMIT Hospitalist; ATTEND Registered Nurse

== ENCOUNTER 2019-09-03 13:42 | Inpatient (IN) ==
[2019-09-03 14:32] LABS: Basophils # 0.1 K/mcL (0.0-0.2); Basophils % 0.8 %; Eosinophils # 0.3 K/mcL (0.0-0.6); Eosinophils % 2.7 %; Hematocrit 33.4 % (37.5-50.1); Hemoglobin 9.7 g/dL (12.9-16.9); Immature Granulocytes % 0.4 % (0-4); Lymphocytes # 0.8 K/mcL (0.6-4.6); Lymphocytes % 8.2 %; Mean Corpuscular Hemoglobin 22.3 pg (28.0-33.3); Mean Corpuscular Volume 76.8 fL (83.0-100.0); Mean Platelet Volume 9.5 fL (9.4-12.4); Monocytes # 1.4 K/mcL (0.0-1.3); Monocytes % 13.9 %; Neutrophils # 7.6 K/mcL (1.6-8.9); Nucleated Red Blood Cells 0.2 /100 WBC (0); Platelet Count 187 K/mcL (140-400); Red Blood Count 4.35 M/mcL (4.19-5.50); Red Cell Distribution Width 16.7 % (11.5-14.5); White Blood Count 10.3 K/mcL (4.3-11.1)
[2019-09-03 14:44] LABS: INR 4.1
[2019-09-03 14:53] LABS: Prothrombin Time 47.2 Seconds (9.4-12.1)
[2019-09-03 14:56] LABS: Troponin I 0.34 ng/mL (< 0.04)
[2019-09-03 15:17] LABS: Albumin/Globulin Ratio 1.3 (1.1-2.2); Calcium 9.5 mg/dL (8.6-10.3); Globulin 3.2 g/dL (2.4-3.5); Potassium 3.5 mEq/L (3.5-5.1); Total Protein 7.2 g/dL (6.4-8.9)
[2019-09-03] MEDS ORDERED: Furosemide 40 MG/4 ML VIAL IVP ONE (15:25)
[2019-09-03] MEDS ORDERED: Naloxone 0.4 MG/ML INJ IVP PRN (15:58)
[2019-09-03] MEDS ORDERED: Ondansetron 4 MG/2 ML VIAL IVP PRN (15:58)
[2019-09-03] MEDS ORDERED: *HR* Dextrose 50 % in Water (Syg) 50 ML SYRINGE IVP PRN (16:02)
[2019-09-03] MEDS ORDERED: D5% in Water 1,000 ML IVC PRN (16:02)
[2019-09-03] MEDS ORDERED: Dextrose Gel 15 GM/37.5 ML TUBE PO PRN ×2 (16:02)
[2019-09-03] MEDS ORDERED: *HR* Metoprolol 5 MG/5 ML VIAL IVP PRN (16:03)
[2019-09-03] MEDS ORDERED: Warfarin perPT PO PRN (18:00)
[2019-09-03] MEDS: Insulin LISPRO 300 UNITS/3 ML VIAL SQ SCH ×2 (20:00→20:17)
[2019-09-03] MEDS: Furosemide 40 MG/4 ML VIAL IVP SCH (20:42)
[2019-09-03] MEDS: Insulin DETEMIR 100 UNIT/ML X5UNITS SQ SCH (20:42)
[2019-09-03] MEDS: Aspirin 81 MG TAB.CHEW PO SCH (20:42)
[2019-09-04 05:11] LABS: Immature Granulocytes % 0.4 % (0-4); Lymphocytes % 8.5 %; Red Cell Distribution Width 16.7 % (11.5-14.5)
[2019-09-04 05:12] LABS: Basophils # 0.1 K/mcL (0.0-0.2); Basophils % 0.9 %; Eosinophils # 0.4 K/mcL (0.0-0.6); Eosinophils % 4.6 %; Hematocrit 33.9 % (37.5-50.1); Hemoglobin 9.5 g/dL (12.9-16.9); Lymphocytes # 0.7 K/mcL (0.6-4.6); Mean Corpuscular Hemoglobin 21.5 pg (28.0-33.3); Mean Corpuscular Volume 76.9 fL (83.0-100.0); Monocytes # 1.3 K/mcL (0.0-1.3); Monocytes % 15.4 %; Neutrophils # 5.7 K/mcL (1.6-8.9); Platelet Count 204 K/mcL (140-400); Red Blood Count 4.41 M/mcL (4.19-5.50); Segmented Neutrophils % 70.2 %; White Blood Count 8.1 K/mcL (4.3-11.1)
[2019-09-04 05:16] LABS: INR 3.7; Prothrombin Time 42.6 Seconds (9.4-12.1)
[2019-09-04 05:29] LABS: Calcium 9.2 mg/dL (8.6-10.3); Magnesium 1.7 mg/dL (1.6-2.6); Phosphorous 3.5 mg/dL (2.7-4.5); Potassium 3.6 mEq/L (3.5-5.1)
[2019-09-04 05:35] LABS: Troponin I 0.87 ng/mL (< 0.04)
[2019-09-04 06:21] LABS: Hypochromasia Present (Not Present); Ovalocytes 1+ (Not Present); Platelet Estimate Normal (Normal); Poikilocytosis 1+ (Not Present)
[2019-09-04] MEDS: Aspirin 81 MG TAB.CHEW PO SCH (08:14)
[2019-09-04] MEDS: Furosemide 40 MG/4 ML VIAL IVP SCH ×3 (08:14→23:25)
[2019-09-04] MEDS: Insulin LISPRO 300 UNITS/3 ML VIAL SQ SCH ×4 (08:14→20:25)
[2019-09-04] MEDS ORDERED: *HR* Warfarin 5 MG TABLET PO ONE (18:00)
[2019-09-04] MEDS: Insulin DETEMIR 100 UNIT/ML X5UNITS SQ SCH (20:24)
[2019-09-05 04:31] LABS: INR 3.2; Prothrombin Time 36.5 Seconds (9.4-12.1)
[2019-09-05 04:53] LABS: Red Cell Distribution Width 16.6 % (11.5-14.5)
[2019-09-05 04:54] LABS: Calcium 9.7 mg/dL (8.6-10.3); Potassium 3.9 mEq/L (3.5-5.1)
[2019-09-05 04:55] LABS: Basophils # 0.1 K/mcL (0.0-0.2); Basophils % 0.9 %; Eosinophils # 0.5 K/mcL (0.0-0.6); Eosinophils % 6.7 %; Hematocrit 35.6 % (37.5-50.1); Hemoglobin 10.2 g/dL (12.9-16.9); Immature Granulocytes % 0.4 % (0-4); Lymphocytes # 0.6 K/mcL (0.6-4.6); Lymphocytes % 7.6 %; Mean Corpuscular HGB Conc 28.7 g/dL (31.6-35.5); Mean Corpuscular Hemoglobin 21.7 pg (28.0-33.3); Mean Corpuscular Volume 75.9 fL (83.0-100.0); Mean Platelet Volume 9.8 fL (9.4-12.4); Monocytes # 1.1 K/mcL (0.0-1.3); Monocytes % 13.1 %; Neutrophils # 5.7 K/mcL (1.6-8.9); Platelet Count 187 K/mcL (140-400); Red Blood Count 4.69 M/mcL (4.19-5.50); Segmented Neutrophils % 71.3 %
[2019-09-05 05:13] LABS: Anisocytosis 1+ (Not Present); Hypochromasia Present (Not Present); Platelet Estimate Normal (Normal)
[2019-09-05] MEDS: Furosemide 40 MG/4 ML VIAL IVP SCH ×3 (06:23→21:14)
[2019-09-05] MEDS: Aspirin 81 MG TAB.CHEW PO SCH (07:25)
[2019-09-05] MEDS: Insulin LISPRO 300 UNITS/3 ML VIAL SQ SCH ×5 (07:25→21:15)
[2019-09-05] MEDS ORDERED: Metoprolol XL (24 HR) Succ 25 MG TAB.ER.24H PO SCH (09:00)
[2019-09-05] MEDS ORDERED: lisinopriL 20 MG TABLET PO SCH (09:00)
[2019-09-05] MEDS: amLODIPine 5 MG TABLET PO SCH ×2 (09:40→21:14)
[2019-09-05] MEDS: hydrALAZINE 10 MG TABLET PO SCH (09:40)
[2019-09-05] MEDS: Insulin DETEMIR 100 UNIT/ML X5UNITS SQ SCH ×3 (09:41→21:15)
[2019-09-05] MEDS ORDERED: Insulin Human Regular 8 UNIT in 0.9 % Sodium Chloride 10 ML IV ONE (13:07)
[2019-09-05] MEDS ORDERED: *HR* Warfarin 5 MG TABLET PO ONE (18:00)
[2019-09-06 01:47] LABS: Immature Granulocytes % 0.4 % (0-4); Lymphocytes % 7.4 %; Mean Corpuscular Hemoglobin 21.7 pg (28.0-33.3); Monocytes % 15.6 %; Red Cell Distribution Width 16.4 % (11.5-14.5); Segmented Neutrophils % 68.4 %
[2019-09-06 01:49] LABS: Basophils # 0.1 K/mcL (0.0-0.2); Eosinophils # 0.6 K/mcL (0.0-0.6); Eosinophils % 7.2 %; Hematocrit 34.2 % (37.5-50.1); Hemoglobin 9.7 g/dL (12.9-16.9); Lymphocytes # 0.6 K/mcL (0.6-4.6); Mean Corpuscular HGB Conc 28.4 g/dL (31.6-35.5); Mean Corpuscular Volume 76.3 fL (83.0-100.0); Mean Platelet Volume 9.9 fL (9.4-12.4); Monocytes # 1.3 K/mcL (0.0-1.3); Neutrophils # 5.7 K/mcL (1.6-8.9); Platelet Count 177 K/mcL (140-400); Red Blood Count 4.48 M/mcL (4.19-5.50); White Blood Count 8.3 K/mcL (4.3-11.1)
[2019-09-06 01:59] LABS: INR 2.8
[2019-09-06 02:09] LABS: Anisocytosis 1+ (Not Present); Hypochromasia Present (Not Present); Platelet Estimate Normal (Normal)
[2019-09-06 02:17] LABS: Calcium 9.5 mg/dL (8.6-10.3); Potassium 3.9 mEq/L (3.5-5.1)
[2019-09-06] MEDS: Furosemide 40 MG/4 ML VIAL IVP SCH (07:16)
[2019-09-06] MEDS: hydrALAZINE 10 MG TABLET PO SCH (08:19)
[2019-09-06] MEDS: Metoprolol XL (24 HR) Succ 50 MG TAB.ER.24H PO SCH (08:19)
[2019-09-06] MEDS: amLODIPine 5 MG TABLET PO SCH ×2 (08:19→21:49)
[2019-09-06] MEDS: Aspirin 81 MG TAB.CHEW PO SCH (08:20)
[2019-09-06] MEDS: Insulin LISPRO 300 UNITS/3 ML VIAL SQ SCH ×7 (08:20→21:49)
[2019-09-06] MEDS ORDERED: 0.9 % Sodium Chloride 1,000 ML IVC SCH (08:30)
[2019-09-06] MEDS: Insulin DETEMIR 100 UNIT/ML X5UNITS SQ SCH ×2 (10:15→21:49)
[2019-09-06] MEDS ORDERED: *HR* Warfarin 7.5 MG TABLET PO ONE ×2 (18:00)
[2019-09-06] MEDS ORDERED: Warfarin perPT PO PRN (18:00)
[2019-09-07 04:35] LABS: Basophils # 0.1 K/mcL (0.0-0.2); Basophils % 0.8 %; Eosinophils # 0.7 K/mcL (0.0-0.6); Eosinophils % 7.3 %; Hematocrit 37.2 % (37.5-50.1); Hemoglobin 10.8 g/dL (12.9-16.9); Immature Granulocytes % 0.2 % (0-4); Lymphocytes # 0.7 K/mcL (0.6-4.6); Lymphocytes % 7.8 %; Mean Corpuscular Hemoglobin 21.9 pg (28.0-33.3); Mean Corpuscular Volume 75.5 fL (83.0-100.0); Mean Platelet Volume 9.3 fL (9.4-12.4); Monocytes # 1.1 K/mcL (0.0-1.3); Monocytes % 12.6 %; Neutrophils # 6.5 K/mcL (1.6-8.9); Platelet Count 174 K/mcL (140-400); Red Blood Count 4.93 M/mcL (4.19-5.50); Red Cell Distribution Width 16.2 % (11.5-14.5); Segmented Neutrophils % 71.3 %; White Blood Count 9.1 K/mcL (4.3-11.1)
[2019-09-07 04:41] LABS: INR 1.9; Prothrombin Time 21.5 Seconds (9.4-12.1)
[2019-09-07 04:54] LABS: Calcium 9.7 mg/dL (8.6-10.3); Potassium 3.9 mEq/L (3.5-5.1)
[2019-09-07] MEDS ORDERED: *HR* Heparin 5,000 UNIT/ML VIAL IVP PRN ×2 (08:32)
[2019-09-07] MEDS ORDERED: *HR* Heparin 5,000 UNIT/ML VIAL IVP ONE (08:32)
[2019-09-07] MEDS: Aspirin 81 MG TAB.CHEW PO SCH (10:08)
[2019-09-07] MEDS: amLODIPine 5 MG TABLET PO SCH ×2 (10:08→20:59)
[2019-09-07] MEDS: Metoprolol XL (24 HR) Succ 50 MG TAB.ER.24H PO SCH (10:08)
[2019-09-07] MEDS: hydrALAZINE 10 MG TABLET PO SCH (10:08)
[2019-09-07] MEDS: Insulin LISPRO 300 UNITS/3 ML VIAL SQ SCH ×7 (10:09→20:59)
[2019-09-07] MEDS: Insulin DETEMIR 100 UNIT/ML X5UNITS SQ SCH ×2 (10:11→20:59)
[2019-09-07] MEDS: Heparin 25,000 UNIT/250 ML D5W 25,000 UNIT/250 ML IV.SOLN IVC SCH (10:17)
[2019-09-07] MEDS: Furosemide 40 MG/4 ML VIAL IVP SCH (12:38)
[2019-09-08] MEDS: Heparin 25,000 UNIT/250 ML D5W 25,000 UNIT/250 ML IV.SOLN IVC SCH (05:26)
[2019-09-08 08:00] LABS: INR 1.5; Prothrombin Time 17.4 Seconds (9.4-12.1)
[2019-09-08 08:25] LABS: Calcium 9.2 mg/dL (8.6-10.3); Potassium 4.2 mEq/L (3.5-5.1)
[2019-09-08] MEDS: Metoprolol XL (24 HR) Succ 50 MG TAB.ER.24H PO SCH (08:59)
[2019-09-08] MEDS: amLODIPine 5 MG TABLET PO SCH ×2 (08:59→20:42)
[2019-09-08] MEDS: Aspirin 81 MG TAB.CHEW PO SCH (08:59)
[2019-09-08] MEDS: Insulin LISPRO 300 UNITS/3 ML VIAL SQ SCH ×7 (09:00→20:43)
[2019-09-08] MEDS: hydrALAZINE 10 MG TABLET PO SCH (09:00)
[2019-09-08] MEDS: Furosemide 40 MG/4 ML VIAL IVP SCH (09:01)
[2019-09-08] MEDS: Insulin DETEMIR 100 UNIT/ML X5UNITS SQ SCH ×2 (09:05→20:42)
[2019-09-08 10:21] LABS: Basophils # 0.1 K/mcL (0.0-0.2); Eosinophils # 0.6 K/mcL (0.0-0.6); Eosinophils % 7.1 %; Hematocrit 32.6 % (37.5-50.1); Hemoglobin 9.5 g/dL (12.9-16.9); Immature Granulocytes % 0.7 % (0-4); Lymphocytes # 0.8 K/mcL (0.6-4.6); Mean Corpuscular HGB Conc 29.1 g/dL (31.6-35.5); Mean Corpuscular Hemoglobin 21.5 pg (28.0-33.3); Mean Corpuscular Volume 73.8 fL (83.0-100.0); Monocytes # 1.3 K/mcL (0.0-1.3); Monocytes % 15.2 %; Neutrophils # 5.5 K/mcL (1.6-8.9); Platelet Count 161 K/mcL (140-400); Red Blood Count 4.42 M/mcL (4.19-5.50); Red Cell Distribution Width 16.1 % (11.5-14.5); White Blood Count 8.3 K/mcL (4.3-11.1)
[2019-09-09] MEDS: Heparin 25,000 UNIT/250 ML D5W 25,000 UNIT/250 ML IV.SOLN IVC SCH ×2 (02:50→02:51)
[2019-09-09 05:23] LABS: Hemoglobin 9.6 g/dL (12.9-16.9); Immature Granulocytes % 0.3 % (0-4)
[2019-09-09 05:25] LABS: Basophils # 0.1 K/mcL (0.0-0.2); Basophils % 0.7 %; Eosinophils # 0.5 K/mcL (0.0-0.6); Eosinophils % 5.7 %; Hematocrit 34.5 % (37.5-50.1); Lymphocytes # 0.6 K/mcL (0.6-4.6); Lymphocytes % 6.5 %; Mean Corpuscular HGB Conc 27.8 g/dL (31.6-35.5); Mean Corpuscular Hemoglobin 21.1 pg (28.0-33.3); Mean Corpuscular Volume 75.8 fL (83.0-100.0); Mean Platelet Volume 9.5 fL (9.4-12.4); Monocytes # 1.1 K/mcL (0.0-1.3); Monocytes % 12.2 %; Neutrophils # 6.8 K/mcL (1.6-8.9); Platelet Count 136 K/mcL (140-400); Red Blood Count 4.55 M/mcL (4.19-5.50); Red Cell Distribution Width 16.1 % (11.5-14.5); Segmented Neutrophils % 74.6 %; White Blood Count 9.1 K/mcL (4.3-11.1)
[2019-09-09 05:26] LABS: INR 1.3; Prothrombin Time 14.9 Seconds (9.4-12.1)
[2019-09-09 05:41] LABS: Platelet Estimate Normal (Normal)
[2019-09-09 05:42] LABS: Microcytosis Present (Not Present); Polychromasia 1+ (Not Present)
[2019-09-09 05:45] LABS: Calcium 9.2 mg/dL (8.6-10.3); Potassium 4.3 mEq/L (3.5-5.1)
[2019-09-09 07:01] VITALS: BP 146/80
[2019-09-09] MEDS: amLODIPine 5 MG TABLET PO SCH (07:36)
[2019-09-09] MEDS: Insulin DETEMIR 100 UNIT/ML X5UNITS SQ SCH (07:36)
[2019-09-09] MEDS: Metoprolol XL (24 HR) Succ 50 MG TAB.ER.24H PO SCH (07:36)
[2019-09-09] MEDS: hydrALAZINE 10 MG TABLET PO SCH (07:36)
[2019-09-09] MEDS: Aspirin 81 MG TAB.CHEW PO SCH (07:36)
[2019-09-09] MEDS: Furosemide 40 MG/4 ML VIAL IVP SCH (07:36)
[2019-09-09] MEDS: Insulin LISPRO 300 UNITS/3 ML VIAL SQ SCH ×2 (07:36)
[2019-09-09] MEDS ORDERED: Nitroglycerin 1,000 MCG/10 ML VIAL IV ONE (08:29)
[2019-09-09] MEDS ORDERED: 0.9 % Sodium Chloride 2,000 ML ONE (08:29)
[2019-09-09] MEDS ORDERED: Heparin 1,000 UNITS/500 mL 500 ML ONE (08:29)
[2019-09-09] MEDS ORDERED: *HR* Heparin 10,000 UNIT/10 ML VIAL ONE (08:29)
[2019-09-09] MEDS ORDERED: ISOVUE-370 200 ML INFUS..BTL ONE (08:29)
[2019-09-09] MEDS ORDERED: 0.9 % Sodium Chloride 1,000 ML IVC SCH (08:30)
== END 2019-09-09 11:27 | disposition left against medical advice (07) | DRG 280 ==
LOC: 2ANU 13:42 → EMEROOARM 13:42 → SUATTDRO 17:58 → 2ANU 19:53
PROVIDERS: ADMIT Internal Medicine; ATTEND Internal Medicine

== ENCOUNTER 2019-10-11 11:04 | Inpatient (IN) ==
[2019-10-11 11:47] LABS: Mean Corpuscular Volume 75.3 fL (83.0-100.0)
[2019-10-11 11:48] LABS: Basophils # 0.1 K/mcL (0.0-0.2); Basophils % 0.4 %; Hematocrit 32.9 % (37.5-50.1); Hemoglobin 9.2 g/dL (12.9-16.9); Immature Granulocytes % 0.5 % (0-4); Lymphocytes # 0.4 K/mcL (0.6-4.6); Lymphocytes % 2.2 %; Mean Corpuscular Hemoglobin 21.1 pg (28.0-33.3); Mean Platelet Volume 10.4 fL (9.4-12.4); Monocytes # 1.5 K/mcL (0.0-1.3); Monocytes % 8.1 %; Nucleated Red Blood Cells 0.1 /100 WBC (0); Platelet Count 175 K/mcL (140-400); Red Blood Count 4.37 M/mcL (4.19-5.50); Red Cell Distribution Width 17.6 % (11.5-14.5); Segmented Neutrophils % 88.8 %
[2019-10-11 12:02] LABS: Activated Partial Thrombo Time 44.4 Seconds (26.0-36.0)
[2019-10-11 12:05] LABS: INR 4.3; Platelet Estimate Normal (Normal)
[2019-10-11 12:06] LABS: Anisocytosis 1+ (Not Present); Prothrombin Time 49.2 Seconds (9.4-12.1)
[2019-10-11 12:08] LABS: Hypochromasia Present (Not Present); Microcytosis Present (Not Present)
[2019-10-11 12:11] LABS: Troponin I 1.07 ng/mL (< 0.04)
[2019-10-11 12:13] LABS: Calcium 9.1 mg/dL (8.6-10.3); Potassium 4.6 mEq/L (3.5-5.1)
[2019-10-11] MEDS ORDERED: levoFLOXacin 750 MG TABLET PO ONE (12:14)
[2019-10-11] MEDS ORDERED: cefTRIAXone 1,000 MG in Water for inj. (sterile) 10 ML IVP ONE (12:14)
[2019-10-11] MEDS ORDERED: Furosemide 40 MG/4 ML VIAL IVP ONE (13:01)
[2019-10-11 13:14] LABS: Albumin 3.8 g/dL (3.5-5.7); Albumin/Globulin Ratio 1.4 (1.1-2.2); Bilirubin,Direct 0.4 mg/dL (0.0-0.2); Bilirubin,Indirect 1.1 mg/dL (0.0-1.0); Bilirubin,Total 1.5 mg/dL (0.3-1.0); Globulin 2.7 g/dL (2.4-3.5); Total Protein 6.5 g/dL (6.4-8.9)
[2019-10-11] MEDS ORDERED: Naloxone 0.4 MG/ML INJ IVP PRN (13:51)
[2019-10-11] MEDS ORDERED: Ondansetron 4 MG/2 ML VIAL IVP PRN (13:51)
[2019-10-11] MEDS ORDERED: *HR* Dextrose 50 % in Water (Syg) 50 ML SYRINGE IVP PRN (14:48)
[2019-10-11] MEDS ORDERED: D5% in Water 1,000 ML IVC PRN (14:48)
[2019-10-11] MEDS ORDERED: Dextrose Gel 15 GM/37.5 ML TUBE PO PRN ×2 (14:48)
[2019-10-11] MEDS: Azithromycin 500 MG in 0.9 % Sodium Chloride 250 ML IVPB SCH (16:03)
[2019-10-11] MEDS: Insulin LISPRO 300 UNITS/3 ML VIAL SQ SCH ×2 (16:21→16:22)
[2019-10-11 17:43] LABS: Bilirubin,Urine Negative (Negative); Blood,Urine Trace (Negative); Clarity,Urine Clear (Clear); Color,Urine Yellow (Yellow); Glucose,Urine (UA) Normal (Normal); Ketones,Urine Negative (Negative); Leukocyte Esterase,Urine Negative (Negative); Nitrite,Urine Negative (Negative); Protein,Urine 30 mg/dL (Neg-Trace); Specific Gravity,Urine 1.012 (1.010-1.025); Urobilinogen,Urine Normal (Normal)
[2019-10-11 17:45] LABS: Bacteria,Urine None Seen per hpf (None-Few); Hyaline Casts,Urine None Seen per lpf (None-Few); RBC,Urine 0-3 per hpf (0-3); Squamous Epithelial Cell,Urine None Seen per lpf (None-Few); WBC,Urine 0-3 per hpf (0-3)
[2019-10-11] MEDS ORDERED: Warfarin perPT PO PRN (18:00)
[2019-10-11] MEDS ORDERED: Insulin LISPRO 300 UNITS/3 ML VIAL SQ SCH (21:00)
[2019-10-11] MEDS ORDERED: Insulin DETEMIR 100 UNIT/ML X5UNITS SQ SCH (21:00)
[2019-10-11 22:06] LABS: Calcium 8.8 mg/dL (8.6-10.3); Potassium 4.4 mEq/L (3.5-5.1)
[2019-10-11 22:11] LABS: Troponin I 3.44 ng/mL (< 0.04)
[2019-10-12 03:53] LABS: Basophils % 0.6 %; Immature Granulocytes % 0.5 % (0-4)
[2019-10-12 03:55] LABS: Basophils # 0.1 K/mcL (0.0-0.2); Eosinophils # 0.2 K/mcL (0.0-0.6); Eosinophils % 1.4 %; Hematocrit 28.2 % (37.5-50.1); Hemoglobin 7.8 g/dL (12.9-16.9); Lymphocytes # 0.7 K/mcL (0.6-4.6); Lymphocytes % 6.6 %; Mean Corpuscular HGB Conc 27.7 g/dL (31.6-35.5); Mean Corpuscular Hemoglobin 20.5 pg (28.0-33.3); Mean Corpuscular Volume 74.2 fL (83.0-100.0); Mean Platelet Volume 10.3 fL (9.4-12.4); Monocytes # 1.4 K/mcL (0.0-1.3); Monocytes % 12.5 %; Neutrophils # 8.6 K/mcL (1.6-8.9); Nucleated Red Blood Cells 0.3 /100 WBC (0); Platelet Count 142 K/mcL (140-400); Red Cell Distribution Width 17.5 % (11.5-14.5); Segmented Neutrophils % 78.4 %
[2019-10-12 04:03] LABS: INR 4.7; Prothrombin Time 53.1 Seconds (9.4-12.1)
[2019-10-12 04:08] LABS: Calcium 8.8 mg/dL (8.6-10.3); Magnesium 2.1 mg/dL (1.6-2.6); Phosphorous 3.4 mg/dL (2.7-4.5); Potassium 4.6 mEq/L (3.5-5.1)
[2019-10-12 04:36] LABS: Anisocytosis 1+ (Not Present); Hypochromasia Present (Not Present); Polychromasia 1+ (Not Present)
[2019-10-12 04:37] LABS: Platelet Estimate Normal (Normal)
[2019-10-12 06:01] LABS: Transferrin 279 mg/dL (203-362)
[2019-10-12 06:03] LABS: % Iron Saturation 7 % (20-55); Iron 28 mcg/dL (65-175)
[2019-10-12 06:28] LABS: Folate 9.8 ng/mL (3.0-16.0)
[2019-10-12] MEDS: Tiotropium 18 MCG inhalation IH SCH (07:45)
[2019-10-12] MEDS: Aspirin Enteric Coated 81 MG Tablet PO SCH (08:43)
[2019-10-12] MEDS: hydrALAZINE 10 MG TABLET PO SCH (08:43)
[2019-10-12] MEDS: cefTRIAXone 1,000 MG in Water for inj. (sterile) 10 ML IVP SCH (08:46)
[2019-10-12] MEDS: Insulin LISPRO 300 UNITS/3 ML VIAL SQ SCH ×6 (08:53→16:09)
[2019-10-12] MEDS: Furosemide 40 MG/4 ML VIAL IVP SCH (11:34)
[2019-10-12 14:25] LABS: Hematocrit 28.9 % (37.5-50.1)
[2019-10-12] MEDS: Azithromycin 500 MG in 0.9 % Sodium Chloride 250 ML IVPB SCH (16:02)
[2019-10-12 17:00] LABS: Sodium, Urine 63.3 mEq/L
[2019-10-12] MEDS ORDERED: Insulin DETEMIR 100 UNIT/ML X5UNITS SQ SCH (21:00)
[2019-10-12] MEDS ORDERED: Insulin LISPRO 300 UNITS/3 ML VIAL SQ SCH (21:00)
[2019-10-13 03:24] LABS: Eosinophils % 4.8 %
[2019-10-13 03:25] LABS: Basophils # 0.1 K/mcL (0.0-0.2); Basophils % 0.5 %; Eosinophils # 0.5 K/mcL (0.0-0.6); Hematocrit 27.5 % (37.5-50.1); Hemoglobin 7.7 g/dL (12.9-16.9); Immature Granulocytes % 0.4 % (0-4); Lymphocytes # 0.8 K/mcL (0.6-4.6); Lymphocytes % 7.9 %; Mean Corpuscular Hemoglobin 20.9 pg (28.0-33.3); Mean Corpuscular Volume 74.5 fL (83.0-100.0); Mean Platelet Volume 10.1 fL (9.4-12.4); Monocytes # 1.2 K/mcL (0.0-1.3); Monocytes % 12.2 %; Neutrophils # 7.5 K/mcL (1.6-8.9); Nucleated Red Blood Cells 0.2 /100 WBC (0); Platelet Count 165 K/mcL (140-400); Red Blood Count 3.69 M/mcL (4.19-5.50); Red Cell Distribution Width 17.4 % (11.5-14.5); Segmented Neutrophils % 74.2 %; White Blood Count 10.1 K/mcL (4.3-11.1)
[2019-10-13 03:29] LABS: Prothrombin Time 34.2 Seconds (9.4-12.1)
[2019-10-13 03:39] LABS: Anisocytosis 1+ (Not Present); Hypochromasia Present (Not Present)
[2019-10-13 03:40] LABS: Microcytosis Present (Not Present); Platelet Estimate Normal (Normal); Polychromasia 1+ (Not Present)
[2019-10-13 03:44] LABS: Potassium 4.4 mEq/L (3.5-5.1)
[2019-10-13] MEDS: Tiotropium 18 MCG inhalation IH SCH (07:54)
[2019-10-13] MEDS: Furosemide 40 MG/4 ML VIAL IVP SCH (08:30)
[2019-10-13] MEDS: cefTRIAXone 1,000 MG in Water for inj. (sterile) 10 ML IVP SCH (08:30)
[2019-10-13] MEDS: hydrALAZINE 10 MG TABLET PO SCH (08:31)
[2019-10-13] MEDS: Insulin LISPRO 300 UNITS/3 ML VIAL SQ SCH ×6 (08:31→16:59)
[2019-10-13] MEDS: Aspirin Enteric Coated 81 MG Tablet PO SCH (08:31)
[2019-10-13] MEDS ORDERED: Insulin DETEMIR 100 UNIT/ML X5UNITS SQ SCH ×2 (09:00→21:00)
[2019-10-13] MEDS: Azithromycin 500 MG in 0.9 % Sodium Chloride 250 ML IVPB SCH (15:43)
[2019-10-13] MEDS ORDERED: *HR* Warfarin 3 MG TABLET PO ONE (18:00)
[2019-10-13] MEDS ORDERED: Insulin LISPRO 300 UNITS/3 ML VIAL SQ SCH ×2 (19:55→21:00)
[2019-10-14 02:56] LABS: Nucleated Red Blood Cells 0.2 /100 WBC (0)
[2019-10-14 02:58] LABS: Basophils # 0.1 K/mcL (0.0-0.2); Basophils % 0.6 %; Eosinophils # 0.8 K/mcL (0.0-0.6); Hematocrit 28.8 % (37.5-50.1); Hemoglobin 7.9 g/dL (12.9-16.9); Immature Granulocytes % 0.3 % (0-4); Lymphocytes # 0.8 K/mcL (0.6-4.6); Lymphocytes % 6.9 %; Mean Corpuscular HGB Conc 27.4 g/dL (31.6-35.5); Mean Corpuscular Hemoglobin 20.7 pg (28.0-33.3); Mean Corpuscular Volume 75.6 fL (83.0-100.0); Mean Platelet Volume 10.3 fL (9.4-12.4); Monocytes # 1.3 K/mcL (0.0-1.3); Monocytes % 11.1 %; Platelet Count 205 K/mcL (140-400); Red Blood Count 3.81 M/mcL (4.19-5.50); Red Cell Distribution Width 17.8 % (11.5-14.5); Segmented Neutrophils % 74.1 %; White Blood Count 11.7 K/mcL (4.3-11.1)
[2019-10-14 03:00] LABS: INR 2.6; Prothrombin Time 29.8 Seconds (9.4-12.1)
[2019-10-14 03:06] LABS: Neutrophils # 8.7 K/mcL (1.6-8.9)
[2019-10-14 03:13] LABS: Potassium 4.3 mEq/L (3.5-5.1)
[2019-10-14 03:26] LABS: Anisocytosis 1+ (Not Present); Hypochromasia Present (Not Present); Microcytosis Present (Not Present); Poikilocytosis 1+ (Not Present)
[2019-10-14 03:27] LABS: Ovalocytes 1+ (Not Present); Platelet Estimate Normal (Normal); Polychromasia 1+ (Not Present)
[2019-10-14] MEDS ORDERED: Ondansetron 4 MG/2 ML VIAL IVP PRN (07:06)
[2019-10-14] MEDS ORDERED: D5% in Water 1,000 ML IVC PRN (07:06)
[2019-10-14] MEDS ORDERED: *HR* Dextrose 50 % in Water (Syg) 50 ML SYRINGE IVP PRN (07:06)
[2019-10-14] MEDS ORDERED: Warfarin perPT PO PRN (07:06)
[2019-10-14] MEDS ORDERED: Dextrose Gel 15 GM/37.5 ML TUBE PO PRN ×2 (07:06)
[2019-10-14] MEDS ORDERED: Naloxone 0.4 MG/ML INJ IVP PRN (07:06)
[2019-10-14] MEDS: Tiotropium 18 MCG inhalation IH SCH (07:52)
[2019-10-14] MEDS: Aspirin Enteric Coated 81 MG Tablet PO SCH (08:10)
[2019-10-14] MEDS: hydrALAZINE 10 MG TABLET PO SCH (08:10)
[2019-10-14] MEDS: Furosemide 40 MG/4 ML VIAL IVP SCH (08:10)
[2019-10-14] MEDS: cefTRIAXone 1,000 MG in Water for inj. (sterile) 10 ML IVP SCH (08:11)
[2019-10-14] MEDS: Insulin DETEMIR 100 UNIT/ML X5UNITS SQ SCH ×2 (08:19→20:45)
[2019-10-14] MEDS: Insulin LISPRO 300 UNITS/3 ML VIAL SQ SCH ×6 (09:24→20:45)
[2019-10-14] MEDS ORDERED: polyethylene glycoL 3350 17 GM POWD.PACK PO ONE (11:51)
[2019-10-14] MEDS ORDERED: Azithromycin 500 MG in 0.9 % Sodium Chloride 250 ML IVPB SCH (15:00)
[2019-10-14] MEDS ORDERED: *HR* Warfarin 7.5 MG TABLET PO ONE (18:00)
[2019-10-15 03:49] LABS: Lymphocytes % 7.9 %; Mean Platelet Volume 9.8 fL (9.4-12.4); Nucleated Red Blood Cells 0.2 /100 WBC (0)
[2019-10-15 03:50] LABS: Basophils # 0.1 K/mcL (0.0-0.2); Basophils % 0.7 %; Eosinophils # 0.7 K/mcL (0.0-0.6); Hematocrit 27.8 % (37.5-50.1); Hemoglobin 7.6 g/dL (12.9-16.9); Immature Granulocytes % 0.3 % (0-4); Lymphocytes # 0.7 K/mcL (0.6-4.6); Mean Corpuscular HGB Conc 27.3 g/dL (31.6-35.5); Mean Corpuscular Hemoglobin 20.5 pg (28.0-33.3); Mean Corpuscular Volume 74.9 fL (83.0-100.0); Monocytes % 11.2 %; Neutrophils # 6.3 K/mcL (1.6-8.9); Platelet Count 179 K/mcL (140-400); Red Blood Count 3.71 M/mcL (4.19-5.50); Red Cell Distribution Width 18.1 % (11.5-14.5); Segmented Neutrophils % 71.9 %; White Blood Count 8.7 K/mcL (4.3-11.1)
[2019-10-15 03:58] LABS: INR 2.4; Prothrombin Time 26.9 Seconds (9.4-12.1)
[2019-10-15 04:11] LABS: Calcium 9.1 mg/dL (8.6-10.3); Potassium 4.5 mEq/L (3.5-5.1)
[2019-10-15 05:41] LABS: Anisocytosis 1+ (Not Present); Polychromasia 1+ (Not Present)
[2019-10-15 05:42] LABS: Ovalocytes 1+ (Not Present); Platelet Estimate Normal (Normal); Poikilocytosis 1+ (Not Present)
[2019-10-15] MEDS: Insulin LISPRO 300 UNITS/3 ML VIAL SQ SCH ×7 (07:34→21:18)
[2019-10-15] MEDS: Insulin DETEMIR 100 UNIT/ML X5UNITS SQ SCH ×2 (07:35→21:18)
[2019-10-15] MEDS: Aspirin Enteric Coated 81 MG Tablet PO SCH (08:20)
[2019-10-15] MEDS: hydrALAZINE 10 MG TABLET PO SCH (08:20)
[2019-10-15] MEDS: cefTRIAXone 1,000 MG in Water for inj. (sterile) 10 ML IVP SCH (08:21)
[2019-10-15] MEDS: Furosemide 40 MG/4 ML VIAL IVP SCH (08:21)
[2019-10-15] MEDS: Tiotropium 18 MCG inhalation IH SCH (11:15)
[2019-10-15] MEDS ORDERED: polyethylene glycoL 3350 17 GM POWD.PACK PO ONE (11:17)
[2019-10-15] MEDS: Azithromycin 250 MG TABLET PO SCH (15:08)
[2019-10-15] MEDS ORDERED: Insulin DETEMIR 100 UNIT/ML X5UNITS SQ ONE (16:04)
[2019-10-15] MEDS ORDERED: *HR* Warfarin 7.5 MG TABLET PO ONE (18:00)
[2019-10-16 02:57] LABS: INR 1.9; Prothrombin Time 21.3 Seconds (9.4-12.1)
[2019-10-16 03:00] LABS: Hemoglobin 7.4 g/dL (12.9-16.9)
[2019-10-16 03:01] LABS: Basophils # 0.1 K/mcL (0.0-0.2); Basophils % 0.9 %; Eosinophils # 0.6 K/mcL (0.0-0.6); Eosinophils % 8.2 %; Hematocrit 26.8 % (37.5-50.1); Immature Granulocytes % 0.5 % (0-4); Lymphocytes # 0.8 K/mcL (0.6-4.6); Lymphocytes % 10.3 %; Mean Corpuscular HGB Conc 27.6 g/dL (31.6-35.5); Mean Corpuscular Hemoglobin 20.6 pg (28.0-33.3); Mean Corpuscular Volume 74.7 fL (83.0-100.0); Mean Platelet Volume 9.5 fL (9.4-12.4); Monocytes % 13.1 %; Platelet Count 159 K/mcL (140-400); Red Blood Count 3.59 M/mcL (4.19-5.50); Red Cell Distribution Width 18.1 % (11.5-14.5); White Blood Count 7.4 K/mcL (4.3-11.1)
[2019-10-16 03:15] LABS: Potassium 4.2 mEq/L (3.5-5.1)
[2019-10-16 03:22] LABS: Anisocytosis 1+ (Not Present); Hypochromasia Present (Not Present); Microcytosis Present (Not Present); Platelet Estimate Normal (Normal); Poikilocytosis 1+ (Not Present); Polychromasia 1+ (Not Present)
[2019-10-16] MEDS: Insulin LISPRO 300 UNITS/3 ML VIAL SQ SCH ×7 (07:28→21:11)
[2019-10-16] MEDS: Tiotropium 18 MCG inhalation IH SCH (07:44)
[2019-10-16] MEDS: hydrALAZINE 10 MG TABLET PO SCH (08:47)
[2019-10-16] MEDS: Aspirin Enteric Coated 81 MG Tablet PO SCH (08:47)
[2019-10-16] MEDS: Furosemide 40 MG/4 ML VIAL IVP SCH (08:48)
[2019-10-16] MEDS: cefTRIAXone 1,000 MG in Water for inj. (sterile) 10 ML IVP SCH (08:48)
[2019-10-16] MEDS: Insulin DETEMIR 100 UNIT/ML X5UNITS SQ SCH ×2 (09:01→20:55)
[2019-10-16] MEDS: Azithromycin 250 MG TABLET PO SCH (14:23)
[2019-10-16] MEDS ORDERED: Furosemide 40 MG/4 ML VIAL IVP ONE (15:00)
[2019-10-17 01:00] LABS: Hematocrit 29.1 % (37.5-50.1); Hemoglobin 8.2 g/dL (12.9-16.9); Mean Corpuscular HGB Conc 28.2 g/dL (31.6-35.5); Mean Corpuscular Volume 74.4 fL (83.0-100.0); Mean Platelet Volume 10.6 fL (9.4-12.4); Platelet Count 184 K/mcL (140-400); Red Blood Count 3.91 M/mcL (4.19-5.50); Red Cell Distribution Width 18.1 % (11.5-14.5); White Blood Count 8.8 K/mcL (4.3-11.1)
[2019-10-17 01:21] LABS: Calcium 9.6 mg/dL (8.6-10.3); Potassium 4.3 mEq/L (3.5-5.1)
[2019-10-17] MEDS: Tiotropium 18 MCG inhalation IH SCH (07:33)
[2019-10-17] MEDS: Insulin LISPRO 300 UNITS/3 ML VIAL SQ SCH ×7 (08:09→22:38)
[2019-10-17 08:29] LABS: INR 1.5; Prothrombin Time 17.6 Seconds (9.4-12.1)
[2019-10-17] MEDS ORDERED: *HR* Heparin 5,000 UNIT/ML VIAL IVP ONE (08:38)
[2019-10-17] MEDS ORDERED: *HR* Heparin 5,000 UNIT/ML VIAL IVP PRN ×2 (08:38)
[2019-10-17] MEDS: hydrALAZINE 10 MG TABLET PO SCH (09:22)
[2019-10-17] MEDS: Insulin DETEMIR 100 UNIT/ML X5UNITS SQ SCH ×2 (09:22→22:38)
[2019-10-17] MEDS: Aspirin Enteric Coated 81 MG Tablet PO SCH (09:22)
[2019-10-17] MEDS: Furosemide 40 MG/4 ML VIAL IVP SCH ×2 (09:23→22:38)
[2019-10-17] MEDS: cefTRIAXone 1,000 MG in Water for inj. (sterile) 10 ML IVP SCH (09:24)
[2019-10-17] MEDS: Heparin 25,000 UNIT/250 ML D5W 25,000 UNIT/250 ML IV.SOLN IVC SCH (09:26)
[2019-10-17 10:25] LABS: Hemoglobin 8.4 g/dL (12.9-16.9)
[2019-10-17 10:26] LABS: Mean Corpuscular HGB Conc 27.1 g/dL (31.6-35.5); Mean Corpuscular Hemoglobin 20.2 pg (28.0-33.3); Mean Corpuscular Volume 74.5 fL (83.0-100.0); Mean Platelet Volume 10.1 fL (9.4-12.4); Platelet Count 210 K/mcL (140-400); Red Blood Count 4.16 M/mcL (4.19-5.50); Red Cell Distribution Width 18.4 % (11.5-14.5); White Blood Count 9.4 K/mcL (4.3-11.1)
[2019-10-17] MEDS: polyethylene glycoL 3350 17 GM POWD.PACK PO SCH (16:04)
[2019-10-17] MEDS ORDERED: SODIUM CHLORIDE/NAHCO3/KCL/PEG 4,000 ML SOLN.RECON PO ONE (17:00)
[2019-10-18 01:43] LABS: Mean Corpuscular Volume 74.6 fL (83.0-100.0)
[2019-10-18 01:44] LABS: Hematocrit 29.9 % (37.5-50.1); Hemoglobin 8.3 g/dL (12.9-16.9); Mean Corpuscular HGB Conc 27.8 g/dL (31.6-35.5); Mean Corpuscular Hemoglobin 20.7 pg (28.0-33.3); Platelet Count 177 K/mcL (140-400); Red Blood Count 4.01 M/mcL (4.19-5.50); Red Cell Distribution Width 18.2 % (11.5-14.5); White Blood Count 9.8 K/mcL (4.3-11.1)
[2019-10-18 02:03] LABS: BUN/Creatinine Ratio 27 (6-26); Blood Urea Nitrogen 37 mg/dL (8-23); Calcium 9.1 mg/dL (8.6-10.3); Carbon Dioxide 25 mEq/L (23-29); Chloride 100 mEq/L (98-107); Glucose 171 mg/dL (70-105); Osmolality,Calculated 289 (280-300); Potassium 4.2 mEq/L (3.5-5.1); Sodium 133 mEq/L (136-145); eGFR For African Americans > 60 (> 60); eGFR For Non-African Americans 51 (> 60)
[2019-10-18] MEDS: Tiotropium 18 MCG inhalation IH SCH (07:51)
[2019-10-18] MEDS: Insulin LISPRO 300 UNITS/3 ML VIAL SQ SCH ×7 (08:02→21:11)
[2019-10-18] MEDS: Furosemide 40 MG/4 ML VIAL IVP SCH ×2 (08:16→21:14)
[2019-10-18] MEDS: Aspirin Enteric Coated 81 MG Tablet PO SCH (08:16)
[2019-10-18] MEDS: hydrALAZINE 10 MG TABLET PO SCH (08:17)
[2019-10-18] MEDS: Azithromycin 250 MG TABLET PO SCH (08:17)
[2019-10-18] MEDS: polyethylene glycoL 3350 17 GM POWD.PACK PO SCH (08:17)
[2019-10-18] MEDS: Insulin DETEMIR 100 UNIT/ML X5UNITS SQ SCH ×2 (10:36→21:14)
[2019-10-18] MEDS ORDERED: Milk and Molasses Enema 200 ML RC ONE (10:40)
[2019-10-18] MEDS ORDERED: Iron Sucrose Complex 400 MG in 0.9 % Sodium Chloride 250 ML IVPB ONE (11:17)
[2019-10-18] MEDS: 0.9 % Sodium Chloride 500 ML IVC SCH (11:45)
[2019-10-18] MEDS ORDERED: Lidocaine -MPF 2% 2 ML VIAL ONE ×2 (11:51→11:54)
[2019-10-18] MEDS ORDERED: *HR* PHENYLEPHRINE 1,000 MCG/10 ML SYRINGE IVP ONE (12:59)
[2019-10-18] MEDS: Heparin 25,000 UNIT/250 ML D5W 25,000 UNIT/250 ML IV.SOLN IVC SCH ×2 (17:03→17:11)
[2019-10-19 01:38] LABS: Hematocrit 28.7 % (37.5-50.1); Mean Corpuscular HGB Conc 27.9 g/dL (31.6-35.5)
[2019-10-19 01:39] LABS: Mean Corpuscular Hemoglobin 20.6 pg (28.0-33.3); Mean Corpuscular Volume 73.8 fL (83.0-100.0); Mean Platelet Volume 9.4 fL (9.4-12.4); Platelet Count 169 K/mcL (140-400); Red Blood Count 3.89 M/mcL (4.19-5.50); Red Cell Distribution Width 18.2 % (11.5-14.5); White Blood Count 8.1 K/mcL (4.3-11.1)
[2019-10-19 01:57] LABS: Calcium 9.1 mg/dL (8.6-10.3); Potassium 3.9 mEq/L (3.5-5.1)
[2019-10-19] MEDS: 0.9 % Sodium Chloride 500 ML IVC SCH ×3 (02:55→17:04)
[2019-10-19] MEDS: Tiotropium 18 MCG inhalation IH SCH (07:34)
[2019-10-19] MEDS ORDERED: Iron Sucrose Complex 400 MG in 0.9 % Sodium Chloride 250 ML IVPB ONE (07:47)
[2019-10-19] MEDS: Insulin LISPRO 300 UNITS/3 ML VIAL SQ SCH ×7 (08:36→21:11)
[2019-10-19] MEDS: Insulin DETEMIR 100 UNIT/ML X5UNITS SQ SCH ×2 (08:38→21:07)
[2019-10-19] MEDS: Aspirin Enteric Coated 81 MG Tablet PO SCH (08:44)
[2019-10-19] MEDS: Azithromycin 250 MG TABLET PO SCH (08:44)
[2019-10-19] MEDS: hydrALAZINE 10 MG TABLET PO SCH (08:44)
[2019-10-19] MEDS: polyethylene glycoL 3350 17 GM POWD.PACK PO SCH (08:45)
[2019-10-19] MEDS: Heparin 25,000 UNIT/250 ML D5W 25,000 UNIT/250 ML IV.SOLN IVC SCH (10:34)
[2019-10-20 02:44] LABS: Hematocrit 29.7 % (37.5-50.1); Hemoglobin 8.2 g/dL (12.9-16.9); Mean Corpuscular HGB Conc 27.6 g/dL (31.6-35.5); Mean Corpuscular Hemoglobin 20.7 pg (28.0-33.3); Mean Corpuscular Volume 74.8 fL (83.0-100.0); Platelet Count 193 K/mcL (140-400); Red Blood Count 3.97 M/mcL (4.19-5.50); White Blood Count 8.9 K/mcL (4.3-11.1)
[2019-10-20 03:02] LABS: Calcium 9.3 mg/dL (8.6-10.3)
[2019-10-20] MEDS: 0.9 % Sodium Chloride 500 ML IVC SCH (03:16)
[2019-10-20] MEDS: Heparin 25,000 UNIT/250 ML D5W 25,000 UNIT/250 ML IV.SOLN IVC SCH ×2 (05:48→22:27)
[2019-10-20] MEDS: Insulin LISPRO 300 UNITS/3 ML VIAL SQ SCH ×7 (08:42→20:40)
[2019-10-20] MEDS: Aspirin Enteric Coated 81 MG Tablet PO SCH (08:46)
[2019-10-20] MEDS: hydrALAZINE 10 MG TABLET PO SCH (08:47)
[2019-10-20] MEDS: Azithromycin 250 MG TABLET PO SCH (08:47)
[2019-10-20] MEDS: Furosemide 40 MG TABLET PO SCH ×2 (08:47→16:38)
[2019-10-20] MEDS: Insulin DETEMIR 100 UNIT/ML X5UNITS SQ SCH ×2 (08:50→20:41)
[2019-10-20] MEDS: polyethylene glycoL 3350 17 GM POWD.PACK PO SCH (08:50)
[2019-10-20] MEDS: Tiotropium 18 MCG inhalation IH SCH ×2 (11:24→11:46)
[2019-10-21 06:23] LABS: Hemoglobin 7.5 g/dL (12.9-16.9); Red Cell Distribution Width 18.4 % (11.5-14.5)
[2019-10-21 06:24] LABS: Hematocrit 26.6 % (37.5-50.1); Mean Corpuscular HGB Conc 28.2 g/dL (31.6-35.5); Mean Corpuscular Hemoglobin 21.2 pg (28.0-33.3); Mean Corpuscular Volume 75.4 fL (83.0-100.0); Mean Platelet Volume 10.2 fL (9.4-12.4); Platelet Count 158 K/mcL (140-400); Red Blood Count 3.53 M/mcL (4.19-5.50)
[2019-10-21 06:42] LABS: Calcium 9.1 mg/dL (8.6-10.3); Potassium 4.1 mEq/L (3.5-5.1)
[2019-10-21] MEDS: Tiotropium 18 MCG inhalation IH SCH (07:30)
[2019-10-21] MEDS: hydrALAZINE 10 MG TABLET PO SCH (09:21)
[2019-10-21] MEDS: Aspirin Enteric Coated 81 MG Tablet PO SCH (09:21)
[2019-10-21] MEDS: Insulin LISPRO 300 UNITS/3 ML VIAL SQ SCH ×7 (09:21→20:35)
[2019-10-21] MEDS: polyethylene glycoL 3350 17 GM POWD.PACK PO SCH (09:24)
[2019-10-21] MEDS: Insulin DETEMIR 100 UNIT/ML X5UNITS SQ SCH ×2 (09:29→20:34)
[2019-10-21] MEDS ORDERED: 0.9 % Sodium Chloride 250 ML ONE (11:22)
[2019-10-21] MEDS: Heparin 25,000 UNIT/250 ML D5W 25,000 UNIT/250 ML IV.SOLN IVC SCH (15:11)
[2019-10-22 00:38] LABS: Red Cell Distribution Width 19.4 % (11.5-14.5)
[2019-10-22 00:40] LABS: Hematocrit 28.2 % (37.5-50.1); Mean Corpuscular HGB Conc 28.4 g/dL (31.6-35.5); Mean Corpuscular Hemoglobin 21.6 pg (28.0-33.3); Mean Corpuscular Volume 76.2 fL (83.0-100.0); Platelet Count 157 K/mcL (140-400); White Blood Count 10.7 K/mcL (4.3-11.1)
[2019-10-22 00:55] LABS: Calcium 9.1 mg/dL (8.6-10.3); Potassium 4.3 mEq/L (3.5-5.1)
[2019-10-22] MEDS: Heparin 25,000 UNIT/250 ML D5W 25,000 UNIT/250 ML IV.SOLN IVC SCH (06:35)
[2019-10-22 07:37] VITALS: BP 142/74
[2019-10-22] MEDS: Tiotropium 18 MCG inhalation IH SCH (07:49)
[2019-10-22] MEDS: hydrALAZINE 10 MG TABLET PO SCH (09:35)
[2019-10-22] MEDS: Insulin DETEMIR 100 UNIT/ML X5UNITS SQ SCH (09:35)
[2019-10-22] MEDS: Aspirin Enteric Coated 81 MG Tablet PO SCH (09:35)
[2019-10-22] MEDS: Insulin LISPRO 300 UNITS/3 ML VIAL SQ SCH ×2 (09:35)
[2019-10-22] MEDS: polyethylene glycoL 3350 17 GM POWD.PACK PO SCH (09:36)
== END 2019-10-22 10:28 | disposition home or self-care (01) | DRG 280 ==
LOC: 2NENU 11:04 → EMEROOARM 11:04 → 2NENU 14:45 → OBSVTOIN 14:48 → INTOOBSV 14:48 → SUATTDRO 14:48 → 2ANU 10-13 20:18
PROVIDERS: ADMIT Student in an Organized Health Care Education/Training Program; ATTEND Internal Medicine
PROC: ENDOEBX (2019-10-18 13:40)

== ENCOUNTER 2019-12-04 13:18 | Inpatient (IN) ==
[2019-12-04] MEDS ORDERED: Furosemide 40 MG/4 ML VIAL IVP ONE (13:35)
[2019-12-04 14:03] LABS: Hemoglobin 9.2 g/dL (12.9-16.9)
[2019-12-04 14:05] LABS: Hematocrit 32.8 % (37.5-50.1); Mean Corpuscular Hemoglobin 21.6 pg (28.0-33.3); Mean Corpuscular Volume 77.2 fL (83.0-100.0); Mean Platelet Volume 9.5 fL (9.4-12.4); Platelet Count 133 K/mcL (140-400); Red Blood Count 4.25 M/mcL (4.19-5.50); Red Cell Distribution Width 20.3 % (11.5-14.5); White Blood Count 7.1 K/mcL (4.3-11.1)
[2019-12-04 14:14] LABS: Prothrombin Time 50.7 Seconds (9.4-12.1)
[2019-12-04 14:15] LABS: INR 4.5
[2019-12-04 14:19] LABS: Troponin I 0.05 ng/mL (< 0.04)
[2019-12-04 14:36] LABS: Eosinophils # 0.1 K/mcL (0.0-0.6); Lymphocytes # 0.1 K/mcL (0.6-4.6); Neutrophils # 5.8 K/mcL (1.6-8.9); Platelet Estimate Slight Decrease (Normal); Poikilocytosis 1+ (Not Present); Polychromasia 1+ (Not Present)
[2019-12-04 14:37] LABS: Anisocytosis 2+ (Not Present); Hypochromasia Present (Not Present)
[2019-12-04 14:40] LABS: Calcium 9.2 mg/dL (8.6-10.3); Potassium 3.7 mEq/L (3.5-5.1)
[2019-12-04] MEDS ORDERED: *HR* Dextrose 50 % in Water (Syg) 50 ML SYRINGE IVP PRN (16:12)
[2019-12-04] MEDS ORDERED: D5% in Water 1,000 ML IVC PRN (16:12)
[2019-12-04] MEDS ORDERED: Dextrose Gel 15 GM/37.5 ML TUBE PO PRN ×2 (16:12)
[2019-12-04] MEDS ORDERED: Ondansetron 4 MG/2 ML VIAL IVP PRN (16:44)
[2019-12-04] MEDS ORDERED: Naloxone 0.4 MG/ML INJ IVP PRN (16:44)
[2019-12-04] MEDS: Insulin LISPRO 300 UNITS/3 ML VIAL SQ SCH ×2 (17:44→21:20)
[2019-12-04] MEDS ORDERED: Warfarin perPT PO PRN (18:00)
[2019-12-04] MEDS: Insulin DETEMIR 100 UNIT/ML X5UNITS SQ SCH (21:19)
[2019-12-05 03:20] LABS: Basophils % 1.1 %; Immature Granulocytes % 0.3 % (0-4)
[2019-12-05 03:22] LABS: Basophils # 0.1 K/mcL (0.0-0.2); Eosinophils # 0.3 K/mcL (0.0-0.6); Hematocrit 32.7 % (37.5-50.1); INR 4.1; Immature Platelets 5.3 % (1.1-6.1); Lymphocytes # 0.6 K/mcL (0.6-4.6); Lymphocytes % 9.4 %; Mean Corpuscular HGB Conc 27.5 g/dL (31.6-35.5); Mean Corpuscular Hemoglobin 21.4 pg (28.0-33.3); Mean Corpuscular Volume 77.7 fL (83.0-100.0); Mean Platelet Volume 10.6 fL (9.4-12.4); Monocytes % 15.6 %; Neutrophils # 4.5 K/mcL (1.6-8.9); Platelet Count 119 K/mcL (140-400); Red Blood Count 4.21 M/mcL (4.19-5.50); Red Cell Distribution Width 19.9 % (11.5-14.5); Segmented Neutrophils % 68.6 %; White Blood Count 6.6 K/mcL (4.3-11.1)
[2019-12-05 03:27] LABS: Prothrombin Time 46.3 Seconds (9.4-12.1)
[2019-12-05 03:39] LABS: Calcium 8.9 mg/dL (8.6-10.3); Potassium 3.8 mEq/L (3.5-5.1)
[2019-12-05 03:52] LABS: Hypochromasia Present (Not Present)
[2019-12-05 03:53] LABS: Anisocytosis 1+ (Not Present); Platelet Estimate Slight Decrease (Normal); Polychromasia 1+ (Not Present)
[2019-12-05] MEDS ORDERED: Furosemide 40 MG/4 ML VIAL IVP SCH (09:00)
[2019-12-05] MEDS: hydrALAZINE 10 MG TABLET PO SCH (09:08)
[2019-12-05] MEDS: Aspirin Enteric Coated 81 MG Tablet PO SCH (09:08)
[2019-12-05] MEDS: Insulin NPH 100 UNIT/ML (x5UNIT) SQ SCH ×2 (09:10→17:06)
[2019-12-05] MEDS: Insulin LISPRO 300 UNITS/3 ML VIAL SQ SCH ×4 (09:24→20:57)
[2019-12-05] MEDS: Furosemide 40 MG/4 ML VIAL IVP SCH (17:07)
[2019-12-05] MEDS ORDERED: *HR* Warfarin 2.5 MG TABLET PO ONE (18:00)
[2019-12-05] MEDS: Insulin DETEMIR 100 UNIT/ML X5UNITS SQ SCH (20:58)
[2019-12-06 02:49] LABS: INR 3.8
[2019-12-06 02:51] LABS: Prothrombin Time 43.7 Seconds (9.4-12.1)
[2019-12-06 03:02] LABS: Calcium 8.9 mg/dL (8.6-10.3); Magnesium 2.2 mg/dL (1.6-2.6); Phosphorous 3.5 mg/dL (2.7-4.5); Potassium 3.8 mEq/L (3.5-5.1)
[2019-12-06] MEDS: Furosemide 40 MG/4 ML VIAL IVP SCH ×2 (05:17→20:45)
[2019-12-06] MEDS: Insulin NPH 100 UNIT/ML (x5UNIT) SQ SCH ×2 (08:01→17:58)
[2019-12-06] MEDS: Insulin LISPRO 300 UNITS/3 ML VIAL SQ SCH ×4 (08:01→20:49)
[2019-12-06] MEDS: hydrALAZINE 10 MG TABLET PO SCH (08:08)
[2019-12-06] MEDS: Aspirin Enteric Coated 81 MG Tablet PO SCH (08:08)
[2019-12-06] MEDS ORDERED: Furosemide 40 MG TABLET PO SCH (17:00)
[2019-12-06] MEDS ORDERED: *HR* Warfarin 2.5 MG TABLET PO ONE (18:00)
[2019-12-07 06:13] LABS: Hematocrit 32.8 % (37.5-50.1); Mean Corpuscular HGB Conc 27.4 g/dL (31.6-35.5); Mean Corpuscular Hemoglobin 21.5 pg (28.0-33.3); Mean Corpuscular Volume 78.5 fL (83.0-100.0); Mean Platelet Volume 9.7 fL (9.4-12.4); Platelet Count 116 K/mcL (140-400); Red Blood Count 4.18 M/mcL (4.19-5.50); Red Cell Distribution Width 19.9 % (11.5-14.5); White Blood Count 6.5 K/mcL (4.3-11.1)
[2019-12-07 06:21] LABS: INR 3.1; Prothrombin Time 35.3 Seconds (9.4-12.1)
[2019-12-07 06:30] LABS: Calcium 8.6 mg/dL (8.6-10.3); Potassium 3.9 mEq/L (3.5-5.1)
[2019-12-07] MEDS: Insulin LISPRO 300 UNITS/3 ML VIAL SQ SCH ×4 (09:56→21:40)
[2019-12-07] MEDS: Insulin NPH 100 UNIT/ML (x5UNIT) SQ SCH ×2 (09:57→17:07)
[2019-12-07] MEDS: Furosemide 40 MG/4 ML VIAL IVP SCH ×2 (10:57→21:40)
[2019-12-07] MEDS: hydrALAZINE 10 MG TABLET PO SCH (10:57)
[2019-12-07] MEDS: Aspirin Enteric Coated 81 MG Tablet PO SCH (10:57)
[2019-12-07] MEDS: metOLazone 5 MG TABLET PO SCH (11:08)
[2019-12-07] MEDS ORDERED: *HR* Warfarin 5 MG TABLET PO ONE (18:00)
[2019-12-08 07:39] LABS: Immature Granulocytes % 0.3 % (0-4); Platelet Count 126 K/mcL (140-400)
[2019-12-08 07:41] LABS: Basophils # 0.1 K/mcL (0.0-0.2); Basophils % 1.3 %; Eosinophils # 0.6 K/mcL (0.0-0.6); Eosinophils % 7.9 %; Hematocrit 32.1 % (37.5-50.1); Hemoglobin 9.1 g/dL (12.9-16.9); Lymphocytes # 0.6 K/mcL (0.6-4.6); Lymphocytes % 8.2 %; Mean Corpuscular HGB Conc 28.3 g/dL (31.6-35.5); Mean Corpuscular Hemoglobin 21.8 pg (28.0-33.3); Mean Platelet Volume 10.3 fL (9.4-12.4); Monocytes % 14.2 %; Neutrophils # 4.9 K/mcL (1.6-8.9); Red Blood Count 4.17 M/mcL (4.19-5.50); Segmented Neutrophils % 68.1 %; White Blood Count 7.2 K/mcL (4.3-11.1)
[2019-12-08 07:44] LABS: Hypochromasia Present (Not Present); Platelet Estimate Slight Decrease (Normal)
[2019-12-08 07:51] LABS: INR 2.5
[2019-12-08 07:54] LABS: Potassium 3.9 mEq/L (3.5-5.1)
[2019-12-08] MEDS: metOLazone 5 MG TABLET PO SCH (08:59)
[2019-12-08] MEDS: Aspirin Enteric Coated 81 MG Tablet PO SCH (08:59)
[2019-12-08] MEDS: hydrALAZINE 10 MG TABLET PO SCH (08:59)
[2019-12-08] MEDS: Furosemide 40 MG/4 ML VIAL IVP SCH ×2 (09:00→19:39)
[2019-12-08] MEDS: Insulin NPH 100 UNIT/ML (x5UNIT) SQ SCH ×2 (09:00→18:28)
[2019-12-08] MEDS: Insulin LISPRO 300 UNITS/3 ML VIAL SQ SCH ×4 (09:00→19:40)
[2019-12-08] MEDS ORDERED: *HR* Warfarin 7.5 MG TABLET PO ONE (18:00)
[2019-12-09 05:07] LABS: Eosinophils % 8.1 %; Hemoglobin 9.5 g/dL (12.9-16.9); Mean Corpuscular Hemoglobin 21.7 pg (28.0-33.3); Red Cell Distribution Width 20.3 % (11.5-14.5)
[2019-12-09 05:08] LABS: Hematocrit 34.3 % (37.5-50.1); Mean Corpuscular HGB Conc 27.7 g/dL (31.6-35.5); Mean Corpuscular Hemoglobin 21.4 pg (28.0-33.3); Mean Corpuscular Volume 77.4 fL (83.0-100.0); Platelet Count 132 K/mcL (140-400); Red Blood Count 4.43 M/mcL (4.19-5.50); White Blood Count 6.9 K/mcL (4.3-11.1)
[2019-12-09 05:09] LABS: Basophils # 0.1 K/mcL (0.0-0.2); Basophils % 1.4 %; Eosinophils # 0.6 K/mcL (0.0-0.6); Hematocrit 33.4 % (37.5-50.1); Hemoglobin 9.4 g/dL (12.9-16.9); INR 2.5; Immature Granulocytes % 0.3 % (0-4); Lymphocytes # 0.6 K/mcL (0.6-4.6); Lymphocytes % 8.1 %; Mean Corpuscular HGB Conc 28.1 g/dL (31.6-35.5); Mean Corpuscular Volume 77.1 fL (83.0-100.0); Mean Platelet Volume 9.8 fL (9.4-12.4); Monocytes % 13.6 %; Platelet Count 129 K/mcL (140-400); Red Blood Count 4.33 M/mcL (4.19-5.50); Red Cell Distribution Width 20.1 % (11.5-14.5); Segmented Neutrophils % 68.5 %; White Blood Count 7.3 K/mcL (4.3-11.1)
[2019-12-09 05:25] LABS: Calcium 9.2 mg/dL (8.6-10.3); Potassium 3.9 mEq/L (3.5-5.1)
[2019-12-09 05:43] LABS: Hypochromasia Present (Not Present)
[2019-12-09 05:46] LABS: Anisocytosis 1+ (Not Present); Platelet Estimate Normal (Normal)
[2019-12-09] MEDS: Furosemide 40 MG/4 ML VIAL IVP SCH (08:29)
[2019-12-09] MEDS: Aspirin Enteric Coated 81 MG Tablet PO SCH (08:29)
[2019-12-09] MEDS: hydrALAZINE 10 MG TABLET PO SCH (08:29)
[2019-12-09] MEDS: metOLazone 5 MG TABLET PO SCH (08:29)
[2019-12-09] MEDS: Insulin NPH 100 UNIT/ML (x5UNIT) SQ SCH ×2 (08:33→16:55)
[2019-12-09] MEDS: Insulin LISPRO 300 UNITS/3 ML VIAL SQ SCH ×3 (08:33→13:00)
[2019-12-09] MEDS: amLODIPine 5 MG TABLET PO SCH ×2 (12:55→19:57)
[2019-12-09] MEDS ORDERED: *HR* Warfarin 7.5 MG TABLET PO ONE (18:00)
[2019-12-09] MEDS ORDERED: Insulin LISPRO 300 UNITS/3 ML VIAL SQ SCH (21:00)
[2019-12-10 05:46] LABS: Calcium 9.3 mg/dL (8.6-10.3); Magnesium 2.2 mg/dL (1.6-2.6); Phosphorous 3.3 mg/dL (2.7-4.5); Potassium 4.1 mEq/L (3.5-5.1)
[2019-12-10 06:50] LABS: INR 2.6; Prothrombin Time 29.7 Seconds (9.4-12.1)
[2019-12-10] MEDS: metOLazone 5 MG TABLET PO SCH (07:54)
[2019-12-10] MEDS: Aspirin Enteric Coated 81 MG Tablet PO SCH (07:55)
[2019-12-10] MEDS: Insulin NPH 100 UNIT/ML (x5UNIT) SQ SCH (07:55)
[2019-12-10] MEDS: Insulin LISPRO 300 UNITS/3 ML VIAL SQ SCH ×2 (07:55→11:51)
[2019-12-10] MEDS: amLODIPine 5 MG TABLET PO SCH (07:55)
[2019-12-10] MEDS: hydrALAZINE 10 MG TABLET PO SCH (07:55)
[2019-12-10] MEDS ORDERED: Furosemide 40 MG TABLET PO SCH (08:00)
[2019-12-10 11:13] VITALS: BP 110/60
[2019-12-10] MEDS ORDERED: *HR* Warfarin 5 MG TABLET PO ONE (18:00)
== END 2019-12-10 14:55 | disposition home or self-care (01) | DRG 280 ==
LOC: EMEROOARM 13:18 → 3BNU 13:18 → SUATTDRO 16:11 → 3BNU 17:12
PROVIDERS: ADMIT Student in an Organized Health Care Education/Training Program; ATTEND Internal Medicine